=== PATIENT | male | born 1945 | race Caucasian/White ===

== ENCOUNTER 2023-10-10 13:20 | Observation (INO) ==
--- NOTE | 2023-10-10 14:47 | Emergency Department Note ---
History of Present Illness General Chief complaint: Rib Injury/Pain Stated complaint: BRUISED RIBS, FALL Time Seen by Provider: 10/10/23 14:00 History of Present Illness Maximum Pain Intensity: 6 78-year-old male who presents to the emergency department accompanied by for evaluation of left sided rib pain. Patient states last he fell against a chair while picking up and moving it when it blew off of his deck. He states he felt like he bruised his ribs and was taking it easy over the last week. He states that he returned to exercise yesterday and pain is now worse. It is worse with coughing, sneezing and twisting motion. He denies any fever/chills, nausea/vomiting, chest pain, shortness of breath, abdominal pain. He denies any other injury from his fall. Did not hit his head and there was no loss of consciousness. He is not on any blood thinners. He has been taking Tylenol for his pain. Patient states he does triathlon marathons and is very active usually. He notes history of high blood pressure, high cholesterol, kidney disease. Home Medications Medication Instructions Recorded Confirmed Type Beet Root 250 mg PO DAILY 10/10/23 10/10/23 History albuterol sulfate 90 mcg/actuation 2 puff inhalation Q6H PRN 10/10/23 10/10/23 History aerosol inhaler Shortness Of Breath Or Wheezing amlodipine 10 mg tablet 10 mg PO DAILY 10/10/23 10/10/23 History atorvastatin 10 mg tablet 10 mg PO DAILY 10/10/23 10/10/23 History biotin 5,000 mcg chewable tablet 5,000 mcg PO DAILY 10/10/23 10/10/23 History calcium carb-ergocalciferol (vit 1 tab PO DAILY 10/10/23 10/10/23 History D2) 600 mg calcium-200 unit tablet fosinopril 40 mg tablet 40 mg PO DAILY 10/10/23 10/10/23 History ujxnlqwl-elv-fhobvppaj-C-hyaluronic 1 tab PO DAILY 10/10/23 10/10/23 History 500 mg-300 mg-400 mg-10 mg tablet loratadine 10 mg tablet 10 mg PO DAILY 10/10/23 10/10/23 History multivitamin 1 tab PO DAILY 10/10/23 10/10/23 History omega 1-sxb-vwd-fish oil 1,000 mg 1 cap PO DAILY 10/10/23 10/10/23 History (120 mg-180 mg) capsule (Fish Oil) pantoprazole 40 mg tablet,delayed 40 mg PO DAILY PRN relux 10/10/23 10/10/23 History release spironolactone 25 mg tablet 25 mg PO DAILY 10/10/23 10/10/23 History zinc 50 mg tablet 50 mg PO DAILY 10/10/23 10/10/23 History Past Med/Surg History Medical History Pulmonary hypertension Asthma Hyponatremia Chronic diastolic CHF (congestive heart failure) HTN (hypertension) Surgical History Status post bilateral total hip replacement Social History Smoking Status: Former smoker Hx Alcohol Use: Yes Alcohol type: wine Hx Substance Use: No Preferred Language: Niuean Negotiator Required: No Beliefs That Will Affect Care: None and Shinto Shinto Beliefs: Caodaism; tomorrow Good Saturday, would not like meat. Current Living Situation: Spouse Feels Safe at Home: Yes Safety Concerns: Feels Safe At This Time Assistive Devices: Glasses Physical Exam Vital Signs Vital Signs - 24 hr 10/10/23 13:22 Temperature 36.6 C Temperature Source Temporal Artery Scan Pulse Rate 54 L Respiratory Rate 17 Respiratory Effort / Characteristics Non-Labored Spontaneous Respiratory Depth Normal Blood Pressure 167/81 H Blood Pressure Mean 109 Pulse Oximetry 97 Oxygen Delivery Method Room Air Sepsis Recent Fever Within 48 Hours No Sepsis New/Unexplained Change in Mental Status No Sepsis Action Taken by Nursing No Action Required Constitutional: alert and oriented x3. no acute distress. nontoxic HEENT: normocephalic, atraumatic. No facial trauma. No scalp tenderness or hematoma. Normal conjunctiva.PERRLA. EOM's grossly intact. Neck: neck is supple, nontender. Respiratory: lungs are clear to auscultation without wheezes, rhonchi, or rales bilaterally. equal chest rise. normal respiratory effort, no accessory muscle use. No reproducible tenderness with palpation over left ribs. No ecchymosis, erythema, abrasions. No flail chest Cardiovascular: normal heart sounds without murmur. regular rate and rhythm. GI: abdomen is soft, nontender. No palpable masses. No rebound tenderness or guarding. MSK: Moves all 4 extremities spontaneously Peripheral vascular: extremities warm and well perfused Neuro: without focal neuro deficits. Psych:appropriate mood and affect. Medical Decision Making Differential Diagnosis Rib contusion, fracture, pneumothorax, pleural effusion, pneumonia, PE, ACS as well as other pathologies Laboratory Data Attestation: I reviewed the patient's lab results. 10/10/23 15:10 10/10/23 15:10 Lab Results 10/10/23 Range/Units 15:10 WBC 9.11 (4.8-10.8) K/ul RBC 4.19 L (4.70-6.10) M/uL Hgb 13.7 L (14.0-18.0) g/dl Hct 38.0 L (42.0-52.0) % MCV 90.7 (80.0-100.0) fL MCH 32.7 (25.0-34.0) pg MCHC 36.1 H (32.0-36.0) g/dL RDW Std Deviation 41.3 (36.4-46.3) fL RDW Coeff of Lorrie 12.5 (11.5-14.5) % Plt Count 192 (130-400) K/uL MPV 9.4 (9.4-12.4) fL Immature Gran % (Auto) 0.2 % Neut % (Auto) 51.2 % Lymph % (Auto) 31.5 % [place] % (Auto) 13.7 % Eos % (Auto) 2.3 % Baso % (Auto) 1.1 % Neut # (Auto) 4.66 (1.40-6.50) K/uL Lymph # (Auto) 2.87 (1.20-3.40) K/uL [place] # (Auto) 1.25 H (0.11-0.59) K/uL Eos # (Auto) 0.21 (0.00-0.50) K/uL Baso # (Auto) 0.10 (0.00-0.20) K/uL Immature Gran # (Auto) 0.02 (0.01-0.20) K/uL PT 11.6 (9.0-12.0) Seconds INR 1.1 (0.9-1.1) APTT 29 (21-31) Seconds PTT Ratio 1.0 Sodium 126 L (136-145) mmol/L Potassium 4.1 (3.5-5.1) mmol/L Chloride 92 L (98-107) mmol/L Carbon Dioxide 26 (21-32) mmol/L Anion Gap 8 (3-11) BUN 33 H (6-23) mg/dl Creatinine 0.85 (0.6-1.4) mg/dl Est Cr Clr Drug Dosing 68.0 ml/min Est GFR ( Amer) 97.4 ml/min Est GFR (Non-Af Amer) 84.0 ml/min BUN/Creatinine Ratio 38.8 H (10-20) Glucose 82 (70-99(Fasting)) mg/dl Osmolality 275 L (280-300) mOsm/kg Calcium 9.5 (8.6-10.3) mg/dl Total Bilirubin 0.4 (0.2-1.0) mg/dl AST 51 H (13-39) U/L ALT 21 (7-52) U/L Alkaline Phosphatase 89 (34-104) U/L Troponin I High Sens 21.3 H (0-20) pg/ml Total Protein 7.0 (6.0-8.3) gm/dl Albumin 4.1 (3.4-5.0) gm/dl Globulin 2.9 (2.5-4.0) gm/dl Albumin/Globulin Ratio 1.4 (0.9-2) Imaging Data Radiologist's Impression: Chest CT 10/10/23 14:55 CT OF THE CHEST WITHOUT IV CONTRAST CLINICAL HISTORY: Left rib pain. Fall last week. COMPARISON STUDY: No previous studies for comparison. CT DOSE: 378.31 mGy.cm TECHNIQUE: Axial images of the chest were obtained without IV contrast. Images were reviewed in the axial, sagittal, and coronal planes. IV contrast was not administered for this examination. Automated exposure control was utilized for the study. A dose lowering technique was utilized adhering to the principles of ALARA. FINDINGS: The thoracic aorta is suboptimally assessed on this unenhanced exam but no mediastinal hematoma is noted. There is moderate cardiomegaly and coronary artery calcification. No pericardial effusion. No pneumothorax or pleural effusion is present. There is no pulmonary contusion. Groundglass and linear densities within the lungs represent atelectasis. There are acute nondisplaced fractures of the anterolateral left seventh and eighth ribs. No right-sided rib fractures are present. There are no thoracic spine fractures. IMPRESSION: Acute nondisplaced fractures of the anterolateral left seventh and eighth ribs. No pneumothorax. ACT 112: Negative or not required by law. Electronically signed by: Juan Malik M.D. 10/10/2023 3:47 PM MDM Narrative 78-year-old male who presents to the emergency department for evaluation of left-sided rib pain. Review of pertinent visits and past medical history performed. Vital signs in ED stable, afebrile. Patient was seen and evaluated as above. IV access was established and labs and imaging were obtained. CBC without leukocytosis or acute anemia. CMP demonstrates sodium of 126. No other electrolyte abnormalities. Renal function within normal limits. AST elevated at 51, ALT and alk phos within normal limits. High-sensitivity troponin x 1 elevated at 21. EKG per my interpretation demonstrates sinus bradycardia at a rate of 48 bpm with first-degree AV block. ME interval 226 MS. T wave inversions noted in inferior and anterior lateral leads. When compared to ECG 02/2023 there are more pronounced new T wave inversions in the inferior and lateral leads. 2-hour high-sensitivity troponin normal at 17. A chest CT was performed given mechanism of injury with mechanical fall last week. This demonstrates acute nondisplaced fractures of the left seventh and eighth ribs. No pneumothorax. On exam, patient is well-appearing in no acute distress. There is no significant reproducible tenderness along the left chest wall and ribs. No flail chest. He is breathing well on room air with normal saturations. Lungs are clear without adventitious sounds. Abdominal exam is benign. He declined need for pain or nausea medication while in the ED. On my reassessment, patient remained stable without new concerns. He is updated on all exam findings and test results. CT does demonstrate 2 left-sided rib fractures which is likely from his fall. Labs are significant for hyponatremia as well as elevated troponin x 1. Given these findings, I am recommending admission to the hospital for further evaluation and management. He was agreeable to plan. Case was discussed with hospitalist CLINICAL SUPPORT ASSOCIATE, Neva copeland, who graciously accepted patient to their service for continued management. He was admitted in stable condition. Impression & Plan Multiple rib fractures, Acute hyponatremia, Elevated troponin Discharge Plan Visit Data Chief Complaint: Rib Injury/Pain Stated Complaint: BRUISED RIBS, FALL ED Provider: Lilibeth Roberts ED Midlevel Provider: Sonam Gardner Discharge Problem: Multiple rib fractures, Acute hyponatremia, Elevated troponin Patient Disposition: Admitted As Inpatient Discharge Instructions Interventions: ED Discharge Assessment Last Done: 10/10/23 18:04
[2023-10-10 15:40] LABS: Basophils % (auto) 1.1 %; Eosinophils # (auto) 0.21 K/uL (0.00-0.50); Eosinophils % (auto) 2.3 %; Hemoglobin 13.7 g/dl (14.0-18.0); Immature Granulocytes # (auto) 0.02 K/uL (0.01-0.20); Immature Granulocytes % (auto) 0.2 %; Lymphocytes # (auto) 2.87 K/uL (1.20-3.40); Lymphocytes % (auto) 31.5 %; Mean Corpuscular Hemoglobin 32.7 pg (25.0-34.0); Mean Corpuscular Hgb Conc 36.1 g/dL (32.0-36.0); Mean Corpuscular Volume 90.7 fL (80.0-100.0); Mean Platelet Volume 9.4 fL (9.4-12.4); Monocytes # (auto) 1.25 K/uL (0.11-0.59); Monocytes % (auto) 13.7 %; Neutrophils # (auto) 4.66 K/uL (1.40-6.50); Neutrophils % (auto) 51.2 %; Platelet Count 192 K/uL (130-400); RDW Coefficient of Variation 12.5 % (11.5-14.5); RDW Standard Deviation 41.3 fL (36.4-46.3); Red Blood Count 4.19 M/uL (4.70-6.10); White Blood Count 9.11 K/ul (4.8-10.8)
--- NOTE | 2023-10-10 15:50 | CT Scan Report ---
CT OF THE CHEST WITHOUT IV CONTRAST CLINICAL HISTORY: Left rib pain. Fall last week. COMPARISON STUDY: No previous studies for comparison. CT DOSE: 378.31 mGy.cm TECHNIQUE: Axial images of the chest were obtained without IV contrast. Images were reviewed in the axial, sagittal, and coronal planes. IV contrast was not administered for this examination. Automat ed exposure control was utilized for the study. A dose lowering technique was utilized adhering to t he principles of ALARA. FINDINGS: The thoracic aorta is suboptimally assessed on this unenhanced exam but no mediastinal hem atoma is noted. There is moderate cardiomegaly and coronary artery calcification. No pericardial effu gloria. No pneumothorax or pleural effusion is present. There is no pulmonary contusion. Groundglass an d linear densities within the lungs represent atelectasis. There are acute nondisplaced fractures of the anterolateral left seventh and eighth ribs. No right-sided rib fractures are present. There are n o thoracic spine fractures. IMPRESSION: Acute nondisplaced fractures of the anterolateral left seventh and eighth ribs. No pneum othorax. ACT 112: Negative or not required by law. Electronically signed by: Juan Malik M.D. 10/10/2023 3:47 PM
[2023-10-10 15:57] LABS: Albumin Level 4.1 gm/dl (3.4-5.0); Bilirubin,Total 0.4 mg/dl (0.2-1.0); Calcium 9.5 mg/dl (8.6-10.3); Potassium 4.1 mmol/L (3.5-5.1)
[2023-10-10 16:00] LABS: INR 1.1 (0.9-1.1); Partial Thromboplastin Time 29 Seconds (21-31); Prothrombin Time 11.6 Seconds (9.0-12.0)
[2023-10-10 16:03] LABS: Albumin Globulin Ratio 1.4 (0.9-2); BUN Creatinine Ratio 38.8 (10-20); Est GFR (African American) 97.4 ml/min; Globulin 2.9 gm/dl (2.5-4.0)
[2023-10-10 16:06] LABS: Troponin I High Sensitivity 21.3 pg/ml (0-20)
--- NOTE | 2023-10-10 17:46 | History & Physical Report ---
Date of Service October 10, 2023 Assessment & Plan (1) Hyponatremia: Plan: Admit to [facility] with telemetry Patient presenting from home with reports of left-sided rib pain after a fall 1 week ago In the ED, labs incidentally showed Na+ 126. History of chronic hyponatremia typically managed with diuretics and fluid restriction. Na+ 134 on outpatient labs 07/2023 Worsening of hyponatremia likely secondary to indiscretions of fluid intake Lasix 20 mg IV x 1, 1.2 L fluid restriction Serial BMP Resume p.o. Lasix and spironolactone tomorrow If not improving, consider nephrology consult (2) Rib fractures: Plan: CT chest shows Acute nondisplaced fractures of the anterolateral left seventh and eighth ribs Pain currently controlled PRN Tylenol (3) Acute electrocardiogram changes: Plan: EKG shows more pronounced and new T wave changes in the inferior and lateral leads No reports of chest pain HS troponin 21.3 Continue to trend troponin, resting echo (4) Pulmonary hypertension: (5) Chronic diastolic CHF (congestive heart failure): Plan: Appears to be mildly volume overloaded given hyponatremia and lower extremity edema Diuretics as above (6) HTN (hypertension): Plan: Chronic, stable Continue amlodipine, fosinopril, diuretics (7) Asthma: Plan: Appears stable, no signs of acute exacerbation Does not use routine inhalers DVT PROPHYLAXIS SQ Lovenox Patient seen in collaboration with Dr. Nash. I spent a total of 75 minutes coordinating, documenting, and providing care for this patient excluding time spent in the performance of separately billed services. This included personally reviewing all current laboratories and imaging studies, medication reconciliation, outpatient chart review, and discussion with specialists. History of Present Illness Chief Complaint: Left rib pain Primary Care Provider: Ismael Villavicencio MD 78-year-old male with PMH chronic hyponatremia, HTN, chronic diastolic CHF, and other problems listed below who presents to the ED for evaluation of left-sided rib pain. History is obtained from the patient and review of outpatient PCP, nephrology, cardiology records. Patient reports he sustained a fall 1 week ago when he was moving a chair up onto his patio. Patient reports he slipped and fell onto his left side on the stairs. Reports that he was feeling improved however after exercising this morning, he noted the left-sided rib pain was worse with twisting. He then presented to the ED for further evaluation. Patient has history of chronic hyponatremia, typically managed with diuretics and fluid restriction. Nephrology is recommending a 32 ounce daily fluid restriction, patient does not seem to be monitoring fluid intake closely. He d enies chest pain and shortness of breath. No abdominal pain, nausea, vomiting, diarrhea. Denies any other recent illnesses, fevers, chills. No lightheadedness, dizziness, diaphoresis, syncopal events. Denies urinary symptoms. In the ED, CT chest shows Acute nondisplaced fractures of the anterolateral left seventh and eighth ribs. Labs show Na+ 126. Home Medications Medication Instructions Recorded Confirmed Type Beet Root 250 mg PO DAILY 10/10/23 10/10/23 History albuterol sulfate 90 mcg/actuation 2 puff inhalation Q6H PRN 10/10/23 10/10/23 History aerosol inhaler Shortness Of Breath Or Wheezing amlodipine 10 mg tablet 10 mg PO DAILY 10/10/23 10/10/23 History atorvastatin 10 mg tablet 10 mg PO DAILY 10/10/23 10/10/23 History biotin 5,000 mcg chewable tablet 5,000 mcg PO DAILY 10/10/23 10/10/23 History calcium carb-ergocalciferol (vit 1 tab PO DAILY 10/10/23 10/10/23 History D2) 600 mg calcium-200 unit tablet fosinopril 40 mg tablet 40 mg PO DAILY 10/10/23 10/10/23 History huhvekez-eut-eaejucypg-C-hyaluronic 1 tab PO DAILY 10/10/23 10/10/23 History 500 mg-300 mg-400 mg-10 mg tablet loratadine 10 mg tablet 10 mg PO DAILY 10/10/23 10/10/23 History multivitamin 1 tab PO DAILY 10/10/23 10/10/23 History omega 5-vkp-sju-fish oil 1,000 mg 1 cap PO DAILY 10/10/23 10/10/23 History (120 mg-180 mg) capsule (Fish Oil) pantoprazole 40 mg tablet,delayed 40 mg PO DAILY PRN relux 10/10/23 10/10/23 History release spironolactone 25 mg tablet 25 mg PO DAILY 10/10/23 10/10/23 History zinc 50 mg tablet 50 mg PO DAILY 10/10/23 10/10/23 History Past Med/Surg History Medical History Pulmonary hypertension Asthma Hyponatremia Chronic diastolic CHF (congestive heart failure) HTN (hypertension) Surgical History Status post bilateral total hip replacement Social History Smoking Status: Former smoker Feels Safe at Home: Yes Physical Exam Physical Exam: please refer to Dr. Nash's addendum for physical exam Results & Data Results & Data Vital Signs (Past 12 Hours) Vital Signs Temp Pulse Resp BP Pulse Ox O2 Del Method 10/10/23 17:21 50 L 10/10/23 17:20 47 L 23 152/79 H 10/10/23 13:22 36.6 C 54 L 17 167/81 H 97 Room Air Laboratory Results Short CBC 10/10/23 Range/Units 15:10 WBC 9.11 (4.8-10.8) K/ul Hgb 13.7 L (14.0-18.0) g/dl Hct 38.0 L (42.0-52.0) % Plt Count 192 (130-400) K/uL BMP 10/10/23 15:10 Sodium 126 L Potassium 4.1 Chloride 92 L Carbon Dioxide 26 BUN 33 H Creatinine 0.85 Glucose 82 Calcium 9.5 Liver Function 10/10/23 Range/Units 15:10 Total Bilirubin 0.4 (0.2-1.0) mg/dl AST 51 H (13-39) U/L ALT 21 (7-52) U/L Alkaline Phosphatase 89 (34-104) U/L Albumin 4.1 (3.4-5.0) gm/dl Diagnostic Findings Chest CT 10/10/23 14:55 CT OF THE CHEST WITHOUT IV CONTRAST CLINICAL HISTORY: Left rib pain. Fall last week. COMPARISON STUDY: No previous studies for comparison. CT DOSE: 378.31 mGy.cm TECHNIQUE: Axial images of the chest were obtained without IV contrast. Images were reviewed in the axial, sagittal, and coronal planes. IV contrast was not administered for this examination. Automated exposure control was utilized for the study. A dose lowering technique was utilized adhering to the principles of ALARA. FINDINGS: The thoracic aorta is suboptimally assessed on this unenhanced exam but no mediastinal hematoma is noted. There is moderate cardiomegaly and coronary artery calcification. No pericardial effusion. No pneumothorax or pleural effusion is present. There is no pulmonary contusion. Groundglass and linear densities within the lungs represent atelectasis. There are acute nondisplaced fractures of the anterolateral left seventh and eighth ribs. No right-sided rib fractures are present. There are no thoracic spine fractures. IMPRESSION: Acute nondisplaced fractures of the anterolateral left seventh and eighth ribs. No pneumothorax. ACT 112: Negative or not required by law. Electronically signed by: Juan Malik M.D. 10/10/2023 3:47 PM Code Status & VTE Plan VTE Prophylaxis Plan VTE Prophylaxis will be ordered: Yes Supervising Physician Co-Signing Physician Notes Patient is a 78 yr male with history of diastolic heart failure on chronic diuretics, chronic hyponatremia and other medical problems presents with history of left-sided rib pain after exercising this morning. Patient admits to have a fall 1 week ago which was mechanical denies any head trauma and loss of consciousness at the time. Patient was incidentally noted to have low sodium while in ED and so was plan for being admitted. Patient denies any significant pain currently. Also denies any shortness of breath, dizziness, nausea, vomiting, abdominal pain, diarrhea. Please review HPI for complete details of presentation. I personally reviewed blood work and imaging studies. Physical Exam: Vitals signs as noted above General Appearance:Moderately built and nourished, no apparent distress Head: normocephalic, Atraumatic Eyes: normal inspection, EOMI Neck: supple, Trachea midline Respiratory/Chest: Normal breath sounds, CTA, No accessory muscle use Cardiovascular: S1, S2, bradycardia, No murmur Abdomen/GI:Soft, Non tender, Bowel sounds present Extremities/Musculoskeletal:normal inspection, 2-3+ edema Neurologic/Psych:AAOX3, grossly no focal neurological deficits Skin: normal color, warm Acute on chronic hyponatremia Likely multifactorial secondary to increased fluid intake/volume overload and diuretics Will place him on fluid restriction. Will give a dose of IV Lasix. Monitor sodium levels closely. Check urine and serum osmolality, urine sodium Will consult nephrology if no improvement Abnormal EKG Mild troponin elevation Less likely ACS Will trend troponins and check resting echo Consider cardiology evaluation if needed Traumatic left rib fractures Pain control Incentive spirometry I personally interviewed and examined at bedside. Patient's care is coordinated with Neva Patel COMMERCIAL TECHNICIAN. I have reviewed the advanced practitioner's documentation, and I agree with plan of care. Please refer to the documentation above for details of patient's presentation and for discussion of other issues. I spent a total of35 minutes coordinating, documenting, and providing care for this patient excluding time spent in the performance of separately billed services.
[2023-10-10] MEDS ORDERED: ACETAMINOPHEN 325 MG TAB PO PRN (18:33)
[2023-10-10] MEDS: Patient's ALLERGY Info needs ENTERED STA (20:13)
[2023-10-10 23:17] LABS: Calcium 8.8 mg/dl (8.6-10.3); Potassium 4.1 mmol/L (3.5-5.1)
[2023-10-10 23:23] LABS: Creatinine Clr Calc Pharmacy 52.6 ml/min; Est GFR (African American) 75.5 ml/min; Est GFR (Non-African American) 65.1 ml/min
[2023-10-10 23:25] LABS: Troponin I High Sensitivity 15.4 pg/ml (0-20)
[2023-10-10] MEDS: ENOXAPARIN INJ 40 MG/0.4 ML SYR SQ SCH (23:30)
[2023-10-11] MEDS: FUROSEMIDE INJ 20 MG/2 ML VIAL IV ONE ×2 (01:15→06:30)
--- OUTSIDE RECORDS SUMMARY | 2023-10-11 01:31 | External Medical Summary | Summary of Care ---
Author Name Unknown Organization [facility] Address [address] [place] [address] Phone [phone] Care Team Providers Care Bottle Inspector Name Role Phone Ismael Villavicencio MD Primary Care Provider + Encounter Details Date Type Department Care Team (Late st Contact Info) Description 06/28/2023 Orders Only General Internal Medicine [facility] [place] [address] [facility] [place] [address] Ismael Villavicencio MD [address] [facility] [place] [id number] Allergies Active Allergy Reactions Criticality Noted Date Comments Baclofen Other (Please comment) 03/16/2021 Passed out Phenytoin Other (Please comment) 03/16/2021 Passed out Oxycodone Itching 03/16/2021 Percocet - itching documented as of this encounter (statuses as of 06/28/2023) Medications Medication Sig Dispensed Refills Start Date End Date Status Multivitamin Adults 50+ Oral Tablet Take by mouth. 0 Activ e Calcium Carbonate-Vitamin D 600-200 MG-UNIT Oral Tablet Take 1 Tablet by mouth in the morning. 0 Active Zinc 50 MG Oral Capsule Take 1 Capsule by mouth in the morning. 0 Active Vitamin C 1000 MG Oral Tablet Take 1 Tablet by mouth in the morning. 0 Active Fish Oil 1000 MG Oral Capsule Take 1 Capsule by mouth in the morning. 0 Active Biotin 5000 MCG Oral Capsule Take 1 Capsule by mouth in the morning. 0 Active Glucosamine Chondr 1500 Complx Oral Capsule Take 2 Capsules by mouth in the morning. 0 Active Ventolin HFA 108 (90 Base) MCG/ACT Inhalation Aerosol SolutionIndications: Mild intermittent asthma without complication Inhale 2 Puffs by mouth every 4 hours as needed for Cough, Shortness of Breath or Wheezing. 18 g 3 06/01/2021 Active NATURAL SUPPLEMENT Take by mouth daily . Beet Root 0 Active Pantoprazole Sodium 40 MG Oral Tablet Delayed Release (Protonix) Take 1 Tablet by mouth as needed. 0 Active Zoster Vac Recomb Adjuvanted 50 MCG/0.5ML Intramuscular Suspension Reconstituted (Shingrix)Indication s:Need for shingles vaccine Inject 0.5 mL into a large muscle now and repeat dose in 60 to 180 days 1 Each 1 10/16/2022 Active Additional Information Patient not taking.Reported on 06/07/2023 Furosemide 40 MG Oral Tablet (Lasix) TAKE 1 TABLET BY MOUTH EVERY DAY 90 Tablet 3 12/11/2022 Active Atorvastatin Calcium 10 MG Oral Tablet (Lipitor) TAKE 1 TABLET BY MOUTH EVERY DAY IN THE MORNING 90 Tablet 3 03/10/2023 Active Loratadine 10 MG Oral Tablet (Claritin)Indication s:Chronic rhinitis Take 1 Tablet by mouth in the morning. 90 Tablet 3 03/13/2023 Active amLODIPine Besylate 10 MG Oral Tablet (Norvasc)Indications :Hypertension goal BP (blood pressure) < 130/80 Take 0.5 Tablets by mouth every evening. 45 Tablet 3 06/04/2023 Active Fosinopril Sodium 40 MG Oral Tablet (Monopril)Indication s:Hypertension goal BP (blood pressure) < 130/80 TAKE 1 TABLET BY MOUTH EVERY DAY IN THE MORNING 90 Tablet 3 06/07/2023 Active Cephalexin 500 MG Oral Capsule (Keflex) Take 1 Capsule by mouth in the morning and 1 Capsule at noon and 1 Capsule before bedtime. 0 06/02/2023 Active Doxycycline Hyclate 100 MG Oral Tablet Take 1 Tablet by mouth in the morning and 1 Tablet before bedtime. 0 06/02/2023 Active Spironolactone 25 MG Oral Tablet (Aldactone)Indicatio ns:Hypertension goal BP (blood pressure) < 130/80 Take 1 Tablet by mouth in the morning. 90 Tablet 3 06/28/2023 Active Hospital, Clinic, or Other Facility Administered Medication Ordered Dose Route Frequency Start Date End Date Status Albuterol Sulfate (Proventil) (2.5 MG/3ML) 0.083% inhalation solution 2.5 mgIndications:SOB (shortness of breath),Mild persistent asthma without complication 2.5 mg NEBULIZER PRN 10/17/2022 10/17/2023 Active Albuterol Sulfate (Proventil) (5 MG/ML) 0.5% *conc* inhalation solution 2.5 mgIndications:SOB (shortness of breath),Mild persistent asthma without complication 2.5 mg NEBULIZER PRN 10/17/2022 10/17/2023 Active documented as of this encounter (statuses as of 06/28/2023) Active Problems Problem Noted Date Diagnosed Date 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 Mild aortic regurgitation 10/15/2021 Mild persistent asthma without complication 09/12 Pulmonary hypertension 06/01/2021 Chronic diastolic congestive heart failure 04/03 Mild mitral regurgitation 04/03/2021 Mixed hyperlipidemia 03/17/2021 Chronic edema 03/17/2021 Hypertension goal BP (blood pressure) < 130/80 0 03/16/2021 Chronic hyponatremia 03/16/2021 Osteoarthritis 03/16/2021 documented as of this encounter (statuses as of 06/28/2023) Resolved Problems Problem Noted Date Diagnosed Date Resolved Date Mild intermittent asthma with exacerbation 09/22/2021 09/22/2021 High pulmonary arterial pressure 04/03/2021 12/01/2021 Hyperlipidemia 03/16/2021 03/17/2021 documented as of this encounter (statuses as of 06/28/2023) Immunizations Name Administration Dates Next Due COVID-19 mRNA, LNP-s, No Pre serve, 2-Dose Series (Moderna) 03/10/2021,09/18/2020,08/21/2020 Covid-19, Mrna, Lnp-s, Pf, B ivalent, 50 Mcg, IM, 12 yrs and above (Moderna) 04/17/2022 Pneumococcal Conjugate Vacc, 13 Valent (Prevnar) 08/28/2018 Pneumococcal Conjugate Vacci ne, 20-valent ([id number]) 10/16/2022 Seasonal Influenza, Quadriva lent Hd (Fluzone Hd) 03/15/2023 Seasonal Influenza, Trivalen t, Adjuvanted, 65+ yrs 03/21/2021,06/19/2018 TDAP (age 10 and older)(Boostrix) 04/30/2023 documented as of this encounter Social History Tobacco Use Types Packs/Day Years Used Date Smoking Tobacco: Former Cigarettes 0.8 27 Q uit: 07/15/1993 Smokeless Tobacco: Never Alcohol Use Standard Drinks/Week Comments Yes 2 (1 standard drink = 0.6 oz pur e alcohol) socially AUDIT-C Answer Date Recorded Q1: How often do you have a drink containing alc ohol? 2-3 times a week 03/17/2021 Q2: How many drinks containi ng alcohol do you have on a typical day when you are drinking? 1 or 2 03/17/2021 Q3: How often do you have si x or more drinks on one occasion? Never 03/17/2021 PHQ-2 Answer Date Recorded PHQ Adult Total Score 0 04/30/2023 Sex and Gender Information Value Date Recorded Sex Assigned at Male 03/17/2021 9:24 AM EDT Gender Identity Male 03/17/2021 9:24 AM EDT Sexual Orientation Straight 03/17/2021 9: 24 AM EDT Job Start Date Occupation Industry Not on file Not on file Not on file documented as of this encounter Plan of Treatment Upcoming Encounters Date Type Department Care Team (Late st Contact Info) Description 08/19/2023 3:00 PM EST Office Visit Pulmonary Medicine, [facility] [address] [facility] [place] [address] Sumanth Ye DO [address] [place] [address] 11/07/2023 11:30 AM EDT Office Visit Nephrology, [facility] [address] [place] [address] Joana Gaspar PA-C [address] [place] [address] 11/07/2023 2:40 PM EDT Office Visit General Internal Medicine [facility] [place] [address] [place] [address] Ismael Villavicencio MD [address] [facility] [place] [address] 12/10/2023 10:15 AM EDT Office Visit Dermatology [facility] [address] [place] [address] Ismael Nolan MD [address] [place] [address] 12/30/2023 9:20 AM EDT Office Visit Neurology [facility] [address] [facility] [place] [address] Wes Uribe MD [address] [place] [address] 01/14/2024 2:30 PM EDT Cardiac Studies Cardiac Studies, [facility] [address] [place] [address] Scheduled Procedures Name Priority Associated Diagnoses Date/Ti me COLONOSCOPY FLEXIBLE PROXIMAL DIAGNOSTIC Recall History of colon polyps Health Maintenance Due Date Last Done Comments Zoster Vaccines (1 of 2) 1996 COVID-19 Vaccine (2022- season) 2023 04/17/2022, 03/10/2021, 09/18/2020, Additional history exists COLONOSCOPY-ANNUAL AGES 18-100 12/26/2023 12/25/2022, 12/25/2022, 09/04/2022, Additional history exists Depression Screening 04/30/2024 04/30/2023 GFR 06/07/2024 06/07/2023, 05/15, 04/16/2023, Additional history exists Albumin/Creatinine Ratio 04/23/2025 04/23/2022, 0908/2020 DTaP,Tdap,and Td Vaccines (3 - Td or Tdap) 04/30/2033 04/30/2023, 03/08/2018 Pneumococcal Vaccine: 65+ Years Completed 10/16/2022, 08/28/2018 Influenza Vaccine (FLU shot) Completed 07/2022, 03/21/2021, 06/19/2018 GARDASIL-HPV IMMUNIZATION SERIES Aged Out No longer eligible based on patient's age to complete this topic Hepatitis B Aged Out No longer eligi ble based on patient's age to complete this topic MENINGOCOCCAL (MENACTRA/MENVEO) Aged Out No longer eligible based on patient's age to complete this topic documented as of this encounter Medical Devices Not on filedocumented as of this encounter Procedures Procedure Name Priority Date/Time Associated Diagnosis Comments CHEMISTRY-OUTSIDE Routine 06/02/2023 documented in this encounter Results * (ABNORMAL) CHEMISTRY-OUTSIDE (06/02/2023) Not all results display below - see scan for full detail OUTSIDE LAB (SEE SCANNED REPORT) Comment:SCAN INCL: ED LABS: CBCD,BABESIA SM, CMP,LYME, ANAPL PHAGO CREATININE-OUTSID E LAB 1.00 0.6 - 1.4 MG/DL OUTSIDE LAB (SEE SCANNED REPORT) EGFR-OUTSIDE LAB 72.3 OUT SIDE LAB (SEE SCANNED REPORT) POTASSIUM-OUTSIDE LAB 4.7 3.5 - 5.1 MMOL/L OUTSIDE LAB (SEE SCANNED REPORT) GLUCOSE-OUTSIDE LAB 105(A) 70 - 99 MG/DL OUTSIDE LAB (SEE SCANNED REPORT) HOURS FASTING OUTSID E LAB (SEE SCANNED REPORT) TRIGLYCERIDES-OUT SIDE LAB OUTSIDE LAB (SEE SCANNED REPORT) CHOLESTEROL-OUTSI DE LAB OUTSIDE LAB (SEE SCANNED REPORT) HDL-OUTSIDE LAB OUTS MEGAN LAB (SEE SCANNED REPORT) CHOL/HDL RATIO-OUTSIDE LAB OUTSIDE LA B (SEE SCANNED REPORT) LDL (CALCULATED)-OUTS MEGAN LAB OUTSIDE LAB (SEE SCANNED REPORT) LDL (DIRECT MEASURE)-OUTSIDE LAB OUTSIDE LAB (SEE SCANNED REPORT) HEMOGLOBIN, K2S-[id number] LAB OUTSIDE LAB (SEE SCANNED REPORT) PHOSPHORUS-OUTSID E LAB OUTSIDE LAB (SEE SCANNED REPORT) PTH-OUTSIDE LAB OUTS MEGAN LAB (SEE SCANNED REPORT) MICROALBUMIN RATIO-OUTSIDE LAB OUTSIDE LA B (SEE SCANNED REPORT) PROTEIN, UA-OUTSIDE LAB OUTSIDE LAB (SEE SCANNED REPORT) HEMOGLOBIN-OUTSID E LAB 14.0 14.0 - 18.0 G/DL OUTSIDE LAB (SEE SCANNED REPORT) 06/02/2023 History Per Patient LABORATORY OUTSIDE LAB (SEE SCANNED REPORT) documented in this encounter Care Teams Bottle Inspector Relationship Specialty Start Date End Date Ismael Villavicencio MD [address] [facility], [place] [phone] PCP - General Internal Medicine 03/17/21 documented as of this encounter
--- OUTSIDE RECORDS SUMMARY | 2023-10-11 01:31 | External Medical Summary | Summary of Care ---
Author Name Unknown Organization [facility] Address [address] [place] [address] Phone [phone] Care Team Providers Care Local Company Hazmat Driver Name Role Phone Ismael Villavicencio MD Primary Care Provider + Encounter Details Date Type Department Care Team (Late st Contact Info) Description 06/02/2023 Result Scan Unspecified Department <No scans attached> Allergies Active Allergy Reactions Criticality Noted Date [...] the morning. 90 Tablet 3 03/13/2023 Active Hospital, Clinic, or Other Facility Administered [...] (Prevnar) 08/28/2018 Pneumococcal Conjugate Vacci ne, 20-valent ([id number]) 10/16/2022 Seasonal Influenza, Quadriva lent Hd (Fluzone [...] 3:00 PM EST Office Visit Pulmonary Medicine, [facility] [address] [place] [address] Sumanth Ye DO [address] [place] [address] 11/07/2023 11:30 AM EDT Office Visit Nephrology, [facility] [address] [facility] [place] [address] ZemaitisJoana PA-C [address] [facility] [place] [address] 11/07/2023 2:40 PM EDT Office Visit General Internal Medicine [facility] [address] [facility] [place] [address] Ismael Villavicencio MD 200 [place] [address] 12/10/2023 10:15 AM EDT Office Visit Dermatology [facility] [address] [facility] [place] [address] Ismael Nolan MD [address] [place] [address] 12/30/2023 9:20 AM EDT Office Visit Neurology [facility] [address] [facility] [place] [address] Wes Uribe MD [address], [place] [id number] 01/14/2024 2:30 PM EDT Cardiac Studies Cardiac Studies, [facility] [address] [facility] [place] [id number] Scheduled Procedures Name Priority Associated Diagnoses Date/Ti me COLONOSCOPY FLEXIBLE PROXIMAL DIAGNOSTIC Recall History of colon polyps Health Maintenance Due Date Last Done Comments Zoster Vaccines (1 of 2) 1996 COVID-19 Vaccine ( season) 2023 04/17/2022, 03/10/2021, 09/18/2020, Additional history [...] Procedure Name Priority Date/Time Associated Diagnosis Comments RADIOLOGY SCANNED RESULT 06/02/2023 documented in this encounter Results * RADIOLOGY SCANNED RESULT (06/02/2023) 06/02/2023 No Physician Data Unknown DIAGNOSTIC RAD IOLOGY SERVICES documented in this encounter Care Teams Local Company Hazmat Driver Relationship Specialty Start Date End Date Ismael Villavicencio MD [address] [facility] [place] [address] PCP - General Internal Medicine 03/17/21 documented as of this encounter
--- OUTSIDE RECORDS SUMMARY | 2023-10-11 01:31 | External Medical Summary | Summary of Care ---
Author Name Unknown Organization [facility] Address [address] [place] [address] Phone [phone] Care Team Providers Care Electromechanical Technologist Name Role Phone Ismael Villavicencio MD Primary Care Provider + Reason for Visit * Reason Comments Follow Up * Evaluate & Treat - Unlimited Visits (Within 30 days (routine)) - Authorized Specialty Diagnoses / Procedures Referred By Contac t Referred To Contact Pulmonary Diseases / Pulmonary Diagnoses Mild persistent asthma without complication Pulmonary hypertension (HCC) Ismael Villavicencio MD [address] [place] [address] Referral ID Status Reason Start Date Expiration Date Visits Requested Visits Authorized [id number] Authorized Specialty Services Required 3 [phone] Encounter Details Date Type Department Care Team (Late st Contact Info) Description 09/02/2023 12:00 PM EST Office Visit Pulmonary Medicine, [address] [address] Sumanth Ye DO [address] [place] [address] Intermittent asthma with reliever use up to twice per week without complication*; Tobacco abuse, in remission; Secondhand smoke exposure; Diastolic dysfunction; Suspected pulmonary hypertension Allergies Active Allergy Reactions Criticality Noted Date Comments Baclofen Other (Please comment) 03/16/2021 Passed out Phenytoin Other (Please comment) 03/16/2021 Passed out Oxycodone Itching 03/16/2021 Percocet - itching documented as of this encounter (statuses as of 09/02/2023) Medications Medication Sig Dispensed Refills Start Date [...] as of this encounter (statuses as of 09/02/2023) Active Problems Problem Noted Date Diagnosed Date 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 Mild aortic regurgitation 10/15/2021 Mild persistent asthma without complication 09/12 Pulmonary hypertension 06/01/2021 Chronic diastolic congestive heart failure 04/03 Mild mitral regurgitation 04/03/2021 Mixed hyperlipidemia 03/17/2021 Chronic edema 03/17/2021 Hypertension goal BP (blood pressure) < 130/80 0 03/16/2021 Chronic hyponatremia 03/16/2021 Osteoarthritis 03/16/2021 documented as of this encounter (statuses as of 09/02/2023) Resolved Problems Problem Noted Date Diagnosed Date Resolved Date Mild intermittent asthma with exacerbation 09/22/2021 09/22/2021 High pulmonary arterial pressure 04/03/2021 12/01/2021 Hyperlipidemia 03/16/2021 03/17/2021 documented as of this encounter (statuses as of 09/02/2023) Immunizations Name Administration Dates Next Due COVID-19 mRNA, LNP-s, No Pre serve, 2-Dose Series (Moderna) 03/10/2021,09/18/2020,08/21/2020 Covid-19, Mrna, Lnp-s, Pf, B ivalent, 50 Mcg, IM, 12 yrs and above (Moderna) 04/17/2022 Pneumococcal Conjugate Vacc, 13 Valent (Prevnar) 08/28/2018 Pneumococcal Conjugate Vacci ne, 20-valent ([id number]) 10/16/2022 Seasonal Influenza, Quadriva lent Hd (Fluzone Hd) 03/15/2023 Seasonal Influenza, Trivalen t, Adjuvanted, 65+ yrs 03/21/2021,06/19/2018 TDAP (age 10 and older)(Boostrix) 04/30/2023, documented as of this encounter Social History Tobacco Use Types Packs/Day Years Used Date Smoking Tobacco: Former Cigarettes 0.8 27 0 07/15/1966 - 07/15/1993 Smokeless Tobacco: Never Tobacco Cessation:Counseling Given: Not Answered Alcohol Use Standard Drinks/Week Comments Yes 2 [...] on file documented as of this encounter Last Filed Vital Signs Vital Sign Reading Time Taken Comments Blood Pressure 128/64 09/02/2023 11:58 AM EST Pulse 62 09/02/2023 11:58 AM EST Temperature 35.9 C (96.7 F) 09/02/2023 11:[address] Respiratory Rate 18 09/02/2023 11:58 AM EST Oxygen Saturation 96% 09/02/2023 11:59 AM EST ra, amb Inhaled Oxygen Concentration - - Weight 72.6 kg (160 lb) 09/02/2023 11:58 AM EST Height 165.1 cm (5' 5") 09/02/2023 11:58 AM EST Body Mass Index 26.63 09/02/2023 11:58 AM EST documented in this encounter Progress Notes * Ephraim SumanthDO - 09/02/2023 12:00 PM EST PULMONARY CLINIC FOLLOW UP NOTE REFERRING PROVIDER: Ismael Villavicencio MD [facility] REPAIR SERVICER: Nikunj Palacios MD -- last seen 12/01/2021 REASON FOR FOLLOW UP: Mild persistent asthma without complication [J45.30] Pulmonary hypertension (HCC) [I27.20] BACKGROUND: 78 year old with past medical history significant for prior tobacco smoking (smoked 3/4 pack cigarettes per day X 27 years. Quit 1993), pulmonary hypertension suspected per echocardiogram, diastolic dysfunction and valvular heart disease, hyperlipidemia. HPI / ROS: Feeling "Good. Just a regular check up" He notes no recent respiratory issues No shortness of breath at rest or conversational dyspnea No orthopnea Trivial dyspnea on exertion He remains "Very very active" He runs "Half marathons, triathlons" He has been practicing swimming "I'm up to 30 laps at one time. 35 laps is a mile" He notes he swims 3 times a week & also does cycling classes No cough or sputum No hemoptysis No wheeze or chest tightness No chest pain or palpitations No edema Spironolactone Furosemide No syncope or presyncopal symptoms no fevers, chills, sweats Appetite & weight "No" changes Supplemental oxygen: No PAP: No No environmental allergies Loratadine No GERD symptoms Pantoprazole Illegal drug/diet pill/stimulant use: No Skin rashes, painful/red/swollen joints No No dry eyes/dry mouth Inhaled medications: PRN Ventolin HFA. Using Not using" Past Medical History: Diagnosis Date Chronic edema 03/17/2021 Chronic hyponatremia 03/16/2021 Diastolic dysfunction 04/03/2021 Hypertension goal BP (blood pressure) < 130/80 03/16/2021 Lung nodule Mild aortic regurgitation 10/15/2021 Mild intermittent asthma with exacerbation 09/22/2021 Mild mitral regurgitation 04/03/2021 Mild persistent asthma without complication 09/22/2021 Mixed hyperlipidemia 03/17/2021 Osteoarthritis 03/16/2021 Review of patient's allergies indicates: Allergen Reactions Baclofen Other (Please comment) Passed out Dilantin [Phenytoin] Other (Please comment) Passed out Oxycodone Itching Percocet - itching Current Outpatient Medications Medication Sig Dispense Refill Multivitamin Adults 50+ Oral Tablet Take by mouth. Calcium Carbonate-Vitamin D 600-200 MG-UNIT Oral Tablet Take 1 Tablet by mouth in the morning. Zinc 50 MG Oral Capsule Take 1 Capsule by mouth in the morning. Vitamin C 1000 MG Oral Tablet Take 1 Tablet by mouth in the morning. Fish Oil 1000 MG Oral Capsule Take 1 Capsule by mouth in the morning. Biotin 5000 MCG Oral Capsule Take 1 Capsule by mouth in the morning. Glucosamine Chondr 1500 Complx Oral Capsule Take 2 Capsules by mouth in the morning. Ventolin HFA 108 (90 Base) MCG/ACT Inhalation Aerosol Solution Inhale 2 Puffs by mouth every 4 hours as needed for Cough, Shortness of Breath or Wheezing. 18 g 3 NATURAL SUPPLEMENT Take by mouth daily . Beet Root Pantoprazole Sodium 40 MG Oral Tablet Delayed Release (Protonix) Take 1 Tablet by mouth as needed. Zoster Vac Recomb Adjuvanted 50 MCG/0.5ML Intramuscular Suspension Reconstituted (Shingrix) Inject 0.5 mL into a large muscle now and repeat dose in 60 to 180 days (Patient not taking: Reported on 06/07/2023) 1 Each 1 Furosemide 40 MG Oral Tablet (Lasix) TAKE 1 TABLET BY MOUTH EVERY DAY 90 Tablet 3 Atorvastatin Calcium 10 MG Oral Tablet (Lipitor) TAKE 1 TABLET BY MOUTH EVERY DAY IN THE MORNING 90Tablet 3 Loratadine 10 MG Oral Tablet (Claritin) Take 1 Tablet by mouth in the morning. 90 Tablet 3 amLODIPine Besylate 10 MG Oral Tablet (Norvasc) Take 0.5 Tablets by mouth every evening. 45 Tablet 3 Fosinopril Sodium 40 MG Oral Tablet (Monopril) TAKE 1 TABLET BY MOUTH EVERY DAY IN THE MORNING 90 Tablet 3 Cephalexin 500 MG Oral Capsule (Keflex) Take 1 Capsule by mouth in the morning and 1 Capsule at noon and 1 Capsule before bedtime. Doxycycline Hyclate 100 MG Oral Tablet Take 1 Tablet by mouth in the morning and 1 Tablet before bedtime. Spironolactone 25 MG Oral Tablet (Aldactone) Take 1 Tablet by mouth in the morning. 90 Tablet 3 Current Facility-Administered Medications Medication Dose Route Frequency Provider Last Rate Last Admin Albuterol Sulfate (Proventil) (2.5 MG/3ML) 0.083% inhalation solution 2.5 mg 2.5 mg Nebulizer PRN ShannonEsteban PA-C 2.5 mg at 10/30/22 1100 Albuterol Sulfate (Proventil) (5 MG/ML) 0.5% *conc* inhalation solution 2.5 mg 2.5 mg Nebulizer Esteban Munroe PA-C SOCIAL HISTORY Pulmonary History: Prior smoker: 3/4 pack cigarettes per day X 27 years. 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 No birds Mold: No Humidifier: No PHYSICAL EXAM: BP 128/64 | Pulse 62 | Temp 35.9 C (96.7 F) (Tympanic) | Resp 18 | Ht 1.651 m (5' 5") | Wt 72.6kg (160 lb) | SpO2 96% Comment: karthik lakhani | BMI 26.63 kg/m | BSA 1.82 m General: Alert, no acute distress, appears comfortable & speaks in full sentences while on roomair. No cough during interview. Eyes: EOMI, Conjunctiva are pink and non-injected, sclera clear Ears: External ears normal in shape and color Nose: No mucosal erythema, no mucosal edema, no purulent discharge Oropharynx: No exudate, no erythema, lips, buccal mucosa, and tongue normal, MMM. Neck: No bruits. No stridor. Lymph: No palpable cervical or supraclavicular lymphadenopathy Heart: regular without extra sounds Lungs: Clear to auscultation with preserved air movement bilaterally Pulses: palpable in Bilateral lower extremmities Abdomen: Soft, non-tender and normal bowel sounds Extremities: No edema, no cyanosis Neurologic: Alert & oriented x 3 with fluent speech, no focal motor/sensory deficits Skin: No rashes or significant lesions on the exposed skin Labs: 07/24/2023: BMP: Normal bicarbonate and measured anion gap. Hyponatremia and hypochloremia. Estimated GFR 71. 06/07/2023: CBC with differential: Normal white blood cell count. Absolute eosinophil count 0.25K/uL. Normal hemoglobin. Normal platelet count. 04/16/2023: LFTs: Within normal limits 06/01/2021: RAST: Negative IgE: 3.4 Clinician interpretation of Pulmonary Function Tests: 10/30/2022: Baseline spirometry is normal. Following bronchodilator, there is no significant change. Limited lung volumes (SVC, IC, ERV) are unremarkable. The flow volume loop is normal. When compared to prior pulmonary function testing performed 11/14/2021 and 05/03/2021, there has been no significant change. Clinician interpretation of Chest X-ray: 08/28/2021: Part of x-ray rib series: Limited inspiratory result bibasilar atelectasis. Lung fieldswithout infiltrate or gross pleural disease. Cardiomediastinal silhouette with prominent clinton. Whencompared to prior chest x- ray 04/04/2021, there has been no significant change Clinician interpretation of Chest CT scan: None on file Echocardiogram: 11/08/2021: Exercise stress echocardiogram: Low heart rate response to stress reduces the sensitivity test. No arrhythmias. Above average exercise tolerance for age. 10/09/2021: LV EF 60-64%. Left atrium severely enlarged. Right atrium severely enlarged. Grade 1 diastolic dysfunction. Trace aortic regurgitation. RV cavity severely dilated. RV systolic function severely reduced. Mild mitral regurgitation. Mild tricuspid regurgitation. Normal IVC size and collapsibility with sniff. Estimated PA systolic pressure is 45 mm Hg. No pericardial effusion. PA acceleration time 0.12 seconds. Tricuspid regurgitant max velocity 250.5 centimeters/second. Assessment: Asthma. Symptoms mild intermittent, at worst Possible/questionable Pulmonary hypertension, as suspected per echocardiogram 10/09/2021. WHO functional class 1 (denies any significant cardiopulmonary limitations despite being extremely physicallyactive). Risk factors for the following WHO pulmonary hypertension groups: 1: Idiopathic. Denies symptoms of overt rheumatologic disease. Denies drug/toxin exposure. No knownliver disease. 2: Diastolic dysfunction, valvular heart disease 3: Parenchymal lung disease not yet entirely excluded. Sleep disordered breathing and/or periods ofhypoxemia not yet entirely excluded 4: Chronic thromboembolic disease not yet excluded 5: Stage 2 chronic kidney disease History of cigarette smokin/4 pack cigarettes per day X 27 years. Quit 1993 History of secondhand smoke exposure: and sons were smokers Denies occupational exposures Hyperlipidemia The patient reports feeling well. He denies any significant cardiorespiratory symptoms despite being very physically active. He notes he participates in half marathons and triathlons. He reports swimming nearly 1 mi at a time, 3 times per week and doing cycling classes multiple times per week as well. Recommendations and Plans: Pulmonary vasodilators: None needed/none indicated. The patient lacks any significant symptoms of pulmonary hypertension. Pulmonary function testing: None further needed for now Chest imaging: Based on clinical course, could consider a noncontrast/high-resolution chest CT for evaluation of lung parenchyma Based on clinical course, may eventually consider a nuclear medicine ventilation/perfusion scan order to assess for the possibility of chronic thromboembolism Due to his smoking history (quit > 15 years ago), he no longer qualifies for yearly low-dose chest CT for lung cancer surveillance as per traditional guidelines Bronchoscopy/tissue sampling: None needed/none recommended for now Cardiac testing: None ordered/none needed If/when further clarification of pulmonary pressures are required, would need to undergo right heart catheterization. However, he presently is doing quite well and no right heart catheterization is needed at this time. Inhaled medications: Continue without change as he reports very infrequent use PRN albuterol PRN Ventolin Supplemental oxygen/PAP: None prescribed. No hypoxemia noted Denies overt symptoms of sleep disordered breathing Pulmonary hygiene: Regular aerobic exercise is recommended. Pulmonary rehabilitation: None needed. He remains very physically active Labs: Based on clinical course and if symptoms of pulmonary hypertension develop, can consider the following: Rheumatologic screening labs HIV antigen/antibody testing High sensitivity troponin T ProBNP Specialty follow-up: No referrals placed today Nephrology for management of chronic kidney disease, as directed Cardiology for management heart failure with preserved ejection fraction, as directed Primary care provider/referring provider should consider/facilitate the following: If available, please forward any copies of outside chest CT imaging to my office for review. Keep respiratory vaccinations up-to-date Keep all age-appropriate cancer screening up-to-date The patient should avoid secondhand smoke exposure and use proper personal protective equipment anytime exposed to smoke, fumes, dust, chemicals, particulate matter, etc. No pulmonary contraindication to regular aerobic exercise, which is encouraged. All questions from the patient were answered. Follow Up: Return in about 1 year (around 09/02/2024). Sumanth Ye DO [facility] Pulmonary Medicine, [place] [address] This note was completed using voice recognition software. Please excuse any word substitutions/deletions or similar errors documented in this encounter Nursing Notes * Ly Archuleta LPN - 09/02/2023 11:53 AM EST Pt for f/u neuromuscular respiratory weakness, asthma, PHTN. MMRC Dyspnea Scale = 0 (I only get breathless with strenuous exercise) PULMONARY HYPERTENSION WHO CLASSIFICATION 1 (Patient with pulmonary hypertension but without resulting limitations of physical activity. Ordinary physical activity does not cause undue fatigue or dyspnea,chest pain, or heart syncope) Interm History/Respiratory Symptoms Cough: occasional, dry Hemoptysis: no Sinus Symptoms: no Hospitalizations: no ED Trips: no Triggers: none Nocturnal: no problems CPAP/BiPAP/O2: no Flu Vaccine: 2022 Pneumovax: no Prevnar: 2022 COVID 19: x 3 Asthma Control Test Question 08/05/2023 10:51 AM EST - Filed by Patient Please select the best response to the five questions below, by clicking the appropriate option button. In the past 4 weeks, how much of the time did your asthma keep you from getting as much done at work, school or at home? (5) None of the time During the past 4 weeks, how often have you had shortness of breath? (5) Not at all During the past 4 weeks, how often did your asthma symptoms (wheezing, coughing, shortness of breath, chest tightness or pain) wake you up at night or earlier than usual in the morning? (5) Not at all During the past 4 weeks, how often have you used your rescue inhaler or nebulizer medication (such as albuterol)? (5) Not at all How would you rate your asthma control during the past 4 weeks? (4) Well controlled Total ACT Adult Score (range: 5 - 25) 24 (Well Controlled) Total ACT Child Score (range: 0 - 27) Incomplete documented in this encounter Plan of Treatment Upcoming Encounters Date Type Department Care Team (Late st Contact Info) Description 11/07/2023 11:30 AM EDT Office Visit Nephrology, [facility] [address] [place] [address] Joana Gaspar PA-C [address] [place] [address] 11/07/2023 2:40 PM EDT Office Visit General Internal Medicine [facility] [place] [address] [place] [address] Ismael Villavicencio MD [address] [place] [address] 12/10/2023 10:15 AM EDT Office Visit Dermatology [facility] [place] [address] [place] [address] Ismael Nolan MD [address] [place] [address] [address] 12/20/2023 8:30 AM EDT Office Visit Hematology/Oncology [facility] [address] [facility] [place] [id number] Kendal Ramesh CRNP [address] [place] [address] 12/30/2023 9:20 AM EDT Office Visit Neurology [facility] [address] [facility] [place] [address] Wes Uribe MD [address] [place] [address] 01/14/2024 2:30 PM EDT Cardiac Studies Cardiac Studies, [facility] [address] [place] [address] Scheduled Procedures Name Priority Associated Diagnoses Date/Ti me COLONOSCOPY FLEXIBLE PROXIMAL DIAGNOSTIC Recall History of colon polyps Scheduled Referrals Name Type Priority Associated Diagnoses Orde r Schedule PULMONARY REFERRAL OP Referral Within 30 days (routine) Mild persistent asthma without complication Pulmonary hypertension (HCC) Ordered: 04/30/2023 Health Maintenance Due Date Last Done Comments Zoster Vaccines (1 of 2) 1996 COVID-19 Vaccine ( - 2022- season) 2023 04/17/2022, 03/10/2021, 09/18/2020, Additional history exists COLONOSCOPY-ANNUAL AGES 18-100 12/26/2023 12/25/2022, 12/25/2022, 09/04/2022, Additional history exists Depression Screening 04/30/2024 04/30/2023 GFR 07/24/2024 07/24/2023, 05/16, 06/02/2023, Additional history exists Albumin/Creatinine Ratio 04/23/2025 04/23/2022, 09/0 08/2020 DTaP,Tdap,and Td Vaccines (3 - Td or [...] Not on filedocumented as of this encounter Visit Diagnoses Diagnosis Intermittent asthma with reliever use up to twice per week without complication- Primary Tobacco abuse, in remission Personal history of tobacco use, presenting hazards to health Secondhand smoke exposure Other specified personal history presenting hazards to health Diastolic dysfunction Heart disease, unspecified Suspected pulmonary hypertension documented in this encounter Care Teams Electromechanical Technologist Relationship Specialty Start Date End Date Ismael Villavicencio MD [address] [place] [address] PCP - General Internal Medicine 03/17/21 documented as of this encounter
--- OUTSIDE RECORDS SUMMARY | 2023-10-11 01:31 | External Medical Summary ---
Author Name Unknown Address Unknown Organization K09:[facility] [place] [place] [address] Laboratory Report Ordering Provider Test Date Status MARY LEW 07/24/2023 14:48:37 Final Observation Date Value Abnormality Reference (Units ) Status BUN 07/24/2023 14:48:37 39 Above high normal 6-20 (mg/dL) Final Creatinine 07/24/2023 14:48:37 1.1 0.6-1.2 (mg/dL) Final Glomerular filtration rate/1.73 sq M.predicted [Volume Rate/Area] in Serum, Plasma or Blood by Creatinine-based formula (CKD-EPI) 07/24/2023 14:48:37 71 >=60 (mL/min) Final eGFR is calculated based on the CKD-EPI 2020 equation SODIUM 07/24/2023 14:48:37 134 Below low normal 135 -146 (mmol/L) Final Potassium 07/24/2023 14:48:37 4.6 3.5-5.1 (m mol/L) Final Cl 07/24/2023 14:48:37 96 Below low normal 98- 107 (mmol/L) Final CO2 07/24/2023 14:48:37 28 22-32 (mmo l/L) Final Anion gap 07/24/2023 14:48:37 10 7-15 (mmol /L) Final Glucose 07/24/2023 14:48:37 73 70-120 (mg /dL) Final Calcium 07/24/2023 14:48:37 9.9 8.4-10.2 ( mg/dL) Final Performing Location [facility] [place] [address]
--- OUTSIDE RECORDS SUMMARY | 2023-10-11 01:31 | External Medical Summary | Summary of Care ---
Author Name Unknown Organization [facility] Address [address] [place] [address] Phone [phone] Care Team Providers Care Kitman Name Role Phone Ismael Villavicencio MD Primary Care Provider + Reason for Referral * Evaluate & Treat - Unlimited Visits (Within 10 days (routine)) - Pending Review Specialty Diagnoses / Procedures Referred By Contjose t Referred To Contact Hematology/Oncology / Hematology Oncology Diagnoses Monocytoses Ismael Villavicencio MD [address] [place] [address] [place] [id number] Referral ID Status Reason Start Date Expiration Date Visits Requested Visits Authorized [id number] Pending Review Specialty Services Required 3 [phone] Question Answer Referral Priority Within 10 days (routine) Where should this appointment be scheduled? [facility] Reason for Referral Abnormal CBC Reason for Visit * Reason Onset Date Comments Test Results 06/10/2023 Encounter Details Date Type Department Care Team (Late st Contact Info) Description 06/10/2023 Telephone General Internal Medicine [facility] [address] [place] [address] Ismael Villavicencio MD [address] [place] [address] [place] [phone] Test Results Allergies Active Allergy Reactions Criticality Noted Date Comments Baclofen Other (Please comment) 03/16/2021 Passed out Phenytoin Other (Please comment) 03/16/2021 Passed out Oxycodone Itching 03/16/2021 Percocet - itching documented as of this encounter (statuses as of 06/11/2023) Medications Medication Sig Dispensed Refills Start Date [...] the morning. 90 Tablet 3 03/13/2023 Active Spironolactone 25 MG Oral Tablet (Aldactone)Indicatio ns:Hypertension goal BP (blood pressure) < 130/80 Take 1 Tablet by mouth in the morning. 0 05/28/2023 Active amLODIPine Besylate 10 MG Oral Tablet [...] 1 Tablet before bedtime. 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 Mild aortic regurgitation 10/15/2021 Mild persistent asthma without complication 09/12 Pulmonary hypertension 06/01/2021 Chronic diastolic congestive heart failure 04/03 Mild mitral regurgitation 04/03/2021 Mixed hyperlipidemia 03/17/2021 Chronic edema 03/17/2021 Hypertension goal BP (blood pressure) < 130/80 0 03/16/2021 Chronic hyponatremia 03/16/2021 Osteoarthritis 03/16/2021 documented as of this encounter (statuses as of 06/11/2023) Resolved Problems Problem Noted Date Diagnosed Date Resolved Date Mild intermittent asthma with exacerbation 09/22/2021 09/22/2021 High pulmonary arterial pressure 04/03/2021 12/01/2021 Hyperlipidemia 03/16/2021 03/17/2021 documented as of this encounter (statuses as of 06/11/2023) Immunizations Name Administration Dates Next Due COVID-19 mRNA, LNP-s, No Pre serve, 2-Dose Series (Moderna) 03/10/2021,09/18/2020,08/21/2020 Covid-19, Mrna, Lnp-s, Pf, B ivalent, 50 Mcg, IM, 12 yrs and above (Moderna) 04/17/2022 Pneumococcal Conjugate Vacc, 13 Valent (Prevnar) 08/28/2018 Pneumococcal Conjugate Vacci ne, 20-valent ([id number]) 10/16/2022 Seasonal Influenza, Quadriva lent Hd (Fluzone [...] on file documented as of this encounter Miscellaneous Notes * Telephone Encounter - Eliana Trujillo LPN - 06/10/2023 3:42 PM EST Patient called. Given message. Verbalized understanding. Willing to see hematology. * Telephone Encounter - Yecenia Robert CMA - 06/10/2023 2:57 PM EST Called, left message for patient to return call. * Telephone Encounter - Yecenia Robert CMA - 06/10/2023 2:55 PM EST ----- Message from Ismael Villavicencio MD sent at 06/10/2023 9:46 AM EST ----- Uric acid (gout marker) fine No anemia, but monocyte (type of wbc), still high, suggest heme evaul for this to see if further work up needed, if agreeable, let me know and I will place referral. documented in this encounter Plan of Treatment Upcoming Encounters Date Type Department Care Team (Late st Contact Info) Description 08/19/2023 3:00 PM EST Office Visit Pulmonary Medicine, [facility] [address] [facility] [place] [id number] Sumanth Ye, DO [address] [facility] [place] [address] 11/07/2023 11:30 AM EDT Office Visit Nephrology, [facility] [address] [place] [address] ZemaitisJonaa PA-C [address] [place] [address] 11/07/2023 2:40 PM EDT Office Visit General Internal Medicine [facility] [address] [place] [address] Ismael Villavicencio MD [address] [place] [address] 12/10/2023 10:15 AM EDT Office Visit Dermatology [facility] [address] [place] [address] Ismael Nolan MD 200 [place] [address] 12/30/2023 9:20 AM EDT Office Visit Neurology [facility] [address] [place] [address] Wes Uribe MD [address] [place] [address] 01/14/2024 2:30 PM EDT Cardiac Studies Cardiac Studies, [facility] [address] [place] [address] Scheduled Procedures Name Priority Associated Diagnoses Date/Ti me COLONOSCOPY FLEXIBLE PROXIMAL DIAGNOSTIC Recall History of colon polyps Scheduled Referrals Name Type Priority Associated Diagnoses Orde r Schedule HEMATOLOGY/ONCOLOGY REFERRAL OP Referral Within 10 days (routine) Monocytoses Ordered: 06/11/2023 Health Maintenance Due Date Last Done Comments Zoster Vaccines (1 of 2) 1996 COVID-19 Vaccine ( season) 2023 04/17/2022, 03/10/2021, 09/18/2020, Additional history exists COLONOSCOPY-ANNUAL AGES 18-100 12/26/2023 12/25/2022, 12/25/2022, 09/04/2022, Additional history exists Depression Screening 04/30/2024 04/30/2023 GFR 06/07/2024 06/07/2023, 09/2022, 03/22/2023, Additional history exists Albumin/Creatinine Ratio 04/23/2025 04/23/2022, 08/2020 DTaP,Tdap,and Td Vaccines (3 - Td [...] as of this encounter Visit Diagnoses Diagnosis Monocytoses- Primary Monocytosis (symptomatic) documented in this encounter Care Teams Kitman Relationship Specialty Start Date End Date Ismael Villavicencio MD [address] [place] [address] PCP - General Internal Medicine 03/17/21 documented as of this encounter
--- OUTSIDE RECORDS SUMMARY | 2023-10-11 01:31 | External Medical Summary | Summary of Care ---
Author Name Unknown Organization [facility] Address [address] [place] [address] Phone [phone] Care Team Providers Care Rn Registry Name Role Phone Ismael Villavicencio MD Primary Care Provider + Reason for Visit * Reason Onset Date Comments Test Results 07/01/2023 Encounter Details Date Type Department Care Team (Late st Contact Info) Description 07/01/2023 Telephone General Internal Medicine [facility] 200 [facility] [place] [id number] Ismael Villavicencio MD 200 [place] [address] Test Results Allergies Active Allergy Reactions Criticality Noted Date Comments Baclofen Other (Please comment) 03/16/2021 Passed out Phenytoin Other (Please comment) 03/16/2021 Passed out Oxycodone Itching 03/16/2021 Percocet - itching documented as of this encounter (statuses as of 07/23/2023) Medications Medication Sig Dispensed Refills Start Date [...] as of this encounter (statuses as of 07/23/2023) Active Problems Problem Noted Date Diagnosed Date 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 Mild aortic regurgitation 10/15/2021 Mild persistent asthma without complication 09/12 Pulmonary hypertension 06/01/2021 Chronic diastolic congestive heart failure 04/03 Mild mitral regurgitation 04/03/2021 Mixed hyperlipidemia 03/17/2021 Chronic edema 03/17/2021 Hypertension goal BP (blood pressure) < 130/80 0 03/16/2021 Chronic hyponatremia 03/16/2021 Osteoarthritis 03/16/2021 documented as of this encounter (statuses as of 07/23/2023) Resolved Problems Problem Noted Date Diagnosed Date Resolved Date Mild intermittent asthma with exacerbation 09/22/2021 09/22/2021 High pulmonary arterial pressure 04/03/2021 12/01/2021 Hyperlipidemia 03/16/2021 03/17/2021 documented as of this encounter (statuses as of 07/23/2023) Immunizations Name Administration Dates Next Due COVID-19 mRNA, LNP-s, No Pre serve, 2-Dose Series (Moderna) 03/10/2021,09/18/2020,08/21/2020 Covid-19, Mrna, Lnp-s, Pf, B ivalent, 50 Mcg, IM, 12 yrs and above (Moderna) 04/17/2022 Pneumococcal Conjugate Vacc, 13 Valent (Prevnar) 08/28/2018 Pneumococcal Conjugate Vacci ne, 20-valent ([id number]) 10/16/2022 Seasonal Influenza, Quadriva lent Hd (Fluzone [...] encounter Miscellaneous Notes * Telephone Encounter - Sole Velasquez LPN - 07/23/2023 3:43 PM EST Called pt, will have bw done as soon as he can. Did not know to have bw repeated from ER visit. * Telephone Encounter - Yecenia Robert CMA - 07/01/2023 12:46 PM EST Called, left message for patient to return call. * Telephone Encounter - Yecenia Robert CMA - 07/01/2023 12:45 PM EST ----- Message from Ismael Villavicencio MD sent at 07/01/2023 9:30 AM EST ----- Patient labs from ER just came in,had low sodium, would like to recheck 1 week documented in this encounter Plan of Treatment Upcoming Encounters Date Type Department Care Team (Late st Contact Info) Description 08/19/2023 3:00 PM EST Office Visit Pulmonary Medicine, [facility] [address] [facility] [place] [address] Sumanth Ye DO [address] [facility] [place] [address] 11/07/2023 11:30 AM EDT Office Visit Nephrology, [facility] 200 [facility] [place] [address] Joana Gaspar PA-C 200 [facility] [place] [address] 11/07/2023 2:40 PM EDT Office Visit General Internal Medicine [facility] 200 [facility] [place] [address] Ismael Villavicencio MD 200 [facility] [place] [address] 12/10/2023 10:15 AM EDT Office Visit Dermatology [facility] [place] 200 [facility] [place] [address] Ismael Nolan MD 200 [facility] [place] [address] 12/20/2023 8:30 AM EDT Office Visit Hematology/Oncology [facility] [place] [facility] [place] [address] Kendal Ramesh CRNP [address] [place] [address] [place] [address] 12/30/2023 9:20 AM EDT Office Visit Neurology [facility] [place] 200 [facility] [place] [address] Wes Uribe MD [address] [place] [address] 01/14/2024 2:30 PM EDT Cardiac Studies Cardiac Studies, [facility] [address] [place] [address] Scheduled Procedures Name Priority Associated Diagnoses Date/Ti [...] Not on filedocumented as of this encounter Care Teams Rn Registry Relationship Specialty Start Date End Date Ismael Villavicencio MD [address] [place] [address] PCP - General Internal Medicine 03/17/21 documented as of this encounter
--- OUTSIDE RECORDS SUMMARY | 2023-10-11 01:31 | External Medical Summary | Summary of Care ---
Author Name Unknown Organization [facility] Address [address] [place] [address] Phone [phone] Care Team Providers Care Water Safety Teacher Name Role Phone Ismael Villavicencio MD Primary Care Provider + Reason for Visit * Reason Comments Outpatient Testing Encounter Details Date Type Department Care Team (Late st Contact Info) Description 07/24/2023 3:00 PM EST Laboratory Laboratory [facility] [address] [place] [address] [facility] [address] [place] [address] Hyponatremia Allergies Active Allergy Reactions Criticality Noted Date Comments Baclofen Other (Please comment) 03/16/2021 Passed out Phenytoin Other (Please comment) 03/16/2021 Passed out Oxycodone Itching 03/16/2021 Percocet - itching documented as of this encounter (statuses as of 07/24/2023) Medications Medication Sig Dispensed Refills Start Date [...] as of this encounter (statuses as of 07/24/2023) Active Problems Problem Noted Date Diagnosed Date 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 Mild aortic regurgitation 10/15/2021 Mild persistent asthma without complication 09/12 Pulmonary hypertension 06/01/2021 Chronic diastolic congestive heart failure 04/03 Mild mitral regurgitation 04/03/2021 Mixed hyperlipidemia 03/17/2021 Chronic edema 03/17/2021 Hypertension goal BP (blood pressure) < 130/80 0 03/16/2021 Chronic hyponatremia 03/16/2021 Osteoarthritis 03/16/2021 documented as of this encounter (statuses as of 07/24/2023) Resolved Problems Problem Noted Date Diagnosed Date Resolved Date Mild intermittent asthma with exacerbation 09/22/2021 09/22/2021 High pulmonary arterial pressure 04/03/2021 12/01/2021 Hyperlipidemia 03/16/2021 03/17/2021 documented as of this encounter (statuses as of 07/24/2023) Immunizations Name Administration Dates Next Due COVID-19 mRNA, LNP-s, No Pre serve, 2-Dose Series (Moderna) 03/10/2021,09/18/2020,08/21/2020 Covid-19, Mrna, Lnp-s, Pf, B ivalent, 50 Mcg, IM, 12 yrs and above (Moderna) 04/17/2022 Pneumococcal Conjugate Vacc, 13 Valent (Prevnar) 08/28/2018 Pneumococcal Conjugate Vacci ne, 20-valent ([id number]) 10/16/2022 Seasonal Influenza, Quadriva lent Hd (Fluzone [...] 3:00 PM EST Office Visit Pulmonary Medicine, [facility] 132 [facility] [place] [address] Sumanth Ye DO [address] [place] [address] 11/07/2023 11:30 AM EDT Office Visit Nephrology, [facility] [address] [place] [address] Joana Gaspar PA-C [address] [place] [address] 11/07/2023 2:40 PM EDT Office Visit General Internal Medicine [facility] [address] [place] [address] Ismael Villavicencio MD [address] [place] [address] 12/10/2023 10:15 AM EDT Office Visit Dermatology [facility] [address] [place] [address] Ismael Nolan MD [address] [place] [address] 12/20/2023 8:30 AM EDT Office Visit Hematology/Oncology [facility] 200 [facility] [place] [address] Kendal Ramesh CRNP [address] [place] [address] 12/30/2023 9:20 AM EDT Office Visit Neurology [facility] [address] [place] [address] Wes Uribe MD [address] [place] [address] 01/14/2024 2:30 PM EDT Cardiac Studies Cardiac Studies, [facility] [address] [place] [address] Pending Results Name Type Priority Associated Diagnoses Date /Time BASIC METABOLIC PANEL Lab Routine Hyponatremia 07/24/2023 2:48 PM EST Scheduled Procedures Name Priority Associated Diagnoses Date/Ti [...] as of this encounter Visit Diagnoses Diagnosis Hyponatremia Hyposmolality and/or hyponatremia documented in this encounter Care Teams Water Safety Teacher Relationship Specialty Start Date End Date Ismael Villavicencio MD 200 [place] [address] PCP - General Internal Medicine 03/17/21 documented as of this encounter
--- OUTSIDE RECORDS SUMMARY | 2023-10-11 01:31 | External Medical Summary | Summary of Care ---
Author Name Unknown Organization [facility] Address [address] [place] [address] Phone [phone] Care Team Providers Care Food Broker Name Role Phone Ismael Hernandez MD Primary Care Provider + Encounter Details Date Type Department Care Team (Late st Contact Info) Description 06/28/2023 Orders Only General Internal Medicine [facility] [place] [address] [facility] [place] [address] Ismael Hernandez MD 200 [place] [address] Hyponatremia* Allergies Active Allergy Reactions Criticality Noted Date Comments Baclofen Other (Please comment) 03/16/2021 Passed out Phenytoin Other (Please comment) 03/16/2021 Passed out Oxycodone Itching 03/16/2021 Percocet - itching documented as of this encounter (statuses as of 07/01/2023) Medications Medication Sig Dispensed Refills Start Date [...] as of this encounter (statuses as of 07/01/2023) Active Problems Problem Noted Date Diagnosed Date 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 Mild aortic regurgitation 10/15/2021 Mild persistent asthma without complication 09/12 Pulmonary hypertension 06/01/2021 Chronic diastolic congestive heart failure 04/03 Mild mitral regurgitation 04/03/2021 Mixed hyperlipidemia 03/17/2021 Chronic edema 03/17/2021 Hypertension goal BP (blood pressure) < 130/80 0 03/16/2021 Chronic hyponatremia 03/16/2021 Osteoarthritis 03/16/2021 documented as of this encounter (statuses as of 07/01/2023) Resolved Problems Problem Noted Date Diagnosed Date Resolved Date Mild intermittent asthma with exacerbation 09/22/2021 09/22/2021 High pulmonary arterial pressure 04/03/2021 12/01/2021 Hyperlipidemia 03/16/2021 03/17/2021 documented as of this encounter (statuses as of 07/01/2023) Immunizations Name Administration Dates Next Due COVID-19 mRNA, LNP-s, No Pre serve, 2-Dose Series (Moderna) 03/10/2021,09/18/2020,08/21/2020 Covid-19, Mrna, Lnp-s, Pf, B ivalent, 50 Mcg, IM, 12 yrs and above (Moderna) 04/17/2022 Pneumococcal Conjugate Vacc, 13 Valent (Prevnar) 08/28/2018 Pneumococcal Conjugate Vacci ne, 20-valent ([id number]) 10/16/2022 Seasonal Influenza, Quadriva lent Hd (Fluzone [...] as of this encounter Miscellaneous Notes * Addendum Note - Ismael Hernandez MD - 07/01/2023 9:30 AM ESTAddended by: ISMAEL HERNANDEZ on: 07/01/2023 09:30 AM Modules accepted: Orders documented in this encounter Plan of Treatment Upcoming Encounters Date Type Department Care Team (Late st Contact Info) Description 08/19/2023 3:00 PM EST Office Visit Pulmonary Medicine, [facility] [address] [facility] [place] [address] Sumanth Ye DO [address] [facility] [place] [address] 11/07/2023 11:30 AM EDT Office Visit Nephrology, [facility] [address] [place] [address] Joana Gaspar PA-C [address] [place] [id number] 11/07/2023 2:40 PM EDT Office Visit General Internal Medicine [facility] [address] [place] [address] Ismael Hernandez MD [address] [place] [address] 12/10/2023 10:15 AM EDT Office Visit Dermatology [facility] [address] [place] [address] Ismael Nolan MD [address] [place] [address] 12/30/2023 9:20 AM EDT Office Visit Neurology [facility] [address] [place] [address] Wes Uribe MD [address] [place], [place] [id number] 01/14/2024 2:30 PM EDT Cardiac Studies Cardiac Studies, [facility] [address] [place] [address] Scheduled Orders Name Type Priority Associated Diagnoses Orde r Schedule BASIC METABOLIC PANEL Lab Routine Hyponatremia Expected: 07/01/2023 (Approximate), Expires: 06/30/2024 Scheduled Procedures Name Priority Associated Diagnoses Date/Ti [...] LAB OUTSIDE LAB (SEE SCANNED REPORT) HEMOGLOBIN, [id number] LAB OUTSIDE LAB (SEE SCANNED REPORT) PHOSPHORUS-OUTSID [...] (SEE SCANNED REPORT) documented in this encounter Visit Diagnoses Diagnosis Hyponatremia- Primary Hyposmolality and/or hyponatremia documented in this encounter Care Teams Food Broker Relationship Specialty Start Date End Date Ismael Hernandez MD 200 [place] [address] PCP - General Internal Medicine 03/17/21 documented as of this encounter
--- OUTSIDE RECORDS SUMMARY | 2023-10-11 01:31 | External Medical Summary | Summary of Care ---
Author Name Unknown Organization [facility] Address [address] [place] [address] Phone [phone] Care Team Providers Care Document Clerk Name Role Phone Ismael Villavicencio MD Primary Care Provider + Reason for Visit * Reason Comments Consultation Consultation - Monoc ytosis * Evaluate & Treat - Unlimited Visits (Within 10 days (routine)) - Pending Review Specialty Diagnoses / Procedures Referred By Contac t Referred To Contact Hematology/Oncology / Hematology Oncology Diagnoses Monocytoses Ismael Villavicencio MD [address] [place] [address] Referral ID Status Reason Start Date Expiration Date Visits Requested Visits Authorized [id number] Pending Review Specialty Services Required [phone] Encounter Details Date Type Department Care Team (Late st Contact Info) Description 06/20/2023 1:00 PM EST Office Visit Hematology/Oncology [facility] [place] [address] [place] [address] Kendal Ramesh CRNP [address] [place] [address] Monocytosis* Allergies Active Allergy Reactions Criticality Noted Date Comments Baclofen Other (Please comment) 03/16/2021 Passed out Phenytoin Other (Please comment) 03/16/2021 Passed out Oxycodone Itching 03/16/2021 Percocet - itching documented as of this encounter (statuses as of 06/27/2023) Medications Medication Sig Dispensed Refills Start Date [...] as of this encounter (statuses as of 06/27/2023) Active Problems Problem Noted Date Diagnosed Date 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 Mild aortic regurgitation 10/15/2021 Mild persistent asthma without complication 09/12 Pulmonary hypertension 06/01/2021 Chronic diastolic congestive heart failure 04/03 Mild mitral regurgitation 04/03/2021 Mixed hyperlipidemia 03/17/2021 Chronic edema 03/17/2021 Hypertension goal BP (blood pressure) < 130/80 0 03/16/2021 Chronic hyponatremia 03/16/2021 Osteoarthritis 03/16/2021 documented as of this encounter (statuses as of 06/27/2023) Resolved Problems Problem Noted Date Diagnosed Date Resolved Date Mild intermittent asthma with exacerbation 09/22/2021 09/22/2021 High pulmonary arterial pressure 04/03/2021 12/01/2021 Hyperlipidemia 03/16/2021 03/17/2021 documented as of this encounter (statuses as of 06/27/2023) Immunizations Name Administration Dates Next Due COVID-19 mRNA, LNP-s, No Pre serve, 2-Dose Series (Moderna) 03/10/2021,09/18/2020,08/21/2020 Covid-19, Mrna, Lnp-s, Pf, B ivalent, 50 Mcg, IM, 12 yrs and above (Moderna) 04/17/2022 Pneumococcal Conjugate Vacc, 13 Valent (Prevnar) 08/28/2018 Pneumococcal Conjugate Vacci ne, 20-valent ([id number]) 10/16/2022 Seasonal Influenza, Quadriva lent Hd (Fluzone Hd) 03/15/2023 Seasonal Influenza, Trivalen t, Adjuvanted, 65+ yrs 03/21/2021,06/19/2018 TDAP (age 10 and older)(Boostrix) 04/30/2023 documented as of this encounter Social History Tobacco Use Types Packs/Day Years Used Date Smoking Tobacco: Former Cigarettes 0.8 27 Q uit: 07/15/1993 Smokeless Tobacco: Never Tobacco Cessation:Counseling Given: [...] Sign Reading Time Taken Comments Blood Pressure 134/74 06/20/2023 1:02 PM EST Pulse 60 06/20/2023 1:02 PM EST Temperature 36.7 C (98.1 F) 06/20/2023 1:02 PM ES T Respiratory Rate 16 06/20/2023 1:02 PM EST Oxygen Saturation 94% 06/20/2023 1:02 PM EST Inhaled Oxygen Concentration - - Weight 73.4 kg (161 lb 12.8 oz) 06/20/2023 1:02 PM EST Height 165.1 cm (5' 5") 06/20/2023 1:02 PM EST Body Mass Index 26.92 06/20/2023 1:02 PM EST documented in this encounter Progress Notes * Gadiel Kendal Ricardo, CHIDI - 06/20/2023 1:01 PM EST Hematology/Oncology Outpatient Clinic note [facility] [place] [address] [place] [place] [address] Name: Tremaine Brady Date: 06/20/2023 REFERRED BY: Dr. Ismael Villavicencio CHIEF COMPLAINT: Tremaine Brady is a 78 year old male here today for new consultation for monocytosis. HISTORY OF PRESENT ILLNESS: PMH of HTN, OA, HLD, CHF, asthma. Component Latest Ref Rng 04/23/2022 10/08/2022 02/21/2023 04/16/2023 06/07/2023 WBC 4.00 - 10.80 K/uL 7.04 6.04 10.74 8.41 9.32 Neutrophils % 40.0 - 75.0 % 40.8 41.1 65.3 49.8 49.2 Lymphocytes % 18.0 - 42.0 % 33.8 33.3 21.2 30.8 32.5 Monocytes % 1.0 - 11.0 % 19.0 (H) 18.4 (H) 10.6 15.2 (H) 15.0 (H) Eosinophils % 0.0 - 6.0 % 5.5 5.8 2.3 2.9 2.7 Basophils % 0.0 - 2.0 % 0.9 1.2 0.6 1.1 0.6 Absolute Neutrophils 1.80 - 7.70 K/uL 2.87 2.49 7.01 4.19 4.58 Absolute Lymphocytes 1.00 - 4.80 K/ul 2.38 2.01 2.28 2.59 3.03 Absolute Monocytes 0.00 - 1.10 K/uL 1.34 (H) 1.11 (H) 1.14 (H) 1.28 (H) 1.40 (H) Absolute Eosinophils 0.00 - 0.70 K/uL 0.39 0.35 0.25 0.24 0.25 Absolute Basophils 0.00 - 0.20 K/uL 0.06 0.07 0.06 0.09 0.06 Patient feeling well today. No complaints or concerns verbalized. Denies any drenching night sweatsor unexplained weight loss. Denies abdominal pain, bloating or early satiety. Patient reports arthritis pains throughout his whole body. Takes tylenol as needed. Tries not to take anything. Patient is a nonsmoker. Denies alcohol intake. Mother passed from complications of rheumatoid arthritis. Paternal grandmother with history of breast cancer in her 90s. Patient's past medical history, social history, and family history were reviewed and updated. Past Medical History: Diagnosis Date Chronic edema 03/17/2021 Chronic hyponatremia 03/16/2021 Diastolic dysfunction 04/03/2021 Hypertension goal BP (blood pressure) < 130/80 03/16/2021 Lung nodule Mild aortic regurgitation 10/15/2021 Mild intermittent asthma with exacerbation 09/22/2021 Mild mitral regurgitation 04/03/2021 Mild persistent asthma without complication 09/22/2021 Mixed hyperlipidemia 03/17/2021 Osteoarthritis 03/16/2021 Past Surgical History: Procedure Laterality Date COLONOSCOPY, DIAGNOSTIC (RECTUM) 09/04/2022 poor-prep, normal scope / repeat colon w/ extended prep / COLONOSCOPY FLEXIBLE PROXIMAL DIAGNOSTIC performed by Treasure Cruz MD at [facility] COLONOSCOPY, DIAGNOSTIC (RECTUM) 12/25/2022 prep-fair, 1-4 mm in cecum, otherwise normal / biopsies benign adenomatous polyp / 1 year w/ 2 day prep / COLONOSCOPY FLEXIBLE PROXIMAL DIAGNOSTIC performed by Treasure Cruz MD at [facility] TOTAL HIP REPLACEMENT & PROSTHESIS Bilateral 2017 Family History Problem Relation Age of Onset Rheum arthritis Mother Coronary Artery disease Father Social History Socioeconomic History Marital status: Spouse name: Not on file Number of children: 3 Years of education: Not on file Highest education level: Not on file Occupational History Occupation: retired - [place] Tobacco Use Smoking status: Former Packs/day: 0.75 Years: 27.00 Additional pack years: 0.00 Total pack years: 20.25 Types: Cigarettes Quit date: 07/15/1993 Years since quittin.9 Smokeless tobacco: Never Vaping Use Vaping Use: Never used Substance and Sexual Activity Alcohol use: Yes Alcohol/week: 2.0 standard drinks of alcohol Types: 2 5 oz of wine per week Comment: socially Drug use: Never Sexual activity: Not on file Other Topics Concern Not on file Social History Narrative Not on file Social Determinants of Health Financial Resource Strain: Not on file Food Insecurity: Not on file Transportation Needs: Not on file Physical Activity: Not on file Stress: Not on file Social Connections: Not on file Intimate Partner Violence: Not on file Housing Stability: Not on file Review of patient's allergies indicates: Allergen Reactions [...] mouth in the morning. 90 Tablet 3 Spironolactone 25 MG Oral Tablet (Aldactone) Take 1 Tablet by mouth in the morning. amLODIPine Besylate 10 MG Oral Tablet (Norvasc) [...] the morning and 1 Tablet before bedtime. Current Facility-Administered Medications Medication Dose Route Frequency Provider Last Rate Last Admin Albuterol Sulfate (Proventil) (2.5 MG/3ML) 0.083% inhalation solution 2.5 mg 2.5 mg Nebulizer PRN ShannonEsteban PA-C 2.5 mg at 10/30/22 1100 Albuterol Sulfate (Proventil) (5 MG/ML) 0.5% *conc* inhalation solution 2.5 mg 2.5 mg Nebulizer Esteban Munroe PA-C REVIEW OF SYSTEMS: SEE HPI - otherwise negative OBJECTIVE: Filed Vitals: 06/20/23 1302 BP: 134/74 Pulse: 60 Resp: 16 Temp: 36.7 C (98.1 F) TempSrc: Tympanic SpO2: 94% Weight: 73.4 kg (161 lb 12.8 oz) Height: 1.651 m (5' 5") Wt Readings from Last 5 Encounters: 06/07/23 73.4 kg (161 lb 12.8 oz) 04/30/23 73.1 kg (161 lb 1.6 oz) 04/30/23 73 kg (161 lb) 03/12/23 73.1 kg (161 lb 3.2 oz) 12/25/22 73.5 kg (162 lb) PHYSICAL EXAM: Constitutional: no acute distress Neuro: alert, oriented to person, place, and time, gait normal HEENT: normal: normocephalic, atraumatic; neck with no masses or tenderness; no cervical/supraclavicular lymphadenopathy CV: normal rate and rhythm, no murmur Chest: normal respiratory effort, lungs clear to auscultation Abdomen: normal: soft, bowel sounds normal, no masses, tenderness or organomegaly Extremities: +trace BLE edema Skin: warm, dry, intact Musculoskeletal: arthritic changes to joints of bilateral hands LABS: Results for orders placed or performed in visit on 06/07/23 BASIC METABOLIC PANEL Result Value Ref Range BUN 30 (H) 6 - 20 mg/dL Creatinine 1.1 0.6 - 1.2 mg/dL Estimated Glomerular Filtration Rate 71 >=60 mL/min Sodium 132 (L) 135 - 146 mmol/L Potassium 4.8 3.5 - 5.1 mmol/L Chloride 93 (L) 98 - 107 mmol/L CO2 29 22 - 32 mmol/L Anion Gap 10 7 - 15 mmol/L Glucose 60 (L) 70 - 120 mg/dL Calcium 9.9 8.4 - 10.2 mg/dL URIC ACID Result Value Ref Range Uric Acid 4.7 3.4 - 7.0 mg/dL CBC Result Value Ref Range WBC 9.32 4.00 - 10.80 K/uL RBC 4.51 4.50 - 5.25 M/uL HGB 14.8 14.0 - 16.8 g/dL HCT 43.1 40.0 - 48.4 % MCV 95.6 82.0 - 99.5 fL MCH 32.8 27.0 - 34.0 pg MCHC 34.3 32.0 - 36.0 g/dL RDW 13.2 11.5 - 15.5 % PLT 206 140 - 400 K/uL MPV 9.5 6.6 - 11.1 fL DIFFERENTIAL, AUTOMATED Result Value Ref Range WBC 9.32 4.00 - 10.80 K/uL Neutrophils % 49.2 40.0 - 75.0 % Lymphocytes % 32.5 18.0 - 42.0 % Monocytes % 15.0 (H) 1.0 - 11.0 % Eosinophils % 2.7 0.0 - 6.0 % Basophils % 0.6 0.0 - 2.0 % Absolute Neutrophils 4.58 1.80 - 7.70 K/uL Absolute Lymphocytes 3.03 1.00 - 4.80 K/ul Absolute Monocytes 1.40 (H) 0.00 - 1.10 K/uL Absolute Eosinophils 0.25 0.00 - 0.70 K/uL Absolute Basophils 0.06 0.00 - 0.20 K/uL IMPRESSION: Monocytosis: 78 y/o male with PMH of HTN, OA, HLD, CHF, asthma. Chronic and mild monocytosis present for at least the last two years, AMC running between 1-1.5. No abnormalities in other cell lines including cytopenias No abnormal or immature cells noted on differential. Patient feeling well today. No complaints or concerns verbalized. Denies any drenching night sweatsor unexplained weight loss. Denies abdominal pain, bloating or early satiety. Patient is a nonsmoker. Denies alcohol intake. PLAN: Finding is nonspecific and likely reactive. Of no clinical concern at this time with lack of cytopenias or clinical symptoms of myeloproliferative disorder. Would recommend continued lab monitoring through routine PCP visits. Would be happy to see back in the future if indicated. RTC PRN CHIDI Donis documented in this encounter Nursing Notes * Joyce Austin, [facility] - 06/20/2023 1:03 PM EST Patient identifed by name and birthdate Do you have any concerns about pain management for today's visit? No Living Will or Advance Directive for Health Care as noted on the problem list. [facility] is a way you can talk to your provider on line through e-mail. Would you like to sign up? I can activate it for you? ALREADY ACTIVE Filed Vitals: 06/20/23 1302 BP: 134/74 Pulse: 60 Resp: 16 Temp: 36.7 C (98.1 F) TempSrc: Tympanic SpO2: 94% Weight: 73.4 kg (161 lb 12.8 oz) Height: 1.651 m (5' 5") Patient was instructed to not get up on the exam table/exam chair until directed and assisted by their provider; patient is to remain seated in the chair/ wheelchair/ exam table/ exam chair for fall prevention and safety reasons. Patient is aware to have assistance to step down off exam table/exam chair with personnel. Patient voiced full comprehension of instructions. documented in this encounter Plan of Treatment Upcoming Encounters Date Type Department Care Team (Late st Contact Info) Description 08/19/2023 3:00 PM EST Office Visit Pulmonary Medicine, [facility] [address] [facility] [place] [address] Sumanth Ye DO [address] [place] [address] 11/07/2023 11:30 AM EDT Office Visit Nephrology, [facility] [address] [facility] [place] [address] Joana Gaspar PA-C [address] [facility] [place] [address] 11/07/2023 2:40 PM EDT Office Visit General Internal Medicine [facility] [address] [facility] [place] [address] Ismael Villavicencio MD [address] [facility] [place] [address] 12/10/2023 10:15 AM EDT Office Visit Dermatology [facility] [place] [address] [facility] [place] [address] Ismael Nolan MD [address] [facility] [place] [address] 12/30/2023 9:20 AM EDT Office Visit Neurology [facility] [place] [address] [facility] [place] [address] Wes Uribe MD [address], [place] [id number] 01/14/2024 2:30 PM EDT Cardiac Studies Cardiac Studies, [facility] [address] [place] [address] Scheduled Procedures Name Priority Associated Diagnoses Date/Ti [...] Additional history exists Albumin/Creatinine Ratio 04/23/2025 04/23/2022, 0 08/2020 DTaP,Tdap,and Td Vaccines (3 - Td [...] as of this encounter Visit Diagnoses Diagnosis Monocytosis- Primary Monocytosis (symptomatic) documented in this encounter Care Teams Document Clerk Relationship Specialty Start Date End Date Ismael Villavicencio MD [address] [place] [address] PCP - General Internal Medicine 03/17/21 documented as of this encounter
--- OUTSIDE RECORDS SUMMARY | 2023-10-11 01:32 | External Medical Summary | Summary of Care ---
Author Name Unknown Organization [facility] Address [address] [place] [address] Phone [phone] Care Team Providers Care Lasting Machine Operator Hand Method Name Role Phone Ismael Villavicencio MD Primary Care Provider + Reason for Referral * Evaluate & Treat - Unlimited Visits (Within 30 days (routine)) - Authorized Specialty Diagnoses / Procedures Referred By Ruby phillips Referred To Contact Dermatology Diagnoses Skin mole Ismael Villavicencio MD [address] [place] [address] Referral ID Status Reason Start Date Expiration Date Visits Requested Visits Authorized [id number] Authorized Specialty Services Required 3 [phone] Question Answer Referral Priority Within 30 days (routine) Where should this appointment be scheduled? [facility] Are you referring the patient for Mohs Surgery and have a current positive skin cancer biopsy result? No What is the reason for the patient referral? Rash/Skin Check/Eval of Lesion or Mole Comments New mole 1 month Reason for Visit * Reason Comments Hospital Follow-Up ER follow up from [facility] d/c 06/02/23, evaluated for Right wrist pain and cellulitis. Patient states he is still having pain on the lateral side of his wrist. Encounter Details Date Type Department Care Team (Late st Contact Info) Description 06/07/2023 11:20 AM EST Office Visit General Internal Medicine [place] [address] [place] [address] Ismael Villavicencio MD [address] [place] [address] Cellulitis of right wrist*; Skin mole Allergies Active Allergy Reactions Criticality Noted Date Comments Baclofen Other (Please comment) 03/16/2021 Passed out Phenytoin Other (Please comment) 03/16/2021 Passed out Oxycodone Itching 03/16/2021 Percocet - itching documented as of this encounter (statuses as of 06/07/2023) Medications Medication Sig Dispensed Refills Start Date [...] as of this encounter (statuses as of 06/07/2023) Active Problems Problem Noted Date Diagnosed Date 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 Mild aortic regurgitation 10/15/2021 Mild persistent asthma without complication 09/12 Pulmonary hypertension 06/01/2021 Chronic diastolic congestive heart failure 04/03 Mild mitral regurgitation 04/03/2021 Mixed hyperlipidemia 03/17/2021 Chronic edema 03/17/2021 Hypertension goal BP (blood pressure) < 130/80 0 03/16/2021 Chronic hyponatremia 03/16/2021 Osteoarthritis 03/16/2021 documented as of this encounter (statuses as of 06/07/2023) Resolved Problems Problem Noted Date Diagnosed Date Resolved Date Mild intermittent asthma with exacerbation 09/22/2021 09/22/2021 High pulmonary arterial pressure 04/03/2021 12/01/2021 Hyperlipidemia 03/16/2021 03/17/2021 documented as of this encounter (statuses as of 06/07/2023) Immunizations Name Administration Dates Next Due COVID-19 mRNA, LNP-s, No Pre serve, 2-Dose Series (Moderna) 03/10/2021,09/18/2020,08/21/2020 Covid-19, Mrna, Lnp-s, Pf, B ivalent, 50 Mcg, IM, 12 yrs and above (Moderna) 04/17/2022 Pneumococcal Conjugate Vacc, 13 Valent (Prevnar) 08/28/2018 Pneumococcal Conjugate Vacci ne, 20-valent ([id number]) 10/16/2022 Seasonal Influenza, Quadriva lent Hd (Fluzone [...] Sign Reading Time Taken Comments Blood Pressure 110/58 06/07/2023 11:19 AM EST Pulse 68 06/07/2023 11:19 AM EST Temperature 36.1 C (96.9 F) 06/07/2023 1 1:19 AM EST Respiratory Rate - - Oxygen Saturation 99% 06/07/2023 11: 19 AM EST Inhaled Oxygen Concentration - - Weight 73.4 kg (161 lb 12.8 oz) 023 11:19 AM EST Height 165.1 cm (5' 5") 06/07/2023 11:1 9 AM EST Body Mass Index 26.92 06/07/2023 11:19 AM EST documented in this encounter Progress Notes * Ismael Villavicencio MD - 06/07/2023 11:42 AM EST Chief Complaint Patient presents with Hospital Follow-Up ER follow up from [facility] d/c 06/02/23, evaluated for Right wrist pain and cellulitis. Patient states he is still having pain on the lateral side of his wrist. SUBJECTIVE: Tremaine Brady is a 78 year old male with PMH as below who presents for follow up ER on 06/02/23,had acute right wrist pain and redness up arm. He was seen in er, x-rays negative dx with cellulitis, given doxy and cephalexin, sent home. Feels much better. No redness, warmth, and pain markedly improved, mild pain near lateral wrist but overall better, no redness and streak of red gone Patient Active Problem List Diagnosis Code Hypertension goal BP (blood pressure) < 130/80 I10 Chronic hyponatremia E87.1 Osteoarthritis M19.90 Mixed hyperlipidemia E78.2 Chronic edema R60.9 Chronic diastolic congestive heart failure (HCC) I50.32 Mild mitral regurgitation I34.0 Pulmonary hypertension (HCC) I27.20 Mild persistent asthma without complication J45.30 Mild aortic regurgitation I35.1 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, J99 Current Outpatient Medications Medication Sig Dispense Refill [...] 2 Capsules by mouth in the morning. NATURAL SUPPLEMENT Take by mouth daily . Beet Root Pantoprazole Sodium 40 MG Oral Tablet Delayed Release (Protonix) Take 1 Tablet by mouth as needed. Furosemide 40 MG Oral Tablet (Lasix) TAKE [...] the morning and 1 Tablet before bedtime. Ventolin HFA 108 (90 Base) MCG/ACT Inhalation Aerosol Solution Inhale 2 Puffs by mouth every 4 hours as needed for Cough, Shortness of Breath or Wheezing. 18 g 3 Zoster Vac Recomb Adjuvanted 50 MCG/0.5ML Intramuscular Suspension Reconstituted (Shingrix) Inject 0.5 mL into a large muscle now and repeat dose in 60 to 180 days (Patient not taking: Reported on 06/07/2023) 1 Each 1 Current Facility-Administered Medications Medication Dose Route Frequency Provider Last Rate Last Admin Albuterol Sulfate (Proventil) (2.5 MG/3ML) 0.083% inhalation solution 2.5 mg 2.5 mg Nebulizer PRN Esteban Shannon PA-C 2.5 mg at 10/30/22 1100 Albuterol Sulfate (Proventil) (5 MG/ML) 0.5% *conc* inhalation solution 2.5 mg 2.5 mg Nebulizer Esteban Munroe PA-C Review of patient's allergies indicates: Allergen Reactions Baclofen Other (Please comment) Passed out Dilantin [Phenytoin] Other (Please comment) Passed out Oxycodone Itching Percocet - itching Health Maintenance Due Topic Date Due Zoster Vaccines (1 of 2) Never done COVID-19 Vaccine ( season) 2023 ROS: CONSTITUTIONAL: No change in weight, No weakness, and No fevers, sweats, or chills EXTREMITIES: as per hpi SKIN/INTEGUMENTARY: No edema, No rash, and No itching ALL OTHER SYSTEMS NEGATIVE I reviewed social, PMH, PSH, and family history and updated where needed. Social History Socioeconomic History Marital status: Spouse name: Not on file Number of children: 3 Years of education: Not on file Highest education level: Not on file Occupational History Occupation: retired - [employer] Tobacco Use Smoking status: Former Packs/day: 0.75 [...] on file Housing Stability: Not on file Past Medical History: Diagnosis Date Chronic edema [...] performed by Treasure Cruz MD at [facility] COLONOSCOPY, DIAGNOSTIC (RECTUM) 12/25/2022 prep-fair, 1-4 mm in cecum, otherwise normal / biopsies benign adenomatous polyp / 1 year w/ 2 day prep / COLONOSCOPY FLEXIBLE PROXIMAL DIAGNOSTIC performed by Treasure Cruz MD at [facility] TOTAL HIP REPLACEMENT & PROSTHESIS Bilateral 2017 Family History Problem Relation Age of Onset Rheum arthritis Mother Coronary Artery disease Father OBJECTIVE: PHYSICAL EXAM: BP 110/58 | Pulse 68 | Temp 36.1 C (96.9 F) | Ht 1.651 m (5' 5") | Wt 73.4 kg (161 lb 12.8 oz) | SpO2 99% | BMI 26.92 kg/m | BSA 1.83 m General: alert, healthy, and no distress Extremities: no joint deformities, effusion, or inflammation full rom right wrist, no swelling or redness, no pain to palpation lateral wrist, no streaking on forearm or mass/warmth Neuro Exam: alert with fluent speech, gait normal Skin: fleshy raised non tender lesion left upper forearm I reviewed gfr, glucose ASSESSMENT: L03.113 Cellulitis of right wrist (primary encounter diagnosis) D22.9 Skin mole PLAN: Cellulitis of right wrist (Primary) - URIC ACID; Future; Expected date: 06/07/2023 Improving, finish abx Patient to call if increase in warmth, pain, size, swelling, fevers, chills Er records requested as interface down Skin mole - DERMATOLOGY REFERRAL OP Follow Up: Return if symptoms worsen or fail to improve and as scheduled, for Labs Today. | For: Labs Today Ismael Villavicencio MD documented in this encounter Nursing Notes * Yecenia Robert CMA - 06/07/2023 11:17 AM EST Chief Complaint Patient presents with Hospital Follow-Up ER follow up from [facility] d/c 06/02/23, evaluated for Right wrist pain and cellulitis. Patient states he is still having pain on the lateral side of his wrist. documented in this encounter Plan of Treatment Upcoming Encounters Date Type Department Care Team (Latest Contact Info) Description 06/07/2023 12:00 PM EST Laboratory Laboratory [facility] [place] [address] [facility] [place] [id number] [place] [facility] [address] [facility] [place] [facility] [place] [address] Abnormal CBC measurement; Hypertension goal BP (blood pressure) < 130/80; Cellulitis of right wrist 08/19/2023 3:00 PM EST Office Visit Pulmonary Medicine, [facility] [address] [place] [address] Sumanth Ye DO [address] [place] [address] 11/07/2023 11:30 AM EDT Office Visit Nephrology, [facility] [address] [facility] [place] [address] ZemaJoana cummings PA-C 200 [facility] [place] [address] 11/07/2023 2:40 PM EDT Office Visit General Internal Medicine [facility] [place] [address] [facility] [place] [address] Ismael Villavicencio MD [address] [facility] [place] [address] 12/30/2023 9:20 AM EDT Office Visit Neurology [facility] [place] [address] [facility] [place] [address] Wes Uribe MD [address] [place] [address] 01/14/2024 2:30 PM EDT Cardiac Studies [facility], [facility] [address] 07/21/2024 10:15 AM EST Office Visit Dermatology [facility] [address] [facility] [place] [address] Ismael Nolan MD [address] [facility] [place] [address] Pending Results Name Type Priority Associated Diagnoses Date /Time URIC ACID Lab Routine Cellulitis of right wrist 06/07/2023 11:44 AM EST Scheduled Orders Name Type Priority Associated Diagnoses Orde r Schedule URIC ACID Lab Routine Cellulitis of right wrist Expected: 06/07/2023 (Approximate), Expires: 06/06/2024 Scheduled Procedures Name Priority Associated Diagnoses Date/Ti me COLONOSCOPY FLEXIBLE PROXIMAL DIAGNOSTIC Recall History of colon polyps Scheduled Referrals Name Type Priority Associated Diagnoses Orde r Schedule DERMATOLOGY REFERRAL OP Referral Within 30 days (routine) Skin mole Ordered: 06/07/2023 Health Maintenance Due Date Last Done Comments Zoster Vaccines (1 of 2) 1996 COVID-19 Vaccine ( season) 2023 04/17/2022, 03/10/2021, 09/18/2020, Additional history exists COLONOSCOPY-ANNUAL AGES 18-100 12/26/2023 12/25/2022, 12/25/2022, 09/04/2022, Additional history exists GFR 04/16/2024 04/16/2023, 09/0 02/2023, 02/21/2023, Additional history exists Depression Screening 04/30/2024 04/30/2023 Albumin/Creatinine Ratio 04/23/2025 04/23/2022, 09/0 08/2020 DTaP,Tdap,and [...] as of this encounter Visit Diagnoses Diagnosis Cellulitis of right wrist- Primary Skin mole Benign neoplasm of skin, site unspecified Abnormal CBC measurement Other abnormal blood chemistry Hypertension goal BP (blood pressure) < 130/80 Unspecified essential hypertension Cellulitis of right wrist documented in this encounter Care Teams Lasting Machine Operator Hand Method Relationship Specialty Start Date End Date Ismael Villavicencio MD [address] [place] [address] PCP - General Internal Medicine 03/17/21 documented as of this encounter
--- OUTSIDE RECORDS SUMMARY | 2023-10-11 01:32 | External Medical Summary | Summary of Care ---
Author Name Unknown Organization [facility] Address [address] [place] [address] Phone [phone] Care Team Providers Care Sticker Machine Operator Name Role Phone Ismael Villavicencio MD Primary Care Provider + Reason for Visit * Reason Onset Date Comments Appointment 06/04/2023 Encounter Details Date Type Department Care Team (Late st Contact Info) Description 06/04/2023 Telephone General Internal Medicine [facility] [address] [facility] [place] [address] Ismael Villavicencio MD 200 [facility] [address] Appointment Allergies Active Allergy Reactions Criticality Noted Date Comments Baclofen Other (Please comment) 03/16/2021 Passed out Phenytoin Other (Please comment) 03/16/2021 Passed out Oxycodone Itching 03/16/2021 Percocet - itching documented as of this encounter (statuses as of 06/04/2023) Medications Medication Sig Dispensed Refills Start Date [...] HFA 108 (90 Base) MCG/ACT Inhalation Aerosol SolutionIndications:M ild intermittent asthma without complication Inhale 2 Puffs by mouth every 4 hours as needed for Cough, Shortness of Breath or Wheezing. 18 g 3 06/01/2021 Active NATURAL SUPPLEMENT Take by mouth daily . Beet Root 0 Active Fosinopril Sodium 40 MG Oral Tablet (Monopril)Indications :Hypertension goal BP (blood pressure) < 130/80 Take 1 Tablet (40 mg) by mouth in the morning. 90 Tablet 3 06/15/2022 Active Pantoprazole Sodium 40 MG Oral Tablet Delayed Release (Protonix) Take 1 Tablet by mouth as needed. 0 Active Zoster Vac Recomb Adjuvanted 50 MCG/0.5ML Intramuscular Suspension Reconstituted (Shingrix)Indications :Need for shingles vaccine Inject 0.5 mL into a large muscle now and repeat dose in 60 to 180 days 1 Each 1 10/16/2022 Active Furosemide 40 MG Oral Tablet (Lasix) TAKE 1 TABLET BY MOUTH EVERY DAY 90 Tablet 3 12/11/2022 Active Atorvastatin Calcium 10 MG Oral Tablet (Lipitor) TAKE 1 TABLET BY MOUTH EVERY DAY IN THE MORNING 90 Tablet 3 03/10/2023 Active Loratadine 10 MG Oral Tablet (Claritin)Indications :Chronic rhinitis Take 1 Tablet by mouth in the morning. 90 Tablet 3 03/13/2023 Active Spironolactone 25 MG Oral Tablet (Aldactone)Indication s:Hypertension goal BP (blood pressure) < 130/80 Take 1 Tablet by mouth in the morning. 0 05/28/2023 Active amLODIPine Besylate 10 MG Oral Tablet (Norvasc)Indications: Hypertension goal BP (blood pressure) < 130/80 Take 0.5 Tablets by mouth every evening. 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 Mild aortic regurgitation 10/15/2021 Mild persistent asthma without complication 09/12 Pulmonary hypertension 06/01/2021 Chronic diastolic congestive heart failure 04/03 Mild mitral regurgitation 04/03/2021 Mixed hyperlipidemia 03/17/2021 Chronic edema 03/17/2021 Hypertension goal BP (blood pressure) < 130/80 0 03/16/2021 Chronic hyponatremia 03/16/2021 Osteoarthritis 03/16/2021 documented as of this encounter (statuses as of 06/04/2023) Resolved Problems Problem Noted Date Diagnosed Date Resolved Date Mild intermittent asthma with exacerbation 09/22/2021 09/22/2021 High pulmonary arterial pressure 04/03/2021 12/01/2021 Hyperlipidemia 03/16/2021 03/17/2021 documented as of this encounter (statuses as of 06/04/2023) Immunizations Name Administration Dates Next Due COVID-19 mRNA, LNP-s, No Pre serve, 2-Dose Series (Moderna) 03/10/2021,09/18/2020,08/21/2020 Covid-19, Mrna, Lnp-s, Pf, B ivalent, 50 Mcg, IM, 12 yrs and above (Moderna) 04/17/2022 Pneumococcal Conjugate Vacc, 13 Valent (Prevnar) 08/28/2018 Pneumococcal Conjugate Vacci ne, 20-valent ([id number]) 10/16/2022 Seasonal Influenza, Quadriva lent Hd (Fluzone [...] encounter Miscellaneous Notes * Telephone Encounter - Yolanda Sheldon OSA - 06/04/2023 2:45 PM EST Pt scheduled 06/07/2023 @ 1120 * Telephone Encounter - Ismael Villavicencio MD - 06/04/2023 2:14 PM EST Schedule with me this Saturday, thanks, 40 min * Telephone Encounter - Taty Frank OSA - 06/04/2023 1:22 PM EST Patient only wants Dr Villavicencio for er follow up scheduled patient for 06/12/23 follow up patient would like a call back if needs to be seen sooner . documented in this encounter Plan of Treatment Upcoming Encounters Date Type Department Care Team (Late st Contact Info) Description 06/07/2023 11:20 AM EST Office Visit General Internal Medicine [place] [address] [place], [place] [address] Ismael Villavicencio MD [address] [facility] [place] [address] 08/19/2023 3:00 PM EST Office Visit Pulmonary Medicine, [facility] [address] Sumanth Ye DO [address], [place] [id number] 11/07/2023 11:30 AM EDT Office Visit Nephrology, [facility] [address] [facility] [place] [address] ZemaitisJoana PA-C [address] [facility] [place] [address] 11/07/2023 2:40 PM EDT Office Visit General Internal Medicine [facility] [address] [facility] [place] [address] Ismael Villavicencio MD 200 [facility] [address] 12/30/2023 9:20 AM EDT Office Visit Neurology [facility] [address] [facility] [place] [address] Wes Uribe MD [address], [place] [id number] 01/14/2024 2:30 PM EDT Cardiac Studies Cardiac Studies, [facility] 132 [facility] [place] [address] Scheduled Procedures Name Priority Associated Diagnoses Date/Ti me COLONOSCOPY FLEXIBLE PROXIMAL DIAGNOSTIC Recall History of colon polyps Health Maintenance Due Date Last Done Comments Zoster Vaccines (1 of 2) 1996 COVID-19 Vaccine (2022- season) 2023 04/17/2022, 03/10/2021, 09/18/2020, Additional history exists COLONOSCOPY-ANNUAL AGES 18-100 12/26/2023 12/25/2022, 12/25/2022, 09/04/2022, Additional history exists GFR 04/16/2024 04/16/2023, 02/2023, 02/21/2023, Additional history exists Depression Screening 04/30/2024 04/30/2023 Albumin/Creatinine Ratio 04/23/2025 04/23/2022, 08/2020 DTaP,Tdap,and Td [...] filedocumented as of this encounter Care Teams Sticker Machine Operator Relationship Specialty Start Date End Date Ismael Villavicencio MD [address] [place] [address] PCP - General Internal Medicine 03/17/21 documented as of this encounter
--- OUTSIDE RECORDS SUMMARY | 2023-10-11 01:32 | External Medical Summary | Summary of Care ---
Author Name Unknown Organization [facility] Address [address] [place] [address] Phone [phone] Care Team Providers Care Director Of Vital Statistics Name Role Phone Ismael Hernandez MD Primary Care Provider + Reason for Visit * Reason Comments eRx-Medication Refill Encounter Details Date Type Department Care Team (Late st Contact Info) Description 06/06/2023 Refill General Internal Medicine [facility] 200 [facility] [place] [id number] Ismael Hernandez MD 200 [place] [address] Hypertension goal BP (blood pressure) < 130/80 Allergies Active Allergy Reactions Criticality Noted Date [...] HFA 108 (90 Base) MCG/ACT Inhalation Aerosol SolutionIndications :Mild intermittent asthma without complication Inhale 2 Puffs [...] Recomb Adjuvanted 50 MCG/0.5ML Intramuscular Suspension Reconstituted (Shingrix)Indicatio ns:Need for shingles vaccine Inject 0.5 mL into [...] 03/10/2023 Active Loratadine 10 MG Oral Tablet (Claritin)Indicatio ns:Chronic rhinitis Take 1 Tablet by mouth in the morning. 90 Tablet 3 03/13/2023 Active Spironolactone 25 MG Oral Tablet (Aldactone)Indicati ons:Hypertension goal BP (blood pressure) < 130/80 Take 1 Tablet by mouth in the morning. 0 05/28/2023 Active amLODIPine Besylate 10 MG Oral Tablet (Norvasc)Indication s:Hypertension goal BP (blood pressure) < 130/80 Take 0.5 Tablets by mouth every evening. 45 Tablet 3 06/04/2023 Active Fosinopril Sodium 40 MG Oral Tablet (Monopril)Indicatio ns:Hypertension goal BP (blood pressure) < 130/80 TAKE 1 TABLET BY MOUTH EVERY DAY IN THE MORNING 90 Tablet 3 06/07/2023 Active Fosinopril Sodium 40 MG Oral Tablet (Monopril)Indicatio ns:Hypertension goal BP (blood pressure) < 130/80 Take 1 Tablet (40 mg) by mouth in the morning. 90 Tablet 3 06/15/2022 3 Discontinued Hospital, Clinic, or Other Facility Administered Medication [...] (Prevnar) 08/28/2018 Pneumococcal Conjugate Vacci ne, 20-valent ([id number]) 10/16/2022 Seasonal Influenza, Quadriva lent Hd (Fluzone [...] encounter Miscellaneous Notes * Telephone Encounter - Lo Nielsen RPh - 06/07/2023 8:30 AM ESTSigned Prescriptions: Disp Refills Fosinopril Sodium 40 MG Oral Tablet (Monop*90 Tab*3 Sig: TAKE 1 TABLET BY MOUTH EVERY DAY IN THE MORNINGAuthorizing Provider: ISMAEL HERNANDEZ User: LO NIELSEN documented in this encounter Plan of Treatment Upcoming Encounters Date Type Department Care Team (Late st Contact Info) Description 06/07/2023 11:20 AM EST Office Visit General Internal Medicine [place] [address] [place] [address] Ismael Hernandez MD [address] [place] [address] 08/19/2023 3:00 PM EST Office Visit Pulmonary Medicine, [facility] [address] Sumanth Ye DO [address] [place], [place] [phone] 11/07/2023 11:30 AM EDT Office Visit Nephrology, [facility] 200 [facility] [place] [address] Zemaitis, Joana Mendez PA-C [address] [facility] [place] [place] [address] 11/07/2023 2:40 PM EDT Office Visit General Internal Medicine [facility] [address] [facility] [place] [place] [address] Ismael Hernandez MD [address] [facility] [place] [address] 12/30/2023 9:20 AM EDT Office Visit Neurology [facility] [address] [facility] [place] [place] [address] Wes Uribe MD [address], [place] [id number] 01/14/2024 2:30 PM EDT Cardiac Studies Cardiac Studies, [facility] [address] Scheduled Procedures Name Priority Associated Diagnoses Date/Ti [...] as of this encounter Visit Diagnoses Diagnosis Hypertension goal BP (blood pressure) < 130/80 Unspecified essential hypertension documented in this encounter Care Teams Director Of Vital Statistics Relationship Specialty Start Date End Date Ismael Hernandez MD [address] [facility] [place] [address] PCP - General Internal Medicine 03/17/21 documented as of this encounter
--- OUTSIDE RECORDS SUMMARY | 2023-10-11 01:32 | External Medical Summary ---
Author Name Unknown Address Unknown Organization K09:[facility] [place] [address] Laboratory Report Ordering Provider Test Date Status MARY LEW 06/07/2023 11:44:08 Final Observation Date Value Abnormality Reference (Units ) Status SYNC LEUKOCYTES IN BLOOD BY AUTOMATED COUNT 06/07/2023 11:44:08 9.32 4.00-10.80 (K/uL) Final Segs 06/07/2023 11:44:08 49.2 40.0-75.0 (%) Final Lymphs % 06/07/2023 11:44:08 32.5 18.0-42.0 (%) Final Monos 06/07/2023 11:44:08 15.0 Above high normal 1.0-11.0 (%) Final Eosinophils 06/07/2023 11:44:08 2.7 0.0-6.0 (%) Final Basos 06/07/2023 11:44:08 0.6 0.0-2.0 (%) Final Absolute Segs 06/07/2023 11:44:08 4.58 1.80-7.70 (K/uL) Final Lymphs, absolute 06/07/2023 11:44:08 3.03 1.00-4.80 (K/ul) Final Monos, Abs 06/07/2023 11:44:08 1.40 Above high normal 0.00-1.10 (K/uL) Final Eos, Abs 06/07/2023 11:44:08 0.25 0.00-0.70 (K/uL) Final Basos, Abs 06/07/2023 11:44:08 0.06 0.00-0.20 (K/uL) Final Performing Location [facility] [place] [address]
--- OUTSIDE RECORDS SUMMARY | 2023-10-11 01:32 | External Medical Summary ---
Author Name Unknown Address Unknown Organization [id number]:[facility] [place] [address] Laboratory Report Ordering Provider Test Date Status MARY LEW 06/07/2023 11:44:08 Final Observation Date Value Abnormality Reference (Units ) Status WBC, Total 06/07/2023 11:44:08 9.32 4.00-10.8 0 (K/uL) Final RBC 06/07/2023 11:44:08 4.51 4.50-5.25 (M/uL) Final Hemoglobin 06/07/2023 11:44:08 14.8 14.0-16.8 (g/dL) Final HCT 06/07/2023 11:44:08 43.1 40.0-48.4 (%) Final MCV 06/07/2023 11:44:08 95.6 82.0-99.5 (fL) Final MCH 06/07/2023 11:44:08 32.8 27.0-34.0 (pg) Final MCHC 06/07/2023 11:44:08 34.3 32.0-36.0 (g/dL) Final RDW 06/07/2023 11:44:08 13.2 11.5-15.5 (%) Final Platelets 06/07/2023 11:44:08 206 140-400 (K /uL) Final MPV 06/07/2023 11:44:08 9.5 6.6-11.1 ( fL) Final Performing Location [facility] [place] [address]
--- OUTSIDE RECORDS SUMMARY | 2023-10-11 01:32 | External Medical Summary ---
Author Name Unknown Address Unknown Organization [id number]:[facility] [place] [address] [facility] [address] Laboratory Report Ordering Provider Test Date Status MARY LEW 06/07/2023 11:44:08 Final Observation Date Value Abnormality Reference (Units ) Status Uric Acid 06/07/2023 11:44:08 4.7 3.4-7.0 (m g/dL) Final Performing Location [facility] [place] [address] [facility] [address]
--- OUTSIDE RECORDS SUMMARY | 2023-10-11 01:32 | External Medical Summary | Summary of Care ---
Author Name Unknown Organization [facility] Address [address] [place] [address] Phone [phone] Care Team Providers Care Curb Worker Name Role Phone Ismael Villavicencio MD Primary Care Provider + Reason for Visit * Reason Comments Outpatient Testing Encounter Details Date Type Department Care Team (Late st Contact Info) Description 06/07/2023 12:00 PM EST Laboratory Laboratory [facility] [address] [place] [id number] [facility] [address] [facility] [place] [address] Abnormal CBC measurement; Hypertension goal BP (blood pressure) < 130/80; Cellulitis of right wrist Allergies Active Allergy Reactions Criticality Noted Date [...] (Prevnar) 08/28/2018 Pneumococcal Conjugate Vacci ne, 20-valent ([id number]) 10/16/2022 Seasonal Influenza, Quadriva lent Hd (Fluzone [...] 3:00 PM EST Office Visit Pulmonary Medicine, [facility] [address] [facility] [place] [address] Sumanth Ye DO [address] [place] [address] 11/07/2023 11:30 AM EDT Office Visit Nephrology, [facility] [address] [place] [address] Joana Gaspar PA-C [address] [place] [address] 11/07/2023 2:40 PM EDT Office Visit General Internal Medicine [facility] [address] [place] [address] Ismael Villavicencio MD [address] [place] [address] 12/30/2023 9:20 AM EDT Office Visit Neurology [facility] [address] [place] [address] Wes Uribe MD [address] [place] [address] 01/14/2024 2:30 PM EDT Cardiac Studies Cardiac Studies, [facility] [address] [facility] [place] [address] 07/21/2024 10:15 AM EST Office Visit Dermatology [facility] [address] [place] [address] Ismael Nolan MD [address] [place] [address] Pending Results Name Type Priority Associated Diagnoses Date /Time BASIC METABOLIC PANEL Lab Routine Hypertension goal BP (blood pressure) < 130/80 06/07/2023 11:44 AM EST URIC ACID Lab Routine Cellulitis of right wrist 06/07/2023 11:44 AM EST Scheduled Procedures Name Priority Associated Diagnoses [...] Procedure Name Priority Date/Time Associated Diagnosis Comments DIFFERENTIAL, AUTOMATED Routine 06/07/2023 11:44 AM EST Abnormal CBC measurement CBC Routine 06/07/2023 11:44 AM EST Abnormal CBC measurement CBC Routine 06/07/2023 11:44 AM EST Abnormal CBC measurement documented in this encounter Results * (ABNORMAL) DIFFERENTIAL, AUTOMATED (06/07/2023 11:44 AM EST) WBC 9.32 4.00 - 10.80 K/uL 06/07/2023 11:51 AM EST [facility] 56-02 Neutrophils % 49.2 40.0 - 75.0 % 06/07/2023 11:51 AM EST [facility] 56-02 Lymphocytes % 32.5 18.0 - 42.0 % 06/07/2023 11:51 AM EST [facility] 56-02 Monocytes % 15.0(H) 1.0 - 11.0 % 06/07/2023 11:51 AM EST [facility] 56-02 Eosinophils % 2.7 0.0 - 6.0 % 06/07/2023 11:51 AM EST [facility] 56-02 Basophils % 0.6 0.0 - 2.0 % 06/07/2023 11:51 AM EST [facility] 56-02 Absolute Neutrophils 4.58 1.80 - 7.70 K/uL 06/07/2023 11:51 AM EST [facility] 56-02 Absolute Lymphocytes 3.03 1.00 - 4.80 K/ul 06/07/2023 11:51 AM [facility] 56- Absolute Monocytes 1.40(H) 0.00 - 1.10 K/uL 06/07/2023 11:51 AM [facility] 56- Absolute Eosinophils 0.25 0.00 - 0.70 K/uL 06/07/2023 11:51 AM [facility] 56- Absolute Basophils 0.06 0.00 - 0.20 K/uL 06/07/2023 11:51 AM [facility] 56 Blood Venous blood specimen / Unknown Venipuncture / Unknown 06/07/2023 11:44 AM EST 06/07/2023 11:44 AM EST Ismael Villavicencio MD LAB BLOOD [facility] [address] [place] [address] * CBC (06/07/2023 11:44 AM EST) WBC 9.32 4.00 - 10.80 K/uL 06/07/2023 11:51 AM [facility] 56 RBC 4.51 4.50 - 5.25 M/uL 06/07/2023 11:51 AM [facility] 56 HGB 14.8 14.0 - 16.8 g/dL 06/07/2023 11:51 AM [facility] 56- HCT 43.1 40.0 - 48.4 % 06/07/2023 11:51 AM [facility] 56- MCV 95.6 82.0 - 99.5 fL 06/07/2023 11:51 AM [facility] 56- MCH 32.8 27.0 - 34.0 pg 06/07/2023 11:51 AM [facility] 56- MCHC 34.3 32.0 - 36.0 g/dL 06/07/2023 11:51 AM [facility] 56 RDW 13.2 11.5 - 15.5 % 06/07/2023 11:51 AM [facility] 56- PLT 206 140 - 400 K/uL 06/07/2023 11:51 AM EST [facility] 56 MPV 9.5 6.6 - 11.1 fL 06/07/2023 11:51 AM EST [facility] 56 Blood Venous blood specimen / Unknown Venipuncture / Unknown 06/07/2023 11:44 AM EST 06/07/2023 11:44 AM EST Ismael Villavicencio MD LAB BLOOD [facility] [address] [facility] [address] documented in this encounter Visit Diagnoses Diagnosis Abnormal CBC measurement Other abnormal blood chemistry Hypertension goal BP (blood pressure) < 130/80 Unspecified essential hypertension Cellulitis of right wrist documented in this encounter Care Teams Curb Worker Relationship Specialty Start Date End Date Ismael Villavicencio MD [address] [facility] [place] [address] PCP - General Internal Medicine 03/17/21 documented as of this encounter
--- OUTSIDE RECORDS SUMMARY | 2023-10-11 01:32 | External Medical Summary ---
Author Name Unknown Address Unknown Organization K09:[facility] [place] [address] Laboratory Report Ordering Provider Test Date Status JESUSITA LOVE 06/07/2023 11:44:08 Final Observation Date Value Abnormality Reference (Units ) Status BUN 06/07/2023 11:44:08 30 Above high normal 6-20 (mg/dL) Final Creatinine 06/07/2023 11:44:08 1.1 0.6-1.2 (mg/dL) Final Glomerular filtration rate/1.73 sq M.predicted [Volume Rate/Area] in Serum, Plasma or Blood by Creatinine-based formula (CKD-EPI) 06/07/2023 11:44:08 71 >=60 (mL/min) Final eGFR is calculated based on the CKD-EPI 2020 equation SODIUM 06/07/2023 11:44:08 132 Below low normal 135 -146 (mmol/L) Final Potassium 06/07/2023 11:44:08 4.8 3.5-5.1 (m mol/L) Final Cl 06/07/2023 11:44:08 93 Below low normal 98- 107 (mmol/L) Final CO2 06/07/2023 11:44:08 29 22-32 (mmo l/L) Final Anion gap 06/07/2023 11:44:08 10 7-15 (mmol /L) Final Glucose 06/07/2023 11:44:08 60 Below low normal 70- 120 (mg/dL) Final Calcium 06/07/2023 11:44:08 9.9 8.4-10.2 ( mg/dL) Final Performing Location [facility] [place] [address]
--- OUTSIDE RECORDS SUMMARY | 2023-10-11 01:32 | External Medical Summary | Summary of Care ---
Author Name Unknown Organization [facility] Address [address] [place] [address] Phone [phone] Care Team Providers Care Supervisor Tree Trimming Name Role Phone Ismael Hernandez MD Primary Care Provider + Reason for Visit * Reason Comments Mole Check Patient is here for what he feels is a mole that just showed up a few months ago on the posterior side of his left upper arm. The area is raised and white. He said it doesn't bother him just knows it's there. * Evaluate & Treat - Unlimited Visits (Within 30 days (routine)) - Authorized Specialty Diagnoses / Procedures Referred By Ruby phillips Referred To Contact Dermatology Diagnoses Skin mole Ismael Hernandez MD [facility] [place] [address] Referral ID Status Reason Start Date Expiration Date Visits Requested Visits Authorized [id number] Authorized Specialty Services Required 3 [phone] Encounter Details Date Type Department Care Team (Late st Contact Info) Description 06/10/2023 8:15 AM EST Office Visit Dermatology [place] [address] [place] [address] Ismael Nolan MD [address] [place] [address] Actinic keratosis*; Dermatofibroma Allergies Active Allergy Reactions Criticality Noted Date Comments Baclofen Other (Please comment) 03/16/2021 Passed out Phenytoin Other (Please comment) 03/16/2021 Passed out Oxycodone Itching 03/16/2021 Percocet - itching documented as of this encounter (statuses as of 06/10/2023) Medications Medication Sig Dispensed Refills Start Date [...] as of this encounter (statuses as of 06/10/2023) Active Problems Problem Noted Date Diagnosed Date 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 Mild aortic regurgitation 10/15/2021 Mild persistent asthma without complication 09/12 Pulmonary hypertension 06/01/2021 Chronic diastolic congestive heart failure 04/03 Mild mitral regurgitation 04/03/2021 Mixed hyperlipidemia 03/17/2021 Chronic edema 03/17/2021 Hypertension goal BP (blood pressure) < 130/80 0 03/16/2021 Chronic hyponatremia 03/16/2021 Osteoarthritis 03/16/2021 documented as of this encounter (statuses as of 06/10/2023) Resolved Problems Problem Noted Date Diagnosed Date Resolved Date Mild intermittent asthma with exacerbation 09/22/2021 09/22/2021 High pulmonary arterial pressure 04/03/2021 12/01/2021 Hyperlipidemia 03/16/2021 03/17/2021 documented as of this encounter (statuses as of 06/10/2023) Immunizations Name Administration Dates Next Due COVID-19 mRNA, LNP-s, No Pre serve, 2-Dose Series (Moderna) 03/10/2021,09/18/2020,08/21/2020 Covid-19, Mrna, Lnp-s, Pf, B ivalent, 50 Mcg, IM, 12 yrs and above (Moderna) 04/17/2022 Pneumococcal Conjugate Vacc, 13 Valent (Prevnar) 08/28/2018 Pneumococcal Conjugate Vacci ne, 20-valent ([id number]) 10/16/2022 Seasonal Influenza, Quadriva lent Hd (Fluzone [...] on file documented as of this encounter Progress Notes * Ismael Nolan MD - 06/10/2023 8:21 AM EST SUBJECTIVE: Chief Complaint: Chief Complaint Patient presents with Mole Check Patient is here for what he feels is a mole that just showed up a few months ago on the posterior side of his left upper arm. The area is raised and white. He said it doesn't bother him just knows it's there. HPI: Tremaine Brady is a 78 year old male seen for a mole that appeared a few months ago. Raised and white. Not bothersome. Had a benign keratosis removed on left popliteal area last month. REVIEW OF SYSTEMS: CONSTITUTIONAL: negative SKIN: No new or changing moles or rashes other than those noted in HPI HEME/LYMPH: No new or enlarging lumps or bumps OBJECTIVE: GEN: Healthy, alert, no distress, appears oriented, pleasant, and cooperative SKIN: Problem focused exam reveals: Vertex scalp - dry gritty erythematous papule Left upper arm - firm scar-like brown papule with dimple sign ASSESSMENT/PLAN: Actinic keratosis -The diagnosis and malignant potential of the lesion was explained. Treatment options were reviewedincluding cryotherapy, topical medications, and observation. All questions were addressed. Procedure - Cryotherapy (Premalignant Destruction) -The patient would like to proceed with cryosurgery;Cryosurgery explained to the patient, consent obtained, patient, site and procedure verified, and then cryotherapy was performed with Liquid Nitrogen via cryo spray unit to 1 lesions. Location noted in physical exam. Post op course explained. -Discussed that if any of these lesions fail to completely resolve after treatment patient should call me for re-evaluation Dermatofibroma Benign nature was discussed and no further intervention needed. Advised to call with any changes. Ismael Nolan MD Ref: ISMAEL HERNANDEZ[[id number]] [address] [facility] [place] [address] (office) [phone] (fax) PCP: ISMAEL HERNANDEZ [address] [place] [address] [phone] documented in this encounter Nursing Notes * Shobha Rangel LPN - 06/10/2023 8:11 AM EST Patient identified by name and date of . Do you have any concerns about pain management for today's visit? No Living Will or Advance Directive for Health Care as noted on problem list. [employer] is a way you can talk to your provider online through e-mail. Would you like to sign up? I can activate it for you? ALREADY ACTIVE Chief Complaint Patient presents with Mole Check Patient is here for what he feels is a mole that just showed up a few months ago on the posterior side of his left upper arm. The area is raised and white. He said it doesn't bother him just knows it's there. documented in this encounter Plan of Treatment Upcoming Encounters Date Type Department Care Team (Late st Contact Info) Description 08/19/2023 3:00 PM EST Office Visit Pulmonary Medicine, [facility] [address] [place] [address] Sumanth Ye DO [address] [facility] [place] [address] 11/07/2023 11:30 AM EDT Office Visit Nephrology, [place] [address] [place] [address] Joana Gaspar PA-C [address] [place] [address] 11/07/2023 2:40 PM EDT Office Visit General Internal Medicine [facility] 200 [facility] [place], [place] [address] Ismael Hernandez MD [address] [facility] [place] [address] 12/10/2023 10:15 AM EDT Office Visit Dermatology [facility] [address] [facility] [place], [place] [address] Ismael Nolan MD [address] [facility] [place] [address] 12/30/2023 9:20 AM EDT Office Visit Neurology [facility] 200 [facility] [place] [address] Wes Uribe MD [address] [place], [place] [id number] 01/14/2024 2:30 PM EDT Cardiac Studies Cardiac Studies, [facility] [address] [facility] [address] Scheduled Procedures Name Priority Associated Diagnoses Date/Ti [...] Additional history exists Albumin/Creatinine Ratio 04/23/2025 04/23/2022, 090 08/2020 DTaP,Tdap,and Td Vaccines (3 - Td [...] as of this encounter Visit Diagnoses Diagnosis Actinic keratosis- Primary Dermatofibroma Benign neoplasm of skin, site unspecified documented in this encounter Care Teams Supervisor Tree Trimming Relationship Specialty Start Date End Date Ismael Hernandez MD [address] [place] [address] PCP - General Internal Medicine 03/17/21 documented as of this encounter
--- OUTSIDE RECORDS SUMMARY | 2023-10-11 01:32 | External Medical Summary | Summary of Care ---
Author Name Unknown Organization [facility] Address [address] [place] [address] Phone [phone] Care Team Providers Care Hand Launderer Name Role Phone Ismael Villavicencio MD Primary Care Provider + Reason for Referral * Evaluate & Treat - Unlimited Visits (Within 30 days (routine)) - Authorized Specialty Diagnoses / Procedures Referred By Ruby phillips Referred To Contact Dermatology Diagnoses Skin mole Ismael Villavicencio MD [address] [place] [address] Referral ID Status Reason Start Date Expiration Date Visits Requested Visits Authorized [id number] Authorized Specialty Services Required 3 [phone] [...] Comments Hospital Follow-Up ER follow up from [facility] d/c 06/02/23, evaluated for Right wrist pain and cellulitis. Patient states he is still having pain on the lateral side of his wrist. Encounter Details Date Type Department Care Team (Late st Contact Info) Description 06/07/2023 11:20 AM EST Office Visit General Internal Medicine [place] [address] [place] [address] Ismael Villavicencio MD [address] [place] [address] [address] Cellulitis of right wrist*; Skin mole Allergies [...] (Prevnar) 08/28/2018 Pneumococcal Conjugate Vacci ne, 20-valent ([id number]) 10/16/2022 Seasonal Influenza, Quadriva lent Hd (Fluzone [...] with Hospital Follow-Up ER follow up from [facility] d/c 06/02/23, evaluated for Right wrist pain [...] on file Occupational History Occupation: retired - [employer] Tobacco Use Smoking status: Former Packs/day: 0.75 [...] performed by Treasure Cruz MD at [facility] COLONOSCOPY, DIAGNOSTIC (RECTUM) 12/25/2022 prep-fair, 1-4 mm in cecum, otherwise normal / biopsies benign adenomatous polyp / 1 year w/ 2 day prep / COLONOSCOPY FLEXIBLE PROXIMAL DIAGNOSTIC performed by Treasure Cruz MD at [facility] TOTAL HIP REPLACEMENT & PROSTHESIS Bilateral 2017 [...] with Hospital Follow-Up ER follow up from [facility] d/c 06/02/23, evaluated for Right wrist pain and cellulitis. Patient states he is still having pain on the lateral side of his wrist. documented in this encounter Plan of Treatment Upcoming Encounters Date Type Department Care Team (Late st Contact Info) Description 08/19/2023 3:00 PM EST Office Visit Pulmonary Medicine, [facility] 132 [facility] [place] [address] Sumanth Ye DO [address] [place] [address] 11/07/2023 11:30 AM EDT Office Visit Nephrology, [facility] [address] [facility] [place] [address] ZemaJoana cummings PA-C [address] [facility] [place] [address] 11/07/2023 2:40 PM EDT Office Visit General Internal Medicine [facility] [address] [facility] [place] [address] Ismael Villavicencio MD [address] [facility] [place] [address] 12/30/2023 9:20 AM EDT Office Visit Neurology [facility] [address] [facility] [place] [address] Wes Uribe MD [address] [place], [place] [id number] 01/14/2024 2:30 PM EDT Cardiac Studies Cardiac Studies, [facility] 132 [facility] [place] [address] 07/21/2024 10:15 AM EST Office Visit Dermatology [facility] [address] [facility] [place] [address] Ismael Nolan MD [address] [facility] [place] [address] Pending Results Name Type Priority Associated Diagnoses [...] 09/04/2022, Additional history exists GFR 04/16/2024 04/16/2023, 090 02/2023, 02/21/2023, Additional history exists Depression Screening 04/30/2024 04/30/2023 Albumin/Creatinine Ratio 04/23/2025 04/23/2022, 090 08/2020 DTaP,Tdap,and [...] mole Benign neoplasm of skin, site unspecified documented in this encounter Care Teams Hand Launderer Relationship Specialty Start Date End Date Ismael Villavicencio MD [address] [place] [address] PCP - General Internal Medicine 03/17/21 documented as of this encounter
--- OUTSIDE RECORDS SUMMARY | 2023-10-11 01:33 | External Medical Summary ---
Author Name Unknown Address Unknown Organization K01:[facility] [place] [address] [facility] [address] Laboratory Report Ordering Provider Test Date Status DO LOUANNSEBASGEORGETTE 04/16/2023 16:28:21 Final Observation Date Value Abnormality Reference (Units ) Status SYNC LEUKOCYTES IN BLOOD BY AUTOMATED COUNT 04/16/2023 16:28:21 8.41 4.00-10.80 (K/uL) Final Segs 04/16/2023 16:28:21 49.8 40.0-75.0 (%) Final Lymphs % 04/16/2023 16:28:21 30.8 18.0-42.0 (%) Final Monos 04/16/2023 16:28:21 15.2 Above high normal 1.0-11.0 (%) Final Eosinophils 04/16/2023 16:28:21 2.9 0.0-6.0 (%) Final Basos 04/16/2023 16:28:21 1.1 0.0-2.0 (%) Final Immature Granulocyte, Percent 04/16/2023 16:28:21 0.2 0.0-2.0 (%) Final Absolute Segs 04/16/2023 16:28:21 4.19 1.80-7.70 (K/uL) Final Lymphs, absolute 04/16/2023 16:28:21 2.59 1.00-4.80 (K/ul) Final Monos, Abs 04/16/2023 16:28:21 1.28 Above high normal 0.00-1.10 (K/uL) Final Eos, Abs 04/16/2023 16:28:21 0.24 0.00-0.70 (K/uL) Final Basos, Abs 04/16/2023 16:28:21 0.09 0.00-0.20 (K/uL) Final Immature Granulocytes, Number 04/16/2023 16:28:21 0.02 0.00-0.20 (K/uL) Final Performing Location [facility] [place] - [facility] [place] [address]
--- OUTSIDE RECORDS SUMMARY | 2023-10-11 01:33 | External Medical Summary ---
Author Name Unknown Address Unknown Organization K01:[facility] [place] [facility] [address] [facility] [address] [facility] [address] Laboratory Report Ordering Provider Test Date Status DO LOUANNSEBASGEORGETTE 04/16/2023 16:28:21 Final Observation Date Value Abnormality Reference (Units ) Status WBC, Total 04/16/2023 16:28:21 8.41 4.00-10.80 (K/uL) Final RBC 04/16/2023 16:28:21 4.27 4.50-5.25 (M/uL) Final Hemoglobin 04/16/2023 16:28:21 13.9 Below low normal 14.0-16.8 (g/dL) Final HCT 04/16/2023 16:28:21 41.7 40.0-48.4 (%) Final MCV 04/16/2023 16:28:21 97.7 82.0-99.5 (fL) Final MCH 04/16/2023 16:28:21 32.6 27.0-34.0 (pg) Final MCHC 04/16/2023 16:28:21 33.3 32.0-36.0 (g/dL) Final RDW 04/16/2023 16:28:21 13.4 11.5-15.5 (%) Final Platelets 04/16/2023 16:28:21 194 140-400 (K/uL) Final MPV 04/16/2023 16:28:21 10.5 6.6-11.1 (fL) Final Nucleated erythrocytes/100 leukocytes [Ratio] in Blood by Automated count 04/16/2023 16:28:21 0 <=0 (/100 WBCs) Final Performing Location [facility] [place] [address] [facility] [address]
--- OUTSIDE RECORDS SUMMARY | 2023-10-11 01:33 | External Medical Summary | Summary of Care ---
Author Name Unknown Organization [facility] Address [address] [place] [address] Phone [phone] Care Team Providers Care Crown And Bridge Technician Name Role Phone Ismael Villavicencio MD Primary Care Provider + Reason for Referral * Evaluate & Treat - Unlimited Visits (Within 30 days (routine)) - Authorized Specialty Diagnoses / Procedures Referred By Ruby phillips Referred To Contact Physical Therapy / Physical Medicine And Rehab Diagnoses Chronic bilateral low back pain with left-sided sciatica Ismael Villavicencio MD [address] [place] [address] Referral ID Status Reason Start Date Expiration Date Visits Requested Visits Authorized [id number] Authorized Specialty Services Required [phone] Question Answer Referral Priority Within 30 days (routine) Where should this appointment be scheduled? [facility] * Evaluate & Treat - Unlimited Visits (Within 30 days (routine)) - Authorized Specialty Diagnoses / Procedures Referred By Ruby t Referred To Contact Dermatology Diagnoses Skin lesion Ismael Villavicencio MD [address] [place] [address] Referral ID Status Reason Start Date Expiration Date Visits Requested Visits Authorized [id number] Authorized Specialty Services Required [phone] Question Answer Referral Priority Within 30 days (routine) Where should this appointment be scheduled? [facility] Are you referring the patient for Mohs Surgery and have a current positive skin cancer biopsy result? No What is the reason for the patient referral? Rash/Skin Check/Eval of Lesion or Mole Comments Skin lesion behind knee * Evaluate & Treat - Unlimited Visits (Within 30 days (routine)) - Authorized Specialty Diagnoses / Procedures Referred By Ruby phillips Referred To Contact Pulmonary Diseases / Pulmonary Diagnoses Mild persistent asthma without complication Pulmonary hypertension (HCC) Ismael Villavicencio MD [address] [facility] [place] [address] Referral ID Status Reason Start Date Expiration Date Visits Requested Visits Authorized [id number] Authorized Specialty Services Required [phone] Question Answer Referral Priority Within 30 days (routine) Where should this appointment be scheduled? [facility] Primary Reason for Referral? Other Reason for Visit * Reason Onset Date Comments Follow Up The pt stated he is here for a 6 month follow up appointment Immunizations 04/30/2023 Encounter Details Date Type Department Care Team Description 04/30/2023 Office Visit General Internal Medicine [facility] [address] [place] [address] Ismael Villavicencio MD [address] [facility] [place] [address] Hypertension goal BP (blood pressure) < 130/80*; Mild persistent asthma without complication; Chronic bilateral low back pain with left-sided sciatica; Mixed hyperlipidemia; Pulmonary hypertension (HCC); Tremor of left hand; Skin lesion; Need for bxtjnakpjx-irxorql-lgi tussis (Tdap) vaccine; Decreased hemoglobin Allergies Active Allergy Reactions Severity Noted Date Comments Baclofen Other (Please comment) 03/16/2021 Passed out Phenytoin Other (Please comment) 03/16/2021 Passed out Oxycodone Itching 03/16/2021 Percocet - itching documented as of this encounter (statuses as of 04/30/2023) Medications Medication Sig Dispensed Refills Start Date [...] by mouth in the morning. 0 Active amLODIPine Besylate 10 MG Oral Tablet (Norvasc) Take 0.5 Tablets by mouth every evening. 0 03/22/2021 Active Ventolin HFA 108 (90 Base) MCG/ACT [...] EVERY DAY 90 Tablet 3 12/11/2022 Active Spironolactone 25 MG Oral Tablet (Aldactone) Take 0.5 Tablets by mouth in the morning. 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/01 Mild aortic regurgitation 10/15/2021 Mild persistent asthma without complicat ion 09/22/2021 Pulmonary hypertension 06/01/2021 Chronic diastolic congestive heart failu re 04/03/2021 Mild mitral regurgitation 04/03/2021 Mixed hyperlipidemia 03/17/2021 Chronic edema 03/17/2021 Hypertension goal BP (blood pressure) < 130/80 03/16/2021 Chronic hyponatremia 03/16/2021 Osteoarthritis 03/16/2021 documented as of this encounter (statuses as of 04/30/2023) Resolved Problems Problem Noted Date Resolved Date Mild intermittent asthma with exacerbation 09/2209/22/2021 High pulmonary arterial pressure 04/03/2021 12/01/2021 Hyperlipidemia 03/16/2021 03/17/2021 documented as of this encounter (statuses as of 04/30/2023) Immunizations Name Administration Dates Next Due COVID-19 mRNA, LNP-s, No Pre serve, 2-Dose Series (Moderna) 03/10/2021,09/18/2020,08/21/2020 Covid-19, Mrna, Lnp-s, Pf, B ivalent, 50 Mcg, IM, 12 yrs and above (Moderna) 04/17/2022 Pneumococcal Conjugate Vacc, 13 Valent (Prevnar) 08/28/2018 Pneumococcal Conjugate Vacci ne, 20-valent ([id number]) 10/16/2022 Seasonal Influenza, Trivalen t, Adjuvanted, 65+ yrs 03/21/2021,06/19/2018 TDAP (age 10 and older)(Boostrix) 04/30/2023 documented as of this encounter Social History Tobacco Use Types Packs/Day Years Used Date Smoking Tobacco: Former Cigarettes 0.8 27 Q uit: 07/15/1993 Smokeless Tobacco: Never Alcohol Use Standard Drinks/Week Comments Yes 2 (1 standard drink = 0.6 oz pur e alcohol) socially Alcohol Habits Answer Date Recorded How often do you have a drink containing alcohol ? 2-3 times a week 03/17/2021 How many drinks containing a lcohol do you have on a typical day when you are drinking? 1 or 2 03/17/2021 How often do you have six or more drinks on one occasion? Never 03/17/2021 Sex Assigned at Date Recorded Male 03/17/2021 9:24 AM E DT Job Start Date Occupation Industry Not on file Not on file Not on file documented as of this encounter Last Filed Vital Signs Vital Sign Reading Time Taken Comments Blood Pressure 118/72 04/30/2023 2:21 PM EDT Pulse 54 04/30/2023 2:21 PM EDT Temperature 36.2 C (97.2 F) 04/30/2023 2:21 PM ED T Respiratory Rate - - Oxygen Saturation 97% 04/30/2023 2:21 PM EDT Inhaled Oxygen Concentration - - Weight 73.1 kg (161 lb 1.6 oz) 04/30/2023 2:21 P M EDT Height - - Body Mass Index 26.81 12/25/2022 12:59 PM EDT documented in this encounter Patient Instructions * Patient Instructions* Christina Degroot LPN - 04/30/2023 2:26 PM EDT ~~PATIENT INSTRUCTIONS FOR TDAP VACCINE~~ Possible side effects of TDAP vaccine, (tetanus shot), are usually mild and can include: 1. Soreness or redness at injection site 2. Low grade fever 3. Body aches You may use a fever / pain reducing medication as needed for these symptoms. LET YOUR DOCTOR KNOW IMMEDIATELY IF YOU HAVE DIFFICULTY BREATHING OR SWALLOWING, EXPERIENCE ITCHINGOF FEET OR HANDS, HAVE SWELLING OF EYES, FACE OR INSIDE OF NOSE. ~~PATIENT INSTRUCTIONS FOR TDAP VACCINE~~ Possible side effects of TDAP vaccine, (tetanus shot), are usually mild and can include: 1. Soreness or redness at injection site 2. Low grade fever 3. Body aches You may use a fever / pain reducing medication as needed for these symptoms. LET YOUR DOCTOR KNOW IMMEDIATELY IF YOU HAVE DIFFICULTY BREATHING OR SWALLOWING, EXPERIENCE ITCHINGOF FEET OR HANDS, HAVE SWELLING OF EYES, FACE OR INSIDE OF NOSE. documented in this encounter Progress Notes * Ismael Villavicencio MD - 04/30/2023 2:43 PM EDT Chief Complaint Patient presents with Follow Up The pt stated he is here for a 6 month follow up appointment Immunizations SUBJECTIVE: Tremaine Brady is a 78 year old male with PMH as below who presents for follow up htn, hyponatremia, oa. No cp, sob, andres. Mood is good. Still doing triathlons. Mood is food. Sees cardiology and also nephrology. He notes breathing has been better since stopping labetalol. He would like to see dermfor skin lesion behind left knee for a couple months, unsure if changes, no pain. Also has tremor in hand, left side 4-6 months worse when holds book or phone, no trauma and not at rest. No tremor today, comes and goes. C/o left lower back pain at times, comes/goes, radiates down left leg. Not severe, no falls. No swelling or trauma Patient Active Problem List Diagnosis Code Hypertension goal BP (blood pressure) < 130/80 I10 Chronic hyponatremia E87.1 Osteoarthritis M19.90 Mixed hyperlipidemia E78.2 Chronic edema R60.9 Chronic diastolic congestive heart failure (HCC) I50.32 Mild mitral regurgitation I34.0 Pulmonary hypertension (HCC) I27.20 Mild persistent asthma without complication J45.30 Mild aortic regurgitation I35.1 Neuromuscular respiratory weakness ([facility]) G70.9, J99 Current Outpatient Medications Medication Sig [...] 2 Capsules by mouth in the morning. amLODIPine Besylate 10 MG Oral Tablet (Norvasc) Take 0.5 Tablets by mouth every evening. Ventolin HFA 108 (90 Base) MCG/ACT Inhalation Aerosol Solution Inhale 2 Puffs by mouth every 4 hours as needed for Cough, Shortness of Breath or Wheezing. 18 g 3 NATURAL SUPPLEMENT Take by mouth daily . Beet Root Fosinopril Sodium 40 MG Oral Tablet (Monopril) Take 1 Tablet (40 mg) by mouth in the morning. 90 Tablet 3 Pantoprazole Sodium 40 MG Oral Tablet Delayed Release (Protonix) Take 1 Tablet by mouth as needed. Zoster Vac Recomb Adjuvanted 50 MCG/0.5ML Intramuscular Suspension Reconstituted (Shingrix) Inject 0.5 mL into a large muscle now and repeat dose in 60 to 180 days 1 Each 1 Furosemide 40 MG Oral Tablet (Lasix) TAKE 1 TABLET BY MOUTH EVERY DAY 90 Tablet 3 Spironolactone 25 MG Oral Tablet (Aldactone) Take 0.5 Tablets by mouth in the morning. 45 Tablet 3 Atorvastatin Calcium 10 MG Oral [...] inhalation solution 2.5 mg 2.5 mg Nebulizer PRRoss Shannon PA-C Review of patient's allergies indicates: Allergen Reactions Baclofen Other (Please comment) Passed out Dilantin [Phenytoin] Other (Please comment) Passed out Oxycodone Itching Percocet - itching Health Maintenance Due Topic Date Due Depression Screening Never done DTaP,Tdap,and Td Vaccines (1 - Tdap) Never done Zoster Vaccines (1 of 2) Never done Influenza Vaccine (FLU shot) (1) 03/15/2023 COVID-19 Vaccine (2022- season) 2023 ROS: CONSTITUTIONAL: No change in weight, No weakness, and No fevers, sweats, or chills EYE: No recent significant change in vision and No eye pain, redness, discharge EARS: No ear pain, No drainage, No tinnitus or vertigo, and No recent change in hearing PULMONARY: No cough, sputum, or hemoptysis, No wheezing, No rales, No shortness of breath, and No recent change in breathing CARDIOVASCULAR: No chest pain, No shortness of breath, No dyspnea on exertion, No orthopnea, No paroxysmal nocturnal dyspnea, No edema, No palpitations, and No syncope GASTROINTESTINAL: No abdominal pain, No change in bowel habits, No significant heartburn, No significant change in appetite, No nausea, vomiting, diarrhea, or constipation, No hematemesis, No blood in stools or black tarry stools, No abdominal bloating or early satiety, and No dysphagia ALL OTHER SYSTEMS NEGATIVE I reviewed social, PMH, PSH, and family history and updated where needed. Social History Socioeconomic History Marital status: Spouse name: Not on file Number of children: 3 Years of education: Not on file Highest education level: Not on file Occupational History Occupation: [employer] Tobacco Use Smoking status: Former Packs/day: 0.75 Years: 27.00 Pack years: 20.25 Types: Cigarettes Quit date: 07/15/1993 Years since quittin.8 Smokeless tobacco: Never Vaping Use Vaping Use: Never used Substance and Sexual Activity Alcohol use: Yes Alcohol/week: 2.0 standard drinks Types: 2 5 oz of wine per [...] performed by Treasure Cruz MD at [facility] COLONOSCOPY, DIAGNOSTIC (RECTUM) 12/25/2022 prep-fair, 1-4 mm in cecum, otherwise normal / biopsies benign adenomatous polyp / 1 year w/ 2 day prep / COLONOSCOPY FLEXIBLE PROXIMAL DIAGNOSTIC performed by Treasure Cruz MD at [facility] TOTAL HIP REPLACEMENT & PROSTHESIS Bilateral 2017 Family History Problem Relation Age of Onset Rheum arthritis Mother Coronary Artery disease Father OBJECTIVE: PHYSICAL EXAM: BP 118/72 | Pulse 54 | Temp 36.2 C (97.2 F) | Wt 73.1 kg (161 lb 1.6 oz) | SpO2 97% | BMI 26.81kg/m | BSA 1.83 m General: alert, healthy, and no distress Head: Normocephalic, No masses, lesions, or abnormalities Eye Exam: conjunctiva are pink and non-injected, sclera clear Ears: External ears normal, Canals clear, TM's Normal Heart: regular rate & rhythm, no murmur, no gallops, PMI non-displaced, S-1 normal, and S-2 normal Lungs: normal respiratory rate and rhythm, lungs clear to auscultation Back: back symmetric, no curvature, no costovertebral angle tenderness, Extremities: no clubbing, no cyanosis Neuro Exam: alert with fluent speech, gait normal Psych: normal affect, no flight of ideas or tangential thought, good eye contact, no pressured speech Skin; raised round lesion back of left knee 03/12/23 cardiology: Continue current cardiovascular medications including labetalol, furosemide, amlodipine, atorvastatin, and ROGER-inhibitor. Follow-up with Nephrology regarding management of hyponatremia. Update resting echocardiogram in 1 year. I reviewed last cbc, diff, lipid, gfr, sodium, lipid ASSESSMENT: I10 Hypertension goal BP (blood pressure) < 130/80 (primary encounter diagnosis) J45.30 Mild persistent asthma without complication M54.42,G89.29 Chronic bilateral low back pain with left-sided sciatica E78.2 Mixed hyperlipidemia I27.20 Pulmonary hypertension (HCC) R25.1 Tremor of left hand L98.9 Skin lesion Z23 Need for whunyxudrc-ddooujy-qshaqejtj (Tdap) vaccine R71.0 Decreased hemoglobin PLAN: Hypertension goal BP (blood pressure) < 130/80 (Primary) Cont aldacone, lasix, fosinopril, amlodipine Mild persistent asthma without complication - PULMONARY REFERRAL OP Due for f/u with pulm, but seems controlled Cont albuterol Chronic bilateral low back pain with left-sided sciatica Trial pt, will let me know if persistent Cautioned with running as seems to make worse Mixed hyperlipidemia Cont lipitor Pulmonary hypertension (HCC) - PULMONARY REFERRAL OP Tremor of left hand Will message neurology Skin lesion - DERMATOLOGY REFERRAL OP Need for pbrkujlusy-sxexkye-lxqjcypaw (Tdap) vaccine Vaccine today per smart set Decreased hemoglobin Recheck 1 month, if lower or monocyte going up, t/c heme evaul Follow Up: Return in about 6 months (around 10/30/2023), or if symptoms worsen or fail to improve. Had flu and scheduled for booster Ismael Villavicencio MD * Christina Degroot LPN - 04/30/2023 2:42 PM EDT Immunization Administration Documentation Time Out Procedure Performed: Yes Patient Identified (Ask Name/Date of ): Yes Does the patient have a fever greater than 101 degrees today? No Patient allergic to latex? No VFC Stock: No Immunization(s) verified: Yes, Immunization Name: Tdap (Boostrix), VIS Sheet(s) given: Yes Verified Side and Site: Yes Verified Shot(s) with Parent(s)/Patient: Yes * Marcos Dhillon LPN - 04/30/2023 2:25 PM EDT Immunization Administration Documentation Time Out Procedure Performed: Yes Patient Identified (Ask Name/Date of ): Yes Does the patient have a fever greater than 101 degrees today? No Patient allergic to latex? No VFC Stock: No Immunization(s) verified: Yes, Immunization Name: Tdap (Boostrix), VIS Sheet(s) given: Yes Verified Side and Site: Yes Verified Shot(s) with Parent(s)/Patient: Yes Tdap covered under Medicare Part D, prescription order pended for physician to sign. Marcos Dhillon LPN documented in this encounter Nursing Notes * Marcos Dhillon LPN - 04/30/2023 2:20 PM EDT Chief Complaint Patient presents with Follow Up The pt stated he is here for a 6 month follow up appointment documented in this encounter Plan of Treatment Upcoming Encounters Date Type Specialty Care Team Description 08/19/2023 Office Visit Pulmonary Sumanth Ye, DO [address] [place] [address] 11/07/2023 Office Visit Nephrology Joana Gaspar PA-C [address] [place] [address] 11/07/2023 Office Visit Internal Medicine Ismael Villavicencio MD [address] [place] [address] 12/12/2023 Office Visit Dermatology Neva Rasmussen PA-C [address] [place] [address] D[place] Palumbo [id number] 01/14/2024 Cardiac Studies Cardiac Studies Scheduled Procedures Name Priority Associated Diagnoses Date/Ti ok COLONOSCOPY FLEXIBLE PROXIMAL DIAGNOSTIC Recall History of colon polyps Scheduled Referrals Name Type Priority Associated Diagnoses Orde r Schedule PULMONARY REFERRAL OP Referral Within 30 days (routine) Mild persistent asthma without complication Pulmonary hypertension (HCC) Ordered: 04/30/2023 DERMATOLOGY REFERRAL OP Referral Within 30 days (routine) Skin lesion Ordered: 04/30/2023 PHYSICAL THERAPY REFERRAL OP Referral Within 30 days (routine) Chronic bilateral low back pain with left-sided sciatica Ordered: 04/30/2023 Health Maintenance Due Date Last Done Comments Depression Screening 1957 04/30/2023 Zoster Vaccines (1 of 2) 1996 COVID-19 Vaccine ( season) 2023 04/17/2022, 03/10/2021, 09/18/2020, Additional history exists Influenza Vaccine (FLU shot) (#1) 2023 03/21/2021, 06/19/2018 COLONOSCOPY-ANNUAL AGES 18-100 12/26/2023 12/25/2022, 12/25/2022, 09/04/2022, Additional history exists GFR 04/16/2024 04/16/2023, 090 02/2023, 02/21/2023, Additional history exists Albumin/Creatinine Ratio 04/23/2025 04/23/2022, 08/2020 DTaP,Tdap,and Td Vaccines (2 - Td or Tdap) 04/30/2033 04/30/2023 Pneumococcal Vaccine: 65+ Years Completed 10/16/2022, 08/28/2018 GARDASIL-HPV IMMUNIZATION SERIES Aged Out No longer [...] Diagnosis Hypertension goal BP (blood pressure) < 130/80- Primary Unspecified essential hypertension Mild persistent asthma without complication Unspecified asthma Chronic bilateral low back pain with left-sided sciatica Mixed hyperlipidemia Pulmonary hypertension (HCC) Other chronic pulmonary heart diseases Tremor of left hand Skin lesion Unspecified disorder of skin and subcutaneous tissue Need for ikmjtpsosv-hzjemwe-bigusfbfs (Tdap) vaccine Need for prophylactic vaccination with combined nxocemzxms-vxjcpnd-erzatxksb (DTP) vaccine Decreased hemoglobin Anemia, unspecified documented in this encounter Care Teams Crown And Bridge Technician Relationship Specialty Start Date End Date Ismael Villavicencio MD [address] [place] [address] PCP - General Internal Medicine 03/17/21 documented as of this encounter"
--- OUTSIDE RECORDS SUMMARY | 2023-10-11 01:33 | External Medical Summary | Summary of Care ---
Author Name Unknown Organization [facility] Address [address] [place] [address] Phone [phone] Care Team Providers Care Roll Picker Name Role Phone Ismael Villavicencio MD Primary Care Provider + Reason for Visit * Reason Comments NEW PATIENT Referred for skin le gloria behind left knee x 1 yr, no bleeding. Denies hx of skin cancer. Reports hx of sk's * Evaluate & Treat - Unlimited Visits (Within 30 days (routine)) - Authorized Specialty Diagnoses / Procedures Referred By Ruby phillips Referred To Contact Dermatology Diagnoses Skin lesion Ismael Villavicencio MD [address] [place] [address] Referral ID Status Reason Start Date Expiration Date Visits Requested Visits Authorized [id number] Authorized Specialty Services Required 3 [phone] Encounter Details Date Type Department Care Team (Late st Contact Info) Description 05/13/2023 1:30 PM EDT Office Visit Dermatology [facility] [address] [place] [address] Swetha Gold PA-C [address] [place] [address] Neoplasm of uncertain behavior of skin* Allergies Active Allergy Reactions Criticality Noted Date Comments Baclofen Other (Please comment) 03/16/2021 Passed out Phenytoin Other (Please comment) 03/16/2021 Passed out Oxycodone Itching 03/16/2021 Percocet - itching documented as of this encounter (statuses as of 05/13/2023) Medications Medication Sig Dispensed Refills Start Date [...] as of this encounter (statuses as of 05/13/2023) Active Problems Problem Noted Date Diagnosed Date 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 Mild aortic regurgitation 10/15/2021 Mild persistent asthma without complication 09/12 Pulmonary hypertension 06/01/2021 Chronic diastolic congestive heart failure 04/03 Mild mitral regurgitation 04/03/2021 Mixed hyperlipidemia 03/17/2021 Chronic edema 03/17/2021 Hypertension goal BP (blood pressure) < 130/80 0 03/16/2021 Chronic hyponatremia 03/16/2021 Osteoarthritis 03/16/2021 documented as of this encounter (statuses as of 05/13/2023) Resolved Problems Problem Noted Date Diagnosed Date Resolved Date Mild intermittent asthma with exacerbation 09/22/2021 09/22/2021 High pulmonary arterial pressure 04/03/2021 12/01/2021 Hyperlipidemia 03/16/2021 03/17/2021 documented as of this encounter (statuses as of 05/13/2023) Immunizations Name Administration Dates Next Due COVID-19 mRNA, LNP-s, No Pre serve, 2-Dose Series (Moderna) 03/10/2021,09/18/2020,08/21/2020 Covid-19, Mrna, Lnp-s, Pf, B ivalent, 50 Mcg, IM, 12 yrs and above (Moderna) 04/17/2022 Pneumococcal Conjugate Vacc, 13 Valent (Prevnar) 08/28/2018 Pneumococcal Conjugate Vacci ne, 20-valent ([id number]) 10/16/2022 Seasonal Influenza, Quadriva lent Hd (Fluzone [...] as of this encounter Progress Notes * Nikolai Adrian MD - 05/13/2023 2:12 PM EDT I have reviewed the charting notes and orders and associated images and agree with the assessment and plan of Swetha Feng PA-C . Nikolai Adrian MD., Dermatology [facility] [address] [place] [id number] * Swetha Gold PA-C - 05/13/2023 1:32 PM EDT Nursing Notes: Cassandra Cheatham LPN 05/13/23 1323 Signed Patient identified by name and date. Chief Complaint Patient presents with NEW PATIENT Referred for skin lesion behind left knee x 1 yr, no bleeding. Denies hx of skin cancer. Reports hxof sk's SUBJECTIVE: HPI: Tremaine Brady is a 78 year old male seen at the request of PCP for evaluation and treatmentof lesion. Lesion located behind L knee x 1 year No bleeding or pain. States some of it "disintegrated" over the last few weeks. No hx of skin cancer REVIEW OF SYSTEMS: See HPI- all other findings negative Constitutional: (-) fever, chills, sweats, weight loss Cardiovascular: (-) lower extremity edema Skin: (-) no rash or new or changing moles or skin lesions Past Medical History: Diagnosis Date Chronic edema 03/17/2021 Chronic hyponatremia 03/16/2021 Diastolic dysfunction 04/03/2021 Hypertension goal BP (blood pressure) < 130/80 03/16/2021 Lung nodule Mild aortic regurgitation 10/15/2021 Mild intermittent asthma with exacerbation 09/22/2021 Mild mitral regurgitation 04/03/2021 Mild persistent asthma without complication 09/22/2021 Mixed hyperlipidemia 03/17/2021 Osteoarthritis 03/16/2021 Patient Active Problem List Diagnosis Code Hypertension goal BP (blood pressure) < 130/80 I10 Chronic hyponatremia E87.1 Osteoarthritis M19.90 Mixed hyperlipidemia E78.2 Chronic edema R60.9 Chronic diastolic congestive heart failure (HCC) I50.32 Mild mitral regurgitation I34.0 Pulmonary hypertension ([facility]) I27.20 Mild persistent asthma without complication J45.30 Mild aortic regurgitation I35.1 Neuromuscular respiratory weakness ([facility]) G70.9, J99 SOCIAL HISTORY: Social History Tobacco Use Smoking status: Former Packs/day: 0.75 Years: 27.00 Additional pack years: 0.00 Total pack years: 20.25 Types: Cigarettes Quit date: 07/15/1993 Years since quittin.8 Smokeless tobacco: Never Substance Use Topics Alcohol use: Yes Alcohol/week: 2.0 standard drinks of alcohol Types: 2 5 oz of wine per week Comment: socially Vaping/E-Cigarette Use Vaping/E-Cigarette Use Never User Vaping/E-Cigarette Substances Vaping/E-Cigarette Devices MEDICATIONS: Current Outpatient Medications Medication Sig Dispense Refill [...] mg 2.5 mg Nebulizer Esteban Munroe PA-C ALLERGIES: Baclofen, Dilantin [phenytoin], and Oxycodone OBJECTIVE: GEN: Healthy, alert, no distress, appears oriented, pleasant, and cooperative. PSYCH: Appropriate mood and affect, alert SKIN: Detailed exam of LLE was completed and are within normal limits with the following exceptions: 1. [place] and brown keratotic plaque L popliteal ASSESSMENT/PLAN: 1. L popliteal, r/o seborrheic keratosis vs nonmelanoma skin cancer vs verruca Tangential biopsy of the lesion noted above to establish and confirm diagnosis. The procedure, risks, benefits, alternatives and expected outcomes were discussed with the patient and verbal consent was obtained. Patient identified, procedure verified, site identified and verified. Confirmed immediately prior to procedure. Area prepped with alcohol and anesthetized with Ropivacaine 2mg/mL (0.2%). Biopsy of lesion performed. 20% AlCl and bandaging applied. Specimen sent to pathology. Patient instructed in routine post-op care. Patient with today. Follow-up: PRN pending path Photos taken, patient consented to photos. Applicable photos (if any) and chart reviewed by Dr. Nikolai Adrian The patient was encouraged to contact me with any further questions or concerns. Swetha Gold PA-C 05/13/2023 1:33 PM documented in this encounter Nursing Notes * Cassandra Cheatham LPN - 05/13/2023 1:23 PM EDT Patient identified by name and date. Chief Complaint Patient presents with NEW PATIENT Referred for skin lesion behind left knee x 1 yr, no bleeding. Denies hx of skin cancer. Reports hxof sk's documented in this encounter Plan of Treatment Upcoming Encounters Date Type Department Care Team (Late st Contact Info) Description 08/19/2023 3:00 PM EST Office Visit [facility], [facility] [address] [facility] [address] Sumanth Ye DO [address] [place] [address] 11/07/2023 11:30 AM EDT Office Visit [facility]phrology, [facility] [address] Joana Gaspar PA-C [address] [facility] [address] 11/07/2023 2:40 PM EDT Office Visit General Internal Medicine [facility] [address] [facility] [address] Ismael Villavicencio MD [address] [facility] [place] [address] 01/14/2024 2:30 PM EDT Cardiac Studies Cardiac Studies, [facility] [address] [facility] [address] Pending Results Name Type Priority Associated Diagnoses Date /Time SURGICAL PATHOLOGY Pathology Routine Neoplasm of uncertain behavior of skin 05/13/2023 1:47 PM EDT Scheduled Procedures Name Priority Associated Diagnoses Date/Ti [...] as of this encounter Visit Diagnoses Diagnosis Neoplasm of uncertain behavior of skin- Primary documented in this encounter Care Teams Roll Picker Relationship Specialty Start Date End Date Ismael Villavicencio MD [address] [place] [address] PCP - General Internal Medicine 03/17/21 documented as of this encounter
--- OUTSIDE RECORDS SUMMARY | 2023-10-11 01:33 | External Medical Summary | Summary of Care ---
Author Name Unknown Organization [facility] Address [address] [place] [address] Phone [phone] Care Team Providers Care Watershed Engineer Name Role Phone Ismael Villavicencio MD Primary Care Provider + Reason for Visit * Reason Comments Outpatient Testing Encounter Details Date Type Department Care Team Description 04/16/2023 Laboratory Laboratory, [facility] [place] [address] [facility] [address] [place] [address] Hypertension goal BP (blood pressure) < 130/80; High blood monocyte count; Encounter for long-term (current) use of medications Allergies Active Allergy Reactions Severity Noted Date Comments Baclofen Other (Please comment) 03/16/2021 Passed out Phenytoin Other (Please comment) 03/16/2021 Passed out Oxycodone Itching 03/16/2021 Percocet - itching documented as of this encounter (statuses as of 04/16/2023) Medications Medication Sig Dispensed Refills Start Date [...] as of this encounter (statuses as of 04/16/2023) Active Problems Problem Noted Date 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/01 Mild aortic regurgitation 10/15/2021 Mild persistent asthma without complicat ion 09/22/2021 Pulmonary hypertension 06/01/2021 Chronic diastolic congestive heart failu re 04/03/2021 Mild mitral regurgitation 04/03/2021 Mixed hyperlipidemia 03/17/2021 Chronic edema 03/17/2021 Hypertension goal BP (blood pressure) < 130/80 03/16/2021 Chronic hyponatremia 03/16/2021 Osteoarthritis 03/16/2021 documented as of this encounter (statuses as of 04/16/2023) Resolved Problems Problem Noted Date Resolved Date Mild intermittent asthma with exacerbation 09/2209/22/2021 High pulmonary arterial pressure 04/03/2021 12/01/2021 Hyperlipidemia 03/16/2021 03/17/2021 documented as of this encounter (statuses as of 04/16/2023) Immunizations Name Administration Dates Next Due COVID-19 mRNA, LNP-s, No Pre serve, 2-Dose Series (Moderna) 03/10/2021,09/18/2020,08/21/2020 Covid-19, Mrna, Lnp-s, Pf, B ivalent, 50 Mcg, IM, 12 yrs and above (Moderna) 04/17/2022 Pneumococcal Conjugate Vacc, 13 Valent (Prevnar) 08/28/2018 Pneumococcal Conjugate Vacci ne, 20-valent ([id number]) 10/16/2022 Seasonal Influenza, Trivalen t, Adjuvanted, 65+ yrs 03/21/2021,06/19/2018 documented as of this encounter Social History [...] Encounters Date Type Specialty Care Team Description 04/30/2023 Office Visit Nephrology Beatriz Barnes MD [address] [facility] [place] [address] 04/30/2023 Office Visit Internal Medicine Ismeal Villavicencio MD [address] [facility] [place] [address] 01/14/2024 Cardiac Studies Cardiac Studies Pending Results Name Type Priority Associated Diagnoses Date /Time COMPREHENSIVE METABOLIC PANEL Lab Routine Hypertension goal BP (blood pressure) < 130/80 04/16/2023 4:28 PM EDT LIPID PANEL WITH DIRECT LDL IF TG IS HIGH Lab Routine Hypertension goal BP (blood pressure) < 130/80 04/16/2023 4:28 PM EDT CBC WITH WBC DIFFERENTIAL Lab Routine High blood monocyte count 04/16/2023 4:28 PM EDT VITAMIN B12 Lab Routine Encounter for long-term (current) use of medications 04/16/2023 4:28 PM EDT MAGNESIUM Lab Routine Encounter for long-term (current) use of medications 04/16/2023 4:28 PM EDT CBC Lab Routine High blood monocyte count 04/16/2023 4:28 PM EDT DIFFERENTIAL, AUTOMATED Lab Routine High blood monocyte count 04/16/2023 4:28 PM EDT Scheduled Procedures Name Priority Associated Diagnoses Date/Ti me COLONOSCOPY FLEXIBLE PROXIMAL DIAGNOSTIC Recall History of colon polyps Health Maintenance Due Date Last Done Comments Depression Screening 1958 DTaP,Tdap,and Td Vaccines (1 - Tdap) 1965 Zoster Vaccines (1 of 2) 1996 COVID-19 Vaccine (5 - season) 2023 04/17/2022, 03/10/2021, 09/18/2020, Additional history exists Influenza Vaccine (FLU shot) (#1) 2023 03/21/2021, 06/19/2018 GFR 03/22/2024 03/22/2023, 02/12, 01/25/2023, Additional history exists Albumin/Creatinine Ratio 04/23/2025 04/23/2022, 08/2020 Pneumococcal Vaccine: 65+ Years Completed 10/16/2022, 08/28/2018 [...] (blood pressure) < 130/80 Unspecified essential hypertension High blood monocyte count Encounter for long-term (current) use of medications Encounter for long-term (current) use of other medications documented in this encounter Care Teams Watershed Engineer Relationship Specialty Start Date End Date Ismael Villavicencio MD [address] [place] [address] [place] [address] PCP - General Internal Medicine 03/17/21 documented as of this encounter
--- OUTSIDE RECORDS SUMMARY | 2023-10-11 01:33 | External Medical Summary | Summary of Care ---
Author Name Unknown Organization [facility] Address [address] [place] [address] Phone [phone] Care Team Providers Care Crude Tester Name Role Phone Ismael Villavicencio MD Primary Care Provider + Encounter Details Date Type Department Care Team (Late st Contact Info) Description 06/03/2023 Orders Only Outcomes Research Department [address] [place] [address] Meme Gandara CHRA [employer] [facility] Other*[id number] Allergies Active Allergy Reactions Criticality Noted Date Comments Baclofen Other (Please comment) 03/16/2021 Passed out Phenytoin Other (Please comment) 03/16/2021 Passed out Oxycodone Itching 03/16/2021 Percocet - itching documented as of this encounter (statuses as of 06/03/2023) Medications Medication Sig Dispensed Refills Start Date [...] mouth in the morning. 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 Mild aortic regurgitation 10/15/2021 Mild persistent asthma without complication 09/12 Pulmonary hypertension 06/01/2021 Chronic diastolic congestive heart failure 04/03 Mild mitral regurgitation 04/03/2021 Mixed hyperlipidemia 03/17/2021 Chronic edema 03/17/2021 Hypertension goal BP (blood pressure) < 130/80 0 03/16/2021 Chronic hyponatremia 03/16/2021 Osteoarthritis 03/16/2021 documented as of this encounter (statuses as of 06/03/2023) Resolved Problems Problem Noted Date Diagnosed Date Resolved Date Mild intermittent asthma with exacerbation 09/22/2021 09/22/2021 High pulmonary arterial pressure 04/03/2021 12/01/2021 Hyperlipidemia 03/16/2021 03/17/2021 documented as of this encounter (statuses as of 06/03/2023) Immunizations Name Administration Dates Next Due COVID-19 mRNA, LNP-s, No Pre serve, 2-Dose Series (Moderna) 03/10/2021,09/18/2020,08/21/2020 Covid-19, Mrna, Lnp-s, Pf, B ivalent, 50 Mcg, IM, 12 yrs and above (Moderna) 04/17/2022 Pneumococcal Conjugate Vacc, 13 Valent (Prevnar) 08/28/2018 Pneumococcal Conjugate Vacci ne, 20-valent ([id number]) 10/16/2022 Seasonal Influenza, Quadriva lent Hd (Fluzone [...] 3:00 PM EST Office Visit Pulmonary Medicine, [facility] [address] [facility] [place] [address] Sumanth Ye DO [address] [place] [address] 11/07/2023 11:30 AM EDT Office Visit Nephrology, [facility] [address] [place] [address] Joana Gaspar PA-C 200 [place] [address] 11/07/2023 2:40 PM EDT Office Visit General Internal Medicine [facility] [address] [facility] [address] Ismael Villavicencio MD [address] [facility] [place] [address] 12/30/2023 9:20 AM EDT Office Visit Neurology [facility] [address] [place] [address] Wes Uribe MD [address] [place] [address] 01/14/2024 2:30 PM EDT Cardiac Studies Cardiac Studies, [facility] [address] [facility] [place] [address] Scheduled Orders Name Type Priority Associated Diagnoses Orde r Schedule MYCODE SUBSEQUENT ADULT Lab Routine [facility] Other*[id number] Every 6 Months for 2 Occurrences starting 06/03/2023 until 06/22/2024 Scheduled Procedures Name Priority Associated Diagnoses Date/Ti [...] as of this encounter Visit Diagnoses Diagnosis [facility] Other*[id number] documented in this encounter Care Teams Crude Tester Relationship Specialty Start Date End Date Ismael Villavicencio MD [address] [place] [address] PCP - General Internal Medicine 03/17/21 documented as of this encounter
--- OUTSIDE RECORDS SUMMARY | 2023-10-11 01:33 | External Medical Summary | Summary of Care ---
Author Name Unknown Organization [facility] Address [address] [place] [address] Phone [phone] Care Team Providers Care Machine Packer Name Role Phone Ismael Villavicencio MD Primary Care Provider + Reason for Referral * Evaluate & Treat - Unlimited Visits (Within 10 days (routine)) - Pending Review Specialty Diagnoses / Procedures Referred By Contjose t Referred To Contact Neurology Diagnoses Tremor Ismael Villavicencio MD [facility] [place] [address] [address] Referral ID Status Reason Start Date Expiration Date Visits Requested Visits Authorized [id number] Pending Review Specialty Services Required 3 [phone] Question Answer Referral Priority Within 10 days (routine) Where should this appointment be scheduled? [facility] This patient already has care established with Neurology. Do not place this order. Please use Ask A Doc to expedite care. Acknowledge [facility] NEUROLOGY REFERRAL QUESTIONS Memory/Cognition Comments Tremor, different from what he saw neurology for prior Reason for Visit * Reason Onset Date Comments Advice 05/23/2023 Encounter Details Date Type Department Care Team (Late st Contact Info) Description 05/23/2023 Telephone General Internal Medicine [facility] [address] [place] [address] [address] Ismael Villavicencio MD [address] [place] [address] [address] Advice Allergies Active Allergy Reactions Criticality Noted Date Comments Baclofen Other (Please comment) 03/16/2021 Passed out Phenytoin Other (Please comment) 03/16/2021 Passed out Oxycodone Itching 03/16/2021 Percocet - itching documented as of this encounter (statuses as of 05/31/2023) Medications Medication Sig Dispensed Refills Start Date [...] as of this encounter (statuses as of 05/31/2023) Active Problems Problem Noted Date Diagnosed Date 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 Mild aortic regurgitation 10/15/2021 Mild persistent asthma without complication 09/12 Pulmonary hypertension 06/01/2021 Chronic diastolic congestive heart failure 04/03 Mild mitral regurgitation 04/03/2021 Mixed hyperlipidemia 03/17/2021 Chronic edema 03/17/2021 Hypertension goal BP (blood pressure) < 130/80 0 03/16/2021 Chronic hyponatremia 03/16/2021 Osteoarthritis 03/16/2021 documented as of this encounter (statuses as of 05/31/2023) Resolved Problems Problem Noted Date Diagnosed Date Resolved Date Mild intermittent asthma with exacerbation 09/22/2021 09/22/2021 High pulmonary arterial pressure 04/03/2021 12/01/2021 Hyperlipidemia 03/16/2021 03/17/2021 documented as of this encounter (statuses as of 05/31/2023) Immunizations Name Administration Dates Next Due COVID-19 mRNA, LNP-s, No Pre serve, 2-Dose Series (Moderna) 03/10/2021,09/18/2020,08/21/2020 Covid-19, Mrna, Lnp-s, Pf, B ivalent, 50 Mcg, IM, 12 yrs and above (Moderna) 04/17/2022 Pneumococcal Conjugate Vacc, 13 Valent (Prevnar) 08/28/2018 Pneumococcal Conjugate Vacci ne, 20-valent ([id number]) 10/16/2022 Seasonal Influenza, Quadriva lent Hd (Fluzone [...] encounter Miscellaneous Notes * Telephone Encounter - Kristen Sheldon OSA - 05/31/2023 10:29 AM EST Pt is scheduled for 12/29 * Telephone Encounter - Yolanda Sheldon OSA - 05/30/2023 11:22 AM EST Pt needs to schedule with Neurology. Tremor [R25.1] LMOM 05/30/2023 RMK * Telephone Encounter - Eliana Trujillo LPN - 05/29/2023 4:17 PM EST Patient is calling. Given message. Verbalized understanding. He is willing to see neurology. Pleaseplace the order. * Telephone Encounter - Taya Rodriguez LPN - 05/29/2023 3:37 PM EST Left message for patient to call back regarding message below. * Telephone Encounter - Ismael Villavicencio MD - 05/23/2023 3:30 PM EST Please call. I did hear back from neurology about tremor. They did recommend a med (Primidone 50 mgnightly) but given ongoing for him, I would like him to see neurology if he is willing, let me know documented in this encounter Plan of Treatment Upcoming Encounters Date Type Department Care Team (Late st Contact Info) Description 08/19/2023 3:00 PM EST Office Visit Pulmonary Medicine, [facility] 132 [facility] [place] [address] Sumanth Ye, DO [address] [place] [address] 11/07/2023 11:30 AM EDT Office Visit Nephrology, [facility] [address] [place] [address] Joana Gaspar PA-C [address] [place] [address] 11/07/2023 2:40 PM EDT Office Visit General Internal Medicine [facility] 200 [place] [address] Ismael Villavicencio MD [address] [place] [address] 12/30/2023 9:20 AM EDT Office Visit Neurology [facility] 200 [place] [address] Wes Uribe MD [address] [place] [address] 01/14/2024 2:30 PM EDT Cardiac Studies Cardiac Studies, [facility] [address] [place] [address] Scheduled Procedures Name Priority Associated Diagnoses Date/Ti me COLONOSCOPY FLEXIBLE PROXIMAL DIAGNOSTIC Recall History of colon polyps Scheduled Referrals Name Type Priority Associated Diagnoses Orde r Schedule NEUROLOGY REFERRAL OP Referral Within 10 days (routine) Tremor Ordered: 05/29/2023 Health Maintenance Due Date Last Done Comments [...] as of this encounter Visit Diagnoses Diagnosis Tremor- Primary Abnormal involuntary movements documented in this encounter Care Teams Machine Packer Relationship Specialty Start Date End Date Ismeal Villavicencio MD [address] [facility] [place] [address] PCP - General Internal Medicine 03/17/21 documented as of this encounter
--- OUTSIDE RECORDS SUMMARY | 2023-10-11 01:33 | External Medical Summary ---
Author Name Unknown Address Unknown Organization K01:[facility] - [address] [facility] [address] Laboratory Report Ordering Provider Test Date Status MARY LEW 04/16/2023 16:28:21 Final Observation Date Value Abnormality Reference (Units ) Status Triglyceride 04/16/2023 16:28:21 61 <=174 ( mg/dL) Final Triglyceride Reference Range s (mg/dL):
<150 Acceptable
150-174 Borderline high
175-499 High
>=500 Very high Cholesterol 04/16/2023 16:28:21 165 <200 (mg /dL) Final Total Cholesterol Reference Ranges (mg/dL):
<200 Desirable
200-239 Borderline high
>=240 High HDL 04/16/2023 16:28:21 75 >39 (mg/dL ) Final HDL Cholesterol Reference Ra nges (mg/dL):
>=60 High (Desirable)
<50 Low (Undesirable) For Females
<40 Low (Undesirable) For Males NON-HDL CHOLESTEROL 04/16/2023 16:28:21 90 <=159 (mg/dL) Final Non-HDL Cholesterol Referenc e Range (mg/dL):
<100 Target level for high risk ASCVD patient
<130 Optimal for general population
130-159 Near optimal for general population
160-189 Borderline High
190-219 High
>=220 Very High LDL, (calculated) 04/16/2023 16:28:21 78 <= 129 (mg/dL) Final LDL Cholesterol Reference Ra nges (mg/dL):
<70 Target level for high risk ASCVD patient
<100 Optimal for general population
100-129 Near optimal for general population
130-159 Borderline high
160-189 High
>=190 Very high Performing Location [facility] - [address] [facility] [address]
--- OUTSIDE RECORDS SUMMARY | 2023-10-11 01:33 | External Medical Summary | Summary of Care ---
Author Name Unknown Organization [facility] Address [address] [place] [address] Phone [phone] Care Team Providers Care House Repairer Name Role Phone Ismael Villavicencio MD Primary Care Provider + Reason for Referral * Evaluate & Treat - Unlimited Visits (Within 30 days (routine)) - Authorized Specialty Diagnoses / Procedures Referred By Ruby phillips Referred To Contact Physical Therapy / Physical Medicine And Rehab Diagnoses Chronic bilateral low back pain with left-sided sciatica Ismael Villavicencio MD [address] [place] [address] Referral ID Status Reason Start Date Expiration Date Visits Requested Visits Authorized [id number] Authorized Specialty Services Required 3 [phone] Question Answer Referral Priority Within 30 days (routine) Where should this appointment be scheduled? [facility] * Evaluate & Treat - Unlimited Visits (Within 30 days (routine)) - Authorized Specialty Diagnoses / Procedures Referred By Ruby t Referred To Contact Dermatology Diagnoses Skin lesion Ismael Villavicencio MD [address] [place] [address] Referral ID Status Reason Start Date Expiration Date Visits Requested Visits Authorized [id number] Authorized Specialty Services Required 3 [phone] [...] Pulmonary hypertension (HCC) Ismael Villavicencio MD [address] [place] [address] Referral ID Status Reason Start Date Expiration Date Visits Requested Visits Authorized [id number] Authorized Specialty Services Required 3 [phone] [...] Description 04/30/2023 Office Visit General Internal Medicine [facility] [address] [place] [address] Ismael Villavicencio MD [address] 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, 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 Current Outpatient Medications [...] inhalation solution 2.5 mg 2.5 mg Nebulizer PRNEsteban Shannon PA-C Review of patient's allergies indicates: Allergen Reactions Baclofen Other (Please comment) Passed out Dilantin [Phenytoin] Other (Please comment) Passed out Oxycodone Itching Percocet - itching Health Maintenance Due Topic Date Due Depression Screening Never done DTaP,Tdap,and Td Vaccines (1 - Tdap) Never done Zoster Vaccines (1 of 2) Never done Influenza Vaccine (FLU shot) (1) 03/15/2023 COVID-19 Vaccine (5 - 2022- season) 2023 ROS: CONSTITUTIONAL: No change in [...] on file Occupational History Occupation: retired - [employer] Tobacco Use Smoking status: Former Packs/day: [...] performed by Treasure Cruz MD at [facility] COLONOSCOPY, DIAGNOSTIC (RECTUM) 12/25/2022 prep-fair, 1-4 mm in cecum, otherwise normal / biopsies benign adenomatous polyp / 1 year w/ 2 day prep / COLONOSCOPY FLEXIBLE PROXIMAL DIAGNOSTIC performed by Treasure Cruz MD at [facility] TOTAL HIP REPLACEMENT & PROSTHESIS Bilateral 2017 [...] hand L98.9 Skin lesion Z23 Need for emojsrweox-mnxavee-sqvdoxxhl (Tdap) vaccine R71.0 Decreased hemoglobin PLAN: Hypertension [...] lesion - DERMATOLOGY REFERRAL OP Need for nnfotjpsal-vhittdv-lukkhrrfk (Tdap) vaccine Vaccine today per smart set [...] Team Description 08/19/2023 Office Visit Pulmonary Sumanth Ye DO [address] [place] [address] 11/07/2023 Office Visit Nephrology Joana Gaspar PA-C [address] [place] [address] 11/07/2023 Office Visit Internal Medicine Ismael Villavicencio MD [address] [place] [address] 12/12/2023 Office Visit Dermatology Neva Rasmussen PA-C [address] [place] [address] [place] [address] 01/14/2024 Cardiac Studies Cardiac Studies Scheduled Procedures [...] Screening 04/30/2024 04/30/2023 Albumin/Creatinine Ratio 04/23/2025 04/23/2022, 0908/2020 DTaP,Tdap,and Td Vaccines (2 - Td or [...] of skin and subcutaneous tissue Need for qiahexvhxx-hraleyy-qicsikfnr (Tdap) vaccine Need for prophylactic vaccination with combined igluosmbgh-wwexppc-xtytloxpy (DTP) vaccine Decreased hemoglobin Anemia, unspecified documented in this encounter Care Teams House Repairer Relationship Specialty Start Date End Date Ismael Villavicencio MD [address] [place] [address] PCP - General Internal Medicine 03/17/21 documented as of this encounter"
--- OUTSIDE RECORDS SUMMARY | 2023-10-11 01:33 | External Medical Summary | Summary of Care ---
Author Name Unknown Organization [facility] Address [address] [place] [address] Phone [phone] Care Team Providers Care Last Ironer Name Role Phone Ismael Villavicencio MD Primary [...] Skin lesion Ismael Villavicencio MD [address] [place] [address] Referral ID Status Reason Start Date Expiration Date Visits Requested Visits Authorized [id number] Authorized Specialty Services Required [phone] Encounter Details Date Type Department Care Team (Late st Contact Info) Description 05/13/2023 1:30 PM EDT Office Visit Dermatology [facility] [address] [place] [address] Swetha Gold PA-C [address] [place] [address] Neoplasm of uncertain behavior of skin* Allergies [...] (Prevnar) 08/28/2018 Pneumococcal Conjugate Vacci ne, 20-valent ([id number]) 10/16/2022 Seasonal Influenza, Quadriva lent Hd (Fluzone [...] as of this encounter Progress Notes * Swetha Gold PA-C - 05/13/2023 1:32 [...] edema R60.9 Chronic diastolic congestive heart failure ([facility]) I50.32 Mild mitral regurgitation I34.0 Pulmonary hypertension ([facility]) I27.20 Mild persistent asthma without complication J45.30 Mild aortic regurgitation I35.1 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 Jenison and brown keratotic plaque L popliteal ASSESSMENT/PLAN: [...] 3:00 PM EST Office Visit Pulmonary Medicine, [facility] [address] [facility] [place] [address] Sumanth Ye DO [address] [facility] [address] 11/07/2023 11:30 AM EDT Office Visit Nephrology, [facility] [address] [facility] [place] [address] Joana Gaspar PA-C [address] [facility] [place] [place] [address] 11/07/2023 2:40 PM EDT Office Visit General Internal Medicine [facility] [address] [facility] [place] [address] Ismael Villavicencio MD [address] [facility] [place] [address] 01/14/2024 2:30 PM EDT Cardiac Studies Cardiac Studies, [facility] [address] [facility] [place] [address] Pending Results Name Type Priority Associated Diagnoses [...] 04/23/2025 04/23/2022, 09/0 08/2020 DTaP,Tdap,and Td Vaccines (2 - Td [...] Primary documented in this encounter Care Teams Last Ironer Relationship Specialty Start Date End Date Ismael Villavicencio MD [address] [place] [address] PCP - General Internal Medicine 03/17/21 documented as of this encounter
--- OUTSIDE RECORDS SUMMARY | 2023-10-11 01:33 | External Medical Summary ---
Author Name Unknown Address Unknown Organization K01:[facility] - [address] [facility] [place] [address] Laboratory Report Ordering Provider Test Date Status MARY LEW 04/16/2023 16:28:21 Final Observation Date Value Abnormality Reference (Units ) Status BUN 04/16/2023 16:28:21 39 Above high normal 6-20 (mg/dL) Final Creatinine 04/16/2023 16:28:21 1.2 0.6-1.2 (mg/dL) Final Glomerular filtration rate/1.73 sq M.predicted [Volume Rate/Area] in Serum, Plasma or Blood by Creatinine-based formula (CKD-EPI) 04/16/2023 16:28:21 63 >=60 (mL/min) Final eGFR is calculated based on the CKD-EPI 2020 equation SODIUM 04/16/2023 16:28:21 133 Below low normal 135 -146 (mmol/L) Final Potassium 04/16/2023 16:28:21 4.4 3.5-5.1 (m mol/L) Final Cl 04/16/2023 16:28:21 95 Below low normal 98- 107 (mmol/L) Final CO2 04/16/2023 16:28:21 27 22-32 (mmo l/L) Final Anion gap 04/16/2023 16:28:21 11 7-15 (mmol /L) Final Glucose 04/16/2023 16:28:21 67 Below low normal 70- 120 (mg/dL) Final Albumin 04/16/2023 16:28:21 4.2 3.8-5.0 (g /dL) Final AST (Aspartate aminotransferase) 04/16/2023 16:28:21 47 10-50 (U/L) Fin al Alk Phos 04/16/2023 16:28:21 89 35-130 (U/ L) Final Bilirubin, Total 04/16/2023 16:28:21 0.4 <=1 .2 (mg/dL) Final Calcium 04/16/2023 16:28:21 9.6 8.4-10.2 ( mg/dL) Final Protein 04/16/2023 16:28:21 7.1 6.0-8.3 (g /dL) Final ALT (Alanine aminotransferase) 04/16/2023 16:28:21 23 10-50 (U/L) Didier skinner Performing Location [facility] - [address] [facility] [address]
--- OUTSIDE RECORDS SUMMARY | 2023-10-11 01:33 | External Medical Summary | Summary of Care ---
Author Name Unknown Organization [facility] Address [address] [place] [address] Phone [phone] Care Team Providers Care Radiologic Technologist Name Role Phone Ismael Villavicencio MD Primary Care Provider + Reason for Referral * Evaluate & Treat - Unlimited Visits (Within 10 days (routine)) - Pending Review Specialty Diagnoses / Procedures Referred By Contjose t Referred To Contact Neurology Diagnoses Tremor Ismael Villavicencio MD [facility] [place] [address] Referral ID Status Reason Start Date Expiration Date Visits Requested Visits Authorized [id number] Pending Review Specialty Services Required [phone] Question Answer Referral Priority Within 10 days (routine) Where should this appointment be scheduled? [facility] This patient already has care established with Neurology. Do not place this order. Please use Ask A Doc to expedite care. Acknowledge [facility] NEUROLOGY REFERRAL QUESTIONS Memory/Cognition Comments Tremor, different from what he saw neurology for prior Reason for Visit * Reason Onset Date Comments Advice 05/23/2023 Encounter Details Date Type Department Care Team (Late st Contact Info) Description 05/23/2023 Telephone General Internal Medicine [facility] [address] [place] [address] Ismael Villavicencio MD [address] [place] [address] [address] Advice Allergies Active Allergy Reactions Criticality Noted Date Comments Baclofen Other (Please comment) 03/16/2021 Passed out Phenytoin Other (Please comment) 03/16/2021 Passed out Oxycodone Itching 03/16/2021 Percocet - itching documented as of this encounter (statuses as of 05/30/2023) Medications Medication Sig Dispensed Refills Start Date [...] as of this encounter (statuses as of 05/30/2023) Active Problems Problem Noted Date Diagnosed Date 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 Mild aortic regurgitation 10/15/2021 Mild persistent asthma without complication 09/12 Pulmonary hypertension 06/01/2021 Chronic diastolic congestive heart failure 04/03 Mild mitral regurgitation 04/03/2021 Mixed hyperlipidemia 03/17/2021 Chronic edema 03/17/2021 Hypertension goal BP (blood pressure) < 130/80 0 03/16/2021 Chronic hyponatremia 03/16/2021 Osteoarthritis 03/16/2021 documented as of this encounter (statuses as of 05/30/2023) Resolved Problems Problem Noted Date Diagnosed Date Resolved Date Mild intermittent asthma with exacerbation 09/22/2021 09/22/2021 High pulmonary arterial pressure 04/03/2021 12/01/2021 Hyperlipidemia 03/16/2021 03/17/2021 documented as of this encounter (statuses as of 05/30/2023) Immunizations Name Administration Dates Next Due COVID-19 mRNA, LNP-s, No Pre serve, 2-Dose Series (Moderna) 03/10/2021,09/18/2020,08/21/2020 Covid-19, Mrna, Lnp-s, Pf, B ivalent, 50 Mcg, IM, 12 yrs and above (Moderna) 04/17/2022 Pneumococcal Conjugate Vacc, 13 Valent (Prevnar) 08/28/2018 Pneumococcal Conjugate Vacci ne, 20-valent ([id number]) 10/16/2022 Seasonal Influenza, Quadriva lent Hd (Fluzone [...] 3:00 PM EST Office Visit Pulmonary Medicine, [facility] [address] [facility] [address] Sumanth Ye, DO [address] [place] [address] 11/07/2023 11:30 AM EDT Office Visit Nephrology, [facility] [address] [facility] [place] [address] Joana Gaspar PA-C [address] [facility] [place] [address] 11/07/2023 2:40 PM EDT Office Visit General Internal Medicine [facility] [address] [facility] [place] [address] Ismael Villavicencio MD [address] [facility] [place] [address] 01/14/2024 2:30 PM EDT Cardiac Studies Cardiac Studies, [facility] [address] [place] [address] Scheduled Procedures Name Priority Associated Diagnoses Date/Ti [...] movements documented in this encounter Care Teams Radiologic Technologist Relationship Specialty Start Date End Date Ismael Villavicencio MD [address] [place] [address] PCP - General Internal Medicine 03/17/21 documented as of this encounter
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
--- OUTSIDE RECORDS SUMMARY | 2023-10-11 01:33 | External Medical Summary ---
Author Name Unknown Address Unknown Organization [id number]:[facility] [place] [address] [place] [address] Laboratory Report Ordering Provider Test Date Status MARY LEW 04/16/2023 16:28:21 Final Observation Date Value Abnormality Reference (Units ) Status Vitamin B12 04/16/2023 16:28:21 [id number] (pg/mL) Final Performing Location [facility] [place] [address] [place] [address]
[2023-10-11 07:23] LABS: Hematocrit (blood only) 43.1 % (42.0-52.0); Hemoglobin 14.9 g/dl (14.0-18.0); Mean Corpuscular Hemoglobin 32.2 pg (25.0-34.0); Mean Corpuscular Hgb Conc 34.6 g/dL (32.0-36.0); Mean Corpuscular Volume 93.1 fL (80.0-100.0); Mean Platelet Volume 9.6 fL (9.4-12.4); Platelet Count 205 K/uL (130-400); RDW Coefficient of Variation 12.7 % (11.5-14.5); RDW Standard Deviation 43.5 fL (36.4-46.3); Red Blood Count 4.63 M/uL (4.70-6.10); White Blood Count 6.48 K/ul (4.8-10.8)
[2023-10-11 07:48] LABS: BUN Creatinine Ratio 30.8 (10-20); Calcium 9.5 mg/dl (8.6-10.3); Est GFR (African American) 93.9 ml/min; Potassium 4.5 mmol/L (3.5-5.1)
[2023-10-11] MEDS: SPIRONOLACTONE 25 MG TAB PO SCH (11:36)
[2023-10-11] MEDS: LORATADINE 10 MG TAB PO SCH (11:37)
[2023-10-11] MEDS: lisinopril 20 MG TAB PO SCH (11:37)
[2023-10-11] MEDS ORDERED: Nursing to Pharmacy Communication SCH (11:45)
[2023-10-11] MEDS: amLODIPine BESYLATE 5 MG TAB PO SCH ×2 (11:47→20:50)
[2023-10-11] MEDS: ATORVASTATIN 10 MG TAB PO SCH ×2 (11:48→20:50)
--- NOTE | 2023-10-11 16:05 | Electrocardiogram Report ---
Test Reason : Blood Pressure : / mmHG Vent. Rate : 048 BPM Atrial Rate : 048 BPM P-R Int : 226 ms QRS Dur : 096 ms QT Int : 434 ms P-R-T Axes : 079 039 -13 degrees QTc Int : 387 ms Sinus bradycardia with 1st degree A-V block Incomplete right bundle branch block Septal infarct , age undetermined T wave abnormality, consider inferior ischemia T wave abnormality, consider anterolateral ischemia Abnormal ECG No previous ECGs available Confirmed by Tobias Fay ([id number]) on 10/11/2023 4:05:09 PM Referred By: Confirmed By:Tobias Fay
--- NOTE | 2023-10-11 16:43 | Hospitalist Progress Note ---
Date of Service October 11, 2023 Assessment & Plan (1) Hyponatremia: Plan: Patient presenting from home with reports of left-sided rib pain after a fall 1 week ago In the ED, labs incidentally showed Na+ 126. History of chronic hyponatremia typically managed with diuretics and fluid restriction. Na+ 134 on outpatient labs 07/2023 Worsening of hyponatremia likely secondary to indiscretions of fluid intake Lasix 20 mg IV x 1, 1.2 L fluid restriction Serial BMP Resume p.o. Lasix and spironolactone tomorrow If not improving, consider nephrology consult Clinically much better will continue with restrict fluid to 1500 mill a day Sodium level is 129 today Strongly advised to restrict fluid intake to 1.5 L a day Monitor PRP (2) Rib fractures: Plan: CT chest shows Acute nondisplaced fractures of the anterolateral left seventh and eighth ribs Pain currently controlled PRN Tylenol Denies any chest pain except with deep breathing and or coughing (3) Acute electrocardiogram changes: Plan: EKG shows more pronounced and new T wave changes in the inferior and lateral leads No reports of chest pain HS troponin 21.3 Echo of the heart showed-LV normal in size with moderate concentric LVH, LV wall motion is normal with EF of 60 to 65%, grade 1 diastolic dysfunction, left atrium is mildly dilated, right atrium is mildly dilated aortic valve sclerosis without stenosis, trace mitral and tricuspid regurgitation,, no pulmonary hypertension Serial troponins are unremarkable (4) Pulmonary hypertension: (5) Chronic diastolic CHF (congestive heart failure): Plan: Appears to be mildly volume overloaded given hyponatremia and lower extremity edema Diuretics as above No signs and or symptoms of fluid overload (6) HTN (hypertension): Plan: Chronic, stable Continue amlodipine, fosinopril, diuretics (7) Asthma: Plan: Appears stable, no signs of acute exacerbation Does not use routine inhalers DVT PROPHYLAXIS SQ Lovenox Admission and Anticipated Discharge Date Admission Date: October 10, 2023 Subjective 10/11/2023 The patient was seen and examined in medical telemetry unit in presence of the He has not had any urine output since this morning His fluid intake has been restricted Denies any abdominal pain and/or distention Chest pain is controlled Review of Systems Review of Systems: All systems reviewed and are unremarkable except as noted below Physical Exam Physical Exam: Sitting on a chair without any acute distress Constitutional: well developed, well nourished and + ill appearing Eyes: PERRL, conjunctivae normal, anicteric sclerae ENMT: external ear and nose normal, oropharynx normal Neck: trachea midline, no thyromegaly Respiratory: no respiratory distress Auscultation: lungs clear to auscultation bilaterally Cardiovascular: Rate/Rhythm: regular rate, regular rhythm and + bradycardic Heart Sounds: normal S1 and normal S2; no murmur Extremities: no edema Gastrointestinal (Abdomen): Inspection/Auscultation: normal bowel sounds; abdomen not distended Percussion/Palpation: abdomen soft; abdomen nontender Musculoskeletal: No acute arthritis involving any joint Neurologic: normal touch/pain/proprioception and moves all extremities; no focal motor deficits Psychiatric: A+Ox3, euthymic affect Lymphatic: no cervical or axillary lymphadenopathy Results & Data Results & Data Vital Signs (Past 12 Hours) Vital Signs Temp Pulse Pulse Resp BP Pulse Ox O2 Del Method 10/11/23 15:42 36.4 C L 56 L 18 156/87 H 94 Room Air 10/11/23 15:00 58 L 10/11/23 11:24 36.3 C L 48 L 18 150/85 H 99 Room Air 10/11/23 08:05 43 L 10/11/23 07:50 36.4 C L 50 L 16 105/61 97 Room Air Laboratory Results Short CBC 10/11/23 Range/Units 06:34 WBC 6.48 (4.8-10.8) K/ul Hgb 14.9 (14.0-18.0) g/dl Hct 43.1 (42.0-52.0) % Plt Count 205 (130-400) K/uL [facility] 10/10/23 10/11/23 22:31 06:34 Sodium 127 L 129 L Potassium 4.1 4.5 Chloride 95 L 96 L Carbon Dioxide 27 29 BUN 36 H 28 H Creatinine 1.09 0.91 Glucose 95 90 Calcium 8.8 9.5 Current Inpatient Medications Medications Administered Acetaminophen (Acetaminophen 325 Mg Tab) 650 mg PO Q4H PRN PRN Reason: pain/fever Stop: 11/09/23 18:32 Amlodipine Besylate (Amlodipine Besylate 5 Mg Tab) 10 mg PO HS JENNIFER Stop: 11/10/23 20:59 Atorvastatin Calcium (Atorvastatin 10 Mg Tab) 10 mg PO HS JENNIFER Stop: 11/10/23 20:59 Enoxaparin Sodium (Enoxaparin Inj 40 Mg/0.4 Ml Syr) 40 mg SQ Q24H JENNIFER Stop: 11/09/23 20:59 Last Admin: 10/10/23 23:30 Dose: Not Given Lisinopril (Lisinopril 20 Mg Tab) 40 mg PO DAILY JENNIFER Stop: 11/10/23 08:59 Last Admin: 10/11/23 11:37 Dose: 40 mg Loratadine (Loratadine 10 Mg Tab) 10 mg PO DAILY JENNIFER Stop: 11/10/23 08:59 Last Admin: 10/11/23 11:37 Dose: 10 mg Spironolactone (Spironolactone 25 Mg Tab) 25 mg PO DAILY JENNIFER Stop: 11/10/23 08:59 Last Admin: 10/11/23 11:36 Dose: 25 mg
[2023-10-12 06:06] LABS: BUN Creatinine Ratio 30.8 (10-20); Calcium 8.9 mg/dl (8.6-10.3); Creatinine Clr Calc Pharmacy 73.5 ml/min; Est GFR (African American) 100.9 ml/min; Est GFR (Non-African American) 87.1 ml/min; Potassium 4.5 mmol/L (3.5-5.1)
--- NOTE | 2023-10-12 10:34 | Hospitalist Progress Note ---
Date of Service October 12, 2023 Assessment & Plan (1) Hyponatremia: Plan: Patient presenting from home with reports of left-sided rib pain after a fall 1 week ago In the ED, labs incidentally showed Na+ 126. History of chronic hyponatremia typically managed with diuretics and fluid restriction. Na+ 134 on outpatient labs 07/2023 Worsening of hyponatremia likely secondary to indiscretions of fluid intake Lasix 20 mg IV x 1, 1.2 L fluid restriction Serial BMP Resume p.o. Lasix and spironolactone tomorrow If not improving, consider nephrology consult Clinically much better will continue with restrict fluid to 1500 mill a day Sodium level is 129 today Strongly advised to restrict fluid intake to 1.5 L a day Sodium level has been 130 today and is in the trend to be normalized Strongly advised to continue with the fluid restriction up to 1.5 L a day He will be discharged home this afternoon (2) Rib fractures: Plan: CT chest shows Acute nondisplaced fractures of the anterolateral left seventh and eighth ribs Pain currently controlled PRN Tylenol Denies any chest pain except with deep breathing and or coughing Denies any pain with normal activities-does not require any narcotic pain medications (3) Acute electrocardiogram changes: Plan: EKG shows more pronounced and new T wave changes in the inferior and lateral leads No reports of chest pain HS troponin 21.3 Echo of the heart showed-LV normal in size with moderate concentric LVH, LV wall motion is normal with EF of 60 to 65%, grade 1 diastolic dysfunction, left atrium is mildly dilated, right atrium is mildly dilated aortic valve sclerosis without stenosis, trace mitral and tricuspid regurgitation,, no pulmonary hypertension Serial troponins are unremarkable (4) Pulmonary hypertension: (5) Chronic diastolic CHF (congestive heart failure): Plan: Appears to be mildly volume overloaded given hyponatremia and lower extremity edema Diuretics as above No signs and or symptoms of fluid overload (6) HTN (hypertension): Plan: Chronic, stable Continue amlodipine, fosinopril, diuretics (7) Asthma: Plan: Appears stable, no signs of acute exacerbation Does not use routine inhalers DVT PROPHYLAXIS SQ Lovenox Admission and Anticipated Discharge Date Admission Date: October 10, 2023 Subjective 10/11/2023 The patient was seen and examined in medical telemetry unit in presence of the He has not had any urine output since this morning His fluid intake has been restricted Denies any abdominal pain and/or distention Chest pain is controlled 10/12/2023 The patient was seen and examined in medical telemetry unit He has been feeling much better and denies any chest pain with normal breathing or ambulation He has been passing urine normally Sodium level has been at 130 Review of Systems Review of Systems: All systems reviewed and are unremarkable except as noted below Physical Exam Physical Exam: Sitting on a chair without any acute distress Constitutional: well developed, well nourished and + ill appearing Eyes: PERRL, conjunctivae normal, anicteric sclerae ENMT: external ear and nose normal, oropharynx normal Neck: trachea midline, no thyromegaly Respiratory: no respiratory distress Auscultation: lungs clear to auscultation bilaterally Cardiovascular: Rate/Rhythm: regular rate, regular rhythm and + bradycardic Heart Sounds: normal S1 and normal S2; no murmur Extremities: no edema Gastrointestinal (Abdomen): Inspection/Auscultation: normal bowel sounds; abdomen not distended Percussion/Palpation: abdomen soft; abdomen nontender Neurologic: normal touch/pain/proprioception and moves all extremities; no focal motor deficits Psychiatric: A+Ox3, euthymic affect Lymphatic: no cervical or axillary lymphadenopathy Results & Data Results & Data Vital Signs (Past 12 Hours) Vital Signs Temp Pulse Pulse Resp BP Pulse Ox O2 Del Method 10/12/23 07:40 45 L 10/12/23 02:58 36.3 C L 52 L 16 120/61 92 Room Air 10/12/23 00:00 43 L 10/11/23 23:00 36.5 C 48 L 16 142/68 H 98 Room Air Laboratory Results [facility] 10/12/23 05:25 Sodium 130 L Potassium 4.5 Chloride 98 Carbon Dioxide 27 BUN 24 H Creatinine 0.78 Glucose 86 Calcium 8.9 Medications Administered Current Inpatient Medications Acetaminophen (Acetaminophen 325 Mg Tab) 650 mg PO Q4H PRN PRN Reason: pain/fever Stop: 11/09/23 18:32 Amlodipine Besylate (Amlodipine Besylate 5 Mg Tab) 10 mg PO HS JENNIFER Stop: 11/10/23 20:59 Last Admin: 10/11/23 20:50 Dose: 10 mg Atorvastatin Calcium (Atorvastatin 10 Mg Tab) 10 mg PO HS JENNIFER Stop: 11/10/23 20:59 Last Admin: 10/11/23 20:50 Dose: 10 mg Enoxaparin Sodium (Enoxaparin Inj 40 Mg/0.4 Ml Syr) 40 mg SQ Q24H JENNIFER Stop: 11/09/23 20:59 Last Admin: 10/11/23 20:51 Dose: 40 mg Lisinopril (Lisinopril 20 Mg Tab) 40 mg PO DAILY JENNIFER Stop: 11/10/23 08:59 Last Admin: 10/12/23 08:57 Dose: 40 mg Loratadine (Loratadine 10 Mg Tab) 10 mg PO DAILY JENNIFER Stop: 11/10/23 08:59 Last Admin: 10/12/23 08:57 Dose: 10 mg Spironolactone (Spironolactone 25 Mg Tab) 25 mg PO DAILY JENNIFER Stop: 11/10/23 08:59 Last Admin: 10/12/23 08:57 Dose: 25 mg
--- NOTE | 2023-10-12 15:51 | Discharge Summary ---
Date of Service October 12, 2023 Admission HPI Per Admitting Provider 78-year-old male with PMH chronic hyponatremia, HTN, chronic diastolic CHF, and other problems listed below who presents to the ED for evaluation of left-sided rib pain. History is obtained from the patient and review of outpatient PCP, nephrology, cardiology records. Patient reports he sustained a fall 1 week ago when he was moving a chair up onto his patio. Patient reports he slipped and fell onto his left side on the stairs. Reports that he was feeling improved however after exercising this morning, he noted the left-sided rib pain was worse with twisting. He then presented to the ED for further evaluation. Patient has history of chronic hyponatremia, typically managed with diuretics and fluid restriction. Nephrology is recommending a 32 ounce daily fluid restriction, patient does not seem to be monitoring fluid intake closely. He denies chest pain and shortness of breath. No abdominal pain, nausea, vomiting, diarrhea. Denies any other recent illnesses, fevers, chills. No lightheadedness, dizziness, diaphoresis, syncopal events. Denies urinary symptoms. In the ED, CT chest shows Acute nondisplaced fractures of the anterolateral left seventh and eighth ribs. Labs show Na+ 126. Admission Exam Per Admitting Provider Vitals signs as noted above General Appearance:Moderately built and nourished, no apparent distress Head: normocephalic, Atraumatic Eyes: normal inspection, EOMI Neck: supple, Trachea midline Respiratory/Chest: Normal breath sounds, CTA, No accessory muscle use Cardiovascular: S1, S2, bradycardia, No murmur Abdomen/GI:Soft, Non tender, Bowel sounds present Extremities/Musculoskeletal:normal inspection, 2-3+ edema Neurologic/Psych:AAOX3, grossly no focal neurological deficits Skin: normal color, warm Principal Diagnosis Acute on chronic hyponatremia, status post fall with the left-sided rib fracture, chronic diastolic CHF Discharge Exam Sitting on a chair without any acute distress Constitutional well developed, well nourished and + ill appearing Eyes PERRL, conjunctivae normal, anicteric sclerae ENMT external ear and nose normal, oropharynx normal Neck trachea midline, no thyromegaly Respiratory no respiratory distress Auscultation: lungs clear to auscultation bilaterally Cardiovascular Rate/Rhythm: regular rate, regular rhythm and + bradycardic Heart Sounds: normal S1 and normal S2; no murmur Extremities: no edema Gastrointestinal (Abdomen) Inspection/Auscultation: normal bowel sounds; abdomen not distended Percussion/Palpation: abdomen soft; abdomen nontender Neurologic normal touch/pain/proprioception and moves all extremities; no focal motor deficits Psychiatric A+Ox3, euthymic affect Lymphatic no cervical or axillary lymphadenopathy Discharge Data Allergies Allergy/AdvReac Type Severity Reaction Status Date / Time acetaminophen [From Percocet] AdvReac Rash Verified 10/10/23 20:54 oxycodone [From Percocet] AdvReac Rash Verified 10/10/23 20:54 Consultations 10/10/23 16:37 ED Decision to Admit Stat Ordered Studies 10/10/23 14:55 CT chest diagnostic wo con Stat Hospital Course (1) Hyponatremia: Patient presenting from home with reports of left-sided rib pain after a fall 1 week ago In the ED, labs incidentally showed Na+ 126. History of chronic hyponatremia typically managed with diuretics and fluid restriction. Na+ 134 on outpatient labs 07/2023 Worsening of hyponatremia likely secondary to indiscretions of fluid intake Lasix 20 mg IV x 1, 1.2 L fluid restriction Serial BMP Resume p.o. Lasix and spironolactone tomorrow If not improving, consider nephrology consult Clinically much better will continue with restrict fluid to 1500 mill a day Sodium level is 129 today Strongly advised to restrict fluid intake to 1.5 L a day Sodium level has been 130 today and is in the trend to be normalized Strongly advised to continue with the fluid restriction up to 1.5 L a day He will be discharged home this afternoon (2) Rib fractures: CT chest shows Acute nondisplaced fractures of the anterolateral left seventh and eighth ribs Pain currently controlled PRN Tylenol Denies any chest pain except with deep breathing and or coughing Denies any pain with normal activities-does not require any narcotic pain medications (3) Acute electrocardiogram changes: EKG shows more pronounced and new T wave changes in the inferior and lateral leads No reports of chest pain HS troponin 21.3 Echo of the heart showed-LV normal in size with moderate concentric LVH, LV wall motion is normal with EF of 60 to 65%, grade 1 diastolic dysfunction, left atrium is mildly dilated, right atrium is mildly dilated aortic valve sclerosis without stenosis, trace mitral and tricuspid regurgitation,, no pulmonary hypertension Serial troponins are unremarkable (4) Pulmonary hypertension: (5) Chronic diastolic CHF (congestive heart failure): Appears to be mildly volume overloaded given hyponatremia and lower extremity edema Diuretics as above No signs and or symptoms of fluid overload (6) HTN (hypertension): Chronic, stable Continue amlodipine, fosinopril, diuretics (7) Asthma: Appears stable, no signs of acute exacerbation Does not use routine inhalers DVT PROPHYLAXIS SQ Lovenox Total Time Total Time Spent Total Time Spent (In Minutes): 35 minutes Discharge Plan Discharge Items Patient Disposition: Home - Self-Care Reason For Visit: RIB FRACTURES, HYPONATREMIA Discharge Diagnosis: Acute on chronic hyponatremia, status post fall with the left-sided rib fracture, chronic diastolic CHF Condition on Discharge: Good Activity: Resume your previous activity Non-emergency contact: Primary Care Provider Call non-emergency contact if: you have any medication questions and your symptoms worsen Follow-up/Referrals: Ismael Villavicencio MD [Primary Care Provider] - (Your doctor's office will give you a call on Saturday with an appointment within 7 days) Diet: Heart Healthy Fluids: 1500ml (6 cups) Addtl Attending Provider Instructions: Please take precautions to avoid falls Take your medications as advised-no change with your current medication Restriction of fluid to 1.5 L a day Please keep appointment with your healthcare provider Pending Studies at Discharge: No Stand-Alone Forms: My [employer], Smoking Cessation Medications and DC Order Prescriptions: Continued multivitamin Tablet 1 tab PO DAILY atorvastatin 10 mg tablet 10 mg PO DAILY spironolactone 25 mg tablet 25 mg PO DAILY amlodipine 10 mg tablet 10 mg PO DAILY pantoprazole 40 mg Tablet,Delayed Release (Dr/Ec) 40 mg PO DAILY PRN (Reason: relux) fosinopril 40 mg tablet 40 mg PO DAILY zinc 50 mg Tablet 50 mg PO DAILY calcium carbonate-vitamin D2 600 mg calcium- 200 unit Tablet 1 tab PO DAILY albuterol sulfate 90 mcg/actuation Hfa Aerosol Inhaler 2 puff INHALATION Q6H PRN (Reason: Shortness Of Breath Or Wheezing) loratadine 10 mg tablet 10 mg PO DAILY omega 5-gjg-xts-fish oil [Fish Oil] 1,000 mg (120 mg-180 mg) Capsule 1 cap PO DAILY wcokwnma-sie-mdomwi-vit C-hyal [phone] mg Tablet 1 tab PO DAILY biotin 5,000 mcg Tablet,Chewable 5,000 mcg PO DAILY Beet Root 250 mg PO DAILY Discharge Orders: Discharge Order (Routine); Ordered 10/12/23 Ordered By: iMch Gasca Admission Data Admit Date/Time: 10/10/23 16:47 Attending Provider: Mich Gasca Admit Provider: Dallas Nash Primary Care Provider: Ismael Villavicencio Other Providers: Dallas Nash Other Interventions: Discharge Summary Assessment (RN) Last Done: 10/12/23 11:08
== END 2023-10-12 11:43 | disposition home or self-care (01) ==
LOC: ED 13:20 → 2N 13:20 → SUATTDRO 16:47 → 2N 18:04

== ENCOUNTER 2023-10-30 14:17 | Inpatient (IN) ==
--- NOTE | 2023-10-30 14:35 | Emergency Department Note ---
Impression & Plan CHRISTIE (acute kidney injury), Near syncope, Hyponatremia ED Provider Note NAME: IVANIA VANN AGE: 78 SEX: M : 1945 ARRIVES VIA: Ambulance INFORMANT: Patient, ED PROVIDER(S): Lalito Grey MD CHIEF COMPLAINT: Near syncope, lightheadedness MEDICAL DECISION MAKING: Patient presented due to concern for presyncopal symptoms. IV was established and blood work was obtained. Patient does feel better after IV fluids. EKG with no significant changes currently in sinus. Patient's blood work shows a normal white count hemoglobin 12.6. The patient's platelet count is unremarkable. Kidney function has doubled from comparison in September from 0.78-1.47. TSH elevated free T4 normal. Because of the patient's elevated creatinine compared to prior did speak the on-call hospital service Lisa Dickerson PA-C. After further discussion they would like to admit the patient. Patient was admitted by Dr. Carreno. Discussion w/ other healthcare providers: Today ARMANDO Dickerson and Dr. Carreno inpatient medicine service Prior /Outside records reviewed: I reviewed a discharge summary from Dr. Gasca from September 15, 2023. Patient known history of chronic hyponatremia hypertension chronic diastolic CHF who presented for repeat at that time. Patient was noted to have hyponatremia with a sodium of 126 at that time typically managed with diuretics and fluid restriction. Patient was also noted to have rib fractures. Differential diagnosis: Benign positional vertigo, dehydration, hypovolemia, anemia, infection, hypoglycemia, electrolyte abnormalities, arrhythmia, tox among others were considered. Diagnostics, as interpreted by me: ECG: Sinus bradycardia, rate of 56, normal intervals, normal axis, T wave inversion noted inferiorly anteriorly and laterally. T wave inversion inferiorly anteriorly and laterally appears to be old for comparison October 10, 2023 Cardiac monitoring: An order was placed for continuous cardiac monitoring. The monitor shows a rate of 55 with sinus rhythm. Patient was placed on pulse oximetry Medical decision rules: None Imaging studies: None HPI: Patient presents due to concern for presyncopal symptoms. 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 Patient states that he had been working there since 10 AM this morning. Patient denies any chest pains or shortness of breath. The patient's was present seem to be kind of out of it and when she was there he had asked for his at the time and she called the ambulance. No reported seizure-like activity tongue biting or incontinence. Patient did receive IV fluids in route via EMS and does feel improved. Patient did eat breakfast and lunch. Patient did not have a fall or head strike and denies any head or neck pain. 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 He does have a history of low sodium and is on a fluid restriction and states that he abides by this. Patient denies any recent medication changes or missed doses. PAST MEDICAL HISTORY: See Below PAST SURGICAL HISTORY: See Below SOCIAL HISTORY: See Below HOME MEDICATIONS: See Below ALLERGIES: See Below VITALS: See Below PHYSICAL EXAMINATION: GENERAL: NAD, non-toxic. Wearing glasses. EYE EXAM: Normal conjunctiva. PERRL, no anisocoria and EOM's grossly intact w/o pain. OROPHARYNX: Moist mucus membranes, grossly normal dentition. NECK: Trachea midline, no stridor. LUNGS: Clear to auscultation. Normal chest wall mechanics. HEART: NSR, no MRG. ABDOMEN: Abdomen soft, non-tender, no masses, no rebound or guarding. BACK: No CVA TTP. SKIN: No rashes and no bruising. UPPER EXTREMITIES: Upper extremities are grossly normal. LOWER EXTREMITIES: Grossly normal, trace pretibial edema without any calf pain or erythema. NEURO EXAM: A&O x3, cranial nerves II-XII grossly intact, normal speech, moves all 4 extremities. 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 Beliefs That Will Affect Care: None and Episcopal Episcopal Beliefs: zoroastrian Current Living Situation: Spouse Feels Safe at Home: Yes Safety Concerns: Feels Safe At This Time Assistive Devices: Glasses Allergies Allergies Allergy/AdvReac Type Severity Reaction Status Date / Time acetaminophen [From Percocet] AdvReac Rash Verified 10/30/23 17:26 oxycodone [From Percocet] AdvReac Rash Verified 10/30/23 17:26 phenytoin [From Dilantin] AdvReac syncope Verified 10/30/23 17:26 Home Meds Home Medications Medication Instructions Recorded Confirmed Beet Root 250 mg PO DAILY 10/10/23 10/30/23 albuterol sulfate 90 mcg/actuation 2 puff inhalation Q6H PRN 10/10/23 10/30/23 aerosol inhaler Shortness Of Breath Or Wheezing amlodipine 10 mg tablet 5 mg PO PM 10/10/23 10/30/23 atorvastatin 10 mg tablet 10 mg PO PM 10/10/23 10/30/23 biotin 5,000 mcg chewable tablet 5,000 mcg PO DAILY 10/10/23 10/30/23 calcium carb-ergocalciferol (vit 1 tab PO DAILY 10/10/23 10/30/23 D2) 600 mg calcium-200 unit tablet fosinopril 40 mg tablet 40 mg PO DAILY 10/10/23 10/30/23 axfizjof-rez-kpkquqcnr-C-hyaluronic 1 tab PO DAILY 10/10/23 10/30/23 500 mg-300 mg-400 mg-10 mg tablet loratadine 10 mg tablet 10 mg PO DAILY 10/10/23 10/30/23 multivitamin 1 tab PO DAILY 10/10/23 10/30/23 omega 4-qwt-eto-fish oil 1,000 mg 1 cap PO DAILY 10/10/23 10/30/23 (120 mg-180 mg) capsule (Fish Oil) pantoprazole 40 mg tablet,delayed 40 mg PO DAILY PRN relux 10/10/23 10/30/23 release spironolactone 25 mg tablet 25 mg PO DAILY 10/10/23 10/30/23 zinc 50 mg tablet 50 mg PO DAILY 10/10/23 10/30/23 furosemide 40 mg tablet 40 mg PO DAILY 10/30/23 10/30/23 Results & Data (ED) Vital Signs Vital Signs - 24 hr 10/30/23 14:27 10/30/23 14:27 10/30/23 14:36 Temperature 36.5 C Temperature Source Oral Pulse Rate 56 L 52 L Pulse Rate [Apical] 56 L Pulse Rate from SpO2 Sensor Respiratory Rate 20 20 Respiratory Effort / Characteristics Non-Labored Spontaneous Non-Labored Spontaneous Respiratory Depth Normal Normal Respiratory Pattern Regular Regular Blood Pressure 133/63 Blood Pressure [Right Arm] 133/63 Blood Pressure Mean 86 Blood Pressure Mean [Right Arm] 86 Pulse Oximetry 95 95 Oxygen Delivery Method Room Air Room Air Sepsis Recent Fever Within 48 Hours No Sepsis New/Unexplained Change in Mental Status No Sepsis Action Taken by Nursing No Action Required 10/30/23 15:00 10/30/23 16:00 10/30/23 16:21 Temperature Temperature Source Pulse Rate 56 L 54 L Pulse Rate [Apical] Pulse Rate from SpO2 Sensor 60 53 L Respiratory Rate 22 22 Respiratory Effort / Characteristics Respiratory Depth Respiratory Pattern Blood Pressure 114/61 129/102 H Blood Pressure [Right Arm] Blood Pressure Mean 78 111 Blood Pressure Mean [Right Arm] Pulse Oximetry 95 96 Oxygen Delivery Method Room Air Room Air Room Air Sepsis Recent Fever Within 48 Hours Sepsis New/Unexplained Change in Mental Status Sepsis Action Taken by Nursing 10/30/23 17:00 Temperature Temperature Source Pulse Rate 53 L Pulse Rate [Apical] Pulse Rate from SpO2 Sensor 55 L Respiratory Rate 22 Respiratory Effort / Characteristics Respiratory Depth Respiratory Pattern Blood Pressure 149/82 H Blood Pressure [Right Arm] Blood Pressure Mean 104 Blood Pressure Mean [Right Arm] Pulse Oximetry 95 Oxygen Delivery Method Room Air Sepsis Recent Fever Within 48 Hours Sepsis New/Unexplained Change in Mental Status Sepsis Action Taken by [facility] Medications Current Medication List: was personally reviewed by me Laboratory Data Attestation: I reviewed the patient's lab results. 10/30/23 14:26 10/30/23 14:26 Lab Results 10/30/23 Range/Units 14:26 WBC 8.55 (4.8-10.8) K/ul RBC 3.96 L (4.70-6.10) M/uL Hgb 12.6 L (14.0-18.0) g/dl Hct 36.7 L (42.0-52.0) % MCV 92.7 (80.0-100.0) fL MCH 31.8 (25.0-34.0) pg MCHC 34.3 (32.0-36.0) g/dL RDW Std Deviation 43.7 (36.4-46.3) fL RDW Coeff of Lorrie 12.9 (11.5-14.5) % Plt Count 186 (130-400) K/uL MPV 10.0 (9.4-12.4) fL Immature Gran % (Auto) 0.5 % Neut % (Auto) 55.6 % Lymph % (Auto) 28.5 % Todd % (Auto) 11.3 % Eos % (Auto) 3.0 % Baso % (Auto) 1.1 % Neut # (Auto) 4.75 (1.40-6.50) K/uL Lymph # (Auto) 2.44 (1.20-3.40) K/uL Todd # (Auto) 0.97 H (0.11-0.59) K/uL Eos # (Auto) 0.26 (0.00-0.50) K/uL Baso # (Auto) 0.09 (0.00-0.20) K/uL Immature Gran # (Auto) 0.04 (0.01-0.20) K/uL Sodium 131 L (136-145) mmol/L Potassium 4.4 (3.5-5.1) mmol/L Chloride 99 (98-107) mmol/L Carbon Dioxide 26 (21-32) mmol/L Anion Gap 6 (3-11) BUN 46 H (6-23) mg/dl Creatinine 1.47 H (0.6-1.4) mg/dl Est Cr Clr Drug Dosing 38.0 ml/min Est GFR ( Amer) 52.6 ml/min Est GFR (Non-Af Amer) 45.4 ml/min BUN/Creatinine Ratio 31.3 H (10-20) Glucose 143 H (70-99(Fasting)) mg/dl Calcium 9.1 (8.6-10.3) mg/dl Magnesium 1.9 (1.7-2.4) mg/dl Total Bilirubin 0.4 (0.2-1.0) mg/dl AST 33 (13-39) U/L ALT 16 (7-52) U/L Alkaline Phosphatase 74 (34-104) U/L Troponin I High Sens 9.0 (0-20) pg/ml Total Protein 6.6 (6.0-8.3) gm/dl Albumin 3.9 (3.4-5.0) gm/dl Globulin 2.7 (2.5-4.0) gm/dl Albumin/Globulin Ratio 1.4 (0.9-2) TSH 7.816 H (0.300-4.500) uIu/ml Free T4 0.96 (0.61-1.60) ng/dl Administered Medications Amlodipine Besylate (Amlodipine Besylate 5 Mg Tab) 5 mg PO PM JENNIFER Stop: 11/29/23 20:59 Last Admin: 10/30/23 21:50 Dose: 5 mg Documented By: MIGUEL Atorvastatin Calcium (Atorvastatin 10 Mg Tab) 10 mg PO PM JENNIFER Stop: 11/29/23 20:59 Last Admin: 10/30/23 21:50 Dose: 10 mg Documented By: MIGUEL Heparin Sodium (Porcine) (Heparin Sod 5,000 Unit/0.5 Ml Vial) 5,000 units SQ Q12 JENNIFER Stop: 11/29/23 20:59 Last Admin: 10/30/23 21:51 Dose: 5,000 units Documented By: MIGUEL Discharge Plan Visit Data Chief Complaint: Syncope (Near Syncope) Stated Complaint: SYNCOPE/NEAR SYNCOPE, HYPOTENSION ED Provider: Lalito Grey Discharge Problem: CHRISTIE (acute kidney injury), Near syncope, Hyponatremia Patient Disposition: Admitted As Inpatient Discharge Instructions Interventions: ED Discharge Assessment Last Done: 10/30/23 19:58
[2023-10-30 15:33] LABS: Basophils # (auto) 0.09 K/uL (0.00-0.20); Basophils % (auto) 1.1 %; Eosinophils # (auto) 0.26 K/uL (0.00-0.50); Hematocrit (blood only) 36.7 % (42.0-52.0); Hemoglobin 12.6 g/dl (14.0-18.0); Immature Granulocytes # (auto) 0.04 K/uL (0.01-0.20); Immature Granulocytes % (auto) 0.5 %; Lymphocytes # (auto) 2.44 K/uL (1.20-3.40); Lymphocytes % (auto) 28.5 %; Mean Corpuscular Hemoglobin 31.8 pg (25.0-34.0); Mean Corpuscular Hgb Conc 34.3 g/dL (32.0-36.0); Mean Corpuscular Volume 92.7 fL (80.0-100.0); Monocytes # (auto) 0.97 K/uL (0.11-0.59); Monocytes % (auto) 11.3 %; Neutrophils # (auto) 4.75 K/uL (1.40-6.50); Neutrophils % (auto) 55.6 %; Platelet Count 186 K/uL (130-400); RDW Coefficient of Variation 12.9 % (11.5-14.5); RDW Standard Deviation 43.7 fL (36.4-46.3); Red Blood Count 3.96 M/uL (4.70-6.10); White Blood Count 8.55 K/ul (4.8-10.8)
[2023-10-30 15:51] LABS: Albumin Globulin Ratio 1.4 (0.9-2); Albumin Level 3.9 gm/dl (3.4-5.0); BUN Creatinine Ratio 31.3 (10-20); Bilirubin,Total 0.4 mg/dl (0.2-1.0); Calcium 9.1 mg/dl (8.6-10.3); Est GFR (African American) 52.6 ml/min; Est GFR (Non-African American) 45.4 ml/min; Globulin 2.7 gm/dl (2.5-4.0); Magnesium 1.9 mg/dl (1.7-2.4); Potassium 4.4 mmol/L (3.5-5.1); Total Protein 6.6 gm/dl (6.0-8.3)
[2023-10-30 16:06] LABS: Thyroid Stimulating Hormone 7.816 uIu/ml (0.300-4.500)
[2023-10-30 16:39] LABS: T4 Free Thyroxine 0.96 ng/dl (0.61-1.60)
--- NOTE | 2023-10-30 16:53 | History & Physical Report ---
Date of Service October 30, 2023 Assessment & Plan (1) Pre-syncope: (2) CHRISTIE (acute kidney injury): (3) Anemia: (4) Chronic hyponatremia: (5) Elevated TSH: (6) Abnormal EKG: (7) HTN (hypertension): (8) Chronic diastolic CHF (congestive heart failure): (9) HLD (hyperlipidemia): (10) Asthma: Plan: Patient is 78 year old male chronic sinus bradycardia, chronic hyponatremia, asthma, HLD, diastolic dysfunction presented to ER for presyncope symptoms today after walking Presyncope: In ER vitals stable. H/H: 12./36, Na: 131, BUN: 46, Cr: 1.47 (baseline ~1.0), glucose: 143 without other significant electrolyte abnormality, TSH: 7.8 Monitor on telemetry History echo 10/11/23: EF: 65 to 65%, grade 1 diastolic dysfunction, no suggestion of pulmonary hypertension on echo Obtain CT head Orthostatics Carotid doppler Was reportedly given NSS pre-hospital Will allow FR to 2L from previous 1.5L until further recommendations by nephrology Hold home lasix, spironolactone for now CBC, BMP in am CHRISTIE BUN: 46, Cr: 1.47 (baseline ~1.0). Cr: 1.0 on 10/25/23 Hold home Lasix, spironolactone, fosinopril Was given IVF pre-hospital Will allow increased FR of 2L from prior 1500ml FR avoid nephrotoxic agents when possible BMP Nephrology consult Sinus bradycardia Patient with history chronic sinus bradycardia. Previously followed with cardiology and thought secondary to conditioning. 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 Has been 130 recently On chronic 1500ml FR Follows with nephrology Hold Lasix, spironolactone for now Consult nephrology for further recommendations Elevated TSH TSH: 7.8. Free T4: 0.96 Likely hypothyroidism Will start levothyroxine 25mcg daily Will need further outpatient follow up labs Anemia: H/H: 12.36. Baseline Hgb: 14 No reported melena, hematochezia History monocytosis. Seen by hematology in past Anemia labs in am HTN Continue amlodipine Hold fosinopril HLD: Continue atorvastatin Asthma No signs exacerbation Continue albuterol as needed DVT Prophylaxis Heparin SQ Full Code as per discussion with pt Follows with Dr Villavicencio for routine care Pt was seen and care coordinated with Dr Carreno. See addendum I spent a total of 77 minutes reviewing notes, outpatient records, labs, medication, coordinating, documenting and providing care for this patient excluding time spent in the performance of separately billed services. History of Present Illness Chief Complaint: presyncope Primary Care Provider: Ismael Villavicencio MD Patient is 78 year old male chronic sinus bradycardia, chronic hyponatremia, asthma, HLD, diastolic dysfunction presented to ER for presyncope symptoms. History obtained from patient, patient's and inpatient and outpatient chart review. Recent hospital admission at [facility] 10/10/2023-10/12/2023 for acute on chronic hyponatremia, left-sided rib fracture after fall. Patient states states standing and walking for 3 hours and was at [employer] when started to feel dizzy. states patient seemed "spaced out" and was slumped over. She does not think he had complete LOC. Denies CP, SOB. Denies positional dizziness recently. Patient active at baseline. Has been following 1500ml fluid restriction and taking diuretics as directed by nephrology. Denies other recent pre-syncopal or syncope episodes. Denies fever/chills, diaphoresis, N/V/D/C, WHYTE, vision changes, neck pain, CP, SOB, orthopnea, palpitations, cough, rhinorrhea, abdominal pain, paresthesias, weakness, extremity weakness, extremity edema, rashes, urinary symptoms. History echo 10/11/23: EF: 65 to 65%, grade 1 diastolic dysfunction, no suggestion of pulmonary hypertension on echo Allergies Allergy/AdvReac Type Severity Reaction Status Date / Time acetaminophen [From Percocet] AdvReac Rash Verified 10/30/23 17:26 oxycodone [From Percocet] AdvReac Rash Verified 10/30/23 17:26 phenytoin [From Dilantin] AdvReac syncope Verified 10/30/23 17:26 Home Medications Medication Instructions Recorded Confirmed Type Beet Root 250 mg PO DAILY 10/10/23 10/30/23 History albuterol sulfate 90 mcg/actuation 2 puff inhalation Q6H PRN 10/10/23 10/30/23 History aerosol inhaler Shortness Of Breath Or Wheezing amlodipine 10 mg tablet 5 mg PO PM 10/10/23 10/30/23 History atorvastatin 10 mg tablet 10 mg PO PM 10/10/23 10/30/23 History biotin 5,000 mcg chewable tablet 5,000 mcg PO DAILY 10/10/23 10/30/23 History calcium carb-ergocalciferol (vit 1 tab PO DAILY 10/10/23 10/30/23 History D2) 600 mg calcium-200 unit tablet fosinopril 40 mg tablet 40 mg PO DAILY 10/10/23 10/30/23 History ghjfmaao-wgt-lybthkpud-C-hyaluronic 1 tab PO DAILY 10/10/23 10/30/23 History 500 mg-300 mg-400 mg-10 mg tablet loratadine 10 mg tablet 10 mg PO DAILY 10/10/23 10/30/23 History multivitamin 1 tab PO DAILY 10/10/23 10/30/23 History omega 4-srd-txf-fish oil 1,000 mg 1 cap PO DAILY 10/10/23 10/30/23 History (120 mg-180 mg) capsule (Fish Oil) pantoprazole 40 mg tablet,delayed 40 mg PO DAILY PRN relux 10/10/23 10/30/23 History release spironolactone 25 mg tablet 25 mg PO DAILY 10/10/23 10/30/23 History zinc 50 mg tablet 50 mg PO DAILY 10/10/23 10/30/23 History furosemide 40 mg tablet 40 mg PO DAILY 10/30/23 10/30/23 History Past Med/Surg History Medical History (Updated 10/30/23 @ 18:44 by Yasmine Dickerson PA-C) HLD (hyperlipidemia) Chronic hyponatremia Pulmonary hypertension Asthma Hyponatremia Chronic diastolic CHF (congestive heart failure) HTN (hypertension) Surgical History Status post bilateral total hip replacement Family History (Updated 10/30/23 @ 18:39 by Yasmine Dickerson PA-C) Father Coronary heart disease Social History Smoking Status: Former smoker Hx Alcohol Use: Yes Alcohol type: wine Hx Substance Use: No Preferred Language: Japanese Communication Ability: Effective 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 Current Living Situation: Spouse Feels Safe at Home: Yes Assistive Devices: Cane, Glasses and Walker Review of Systems Review of Systems: All systems reviewed & are unremarkable except as noted in HPI & below Physical Exam Physical Exam: PE per Dr Carreno Results & Data Results & Data Vital Signs (Past 12 Hours) Vital Signs Temp Pulse Pulse Resp BP BP Pulse Ox 10/30/23 16:21 10/30/23 14:36 52 L 10/30/23 14:27 56 L 20 133/63 95 10/30/23 14:27 36.5 C 56 L 20 133/63 95 O2 Del Method 10/30/23 16:21 Room Air 10/30/23 14:36 10/30/23 14:27 Room Air 10/30/23 14:27 Room Air Laboratory Results Short CBC 10/30/23 Range/Units 14:26 WBC 8.55 (4.8-10.8) K/ul Hgb 12.6 L (14.0-18.0) g/dl Hct 36.7 L (42.0-52.0) % Plt Count 186 (130-400) K/uL BMP 10/30/23 14:26 Sodium 131 L Potassium 4.4 Chloride 99 Carbon Dioxide 26 BUN 46 H Creatinine 1.47 H Glucose 143 H Calcium 9.1 Liver Function 10/30/23 Range/Units 14:26 Total Bilirubin 0.4 (0.2-1.0) mg/dl AST 33 (13-39) U/L ALT 16 (7-52) U/L Alkaline Phosphatase 74 (34-104) U/L Albumin 3.9 (3.4-5.0) gm/dl Supervising Physician Co-Signing Physician Notes I have seen and discussed the case with the collaborating advanced practitioner. I agree with the above H&P. I have reviewed and confirmed the patients medical history, the findings on physical examination, and the patients diagnosis and treatment plan with Jayla ROBERTS and agree with the information documented. In short, Mr. Brady is a 78 year-old gentleman with history of right ventricular enlargement, biatrial enlargement, and evidence of pulmonary hypertension, chronic monocytosis, HTN, sinusbradycardia, who is admitted for CHRISTIE. Patient recently admitted for hyponatremia and rib fratcures. Patient placed on FR 1.5 L. Patient reports prodromal symptoms, decreased concentration and "woozy" feeling-- reports patient being pale and slumping down to ground, however,patient did not pass out, but he was not oriented. Denies cardiac symptoms. Denies any neurologic concerns. GENERAL APPEARANCE: AxOx4, generally well-appearing M no acute distress. HEENT: NC, AT. MMM. EOMI, clear conjunctiva, oropharynx clear. NECK: Supple without lymphadenopathy. No stiffness or restricted ROM. HEART: Normal rate and regular rhythm, normal S1/S1, no m/r/g LUNGS: CTAB, moving air well. No crackles or wheezes are heard. ABDOMEN: Soft, nontender, nondistended with good bowel sounds heard. BACK: No CVAT, no obvious deformity. EXTREMITIES: Without cyanosis, clubbing or edema. NEUROLOGICAL: Grossly nonfocal. Alert and oriented, moving all 4 extremities. CN not formally tested but appear grossly intact. Skin: Warm and dry without any rash. #Presyncope Monitor on tele Carotid dopplers Recent increase FR to 1.5, avid exercise, elevated BUN, ?dehydration -Nephrology to comment on CHRISTIE and FR -liberalize FR to 2.0 in interim, hold diuretics temporarily Orthostatics Consider Cardiology in am, however, chronotropic response intact, less likely bradycardia contributing 2/2 chronicity #CHRISTIE #chronic hyponatremia Baseline Cr. <1.0 1.47, iso fluid restriction avid exercise, diuretics -Nephrology for recommendations on regimen #Abnormal resting ECG #PHTN #Sinus bradycardia -Followed Cardiology as OP, Dr. Duenas Follow pulm for work up of PHTN -Prior Exercise testing without ischemia No longer on BB -Monitor on Tele #HTN Continue amlodipine Hold spironolactone, lasix, fosinopril 2/2 CHRISTIE #Dyslipidemia Continue low-dose atorvastatin #Hypothyroidism No OP TSH TSH 7.3, reports remote history of "low thyroid function" but never started on meds Endorses fatigue Agrees for low dose Levothyroxine at this time and follow up as OP for repeat TFTs #Anemia #Chronic Monocytosis Baseline hgb ~14 Follows heme/onc, monocytosis thought to be benign Denies bleeding or other acute concerns Anemia labs in am Rest of plan as above I spent a total of 35 minutes coordinating, documenting, and providing care for this patient excluding time spent in the performance of separately billed services. All of the aforementioned completed outside of collaborating with the assigned advanced practitioner for a full treatment plan. I have reviewed the advanced practitioner's documentation, and I agree with, and take responsibility for the plan of care
--- NOTE | 2023-10-30 19:17 | CT Scan Report ---
CT OF THE HEAD WITHOUT CONTRAST CLINICAL HISTORY: pre-syncope COMPARISON STUDY: No previous studies for comparison. CT DOSE: 625.8 mGy.cm TECHNIQUE: Helical axial images of the head were obtained without IV contrast. Automated exposure con trol was utilized for the study. A dose lowering technique was utilized adhering to the principles o f ALARA. FINDINGS: No acute intracranial hemorrhage, midline shift or mass effect is present. Ventricular syst em is unremarkable. Basal cisterns are patent. There are no extra-axial collections. Scattered white matter hypodense foci suggest small vessel disease. A small focus of encephalomalacia within the righ t occipital lobe favors an old infarct. There are no findings to suggest acute dural sinus thrombosis or acute territorial infarct. There are no significant calvarial abnormalities. IMPRESSION: 1. No acute intracranial findings. 2. 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 ACT 112: Negative or not required by law. Electronically signed by: Juan Malik M.D. 10/30/2023 7:15 PM
--- NOTE | 2023-10-30 19:39 | Electrocardiogram Report ---
Test Reason : Blood Pressure : / mmHG Vent. Rate : 056 BPM Atrial Rate : 056 BPM P-R Int : 194 ms QRS Dur : 096 ms QT Int : 434 ms P-R-T Axes : 066 021 -04 degrees QTc Int : 418 ms Sinus bradycardia Incomplete right bundle branch block T wave abnormality, consider anterolateral ischemia Abnormal ECG When compared with ECG of 10-OCT-2023 15:25, MT interval has decreased Confirmed by Perez Phillips ([id number]) on 10/30/2023 7:39:40 PM Referred By: Confirmed By:Rony Phillips
[2023-10-30] MEDS ORDERED: POLYETHYLENE (MIRALAX) 17 GM PACK PO PRN (19:57)
[2023-10-30] MEDS ORDERED: ALBUTEROL HFA 8 GM INHALER INH PRN (19:57)
[2023-10-30] MEDS ORDERED: ONDANSETRON INJ 2 MG/ML 2 ML VIAL IV PRN (19:57)
[2023-10-30] MEDS: ATORVASTATIN 10 MG TAB PO SCH (21:50)
[2023-10-30] MEDS: amLODIPine BESYLATE 5 MG TAB PO SCH (21:50)
[2023-10-30] MEDS: HEPARIN SOD 5,000 UNIT/0.5 ML VIAL SQ SCH (21:51)
--- NOTE | 2023-10-30 21:51 | Ultrasound Report ---
Exam(s): US CAROTID EXAM: US Duplex Bilateral Extracranial Arteries CLINICAL HISTORY: Reason for exam: pre-syncope. TECHNIQUE: Real-time duplex ultrasound scan of the extracranial arteries integrating B-mode two-dimensional vascular structure, Doppler spectral analysis and color flow Doppler imaging. COMPARISON: No relevant prior studies available. FINDINGS: Right common carotid artery: Unremarkable. No occlusion or significant stenosis on color flow and spectral Doppler imaging. Right internal carotid artery: Severe calcified plaque of the proximal right internal carotid artery with markedly decreased velocity concerning for a critical greater than 90% stenosis/occlusion. Severe calcified plaque of the right carotid bulb without focal elevated velocity. Right external carotid artery: Unremarkable. No occlusion or significant stenosis on color flow and spectral Doppler imaging. Right vertebral artery: Unremarkable. Antegrade flow. Right ICA/CCA ratio: Unremarkable. Within normal limits. Left common carotid artery: Unremarkable. No occlusion or significant stenosis on color flow and spectral Doppler imaging. Left internal carotid artery: Moderate calcified plaque in the left carotid bulb without focal elevated velocity. Severe calcified plaque within the proximal left internal carotid artery without focal elevated velocity. Peak systolic velocity is 111 cm/s. No occlusion or significant stenosis on color flow and spectral Doppler imaging. Left external carotid artery: Unremarkable. No occlusion or significant stenosis on color flow and spectral Doppler imaging. Left vertebral artery: Unremarkable. Antegrade flow. Left ICA/CCA ratio: Unremarkable. Within normal limits. Lymph nodes: Unremarkable. No lymphadenopathy. CAROTID STENOSIS REFERENCE USING SRU CRITERIA: Mild - <50% stenosis. ICA PSV is less than 125 cm/second and plaque or intimal thickening is visible. Moderate - 50-69% stenosis. ICA PSV is 125 to 230 cm/second and plaque is visible. Severe - 70-94% stenosis. ICA PSV is more than 230 cm/second and visible plaque with lumen narrowing is seen. Near occlusion - 95-99% stenosis. ICA PSV is variable and significant plaque with luminal narrowing is seen. Occluded - 100% stenosis. No flow identified. IMPRESSION: 1. Severe calcified plaque of the proximal right internal carotid artery with markedly decreased velocity concerning for a critical greater than 90% stenosis/occlusion. 2. Moderate severe calcified plaque in the left carotid bulb and proximal internal carotid artery without elevated velocity. Electronically signed by: Luc Roberts M.D. 10/30/23 21:50 PM
[2023-10-31] MEDS: LEVOTHYROXINE SODIUM 25 MCG TABLET PO SCH (06:09)
--- OUTSIDE RECORDS SUMMARY | 2023-10-31 06:46 | External Medical Summary | Summary of Care ---
Author Name Unknown Organization [facility] Address [address] [place] [address] Phone [phone] Care Team Providers Care Senior Business Development Manager Name Role Phone Ismael Villavicencio MD Primary Care Provider + Reason for Referral * Evaluate & Treat - Unlimited Visits (Within 10 days (routine)) - Authorized Specialty Diagnoses / Procedures Referred By Contact Referred To Contact Cardiovascular Medicine / Cardiology Diagnoses Abnormal EKG Ismael Villavicencio MD [address] [place] [address] Referral ID Status Reason Start Date Expiration Date Visits Requested Visits Authorized [id number] Authorized Specialty Services Required 10/25/2023 999 999 Question Answer Referral Priority Within 10 days (routine) Where should this appointment be scheduled? [facility] To which of the following clinics are you referring your patient? General Cardiology Clinic Comments Trop elevated, EKG changes at [facility] Reason for Visit * Reason Onset Date Comments Hospital Follow-Up Hospital Follow-Up 10/25/2023 Encounter Details Date Type Department Care Team (Late st Contact Info) Description 10/25/2023 12:00 PM EDT Office Visit General Internal Medicine [place] [address] [place] [address] [address] Ismael Villavicencio MD [address] [place] [address] Hospital discharge follow-up*; Closed fracture of multiple ribs of left side, initial encounter; Chronic hyponatremia; Abnormal EKG; Neuromuscular respiratory weakness (HCC); Pulmonary hypertension (HCC) Allergies Active Allergy Reactions Criticality Noted Date Comments Acetaminophen Rash 10/10/2023 Baclofen Other (Please comment) 03/16/2021 Passed out Phenytoin Other (Please comment) 03/16/2021 Passed out Oxycodone Itching 03/16/2021 Percocet - itching documented as of this encounter (statuses as of 10/25/2023) Medications Medication Sig Dispensed Refills Start Date [...] Tablet by mouth as needed. 0 Active Furosemide 40 MG Oral Tablet (Lasix) [...] THE MORNING 90 Tablet 3 06/07/2023 Active Spironolactone 25 MG Oral Tablet (Aldactone)Indicati ons:Hypertension goal BP (blood pressure) < 130/80 Take 1 Tablet by mouth in the morning. 90 Tablet 3 06/28/2023 Active Zoster Vac Recomb Adjuvanted 50 MCG/0.5ML Intramuscular Suspension Reconstituted (Shingrix)Indicatio ns:Need for shingles vaccine Inject 0.5 mL into a large muscle now and repeat dose in 60 to 180 days 1 Each 1 10/16/2022 4 Discontinue d(Patient preference/ discontinua tion) Cephalexin 500 MG Oral Capsule (Keflex) Take 1 Capsule by mouth in the morning and 1 Capsule at noon and 1 Capsule before bedtime. 0 06/02/2023 4 Discontinue d(Patient preference/ discontinua tion) Doxycycline Hyclate 100 MG Oral Tablet Take 1 Tablet by mouth in the morning and 1 Tablet before bedtime. 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 Mild aortic regurgitation 10/15/2021 Mild persistent asthma without complication 09/12 Pulmonary hypertension 06/01/2021 Chronic diastolic congestive heart failure 04/03 Mild mitral regurgitation 04/03/2021 Mixed hyperlipidemia 03/17/2021 Chronic edema 03/17/2021 Hypertension goal BP (blood pressure) < 130/80 0 03/16/2021 Chronic hyponatremia 03/16/2021 Osteoarthritis 03/16/2021 documented as of this encounter (statuses as of 10/25/2023) Resolved Problems Problem Noted Date Diagnosed Date Resolved Date Mild intermittent asthma with exacerbation 09/22/2021 09/22/2021 High pulmonary arterial pressure 04/03/2021 12/01/2021 Hyperlipidemia 03/16/2021 03/17/2021 documented as of this encounter (statuses as of 10/25/2023) Immunizations Name Administration Dates Next Due COVID-19 mRNA, LNP-s, No Pre serve, 2-Dose Series (Moderna) 03/10/2021,09/18/2020,08/21/2020 Covid-19, Mrna, Lnp-s, Pf, B ivalent, 50 Mcg, IM, 12 yrs and above (Moderna) 04/17/2022 Pneumococcal Conjugate Vacc, 13 Valent (Prevnar) 08/28/2018 Pneumococcal Conjugate Vacci ne, 20-valent ([id number]) 10/16/2022 Seasonal Influenza, Quadriva lent Hd (Fluzone Hd) 03/15/2023 Seasonal Influenza, Trivalen t, Adjuvanted, 65+ yrs 03/21/2021,06/19/2018 TDAP (age 10 and older)(Boostrix) 04/30/2023, documented as of this encounter Social History Tobacco Use Types Packs/Day Years Used Date Smoking Tobacco: Former Cigarettes 0.8 27 0 07/15/1966 - 07/15/1993 Smokeless Tobacco: Never Alcohol Use Standard [...] Sign Reading Time Taken Comments Blood Pressure 116/76 10/25/2023 11:56 AM EDT Pulse 56 10/25/2023 11:56 AM EDT Temperature 36.3 C (97.3 F) 10/25/2023 1 1:56 AM EDT Respiratory Rate 16 10/25/2023 11:5 6 AM EDT Oxygen Saturation 96% 10/25/2023 11: 56 AM EDT Inhaled Oxygen Concentration - - Weight 73.4 kg (161 lb 12.8 oz) 024 11:56 AM EDT Height 165.1 cm (5' 5") 10/25/2023 11:5 6 AM EDT Body Mass Index 26.92 10/25/2023 11:56 AM EDT documented in this encounter Progress Notes * Ismael Villavicencio MD - 10/25/2023 12:20 PM EDT Chief Complaint Patient presents with Hospital Follow-Up Hospital Follow-Up SUBJECTIVE: Tremaine Brady is a 78 year old male with PMH as below who presents for hospital follow up. He was admitted to [facility] 10/10/23-10/12/23 for chest pain and hyponatremia. Chest pain started week prior after slipped putting a swing on porch. He notes was taking a easy, but exercised day of admission andhad a lot more pain. Was also drinking more fluids. He had a CT which showed rib fractures. He was admitted, put on fluid restriction and sodium improved. Has felt fine since discharge, is now compliant with fluid restriction and watching as well. Chest pain better. No sob, andres. Has f/u nephrology Patient Active Problem List Diagnosis Code Hypertension goal BP (blood pressure) < 130/80 I10 Chronic hyponatremia E87.1 Osteoarthritis M19.90 Mixed hyperlipidemia E78.2 Chronic edema R60.9 Chronic diastolic congestive heart failure (HCC) I50.32 Mild mitral regurgitation I34.0 Pulmonary hypertension (HCC) I27.20 Mild persistent asthma without complication J45.30 Mild aortic regurgitation I35.1 Neuromuscular respiratory weakness ([facility]) G70.9, J99 Current Outpatient [...] DAY IN THE MORNING 90 Tablet 3 Spironolactone 25 MG Oral Tablet (Aldactone) Take 1 Tablet by mouth in the morning. 90 Tablet 3 No current facility-administered medications for this visit. Review of patient's allergies indicates: Allergen Reactions Acetaminophen Rash Baclofen Other (Please comment) Passed out Dilantin [Phenytoin] Other (Please comment) Passed out Oxycodone Itching Percocet - itching Health Maintenance Due Topic Date Due Zoster Vaccines (1 of 2) Never done COVID-19 Vaccine ( season) 2023 ROS: CONSTITUTIONAL: No change in weight, No weakness, and No fevers, sweats, or chills PULMONARY: No cough, sputum, or hemoptysis, No wheezing, No rales, No shortness of breath, and No recent change in breathing GASTROINTESTINAL: No abdominal pain, No change in [...] on file Occupational History Occupation: retired - [place] Tobacco Use Smoking status: Former Current packs/day: 0.00 Average packs/day: 0.8 packs/day for 27.0 years (20.3 ttl pk-yrs) Types: Cigarettes Start date: 07/15/1966 Quit date: 07/15/1993 Years since quittin.2 Smokeless tobacco: Never Vaping Use Vaping Use: Never used Substance and Sexual Activity Alcohol use: Yes Alcohol/week: 2.0 standard drinks of alcohol Types: 2 5 oz of wine per week Comment: socially Drug use: Never Sexual activity: Not on file Other Topics Concern Not on file Social History Narrative 1 cat in his home. No mold. Social Determinants of Health Financial Resource Strain: Not on file Food Insecurity: Not on file Transportation Needs: Not on file Physical Activity: Not on file Stress: Not on file Social Connections: Not on file Intimate Partner Violence: Not on file Housing Stability: Not on file Past Medical History: Diagnosis Date Asthma Chronic hyponatremia 03/16/2021 Diastolic dysfunction 04/03/2021 Hypertension goal BP (blood pressure) < 130/80 03/16/2021 Mild aortic regurgitation 10/15/2021 Mild intermittent asthma with exacerbation 09/22/2021 Mild mitral regurgitation 04/03/2021 Mixed hyperlipidemia 03/17/2021 Osteoarthritis 03/16/2021 Pulmonary arterial hypertension (HCC) Past Surgical History: Procedure Laterality Date COLONOSCOPY, DIAGNOSTIC (RECTUM) 09/04/2022 poor-prep, normal scope / repeat colon w/ extended prep / COLONOSCOPY FLEXIBLE PROXIMAL DIAGNOSTIC performed by Treasure Cruz MD at [facility] COLONOSCOPY, DIAGNOSTIC (RECTUM) 12/25/2022 prep-fair, 1-4 mm in cecum, otherwise normal / biopsies benign adenomatous polyp / 1 year w/ 2 day prep / COLONOSCOPY FLEXIBLE PROXIMAL DIAGNOSTIC performed by Treasure Cruz MD at [facility] TOTAL HIP REPLACEMENT & PROSTHESIS Bilateral 2017 Family History Problem Relation Age of Onset Rheum arthritis Mother Coronary Artery disease Father OBJECTIVE: PHYSICAL EXAM: BP 116/76 | Pulse 56 | Temp 36.3 C (97.3 F) (Tympanic) | Resp 16 | Ht 1.651 m (5' 5") | Wt 73.4kg (161 lb 12.8 oz) | SpO2 96% | BMI 26.92 kg/m | BSA 1.83 m General: alert, healthy, and no distress Head: Normocephalic, No masses, lesions, or abnormalities Eye Exam: conjunctiva are pink and non-injected, sclera clear Heart: regular rate & rhythm, no murmur, no gallops, PMI non-displaced, S-1 normal, and S-2 normal Lungs: normal respiratory rate and rhythm, lungs clear to auscultation Psych: normal affect, no flight of ideas or tangential thought, good eye contact, no pressured speech D/C Summary: 78-year-old male with PMH chronic hyponatremia, HTN, chronic diastolic CHF, and other problems listed below who presents to the ED for evaluation of left-sided rib pain. History is obtained from the patient and review of outpatient PCP, nephrology, cardiology records. Patient reports he sustained afall 1 week ago when he was moving a chair up onto his patio. Patient reports he slipped and fell onto his left side on the stairs. Reports that he was feeling improved however after exercising this morning, he noted the left-sided rib pain was worse with twisting. He then presented to the ED for further evaluation. Patient has history of chronic hyponatremia, typically managed with diuretics andfluid restriction. Nephrology is recommending a 32 ounce daily fluid restriction, patient does not seem to be monitoring fluid intake closely. He denies chest pain and shortness of breath. No abdominal pain, nausea, vomiting, diarrhea. Denies any other recent illnesses, fevers, chills. No lightheadedness, dizziness, diaphoresis, syncopal events. Denies urinary symptoms. In the ED, CT chest shows Acute nondisplaced fractures of the anterolateral left seventh and eighth ribs. Labs show Na+ 126. (1) Hyponatremia: Patient presenting from home with reports of left-sided rib pain after a fall 1 week ago In the ED, labs incidentally showed Na+ 126. History of chronic hyponatremia typically managed withdiuretics and fluid restriction. Na+ 134 on outpatient labs 07/2023 Worsening of hyponatremia likely secondary to indiscretions of fluid intake Lasix 20 mg IV x 1, 1.2 L fluid restriction Serial BMP Resume p.o. Lasix and spironolactone tomorrow If not improving, consider nephrology consult Clinically much better will continue with restrict fluid to 1500 mill a day Sodium level is 129 today Strongly advised to restrict fluid intake to 1.5 L a day Sodium level has been 130 today and is in the trend to be normalized Strongly advised to continue with the fluid restriction up to 1.5 L a day He will be discharged home this afternoon (2) Rib fractures: CT chest shows Acute nondisplaced fractures of the anterolateral left seventh and eighth ribs Pain currently controlled PRN Tylenol Denies any chest pain except with deep breathing and or coughing Denies any pain with normal activities-does not require any narcotic pain medications (3) Acute electrocardiogram changes: EKG shows more pronounced and new T wave changes in the inferior and lateral leads No reports of chest pain HS troponin 21.3 Echo of the heart showed-LV normal in size with moderate concentric LVH, LV wall motion is normal with EF of 60 to 65%, grade 1 diastolic dysfunction, left atrium is mildly dilated, right atrium is mildly dilated aortic valve sclerosis without stenosis, trace mitral and tricuspid regurgitation,, nopulmonary hypertension Serial troponins are unremarkable (4) Pulmonary hypertension: (5) Chronic diastolic CHF (congestive heart failure): Appears to be mildly volume overloaded given hyponatremia and lower extremity edema Diuretics as above No signs and or symptoms of fluid overload (6) HTN (hypertension): Chronic, stable Continue amlodipine, fosinopril, diuretics (7) Asthma: Appears stable, no signs of acute exacerbation Does not use routine inhalers CT: Acute nondisplaced fractures of the anterolateral left seventh and eighth ribs. No pneumothorax. ASSESSMENT: Z09 Hospital discharge follow-up (primary encounter diagnosis) S22.42XA Closed fracture of multiple ribs of left side, initial encounter E87.1 Chronic hyponatremia R94.31 Abnormal EKG G70.9,J99 Neuromuscular respiratory weakness (HCC) I27.20 Pulmonary hypertension (HCC) PLAN: Hospital discharge follow-up (Primary) - DISCH MED RECON CUR MED LIS As below Closed fracture of multiple ribs of left side, initial encounter Healing Cont rest Chronic hyponatremia - BASIC METABOLIC PANEL; Future; Expected date: 10/25/2023 - HEPATIC FUNCTION PANEL; Future; Expected date: 11/24/2023 Recheck Likely fluid overload Cont restriction Cont lasix Has f/u nephrology in 2 weeks Abnormal EKG - CARDIOLOGY REFERRAL OP Per [facility] Neuromuscular respiratory weakness (HCC) Seems controlled Pulmonary hypertension (HCC) Seems resolved on echo Follow Follow Up: Return if symptoms worsen or fail to improve and as scheduled., for Labs Today. | For: Labs Today documented in this encounter Nursing Notes * Leandra Bazzi LPN - 10/25/2023 11:56 AM EDT Patient presents today for a hospital follow up. documented in this encounter Plan of Treatment Upcoming Encounters Date Type Department Care Team (Late st Contact Info) Description 11/07/2023 11:30 AM EDT Office Visit Nephrology, [facility] [address] [facility] [place] [address] Joana Gaspar PA-C [address] [facility] [place] [address] 11/07/2023 2:40 PM EDT Office Visit General Internal Medicine [facility] [address] [facility] [place] [address] Ismael Villavicencio MD [address] [facility] [place] [address] 12/10/2023 10:15 AM EDT Office Visit Dermatology [facility] [address] [facility] [place] [address] Ismael Nolan MD [address] [facility] [place] [address] 12/19/2023 10:30 AM EDT Office Visit Cardiology, [facility] [address] [place] [address] aGdiel Vasquez DO [address] [place] [address] 12/20/2023 8:30 AM EDT Office Visit Hematology/Oncology [facility] [address] [place] [phone] Kendal Ramesh CRNP [address] [place] [address] [place] [address] 12/30/2023 9:20 AM EDT Office Visit Neurology [facility] [address] [place] [address] Wes Uribe MD [address] [facility] [address] 01/14/2024 2:30 PM EDT Cardiac Studies Cardiac Studies, [facility] [address] [facility] [place] [address] Pending Results Name Type Priority Associated Diagnoses Date /Time BASIC METABOLIC PANEL Lab Routine Chronic hyponatremia 10/25/2023 12:24 PM EDT Scheduled Orders Name Type Priority Associated Diagnoses Orde r Schedule BASIC METABOLIC PANEL Lab Routine Chronic hyponatremia Expected: 10/25/2023 (Approximate), Expires: 10/24/2024 HEPATIC FUNCTION PANEL Lab Routine Chronic hyponatremia Expected: 11/24/2023 (Approximate), Expires: 10/24/2024 Scheduled Procedures Name Priority Associated Diagnoses Date/Ti me COLONOSCOPY FLEXIBLE PROXIMAL DIAGNOSTIC Recall History of colon polyps Scheduled Referrals Name Type Priority Associated Diagnoses Orde r Schedule CARDIOLOGY REFERRAL OP Referral Within 10 days (routine) Abnormal EKG Ordered: 10/25/2023 Health Maintenance Due Date Last Done Comments [...] as of this encounter Visit Diagnoses Diagnosis Hospital discharge follow-up- Primary Other follow-up examination Closed fracture of multiple ribs of left side, initial encounter Chronic hyponatremia Hyposmolality and/or hyponatremia Abnormal EKG Nonspecific abnormal electrocardiogram (ECG) (EKG) Neuromuscular respiratory weakness (HCC) Other diseases of respiratory system, not elsewhere classified Pulmonary hypertension (HCC) Other chronic pulmonary heart diseases documented in this encounter Care Teams Senior Business Development Manager Relationship Specialty Start Date End Date Ismael Villavicencio MD [address] [place] [address] PCP - General Internal Medicine 03/17/21 documented as of this encounter
--- OUTSIDE RECORDS SUMMARY | 2023-10-31 06:46 | External Medical Summary | Summary of Care ---
Author Name Unknown Organization [facility] Address [address] [place] [address] Phone [phone] Care Team Providers Care Weight Recorder Name Role Phone Ismael Villavicencio MD Primary Care Provider + Reason for Visit * Reason Comments Outpatient Testing Encounter Details Date Type Department Care Team (Late st Contact Info) Description 10/25/2023 12:40 PM EDT Laboratory Laboratory [facility] [address] [place] [phone] [facility] [address] [place] [address] Chronic hyponatremia Allergies Active Allergy Reactions Criticality Noted Date [...] :Hypertension goal BP (blood pressure) < 130/80 TAKE 1 TABLET BY MOUTH EVERY DAY IN THE MORNING 90 Tablet 3 06/07/2023 Active Spironolactone 25 MG Oral Tablet (Aldactone)Indication s:Hypertension goal BP (blood pressure) < 130/80 Take 1 Tablet by mouth in the morning. 90 Tablet 3 06/28/2023 Active documented as of this encounter (statuses [...] (Prevnar) 08/28/2018 Pneumococcal Conjugate Vacci ne, 20-valent ([id number]) 10/16/2022 Seasonal Influenza, Quadriva lent Hd (Fluzone [...] Office Visit Nephrology, [facility] [address] [facility] [place], [place] [address] Joana Gaspar PA-C [address] [facility] [place], [place] [address] 11/07/2023 2:40 PM EDT Office Visit General Internal Medicine [facility] [address] [facility] [place], [place] [address] Ismael Villavicencio MD [address] [facility] [place], [place] [address] 12/10/2023 10:15 AM EDT Office Visit Dermatology [facility] [address] [place], [place] [address] Ismael Nolan MD [address] [facility] [place], [place] [address] 12/19/2023 10:30 AM EDT Office Visit Cardiology, [facility] [address] [place] [address] Gadiel Vasquez DO [address] [place] [address] 12/20/2023 8:30 AM EDT Office Visit Hematology/Oncology [facility] [address] [facility] [place], [place] [address] Kendal Ramesh CRNP [address] [place] [address] 12/30/2023 9:20 AM EDT Office Visit Neurology [facility] [address] [facility] [place], [place] [address] Wes Uribe MD [address] [place] [address] 01/14/2024 2:30 PM EDT Cardiac Studies Cardiac Studies, [facility] [address] [facility] [place] [address] Pending Results Name Type Priority Associated Diagnoses Date /Time BASIC METABOLIC PANEL Lab Routine Chronic hyponatremia 10/25/2023 12:24 PM EDT Scheduled Procedures Name Priority Associated Diagnoses Date/Ti me COLONOSCOPY FLEXIBLE PROXIMAL DIAGNOSTIC Recall History of colon polyps Health Maintenance Due Date Last Done Comments Zoster Vaccines (1 of 2) 1996 COVID-19 Vaccine ( season) 2023 04/17/2022, 03/10/2021, 09/18/2020, Additional history exists COLONOSCOPY-ANNUAL AGES 18-100 12/26/2023 12/25/2022, 12/25/2022, 09/04/2022, Additional history exists Depression Screening 04/30/2024 04/30/2023 GFR 07/24/2024 07/24/2023, 11/2 10/2022, 06/02/2023, Additional history exists Albumin/Creatinine Ratio 04/23/2025 [...] of this encounter Visit Diagnoses Diagnosis Chronic hyponatremia Hyposmolality and/or hyponatremia documented in this encounter Care Teams Weight Recorder Relationship Specialty Start Date End Date Ismael Villavicencio MD [address] [place], [place] [address] PCP - General Internal Medicine 03/17/21 documented as of this encounter
--- OUTSIDE RECORDS SUMMARY | 2023-10-31 06:46 | External Medical Summary ---
Author Name Unknown Address Unknown Organization K09:[facility] [place] [place] [address] Laboratory Report Ordering Provider Test Date Status MARY LEW 10/25/2023 12:24:26 Final Observation Date Value Abnormality Reference (Units ) Status BUN 10/25/2023 12:24:26 35 Above high normal 6-20 (mg/dL) Final Creatinine 10/25/2023 12:24:26 1.0 0.6-1.2 (mg/dL) Final Glomerular filtration rate/1.73 sq M.predicted [Volume Rate/Area] in Serum, Plasma or Blood by Creatinine-based formula (CKD-EPI) 10/25/2023 12:24:26 79 >=60 (mL/min) Final eGFR is calculated based on the CKD-EPI 2020 equation Sodium 10/25/2023 12:24:26 134 Below low normal 135 -146 (mmol/L) Final Potassium 10/25/2023 12:24:26 4.8 3.5-5.1 (m mol/L) Final Cl 10/25/2023 12:24:26 96 Below low normal 98- 107 (mmol/L) Final CO2 10/25/2023 12:24:26 28 22-32 (mmo l/L) Final Anion gap 10/25/2023 12:24:26 10 7-15 (mmol /L) Final Glucose 10/25/2023 12:24:26 75 70-120 (mg /dL) Final Calcium 10/25/2023 12:24:26 9.6 8.4-10.2 ( mg/dL) Final Performing Location [facility] [place] [address]
[2023-10-31 07:48] LABS: Ferritin 136.5 ng/ml (8-388)
[2023-10-31 07:58] LABS: Estimated Average Glucose 123 mg/dl; Hemoglobin A1C 5.9 % (4.5-5.6)
[2023-10-31 08:09] LABS: Folate (Folic Acid),Ser orPlas > 22.30 ng/ml (>5.38)
[2023-10-31 08:10] LABS: Vitamin B12 608 pg/ml (180-914)
[2023-10-31] MEDS: LORATADINE 10 MG TAB PO SCH (08:29)
[2023-10-31] MEDS: MULTIVITAMIN TAB PO SCH (08:54)
--- NOTE | 2023-10-31 09:14 | Electrocardiogram Report ---
Test Reason : Blood Pressure : / mmHG Vent. Rate : 050 BPM Atrial Rate : 050 BPM P-R Int : 214 ms QRS Dur : 102 ms QT Int : 452 ms P-R-T Axes : 043 036 -21 degrees QTc Int : 412 ms Sinus bradycardia with 1st degree A-V block T wave abnormality, consider anterior ischemia Abnormal ECG When compared with ECG of 30-OCT-2023 14:23, Non-specific change in ST segment in Anterior leads Nonspecific T wave abnormality has replaced inverted T waves in Lateral leads Confirmed by Perez Phillips ([id number]) on 10/31/2023 9:14:02 AM Referred By: REFERRED SELF Confirmed By:Rony Phillips
[2023-10-31 10:33] LABS: Hematocrit (blood only) 38.7 % (42.0-52.0); Hemoglobin 13.1 g/dl (14.0-18.0); Mean Corpuscular Hgb Conc 33.9 g/dL (32.0-36.0); Mean Corpuscular Volume 94.4 fL (80.0-100.0); Mean Platelet Volume 9.7 fL (9.4-12.4); Platelet Count 172 K/uL (130-400); RDW Coefficient of Variation 12.9 % (11.5-14.5); RDW Standard Deviation 44.6 fL (36.4-46.3); White Blood Count 6.85 K/ul (4.8-10.8)
[2023-10-31 10:52] LABS: BUN Creatinine Ratio 32.9 (10-20); Calcium 9.3 mg/dl (8.6-10.3); Creatinine Clr Calc Pharmacy 68.1 ml/min; Est GFR (African American) 98.9 ml/min; Est GFR (Non-African American) 85.3 ml/min; Magnesium 1.9 mg/dl (1.7-2.4); Potassium 3.9 mmol/L (3.5-5.1)
--- NOTE | 2023-10-31 11:43 | Communication Note ---
Date of Service: October 31, 2023 Please order cta of neck prior to seeing patient. We can see him tomorrow thank you
[2023-10-31] MEDS: ACETAMINOPHEN 325 MG TAB PO PRN (11:53)
[2023-10-31] MEDS: SODIUM CHLORIDE 0.9% 1,000 ML IV SCH (13:28)
[2023-10-31] MEDS: OPTIRAY 320 125ml IV ONE (14:14)
--- NOTE | 2023-10-31 16:05 | Hospitalist Progress Note ---
Date of Service October 31, 2023 Assessment & Plan (1) Pre-syncope: (2) CHRISTIE (acute kidney injury): (3) Anemia: (4) Chronic hyponatremia: (5) Elevated TSH: (6) Abnormal EKG: (7) HTN (hypertension): (8) Chronic diastolic CHF (congestive heart failure): (9) HLD (hyperlipidemia): (10) Asthma: Plan Patient is 78 year old male chronic sinus bradycardia, chronic hyponatremia, asthma, HLD, diastolic dysfunction presented to ER for presyncope Carotid ultrasound 1. Severe calcified plaque of the proximal right internal carotid artery with markedly decreased velocity concerning for a critical greater than 90% stenosis/occlusion. 2. Moderate severe calcified plaque in the left carotid bulb and proximal internal carotid artery without elevated velocity. Presyncope Rt ICA stenosis - Workup shows 90% stenosis/occlusion of right ICA. Labs reviewed- CHRISTIE is resolved, TSH only mildly elevated with normal fT4. Chronic asymptomatic bradycardia - Echo 10/11/23: EF: 65 to 65%, grade 1 diastolic dysfunction, no suggestion of pulmonary hypertension - Consulted vascular- ordered CTA neck per recommendation. They will see patient tomorrow. WIll keep npo overnight just in case CHRISTIE- resolved after holding diuretics. Spoke with nephro and consult cancelled. Getting gentle ivf for the CTA study. Recheck in am Sinus bradycardia- not on AVNB. History chronic sinus bradycardia. Previously followed with cardiology and thought secondary to conditioning. Monitor on tele. Consider cardio eval if needed. Asymptomatic though. Chronic hyponatremia- sodium improved to 135 today. Elevated TSH- TSH: 7.8. Free T4: 0.96. No need for supplementation currently. Recommend follow up with PCP in 6-8 weeks with repeat TSH prior to considering treatment. HTN- BP stable on amlod. ACEI on hold. DVT Prophylaxis- Heparin SQ Dispo- Pending CTA neck and vascular evaluation Updated at bedside Time spent- 50 mins Admission and Anticipated Discharge Date Admission Date: October 30, 2023 Subjective Patient was seen and examined at bedside in presence of . Discussed about the carotid ultrasound findings and labs. He did not have any more dizziness after admission. No fever, chills, chest pain or shortness of no nausea or vomiting. Review of Systems Review of Systems: All systems reviewed & are unremarkable except as noted in Subjective Physical Exam Physical Exam: General: Lying comfortably in bed, not in distress, on room air HEENT: EOMI, ANTWAN, MMM Chest: Clear breath sounds bilaterally, no wheezes or crackles CVS: Bradycardic Abdomen: Soft, non tender, not distended, normal bowel sounds Neuro: Awake, alert, oriented, conversing well, non focal Extremities: No edema Results & Data Results & Data Vital Signs (Past 12 Hours) Vital Signs Temp Pulse Pulse Pulse Resp BP BP 10/31/23 15:51 36.5 C 42 L 18 114/64 10/31/23 15:00 46 L 10/31/23 11:33 36.3 C L 52 L 22 135/66 10/31/23 08:00 10/31/23 07:15 36.3 C L 52 L 22 169/69 H 10/31/23 07:00 49 L Pulse Ox O2 Del Method 10/31/23 15:51 97 Room Air 10/31/23 15:00 10/31/23 11:33 94 Room Air 10/31/23 08:00 Room Air 10/31/23 07:15 95 Room Air 10/31/23 07:00
--- NOTE | 2023-10-31 16:15 | CT Scan Report ---
CT ANGIOGRAPHY OF THE NECK WITH CONTRAST CLINICAL HISTORY: Carotid artery stenosis. COMPARISON STUDY: Carotid ultrasound October 30, 2023. Technique: CT angiography of the carotid and vertebral arteries was obtained using [employer] and 3D rec onstruction on an independent workstation. NASCET criteria was utilized. Automated exposure control was utilized for the study. A dose lowering technique was utilized adhering to the principles of ALA RA. CT DOSE: 362.34 mGy.cm Findings: Visualized portions of the lung apices are unremarkable. There is no cervical lymphadenopat hy. No cervical spine fractures are identified. There is extensive plaque within the bilateral common carotid and cervical internal carotid arteries. The cervical right internal carotid artery is occlud ed. Occlusion occlusion begins at the vessel origin. Severe stenosis at the origin of the right exter nal carotid artery is present. There is extensive plaque within the proximal left internal carotid ar rodney without significant stenosis. The right vertebral artery is dominant. The left vertebral artery is diminutive on a congenital basis. No significant stenosis within the bilateral vertebral arteries are identified. IMPRESSION: 1. Occlusion of the right internal carotid artery, likely chronic. 2. Extensive plaque within the proximal left internal carotid artery without significant stenosis. 3. Severe stenosis at the origin of the right external carotid artery. ACT 112: Negative or not required by law. Electronically signed by: Juan Malik M.D. 10/31/2023 4:13 PM
[2023-11-01 06:32] LABS: Hematocrit (blood only) 36.6 % (42.0-52.0); Hemoglobin 12.7 g/dl (14.0-18.0); Mean Corpuscular Hgb Conc 34.7 g/dL (32.0-36.0); Mean Corpuscular Volume 92.2 fL (80.0-100.0); Mean Platelet Volume 9.9 fL (9.4-12.4); Platelet Count 164 K/uL (130-400); RDW Coefficient of Variation 12.9 % (11.5-14.5); RDW Standard Deviation 43.6 fL (36.4-46.3); Red Blood Count 3.97 M/uL (4.70-6.10); White Blood Count 6.11 K/ul (4.8-10.8)
[2023-11-01 06:52] LABS: BUN Creatinine Ratio 29.1 (10-20); Calcium 8.9 mg/dl (8.6-10.3); Creatinine Clr Calc Pharmacy 64.9 ml/min; Est GFR (African American) 96.9 ml/min; Est GFR (Non-African American) 83.6 ml/min; Potassium 4.4 mmol/L (3.5-5.1)
--- NOTE | 2023-11-01 10:04 | Consultation ---
Date of Consultation November 01, 2023 Assessment & Plan (1) Carotid occlusion, right: Pt with R ICA occlusion. This is chronic and not contributory to pt's presenting sx. He does not require surgical intervention for this, but will need annual carotid US for surveillance of L ICA. Office will call pt to sched meñoe. Also recommend 81mg ASA if no contraindications. Clopidogrel not necessary at this time. This was discussed at length with the pt and his , they express understanding and agreement. History of Present Illness Reason for Consultation: carotid stenosis Attending Physician: Nick Cuellar MD History of Present Illness 78 yo m with hx of HTN, anemia, hyperlipidemia, asthma, CHF, chronic hyponatremia, admitted with possible dehydration after a near syncopal event while at work 2 days ago. 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 Pt denies amaurosis, unilateral weakness numbness or tingling, difficulty speaking or swallowing, facial droop, seizure activity. Denies recent illness, WHYTE, fever, chest pain, palpitations, abd pain, N/V, rest pain claudication, other complaints. Pt is very active, planning to do a half marathon walk/run, and the swimming portion of a [employer] relay in the near future. Carotid US performed this admission demonstrates over 90% stenosis R ICA, but with decreased velocities. CTA performed yesterday demonstrates R ICA occlusion, less than 50% stenosis L ICA. Allergies Allergy/AdvReac Type Severity Reaction Status Date / Time acetaminophen [From Percocet] AdvReac Rash Verified 10/30/23 17:26 oxycodone [From Percocet] AdvReac Rash Verified 10/30/23 17:26 phenytoin [From Dilantin] AdvReac syncope Verified 10/30/23 17:26 Home Medications Medication Instructions Recorded Confirmed Type Beet Root 250 mg PO DAILY 10/10/23 10/30/23 History albuterol sulfate 90 mcg/actuation 2 puff inhalation Q6H PRN 10/10/23 10/30/23 History aerosol inhaler Shortness Of Breath Or Wheezing amlodipine 10 mg tablet 5 mg PO PM 10/10/23 10/30/23 History atorvastatin 10 mg tablet 10 mg PO PM 10/10/23 10/30/23 History biotin 5,000 mcg chewable tablet 5,000 mcg PO DAILY 10/10/23 10/30/23 History calcium carb-ergocalciferol (vit 1 tab PO DAILY 10/10/23 10/30/23 History D2) 600 mg calcium-200 unit tablet fosinopril 40 mg tablet 40 mg PO DAILY 10/10/23 10/30/23 History wrbpslpl-lfc-wypltbolt-C-hyaluronic 1 tab PO DAILY 10/10/23 10/30/23 History 500 mg-300 mg-400 mg-10 mg tablet loratadine 10 mg tablet 10 mg PO DAILY 10/10/23 10/30/23 History multivitamin 1 tab PO DAILY 10/10/23 10/30/23 History omega 6-exj-mso-fish oil 1,000 mg 1 cap PO DAILY 10/10/23 10/30/23 History (120 mg-180 mg) capsule (Fish Oil) pantoprazole 40 mg tablet,delayed 40 mg PO DAILY PRN relux 10/10/23 10/30/23 History release spironolactone 25 mg tablet 25 mg PO DAILY 10/10/23 10/30/23 History zinc 50 mg tablet 50 mg PO DAILY 10/10/23 10/30/23 History furosemide 40 mg tablet 40 mg PO DAILY 10/30/23 10/30/23 History Patient History Medical History HLD (hyperlipidemia) Chronic hyponatremia Pulmonary hypertension Asthma Hyponatremia Chronic diastolic CHF (congestive heart failure) HTN (hypertension) Surgical History Status post bilateral total hip replacement Family History Father Coronary heart disease Social History Smoking Status: Former smoker Hx Alcohol Use: Yes Alcohol type: wine Hx Substance Use: No Preferred Language: British Communication Ability: Effective English Language Learner Teacher Required: No Beliefs That Will Affect Care: None and Orthodoxy Orthodoxy Beliefs: episcopal Current Living Situation: Spouse Feels Safe at Home: Yes Safety Concerns: Feels Safe At This Time Assistive Devices: None Review of Systems Review of Systems: All systems reviewed & are unremarkable except as noted in HPI & below Physical Exam Constitutional: WD/WN, vitals as above cooperative and comfortable; not in distress ENMT: Ears: no hearing impairment Neck: trachea midline Respiratory: normal respiratory effort, lungs clear to auscultation Auscultation: + diminished lung sounds Cardiovascular: Rate/Rhythm: regular rate and regular rhythm Vessels: femoral pulses present, posterior tibial pulses present, dorsalis pedis pulses present and radial pulses present; + abnormal peripheral pulses Extremities: normal capillary refill; no edema Gastrointestinal (Abdomen): Inspection/Auscultation: abdomen normal to inspection and normal bowel sounds Percussion/Palpation: abdomen soft; abdomen nontender Musculoskeletal: no cyanosis or clubbing, extremities motor strength 5/5 Skin: no rashes, warm and dry Neurologic: moves all extremities and awake; no focal motor deficits and not confused Psychiatric: A+Ox3, euthymic affect Results & Data Vital Signs (Past 12 Hours) Vital Signs Temp Pulse Pulse Resp BP Pulse Ox O2 Del Method 11/01/23 07:58 36.5 C 61 16 143/77 H 97 Room Air 11/01/23 07:23 52 L 11/01/23 04:25 36.6 C 48 L 18 142/74 H 98 Room Air 11/01/23 00:01 36.5 C 59 L 18 118/72 94 Room Air 10/31/23 21:59 54 L
--- NOTE | 2023-11-01 11:57 | Cardiology Consultation ---
Date of Consultation November 01, 2023 Assessment & Plan (1) Near syncope: (2) Chronic hyponatremia: (3) HLD (hyperlipidemia): (4) Abnormal EKG: Plan 78-year-old male with medical issues as noted, longstanding hypertension, hyponatremia, hyperlipidemia on therapy. Recent hospitalization after mechanical fall with rib fractures and pain, increased hyponatremia Fluid restrictions increased. Patient presents now following a near syncopal event historically suggesting vagal/hypotension Carotid duplex demonstrated occlusion of the right internal carotid No arrhythmias on telemetry other than baseline sinus bradycardia Recommendations: Given carotid disease would increase atorvastatin to 20 mg/day, to continue aspirin per day Zio patch event monitor to exclude occult bradycardia arrhythmias post discharge Suspect will need mild liberalization and fluids. Nephrology outpatient follow-up regarding meds and Patient to see cardiology after Zio patch complete History of Present Illness Reason for Consultation: Near syncope Requesting Physician: Dr. Cuellar Attending Physician: Nick Cuellar MD History of Present Illness Patient is a 78-year-old male with issues include longstanding hypertension, chronic hyponatremia, chronic sinus bradycardia with recent hospitalization following mechanical fall with rib fractures increased hyponatremia following a mechanical fall Patient treated for hyponatremia as well as pain. Fluid restriction emphasized and volume reduced Patient rehospitalized after near syncopal event witnessed by his . Patient working at a [employer] and became suddenly lethargic and slumped backwards. Blood pressure immediately after low. No noted heart rate abnormalities Telemetry since admission has demonstrated persistent bradycardia without pauses arrhythmias Chronic occlusion of carotid identified Currently asymptomatic ambulatory in room with heart rate at baseline approximately 50 Patient vigorously active at home exercises with exercise bicycle class 2 days/week no exertional symptoms No fevers chills unexplained infections EKG is unchanged with sinus bradycardia and T wave inversion anteriorly Troponin negative Allergies Allergy/AdvReac Type Severity Reaction Status Date / Time acetaminophen [From Percocet] AdvReac Rash Verified 10/30/23 17:26 oxycodone [From Percocet] AdvReac Rash Verified 10/30/23 17:26 phenytoin [From Dilantin] AdvReac syncope Verified 10/30/23 17:26 Home Medications Medication Instructions Recorded Confirmed Type Beet Root 250 mg PO DAILY 10/10/23 10/30/23 History albuterol sulfate 90 mcg/actuation 2 puff inhalation Q6H PRN 10/10/23 10/30/23 History aerosol inhaler Shortness Of Breath Or Wheezing amlodipine 10 mg tablet 5 mg PO PM 10/10/23 10/30/23 History atorvastatin 10 mg tablet 10 mg PO PM 10/10/23 10/30/23 History biotin 5,000 mcg chewable tablet 5,000 mcg PO DAILY 10/10/23 10/30/23 History calcium carb-ergocalciferol (vit 1 tab PO DAILY 10/10/23 10/30/23 History D2) 600 mg calcium-200 unit tablet fosinopril 40 mg tablet 40 mg PO DAILY 10/10/23 10/30/23 History aqwxetfi-bzp-txqmlfjuv-C-hyaluronic 1 tab PO DAILY 10/10/23 10/30/23 History 500 mg-300 mg-400 mg-10 mg tablet loratadine 10 mg tablet 10 mg PO DAILY 10/10/23 10/30/23 History multivitamin 1 tab PO DAILY 10/10/23 10/30/23 History omega 1-rxc-ipf-fish oil 1,000 mg 1 cap PO DAILY 10/10/23 10/30/23 History (120 mg-180 mg) capsule (Fish Oil) pantoprazole 40 mg tablet,delayed 40 mg PO DAILY PRN relux 10/10/23 10/30/23 History release spironolactone 25 mg tablet 25 mg PO DAILY 10/10/23 10/30/23 History zinc 50 mg tablet 50 mg PO DAILY 10/10/23 10/30/23 History furosemide 40 mg tablet 40 mg PO DAILY 10/30/23 10/30/23 History Patient History Medical History HLD (hyperlipidemia) Chronic hyponatremia Pulmonary hypertension Asthma Hyponatremia Chronic diastolic CHF (congestive heart failure) HTN (hypertension) Surgical History Status post bilateral total hip replacement Family History Father Coronary heart disease Social History Smoking Status: Former smoker Hx Alcohol Use: Yes Alcohol type: wine Hx Substance Use: No Preferred Language: Thai Communication Ability: Effective Manager Coding Required: No Beliefs That Will Affect Care: None and Denominational Denominational Beliefs: tenriism Current Living Situation: Spouse Feels Safe at Home: Yes Safety Concerns: Feels Safe At This Time Assistive Devices: None Review of Systems Review of Systems: All systems reviewed & are unremarkable except as noted in HPI & below Physical Exam Constitutional: well developed and well nourished; no acute distress Eyes: PERRL, conjunctivae normal, anicteric sclerae ENMT: external ear and nose normal, oropharynx normal Neck: trachea midline, no thyromegaly Respiratory: normal respiratory effort, lungs clear to auscultation Cardiovascular: Rate/Rhythm: regular rate, regular rhythm and + bradycardic Heart Sounds: no murmur Vessels: no JVD Extremities: no edema Gastrointestinal (Abdomen): normal bowel sounds, soft, nontender, no hepatosplenomegaly Musculoskeletal: no cyanosis or clubbing, extremities motor strength 5/5 Results & Data Vital Signs (Past 12 Hours) Vital Signs Temp Pulse Pulse Resp BP Pulse Ox O2 Del Method 11/01/23 07:58 36.5 C 61 16 143/77 H 97 Room Air 11/01/23 07:23 52 L 11/01/23 04:25 36.6 C 48 L 18 142/74 H 98 Room Air 11/01/23 00:01 36.5 C 59 L 18 118/72 94 Room Air
--- NOTE | 2023-11-01 13:04 | Discharge Summary ---
Date of Service November 01, 2023 Admission HPI Per Admitting Provider Patient is 78 year old male chronic sinus bradycardia, chronic hyponatremia, asthma, HLD, diastolic dysfunction presented to ER for presyncope symptoms. History obtained from patient, patient's and inpatient and outpatient chart review. Recent hospital admission at [facility] 10/10/2023-10/12/2023 for acute on chronic hyponatremia, left-sided rib fracture after fall. Patient states states standing and walking for 3 hours and was at [employer] when started to feel dizzy. states patient seemed "spaced out" and was slumped over. She does not think he had complete LOC. Denies CP, SOB. Denies positional dizziness recently. Patient active at baseline. Has been following 1500ml fluid restriction and taking diuretics as directed by nephrology. Denies other recent pre-syncopal or syncope episodes. Denies fever/chills, diaphoresis, N/V/D/C, WHYTE, vision changes, neck pain, CP, SOB, orthopnea, palpitations, cough, rhinorrhea, abdominal pain, paresthesias, weakness, extremity weakness, extremity edema, rashes, urinary symptoms. History echo 10/11/23: EF: 65 to 65%, grade 1 diastolic dysfunction, no suggestion of pulmonary hypertension on echo Admission Exam Per Admitting Provider GENERAL APPEARANCE: AxOx4, generally well-appearing M no acute distress. HEENT: NC, AT. MMM. EOMI, clear conjunctiva, oropharynx clear. NECK: Supple without lymphadenopathy. No stiffness or restricted ROM. HEART: Normal rate and regular rhythm, normal S1/S1, no m/r/g LUNGS: CTAB, moving air well. No crackles or wheezes are heard. ABDOMEN: Soft, nontender, nondistended with good bowel sounds heard. BACK: No CVAT, no obvious deformity. EXTREMITIES: Without cyanosis, clubbing or edema. NEUROLOGICAL: Grossly nonfocal. Alert and oriented, moving all 4 extremities. CN not formally tested but appear grossly intact. Skin: Warm and dry without any rash. Principal Diagnosis CHRISTIE, Presyncope Discharge Exam General: Lying comfortably in chair, not in distress, on room air HEENT: EOMI, ANTWAN, MMM Chest: Clear breath sounds bilaterally, no wheezes or crackles CVS: Regular, normal heart sounds Abdomen: Soft, non tender, not distended, normal bowel sounds Neuro: Awake, alert, oriented, conversing well, non focal Extremities: No edema Discharge Data Allergies Allergy/AdvReac Type Severity Reaction Status Date / Time acetaminophen [From Percocet] AdvReac Rash Verified 10/30/23 17:26 oxycodone [From Percocet] AdvReac Rash Verified 10/30/23 17:26 phenytoin [From Dilantin] AdvReac syncope Verified 10/30/23 17:26 Consultations 10/30/23 17:03 ED Decision to Admit Stat 10/31/23 11:33 Consult Vascular Surgery Routine 11/01/23 07:28 Consult Cardiology Routine Ordered Studies 10/30/23 18:40 CT head/brain wo con Stat 10/30/23 19:57 Carotid duplex [US carotid doppler BI] Stat 10/31/23 13:12 CTA neck with con [CT angio neck with con] Routine Laboratory Results WBC 6.11 K/ul (4.8-10.8) 11/01/23 05:51 RBC 3.97 M/uL (4.70-6.10) L 11/01/23 05:51 Hgb 12.7 g/dl (14.0-18.0) L 11/01/23 05:51 Hct 36.6 % (42.0-52.0) L 11/01/23 05:51 MCV 92.2 fL (80.0-100.0) 11/01/23 05:51 MCH 32.0 pg (25.0-34.0) 11/01/23 05:51 MCHC 34.7 g/dL (32.0-36.0) 11/01/23 05:51 RDW Std Deviation 43.6 fL (36.4-46.3) 11/01/23 05:51 RDW Coeff of Lorrie 12.9 % (11.5-14.5) 11/01/23 05:51 Plt Count 164 K/uL (130-400) 11/01/23 05:51 MPV 9.9 fL (9.4-12.4) 11/01/23 05:51 Immature Gran % (Auto) 0.5 % 10/30/23 14:26 Neut % (Auto) 55.6 % 10/30/23 14:26 Lymph % (Auto) 28.5 % 10/30/23 14:26 [place] % (Auto) 11.3 % 10/30/23 14:26 Eos % (Auto) 3.0 % 10/30/23 14:26 Baso % (Auto) 1.1 % 10/30/23 14: Neut # (Auto) 4.75 K/uL (1.40-6.50) 10/30/23 14: Lymph # (Auto) 2.44 K/uL (1.20-3.40) 10/30/23 14: [place] # (Auto) 0.97 K/uL (0.11-0.59) H 10/30/23 14: Eos # (Auto) 0.26 K/uL (0.00-0.50) 10/30/23 14: Baso # (Auto) 0.09 K/uL (0.00-0.20) 10/30/23 14: Immature Gran # (Auto) 0.04 K/uL (0.01-0.20) 10/30/23 14:26 Sodium 136 mmol/L (136-145) 11/01/23 05:51 Potassium 4.4 mmol/L (3.5-5.1) 11/01/23 05:51 Chloride 105 mmol/L (98-107) 11/01/23 05:51 Carbon Dioxide 27 mmol/L (21-32) 11/01/23 05:51 Anion Gap 4 (3-11) 11/01/23 05:51 BUN 25 mg/dl (6-23) H 11/01/23 05:51 Creatinine 0.86 mg/dl (0.6-1.4) 11/01/23 05:51 Est Cr Clr Drug Dosing 64.9 ml/min 11/01/23 05:51 Est GFR ( Amer) 96.9 ml/min 11/01/23 05:51 Est GFR (Non-Af Amer) 83.6 ml/min 11/01/23 05:51 BUN/Creatinine Ratio 29.1 (10-20) H 11/01/23 05:51 Glucose 95 mg/dl (70-99(Fasting)) 11/01/23 05:51 Estimat Average Glucose 123 mg/dl 10/31/23 06:18 Hemoglobin A1c 5.9 % (4.5-5.6) H 10/31/23 06:18 Calcium 8.9 mg/dl (8.6-10.3) 11/01/23 05:51 Magnesium 1.9 mg/dl (1.7-2.4) 10/31/23 10:17 Iron 90 mcg/dl (35-175) 10/31/23 06:18 Transferrin 219 mg/dl (200-360) 10/31/23 06:18 Ferritin 136.5 ng/ml (8-388) 10/31/23 06:18 Total Bilirubin 0.4 mg/dl (0.2-1.0) 10/30/23 14:26 AST 33 U/L (13-39) 10/30/23 14:26 ALT 16 U/L (7-52) 10/30/23 14:26 Alkaline Phosphatase 74 U/L (34-104) 10/30/23 14:26 Troponin I High Sens 9.0 pg/ml (0-20) 10/30/23 14:26 Total Protein 6.6 gm/dl (6.0-8.3) 10/30/23 14:26 Albumin 3.9 gm/dl (3.4-5.0) 10/30/23 14:26 Globulin 2.7 gm/dl (2.5-4.0) 10/30/23 14:26 Albumin/Globulin Ratio 1.4 (0.9-2) 10/30/23 14:26 Vitamin B12 608 pg/ml (180-914) 10/31/23 06:18 Folate > 22.30 ng/ml (>5.38) 10/31/23 06:18 TSH 7.816 uIu/ml (0.300-4.500) H 10/30/23 14:26 Free T4 0.96 ng/dl (0.61-1.60) 10/30/23 14:[address] 10/30/23 18:40 CT OF THE HEAD WITHOUT CONTRAST CLINICAL HISTORY: pre-syncope COMPARISON STUDY: No previous studies for comparison. CT DOSE: 625.8 mGy.cm TECHNIQUE: Helical axial images of the head were obtained without IV contrast. Automated exposure control was utilized for the study. A dose lowering technique was utilized adhering to the principles of ALARA. FINDINGS: No acute intracranial hemorrhage, midline shift or mass effect is present. Ventricular system is unremarkable. Basal cisterns are patent. There are no extra-axial collections. Scattered white matter hypodense foci suggest small vessel disease. A small focus of encephalomalacia within the right occipital lobe favors an old infarct. There are no findings to suggest acute dural sinus thrombosis or acute territorial infarct. There are no significant calvarial abnormalities. IMPRESSION: 1. No acute intracranial findings. 2. 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 ACT 112: Negative or not required by law. Electronically signed by: Juan Malik M.D. 10/30/2023 7:15 PM Carotid Doppler Study 10/30/23 19:57 Exam(s): US CAROTID EXAM: US Duplex Bilateral Extracranial Arteries CLINICAL HISTORY: Reason for exam: pre-syncope. TECHNIQUE: Real-time duplex ultrasound scan of the extracranial arteries integrating B-mode two-dimensional vascular structure, Doppler spectral analysis and color flow Doppler imaging. COMPARISON: No relevant prior studies available. FINDINGS: Right common carotid artery: Unremarkable. No occlusion or significant stenosis on color flow and spectral Doppler imaging. Right internal carotid artery: Severe calcified plaque of the proximal right internal carotid artery with markedly decreased velocity concerning for a critical greater than 90% stenosis/occlusion. Severe calcified plaque of the right carotid bulb without focal elevated velocity. Right external carotid artery: Unremarkable. No occlusion or significant stenosis on color flow and spectral Doppler imaging. Right vertebral artery: Unremarkable. Antegrade flow. Right ICA/CCA ratio: Unremarkable. Within normal limits. Left common carotid artery: Unremarkable. No occlusion or significant stenosis on color flow and spectral Doppler imaging. Left internal carotid artery: Moderate calcified plaque in the left carotid bulb without focal elevated velocity. Severe calcified plaque within the proximal left internal carotid artery without focal elevated velocity. Peak systolic velocity is 111 cm/s. No occlusion or significant stenosis on color flow and spectral Doppler imaging. Left external carotid artery: Unremarkable. No occlusion or significant stenosis on color flow and spectral Doppler imaging. Left vertebral artery: Unremarkable. Antegrade flow. Left ICA/CCA ratio: Unremarkable. Within normal limits. Lymph nodes: Unremarkable. No lymphadenopathy. CAROTID STENOSIS REFERENCE USING SRU CRITERIA: Mild - <50% stenosis. ICA PSV is less than 125 cm/second and plaque or intimal thickening is visible. Moderate - 50-69% stenosis. ICA PSV is 125 to 230 cm/second and plaque is visible. Severe - 70-94% stenosis. ICA PSV is more than 230 cm/second and visible plaque with lumen narrowing is seen. Near occlusion - 95-99% stenosis. ICA PSV is variable and significant plaque with luminal narrowing is seen. Occluded - 100% stenosis. No flow identified. IMPRESSION: 1. Severe calcified plaque of the proximal right internal carotid artery with markedly decreased velocity concerning for a critical greater than 90% stenosis/occlusion. 2. Moderate severe calcified plaque in the left carotid bulb and proximal internal carotid artery without elevated velocity. Electronically signed by: Luc Roberts M.D. 10/30/23 21:50 PM Neck CTA 10/31/23 13:12 CT ANGIOGRAPHY OF THE NECK WITH CONTRAST CLINICAL HISTORY: Carotid artery stenosis. COMPARISON STUDY: Carotid ultrasound October 30, 2023. Technique: CT angiography of the carotid and vertebral arteries was obtained using [employer] and 3D reconstruction on an independent workstation. NASCET criteria was utilized. Automated exposure control was utilized for the study. A dose lowering technique was utilized adhering to the principles of ALARA. CT DOSE: 362.34 mGy.cm Findings: Visualized portions of the lung apices are unremarkable. There is no cervical lymphadenopathy. No cervical spine fractures are identified. There is extensive plaque within the bilateral common carotid and cervical internal carotid arteries. The cervical right internal carotid artery is occluded. Occlusion occlusion begins at the vessel origin. Severe stenosis at the origin of the right external carotid artery is present. There is extensive plaque within the proximal left internal carotid artery without significant stenosis. The right vertebral artery is dominant. The left vertebral artery is diminutive on a congenital basis. No significant stenosis within the bilateral vertebral arteries are identified. IMPRESSION: 1. Occlusion of the right internal carotid artery, likely chronic. 2. Extensive plaque within the proximal left internal carotid artery without significant stenosis. 3. Severe stenosis at the origin of the right external carotid artery. ACT 112: Negative or not required by law. Electronically signed by: Juan Malik M.D. 10/31/2023 4:13 PM Hospital Course (1) Pre-syncope: (2) CHRISTIE (acute kidney injury): (3) Anemia: (4) Chronic hyponatremia: (5) Elevated TSH: (6) Abnormal EKG: (7) HTN (hypertension): (8) Chronic diastolic CHF (congestive heart failure): (9) HLD (hyperlipidemia): (10) Asthma: Plan Patient is 78 year old male chronic sinus bradycardia, chronic hyponatremia, asthma, HLD, diastolic dysfunction presented to ER for presyncope. Had CHRISTIE on admission which resolved rapidly. Work up unremarkable except for chronic right ICA occlusion and <50% lt ICA stenosis. Seen by vascular surgery- non contributory to patient's symptoms and recommended OP follow up for annual carotid US for L ICA surveillance. Noted sinus bradycardia for which he was seen by cardio and they recommeded zio patch and OP follow up. Recent echo 3 weeks ago was reviewed. Labs remained stable. Minimally elevated TSH noted for which he will follow up with his PCP with repeat TFT in the next few months and off of supplements. He has been asymtomatic inhouse and ambulating without issues. Did recommend increasing fluid liberalization as he might have hypotension/vagal issues per cardiology prompting this event. Patient denies any CHF symptoms in the past and he is on lasix and aldactone which he states is for leg swelling- I believe aldactone can be safely discontinued and lasix adjusted, however will defer it to his PCP. Cardio also recommended follow up with nephro. Started on baby aspirin and increased lipitor to 20 mg daily per cardio recommendations. All recommendations were discussed with patient and at bedside. Presyncope- resolved. Work up largely unremarkable. Seen by cardio and vascular. - Workup shows 90% stenosis/occlusion of right ICA. Labs reviewed- CHRISTIE is resolved, TSH only mildly elevated with normal fT4. Chronic asymptomatic bradycardia - Echo 10/11/23: EF: 65 to 65%, grade 1 diastolic dysfunction, no suggestion of pulmonary hypertension - Consulted vascular- ordered CTA neck per recommendation. They will see patient tomorrow. WIll keep npo overnight just in case Rt ICA stenosis- chronic and non contributory to his symptoms. No intervention needed per vascular. Started on aspirin per vascular. OP follow up annual US surveillance for L ICA stenosis with vascular. Right neck CTA 1. Occlusion of the right internal carotid artery, likely chronic. 2. Extensive plaque within the proximal left internal carotid artery without significant stenosis. 3. Severe stenosis at the origin of the right external carotid artery. CHRISTIE- resolved. OP follow up. Fluid liberalization. Sinus bradycardia- asymptomatic. not on AVNB. Seen by cardio- OP follow up with zio patch. Hyponatremia- resolved, Sodium at 136 Elevated TSH- TSH: 7.8. Free T4: 0.96. No need for supplementation currently. R ecommend follow up with PCP in 6-8 weeks with repeat TSH prior to considering treatment. Recommend holding any OTC supplements including biotin few days prior to repeat TFT. HTN- Resume home meds. Total Time Total Time Spent Total Time Spent (In Minutes): 35 Discharge Plan Discharge Items Patient Disposition: Home - Self-Care Reason For Visit: CHRISTIE Discharge Diagnosis: CHRISTIE, presyncope Activity: Resume your previous activity Non-emergency contact: Primary Care Provider, [employer] Ex[employer]ator and Children'S Nursery Assistant Call non-emergency contact if: you have any medication questions and your symptoms worsen Follow-up/Referrals: Ismael Villavicencio MD [Primary Care Provider] - (Date & Time 11/07/2023 2:40 PM Provider Ismael Villavicencio MD Department General Internal Medicine [facility] ) Diet: Heart Healthy Fluids: 2000ml (8 cups) Addtl Attending Provider Instructions: Start baby aspirin 1 tab daily Increase your atorvastatin to 20 mg daily Follow up with cardiology with the zio patch Follow up with vascular surgery for the carotid occlusion Follow up with family doctor for medications adjustment and repeat blood work (BMP) Pending Studies at Discharge: No Stand-Alone Forms: My [employer], Smoking Cessation Medications and DC Order Prescriptions: New aspirin [Adult Low Dose Aspirin] 81 mg tablet,delayed release (DR/EC) 81 mg PO DAILY Qty: 30 0RF Continued multivitamin Tablet 1 tab PO DAILY spironolactone 25 mg tablet 25 mg PO DAILY amlodipine 10 mg tablet 5 mg PO PM pantoprazole 40 mg Tablet,Delayed Release (Dr/Ec) 40 mg PO DAILY PRN (Reason: relux) fosinopril 40 mg tablet 40 mg PO DAILY zinc 50 mg Tablet 50 mg PO DAILY calcium carbonate-vitamin D2 600 mg calcium- 200 unit Tablet 1 tab PO DAILY albuterol sulfate 90 mcg/actuation Hfa Aerosol Inhaler 2 puff INHALATION Q6H PRN (Reason: Shortness Of Breath Or Wheezing) loratadine 10 mg tablet 10 mg PO DAILY omega [id number] oil [Fish Oil] 1,000 mg (120 mg-180 mg) Capsule 1 cap PO DAILY [id number] C-hyal [id number] mg Tablet 1 tab PO DAILY biotin 5,000 mcg Tablet,Chewable 5,000 mcg PO DAILY Beet Root 250 mg PO DAILY furosemide 40 mg tablet 40 mg PO DAILY Changed atorvastatin 10 mg tablet 20 mg PO PM Qty: 30 0RF Discharge Orders: Discharge Order (Routine); Ordered 11/01/23 Ordered By: Nick Pineda/Other Patient Handouts: Aspirin Oral Tablet Admission Data Admit Date/Time: 10/30/23 17:01 Attending Provider: Nick Cuellar Admit Provider: Milka Carreno Primary Care Provider: Ismael Villavicencio Other Providers: Milka Carreno; Kenney Velez; Neftaly Joseph Other Interventions: Discharge Summary Assessment (RN) Last Done: 11/01/23 12:44
== END 2023-11-01 13:38 | disposition home or self-care (01) | DRG 683 ==
LOC: ED 14:17 → EDINP 17:01 → SUATTDRO 17:01 → EDINP 19:58 → 2N 21:10
DX: Z79.899 Other long term (current) drug therapy; I65.21 Occlusion and stenosis of right carotid artery; R55 Syncope and collapse; N17.9 Acute kidney failure, unspecified; Z87.891 Personal history of nicotine dependence; E87.1 Hypo-osmolality and hyponatremia; Z88.8 Allergy status to other drugs, medicaments and biological substances; I50.32 Chronic diastolic (congestive) heart failure

== ENCOUNTER 2024-03-26 18:35 | Inpatient (IN) ==
--- NOTE | 2024-03-26 19:09 | Emergency Department Note ---
Impression & Plan COVID-19, Acute hyponatremia, Acute sore throat ED Provider Note Provider: Humza Romero MD DATE OF SERVICE: 03/26/2024 CHIEF COMPLAINT: Sore throat, COVID, weak HISTORY OF PRESENT ILLNESS: Patient is a 79-year-old gentleman past medical history of CHF, hypertension, pulmonary hypertension, hyponatremia presenting here today reporting he has been ill for 2 to 3 days at this point. Tested for COVID and received Paxlovid from his doctor started on Saturday. Please of significantly sore and raw throat. Reports significant chest congestion ongoing cough. No true fevers reported but generalized weakness. No significant body aches. No severe vomiting but decreased intake. worried that he is possibly getting somewhat dehydrated. Has used limited Tylenol at home with minimal proven symptoms. No syncope or trauma reported. No rashes reported. PAST MEDICAL HISTORY: As noted above MEDICATIONS: Reviewed home medications SOCIAL HISTORY: , former smoker PHYSICAL EXAM: GENERAL: alert and oriented in no acute distress on stretcher frequently coughing Head: normocephalic and atraumatic EYES: No injection, discharge or icterus. EOMI. NECK: Trachea midline. Good range of motion ENT: Mucous membranes pink and moist. Pharynx without exudate mild erythema. No uvular deviation. No trismus. LUNGS: Airway patent. No retractions. Breath sounds a few scattered rhonchi HEART: Regular rate and rhythm. No chest wall tenderness ABDOMEN: Soft and non-tender, without guarding or rebound. SKIN: Acyanotic, warm, dry, without rashes EXTREMITIES: Without swelling, tenderness or deformity NEUROLOGICAL: No focal deficits. No aphasia. No facial droop or slurred speech. Ambulatory. EK bpm normal sinus rhythm with an incomplete right bundle branch block. No PVC or PAC. Some nonspecific T wave changes noted. QTc 426. CONTINUOUS CARDIAC MONITORING: was ordered and showed a heart rate of 60s to 80s bpm in normal sinus rhythm 1 view chest x-ray per my interpretation without evidence of consolidative pneumonia or significant pulmonary edema or effusion. No free air. No pneumothorax. Patient's laboratory studies and imaging reviewed. Differential includes Viral syndrome, strep pharyngitis, tonsillitis, mononucleosis, retropharyngeal abscess, peritonsillar abscess, otitis media, sinusitis, bronchitis, pneumonia, COVID-19, electrolyte abnormality, dehydration, cardiac disease, meningitis, as well as other pathologies. IMPRESSION/MEDICAL DECISION MAKING: Patient not significantly tachycardic, hypotensive, febrile, or hypoxic here. Very slight white blood cell count 10.8. Positive COVID-negative flu RSV. Does have worsened hyponatremia of 126. Renal function appears stable. Normal troponin. No anemia. Patient did have some improvement after nebulizer here and Tessalon Perle with regards to cough. Did give a small dose of dexamethasone more to help with his sore throat which was somewhat effective. Discussed with him and at bedside given his decreased appetite likely related to COVID and weakness given that he is having this new worsened hyponatremia would recommend we observe him. Shared decision making and he is agreeable with this. Will give some gentle IV fluid hydration with LR infusion but avoid large boluses for over rapid correction. Discussed with the hospitalist team for further care here. DIAGNOSIS: COVID-19, decreased appetite, hyponatremia, sore throat DISPOSITION: Hospitalist will evaluate Patient was agreeable with this plan. Past Med/Surg History Problem List (Updated 03/26/24 @ 23:58 by Humza Romero M.D.) Acute sore throat (Acute) Acute hyponatremia (Acute) COVID-19 (Acute) Carotid occlusion, right Hyponatremia (Acute) Near syncope (Acute) CHRISTIE (acute kidney injury) (Acute) HLD (hyperlipidemia) Abnormal EKG Elevated TSH Chronic hyponatremia Anemia CHRISTIE (acute kidney injury) Pre-syncope Elevated troponin (Acute) Acute hyponatremia (Acute) Multiple rib fractures (Acute) Pulmonary hypertension Asthma Acute electrocardiogram changes Hyponatremia Rib fractures Chronic diastolic CHF (congestive heart failure) HTN (hypertension) Medical History HLD (hyperlipidemia) Chronic hyponatremia Pulmonary hypertension Asthma Hyponatremia Chronic diastolic CHF (congestive heart failure) HTN (hypertension) Surgical History Status post bilateral total hip replacement Family History Father Coronary heart disease Social History Smoking Status: Former smoker Hx Alcohol Use: Yes Alcohol type: wine Hx Substance Use: No Preferred Language: Guamanian Communication Ability: Effective Card Decorator Required: No Beliefs That Will Affect Care: Advent Advent Beliefs: taoist Current Living Situation: Spouse Feels Safe at Home: Yes Assistive Devices: None Allergies Allergies Allergy/AdvReac Type Severity Reaction Status Date / Time acetaminophen [From Percocet] AdvReac Rash Verified 10/30/23 17:26 oxycodone [From Percocet] AdvReac Rash Verified 10/30/23 17:26 phenytoin [From Dilantin] AdvReac syncope Verified 10/30/23 17:26 Home Meds Home Medications Medication Instructions Recorded Confirmed albuterol sulfate 90 mcg/actuation 2 puff inhalation Q4 PRN Sob,cough 10/10/23 03/26/24 aerosol inhaler or wheeze calcium carb-ergocalciferol (vit 1 tab PO QAM 10/10/23 03/26/24 D2) 600 mg calcium-200 unit tablet fosinopril 40 mg tablet 40 mg PO DAILY 10/10/23 03/26/24 loratadine 10 mg tablet 10 mg PO QAM 10/10/23 03/26/24 omega 3-ruc-ldj-fish oil 1,000 mg 1 cap PO QAM 10/10/23 03/26/24 (120 mg-180 mg) capsule (Fish Oil) pantoprazole 40 mg tablet,delayed 40 mg PO DAILY PRN Indigestion 10/10/23 03/26/24 release spironolactone 25 mg tablet 25 mg PO QAM 10/10/23 03/26/24 furosemide 40 mg tablet 40 mg PO DAILY 10/30/23 03/26/24 amlodipine 10 mg tablet 10 mg PO QPM 03/26/24 03/26/24 ascorbic acid (vitamin C) 1,000 mg 1 g PO QAM 03/26/24 03/26/24 tablet (Vitamin C) atorvastatin 20 mg tablet 20 mg PO QAM 03/26/24 03/26/24 huyhwtcnyen-iugfrtiwf-zma C-Mn 500 1 cap PO QAM 03/26/24 03/26/24 mg-400 mg capsule gptowrviysax-cpcttuyi-ezliuz 1 tab PO DAILY 03/26/24 03/26/24 tablet (Multivitamin 50 Plus tablet) Previous Rx's Medication Instructions Recorded aspirin 81 mg tablet,delayed 81 mg PO DAILY #30 tabs 11/01/23 release (Adult Low Dose Aspirin) Results & Data (ED) Vital Signs Vital Signs - 24 hr 03/26/24 18:43 03/26/24 19:13 03/26/24 19:14 Temperature 37.2 C Temperature Source Temporal Artery Scan Pulse Rate 74 Pulse Rate [Apical] 69 Respiratory Rate 20 22 Respiratory Effort / Characteristics Non-Labored Spontaneous Respiratory Depth Normal Blood Pressure 126/66 Blood Pressure [Right Arm] 168/86 H Blood Pressure Mean 86 Blood Pressure Mean [Right Arm] 113 Pulse Oximetry 92 92 92 Oxygen Delivery Method Room Air Room Air Room Air Sepsis Recent Fever Within 48 Hours Yes Sepsis New/Unexplained Change in Mental Status No Sepsis Action Taken by Nursing No Action Required 03/26/24 19:21 03/26/24 21:00 03/26/24 23:00 Temperature Temperature Source Pulse Rate 72 Pulse Rate [Apical] 78 78 Respiratory Rate 20 21 Respiratory Effort / Characteristics Respiratory Depth Blood Pressure Blood Pressure [Right Arm] 146/72 H 150/72 H Blood Pressure Mean Blood Pressure Mean [Right Arm] 96 98 Pulse Oximetry 92 92 Oxygen Delivery Method Room Air Room Air Sepsis Recent Fever Within 48 Hours Sepsis New/Unexplained Change in Mental Status Sepsis Action Taken by Nursing Laboratory Data 03/26/24 19:21 03/26/24 19:21 Lab Results 03/26/24 03/26/24 Range/Units 19:21 19:22 WBC 10.84 H (4.8-10.8) K/ul RBC 4.62 L (4.70-6.10) M/uL Hgb 14.6 (14.0-18.0) g/dl Hct 41.1 L (42.0-52.0) % MCV 89.0 (80.0-100.0) fL MCH 31.6 (25.0-34.0) pg MCHC 35.5 (32.0-36.0) g/dL RDW Std Deviation 41.7 (36.4-46.3) fL RDW Coeff of Lorrie 12.7 (11.5-14.5) % Plt Count 182 (130-400) K/uL MPV 9.8 (9.4-12.4) fL Immature Gran % (Auto) 0.4 % Neut % (Auto) 61.3 % Lymph % (Auto) 18.6 % Gregory % (Auto) 19.3 % Eos % (Auto) 0.0 % Baso % (Auto) 0.4 % Neut # (Auto) 6.65 H (1.40-6.50) K/uL Lymph # (Auto) 2.02 (1.20-3.40) K/uL Gregory # (Auto) 2.09 H (0.11-0.59) K/uL Eos # (Auto) 0.00 (0.00-0.50) K/uL Baso # (Auto) 0.04 (0.00-0.20) K/uL Immature Gran # (Auto) 0.04 (0.01-0.20) K/uL PT 11.9 (9.0-12.0) Seconds INR 1.1 (0.9-1.1) Sodium 126 L (136-145) mmol/L Potassium 4.2 (3.5-5.1) mmol/L Chloride 93 L (98-107) mmol/L Carbon Dioxide 23 (21-32) mmol/L Anion Gap 10 (3-11) BUN 24 H (6-23) mg/dl Creatinine 0.99 (0.6-1.4) mg/dl Est Cr Clr Drug Dosing 52.7 ml/min Est GFR ( Amer) 84.2 ml/min Est GFR (Non-Af Amer) 72.6 ml/min BUN/Creatinine Ratio 24.2 H (10-20) Glucose 117 H (70-99(Fasting)) mg/dl Osmolality 271 L (280-300) mOsm/kg Calcium 9.3 (8.6-10.3) mg/dl Magnesium 2.0 (1.7-2.4) mg/dl Total Bilirubin 0.8 (0.2-1.0) mg/dl AST 43 H (13-39) U/L ALT 18 (7-52) U/L Alkaline Phosphatase 62 (34-104) U/L Troponin I High Sens 13.7 (0-20) pg/ml Total Protein 7.9 (6.0-8.3) gm/dl Albumin 4.5 (3.4-5.0) gm/dl Globulin 3.4 (2.5-4.0) gm/dl Albumin/Globulin Ratio 1.3 (0.9-2) TSH 8.556 H (0.300-4.500) uIu/ml Free T4 1.04 (0.61-1.60) ng/dl SARS-CoV-2 (PCR) POSITIVE A (Negative) Influenza Type A (PCR) Negative (Neg) Influenza Type B (PCR) Negative (Neg) RSV (RT-PCR) Negative (Neg) Administered Medications Lactated Ringer's (Lr) 1,000 mls @ 125 mls/hr IV .Q8H JENNIFER Stop: 04/25/24 20:44 Last Admin: 03/26/24 21:14 Dose: 125 mls/hr Documented By: LUIS Discontinued Medications Albuterol (Albut/Ipratrop 3mg/0.5mg Neb 3 Ml Vial) 3 ml NEB NOW STA; Protocol Stop: 03/26/24 19:07 Last Admin: 03/26/24 19:33 Dose: 3 ml Documented By: LUIS Benzonatate (Benzonatate 100 Mg Capsule) 100 mg PO NOW ONE Stop: 03/26/24 19:07 Last Admin: 03/26/24 19:33 Dose: 100 mg Documented By: LUIS Dexamethasone Sodium Phosphate (DexamethasonePf 10 Mg/Ml Vial) 6 mg IV NOW ONE Stop: 03/26/24 19:07 Last Admin: 03/26/24 19:32 Dose: 6 mg Documented By: LUIS Guaifenesin/Codeine Phosphate (Guaifenesin/Codeine 100mg/10mg 5ml Udc) 5 ml PO NOW STA Stop: 03/26/24 22:41 Last Admin: 03/26/24 22:52 Dose: 5 ml Documented By: LUIS Ketorolac Tromethamine (Ketorolac Tromethamine 15 Mg/Ml Vial) 10 mg IV NOW ONE Stop: 03/26/24 19:07 Last Admin: 03/26/24 19:33 Dose: 10 mg Documented By: LUIS Discharge Plan Visit Data Chief Complaint: Flu Like Symptoms Stated Complaint: COVID, SORE THROAT, CONGESTION/POST NASAL DRIP ED Provider: Humza Romero Discharge Problem: COVID-19, Acute hyponatremia, Acute sore throat Patient Disposition: Admitted As Inpatient Discharge Instructions Interventions: ED Discharge Assessment Last Done: 03/26/24 23:26 Forms Stand Alone Forms: [facility] [employer] Prescriptions Prescriptions: No Action atorvastatin 20 mg tablet 20 mg PO QAM amlodipine 10 mg tablet 10 mg PO QPM ascorbic acid (vitamin C) [Vitamin C] 1,000 mg Tablet 1 g PO QAM Multivitamin 50 Plus Tablet 1 tab PO DAILY naxqnyxhpjv-zjlqospbf-ycs C-Mn [Glucosamine 1500 Complex] 500-400 mg Capsule 1 cap PO QAM spironolactone 25 mg tablet 25 mg PO QAM pantoprazole 40 mg Tablet,Delayed Release (Dr/Ec) 40 mg PO DAILY PRN (Reason: Indigestion) fosinopril 40 mg tablet 40 mg PO DAILY calcium carbonate-vitamin D2 600 mg calcium- 200 unit Tablet 1 tab PO QAM albuterol sulfate 90 mcg/actuation Hfa Aerosol Inhaler 2 puff INHALATION Q4 PRN (Reason: Sob,cough or wheeze) loratadine 10 mg tablet 10 mg PO QAM omega 1-bzy-sql-fish oil [Fish Oil] 1,000 mg (120 mg-180 mg) Capsule 1 cap PO QAM furosemide 40 mg tablet 40 mg PO DAILY aspirin [Adult Low Dose Aspirin] 81 mg tablet,delayed release (DR/EC) 81 mg PO DAILY Qty: 30 0RF Referrals Referrals: Ismael Villavicencio MD [Primary Care Provider] -
[2024-03-26] MEDS: dexAMETHasone**PF** 10 MG/ML VIAL IV ONE (19:32)
[2024-03-26] MEDS: BENZONATATE 100 MG CAPSULE PO ONE (19:33)
[2024-03-26] MEDS: ALBUT/IPRATROP 3MG/0.5MG NEB 3 ML VIAL NEB STA (19:33)
[2024-03-26] MEDS: KETOROLAC TROMETHAMINE 15 MG/ML VIAL IV ONE (19:33)
[2024-03-26 19:56] LABS: Basophils # (auto) 0.04 K/uL (0.00-0.20); Basophils % (auto) 0.4 %; Hematocrit (blood only) 41.1 % (42.0-52.0); Hemoglobin 14.6 g/dl (14.0-18.0); Immature Granulocytes # (auto) 0.04 K/uL (0.01-0.20); Immature Granulocytes % (auto) 0.4 %; Lymphocytes # (auto) 2.02 K/uL (1.20-3.40); Lymphocytes % (auto) 18.6 %; Mean Corpuscular Hemoglobin 31.6 pg (25.0-34.0); Mean Corpuscular Hgb Conc 35.5 g/dL (32.0-36.0); Mean Platelet Volume 9.8 fL (9.4-12.4); Monocytes # (auto) 2.09 K/uL (0.11-0.59); Monocytes % (auto) 19.3 %; Neutrophils # (auto) 6.65 K/uL (1.40-6.50); Neutrophils % (auto) 61.3 %; Platelet Count 182 K/uL (130-400); RDW Coefficient of Variation 12.7 % (11.5-14.5); RDW Standard Deviation 41.7 fL (36.4-46.3); Red Blood Count 4.62 M/uL (4.70-6.10); White Blood Count 10.84 K/ul (4.8-10.8)
[2024-03-26 20:11] LABS: Albumin Globulin Ratio 1.3 (0.9-2); Albumin Level 4.5 gm/dl (3.4-5.0); BUN Creatinine Ratio 24.2 (10-20); Bilirubin,Total 0.8 mg/dl (0.2-1.0); Calcium 9.3 mg/dl (8.6-10.3); Creatinine Clr Calc Pharmacy 52.7 ml/min; Est GFR (African American) 84.2 ml/min; Est GFR (Non-African American) 72.6 ml/min; Globulin 3.4 gm/dl (2.5-4.0); Potassium 4.2 mmol/L (3.5-5.1); Total Protein 7.9 gm/dl (6.0-8.3)
[2024-03-26 20:17] LABS: Troponin I High Sensitivity 13.7 pg/ml (0-20)
[2024-03-26 20:23] LABS: INR 1.1 (0.9-1.1); Prothrombin Time 11.9 Seconds (9.0-12.0)
[2024-03-26 20:27] LABS: Thyroid Stimulating Hormone 8.556 uIu/ml (0.300-4.500)
[2024-03-26 20:53] LABS: Influenza A virus by PCR Negative (Neg); Influenza B virus by PCR Negative (Neg); RSV by PCR Negative (Neg); SARS CoV2 RNA(COVID-19) Ceph POSITIVE (Negative)
[2024-03-26 21:03] LABS: T4 Free Thyroxine 1.04 ng/dl (0.61-1.60)
[2024-03-26] MEDS: LACTATED RINGER'S 1,000 ML IV SCH (21:14)
[2024-03-26] MEDS: guaiFENesin/CODEINE 100MG/10MG 5ML UDC PO STA (22:52)
--- NOTE | 2024-03-26 22:52 | History & Physical Report ---
Date of Service March 26, 2024 Assessment & Plan (1) Hyponatremia: Plan: 79-year-old male with past medical history significant for chronic hyponatremia, hyperlipidemia, history of neuromuscular respiratory weakness, mild persistent asthma, chronic diastolic CHF, pulm hypertension, hypertension, mild mitral and aortic regurgitation, right carotid artery occlusion, left carotid artery stenosis, osteoarthritis, chronic edema, history of CVA, former smoker comes because of COVID and hyponatremia. Patient having fevers, coughing a lot and severe sore throat for last 2- 3 days. Was positive for COVID and prescribed Paxlovid and started it on Saturday. Appetite has been down. Was concerned about dehydration. Denies any headache. No chest pain. States he feels short of breath. Having a lot of cough and ask for cough medication. Has some runny nose. No nausea. Currently no abdominal pain. Constipated. Resting comfortably and hemodynamically stable. Hyponatremia Sodium 126 History of chronic hyponatremia and follows with nephrology and on 2 L fluid restrictions Poor intake from COVID Will place on gentle fluids normal send 50 mL. Holding diuretics Follow urine osmolality, serum osmolality and urine sodium levels BMP every 6 hours Nephrology consult in a.m. for further recommendations COVID Precautions Can consider short course of remdesivir Chronic diastolic CHF Holding diuretics Getting gentle fluids Monitor for volume overload Hypertension On amlodipine and fosinopril Holding diuretics Will monitor Hyperlipidemia On statin History of asthma Continue home inhalers History of CVA On aspirin and statin Right ICA occlusion and left ICA stenosis On aspirin and statin Follows with vascular surgery DVT prophylaxis Lovenox Disposition Med/telemetry Full code. History of Present Illness Chief Complaint: COVID and hyponatremia Primary Care Provider: Ismael Villavicencio MD 79-year-old male with past medical history significant for chronic hyponatremia, hyperlipidemia, history of neuromuscular respiratory weakness, mild persistent asthma, chronic diastolic CHF, pulm hypertension, hypertension, mild mitral and aortic regurgitation, right carotid artery occlusion, left carotid artery stenosis, osteoarthritis, chronic edema, history of CVA, former smoker comes because of COVID and hyponatremia. Patient having fevers, coughing a lot and severe sore throat for last 2- 3 days. Was positive for COVID and prescribed Paxlovid and started it on Saturday. Appetite has been down. Was concerned about dehydration. Denies any headache. No chest pain. States he feels short of breath. Having a lot of cough and ask for cough medication. Has some runny nose. No nausea. Currently no abdominal pain. Constipated. Resting comfortably and hemodynamically stable. Past medical history. As mentioned above. Past surgical history. Colonoscopy. Bilateral total hip replacement. Social history. . Quit smoking 1993. Smoked 0.8 packs a day for 27 years. Alcohol 2 standard drinks of alcohol per week. No drug use. Family history. Father had coronary disease. Mother had rheumatoid arthritis. Allergies Allergy/AdvReac Type Severity Reaction Status Date / Time acetaminophen [From Percocet] AdvReac Rash Verified 10/30/23 17:26 oxycodone [From Percocet] AdvReac Rash Verified 10/30/23 17:26 phenytoin [From Dilantin] AdvReac syncope Verified 10/30/23 17:26 Home Medications Medication Instructions Recorded Confirmed Type albuterol sulfate 90 mcg/actuation 2 puff inhalation Q4 PRN Sob,cough 10/10/23 03/26/24 History aerosol inhaler or wheeze calcium carb-ergocalciferol (vit 1 tab PO QAM 10/10/23 03/26/24 History D2) 600 mg calcium-200 unit tablet fosinopril 40 mg tablet 40 mg PO DAILY 10/10/23 03/26/24 History loratadine 10 mg tablet 10 mg PO QAM 10/10/23 03/26/24 History omega 3-dgn-dnq-fish oil 1,000 mg 1 cap PO QAM 10/10/23 03/26/24 History (120 mg-180 mg) capsule (Fish Oil) pantoprazole 40 mg tablet,delayed 40 mg PO DAILY PRN Indigestion 10/10/23 03/26/24 History release spironolactone 25 mg tablet 25 mg PO QAM 10/10/23 03/26/24 History furosemide 40 mg tablet 40 mg PO DAILY 10/30/23 03/26/24 History aspirin 81 mg tablet,delayed 81 mg PO DAILY #30 tabs 11/01/23 03/26/24 Rx release (Adult Low Dose Aspirin) amlodipine 10 mg tablet 10 mg PO QPM 03/26/24 03/26/24 History ascorbic acid (vitamin C) 1,000 mg 1 g PO QAM 03/26/24 03/26/24 History tablet (Vitamin C) atorvastatin 20 mg tablet 20 mg PO QAM 03/26/24 03/26/24 History ynwwfundajs-dahvwqdly-xry C-Mn 500 1 cap PO QAM 03/26/24 03/26/24 History mg-400 mg capsule utboclfuqgzm-ziftybia-urigbu 1 tab PO DAILY 03/26/24 03/26/24 History tablet (Multivitamin 50 Plus tablet) Past Med/Surg History Problem List (Updated 03/27/24 @ 00:10 by Gregoria Juan) Acute sore throat (Acute) Acute hyponatremia (Acute) COVID-19 (Acute) Carotid occlusion, right Hyponatremia (Acute) Near syncope (Acute) CHRISTIE (acute kidney injury) (Acute) HLD (hyperlipidemia) Abnormal EKG Elevated TSH Chronic hyponatremia Anemia CHRISTIE (acute kidney injury) Pre-syncope Elevated troponin (Acute) Acute hyponatremia (Acute) Multiple rib fractures (Acute) Pulmonary hypertension Asthma Acute electrocardiogram changes Hyponatremia Rib fractures Chronic diastolic CHF (congestive heart failure) HTN (hypertension) Medical History HLD (hyperlipidemia) Chronic hyponatremia Pulmonary hypertension Asthma Hyponatremia Chronic diastolic CHF (congestive heart failure) HTN (hypertension) Surgical History Status post bilateral total hip replacement Family History Father Coronary heart disease Social History Smoking Status: Former smoker Hx Alcohol Use: No Hx Substance Use: No Preferred Language: Faroese Communication Ability: Effective Edging Supervisor Required: No Beliefs That Will Affect Care: None Current Living Situation: Spouse Feels Safe at Home: Yes Safety Concerns: Feels Safe At This Time Assistive Devices: Glasses Review of Systems Review of Systems: All systems reviewed & are unremarkable except as noted in HPI & below Physical Exam Physical Exam: General- Not in distress. Head- atraumatic Eyes- PERRL ENT- oropharynx clear. erythema seen on lips Neck- supple, no JVD. Lungs- clear to auscultation no wheezing or crackles. Heart- regular rate and rhythm; no murmur, no gallop. Abdomen- normal bowel sounds, soft, nontender, no distension. Extremities-trace pretibial edema, no erythema seen. Neuro- alert, oriented PERRL, no facial palsy; no dysarthria; moves extremities. Results & Data Results & Data Vital Signs (Past 12 Hours) Vital Signs Temp Pulse Pulse Resp BP BP Pulse Ox 03/26/24 21:00 78 20 146/72 H 92 03/26/24 19:21 72 03/26/24 19:14 92 03/26/24 19:13 69 22 168/86 H 92 03/26/24 18:43 37.2 C 74 20 126/66 92 O2 Del Method 03/26/24 21:00 Room Air 03/26/24 19:21 03/26/24 19:14 Room Air 03/26/24 19:13 Room Air 03/26/24 18:43 Room Air Diagnostic Findings Laboratory Results WBC 10.84 K/ul (4.8-10.8) H 03/26/24 19:21 RBC 4.62 M/uL (4.70-6.10) L 03/26/24 19:21 Hgb 14.6 g/dl (14.0-18.0) 03/26/24 19:21 Hct 41.1 % (42.0-52.0) L 03/26/24 19:21 MCV 89.0 fL (80.0-100.0) 03/26/24 19:21 MCH 31.6 pg (25.0-34.0) 03/26/24 19:21 MCHC 35.5 g/dL (32.0-36.0) 03/26/24 19:21 RDW Std Deviation 41.7 fL (36.4-46.3) 03/26/24 19:21 RDW Coeff of Lorrie 12.7 % (11.5-14.5) 03/26/24 19:21 Plt Count 182 K/uL (130-400) 03/26/24 19:21 MPV 9.8 fL (9.4-12.4) 03/26/24 19:21 Immature Gran % (Auto) 0.4 % 03/26/24 19:21 Neut % (Auto) 61.3 % 03/26/24 19:21 Lymph % (Auto) 18.6 % 03/26/24 19:21 Sequoyah % (Auto) 19.3 % 03/26/24 19:21 Eos % (Auto) 0.0 % 03/26/24 19:21 Baso % (Auto) 0.4 % 03/26/24 19:21 Neut # (Auto) 6.65 K/uL (1.40-6.50) H 03/26/24 19:21 Lymph # (Auto) 2.02 K/uL (1.20-3.40) 03/26/24 19:21 Sequoyah # (Auto) 2.09 K/uL (0.11-0.59) H 03/26/24 19:21 Eos # (Auto) 0.00 K/uL (0.00-0.50) 03/26/24 19:21 Baso # (Auto) 0.04 K/uL (0.00-0.20) 03/26/24 19:21 Immature Gran # (Auto) 0.04 K/uL (0.01-0.20) 03/26/24 19:21 PT 11.9 Seconds (9.0-12.0) 03/26/24 19:21 INR 1.1 (0.9-1.1) 03/26/24 19:21 Sodium 126 mmol/L (136-145) L 03/26/24 19:21 Potassium 4.2 mmol/L (3.5-5.1) 03/26/24 19:21 Chloride 93 mmol/L (98-107) L 03/26/24 19:21 Carbon Dioxide 23 mmol/L (21-32) 03/26/24 19:21 Anion Gap 10 (3-11) 03/26/24 19:21 BUN 24 mg/dl (6-23) H 03/26/24 19:21 Creatinine 0.99 mg/dl (0.6-1.4) 03/26/24 19:21 Est Cr Clr Drug Dosing 52.7 ml/min 03/26/24 19:21 Est GFR ( Amer) 84.2 ml/min 03/26/24 19:21 Est GFR (Non-Af Amer) 72.6 ml/min 03/26/24 19:21 BUN/Creatinine Ratio 24.2 (10-20) H 03/26/24 19:21 Glucose 117 mg/dl (70-99(Fasting)) H 03/26/24 19:21 Osmolality 271 mOsm/kg (280-300) L 03/26/24 19:21 Calcium 9.3 mg/dl (8.6-10.3) 03/26/24 19:21 Magnesium 2.0 mg/dl (1.7-2.4) 03/26/24 19:21 Total Bilirubin 0.8 mg/dl (0.2-1.0) 03/26/24 19:21 AST 43 U/L (13-39) H 03/26/24 19:21 ALT 18 U/L (7-52) 03/26/24 19:21 Alkaline Phosphatase 62 U/L (34-104) 03/26/24 19:21 Troponin I High Sens 13.7 pg/ml (0-20) 03/26/24 19:21 Total Protein 7.9 gm/dl (6.0-8.3) 03/26/24 19:21 Albumin 4.5 gm/dl (3.4-5.0) 03/26/24 19:21 Globulin 3.4 gm/dl (2.5-4.0) 03/26/24 19:21 Albumin/Globulin Ratio 1.3 (0.9-2) 03/26/24 19:21 TSH 8.556 uIu/ml (0.300-4.500) H 03/26/24 19:21 Free T4 1.04 ng/dl (0.61-1.60) 03/26/24 19:21 SARS-CoV-2 (PCR) POSITIVE (Negative) A 03/26/24 19:22 Influenza Type A (PCR) Negative (Neg) 03/26/24 19:22 Influenza Type B (PCR) Negative (Neg) 03/26/24 19:22 RSV (RT-PCR) Negative (Neg) 03/26/24 19:22 ECG Additional Comments: ECG. Normal sinus rhythm rate of 78. Incomplete right bundle branch block. Code Status & VTE Plan VTE Prophylaxis Plan VTE Prophylaxis will be ordered: Yes
[2024-03-27] MEDS ORDERED: ALBUTEROL HFA 8 GM INHALER INH PRN (00:11)
[2024-03-27] MEDS ORDERED: NITROGLYCERIN SL 0.4 MG/TAB TAB SL PRN (00:11)
[2024-03-27] MEDS: SODIUM CHLORIDE 0.9% 1,000 ML IV SCH (00:59)
[2024-03-27] MEDS: BENZONATATE 100 MG CAPSULE PO ONE (02:15)
[2024-03-27] MEDS: ALBUT/IPRATROP 3MG/0.5MG NEB 3 ML VIAL NEB PRN (02:43)
--- OUTSIDE RECORDS SUMMARY | 2024-03-27 03:30 | External Medical Summary | Summary of Care ---
Author Name Unknown Organization [facility] Address [address] [place] [address] Phone [phone] Care Team Providers Care Boom Tender Name Role Phone Ismael Villavicencio MD Primary Care Provider + Reason for Visit * Reason Comments Physical-Exam Encounter Details Date Type Department Care Team (Late st Contact Info) Description 03/02/2024 3:40 PM EDT Office Visit General Internal Medicine [facility] [address] [place] [address] Donta Gonzalez, [address] [address] Immunity status testing*; Hypertension goal BP (blood pressure) < 130/80; Mixed hyperlipidemia; Mild persistent asthma without complication; Chronic diastolic congestive heart failure (HCC); Chronic rhinitis; Gastroesophageal reflux disease without esophagitis Allergies Active Allergy Reactions Criticality Noted Date Comments Baclofen Other (Please comment) 03/16/2021 Passed out Phenytoin Other (Please comment) 03/16/2021 Passed out Oxycodone Itching 03/16/2021 Percocet - itching documented as of this encounter (statuses as of 03/02/2024) Medications Medication Sig Dispensed Refills Start Date End Date Status Multivitamin Adults 50+ Oral Tablet Take by mouth. Activ e Calcium Carbonate-Vitamin D 600-200 MG-UNIT Oral Tablet Take 1 Tablet by mouth in the morning. Active Zinc 50 MG Oral Capsule Take 1 Capsule by mouth in the morning. Active Vitamin C 1000 MG Oral Tablet Take 1 Tablet by mouth in the morning. Active Fish Oil 1000 MG Oral Capsule Take 1 Capsule by mouth in the morning. Active Glucosamine Chondr 1500 Complx Oral Capsule Take 1 Capsule by mouth in the morning. Active Ventolin HFA 108 (90 Base) MCG/ACT Inhalation Aerosol SolutionIndications: Mild intermittent asthma without complication Inhale 2 Puffs by mouth every 4 hours as needed for Cough, Shortness of Breath or Wheezing. 18 g 3 06/01/2021 Active NATURAL SUPPLEMENT Take by mouth daily . Beet Root Active Spironolactone 25 MG Oral Tablet (Aldactone)Indicatio ns:Hypertension goal BP (blood pressure) < 130/80 Take 1 Tablet by mouth in the morning. 90 Tablet 3 06/28/2023 Active Atorvastatin Calcium 20 MG Oral Tablet (Lipitor)Indications :Right carotid artery occlusion Take 1 Tablet by mouth in the morning. 30 Tablet 5 11/07/2023 Active Aspirin 81 MG Oral Tablet ChewableIndications: Right carotid artery occlusion,Left carotid artery stenosis,Old cerebrovascular accident (CVA) without late effect Take 1 Tablet by mouth in the morning. with food.. 100 Tablet 5 11/07/2023 Active Furosemide 40 MG Oral Tablet (Lasix) TAKE 1 TABLET BY MOUTH EVERY DAY 90 Tablet 3 12/03/2023 Active amLODIPine Besylate 10 MG Oral Tablet (Norvasc)Indications :Hypertension goal BP (blood pressure) < 130/80 Take 1 Tablet by mouth every evening. 90 Tablet 3 03/02/2024 Active Fosinopril Sodium 40 MG Oral Tablet (Monopril)Indication s:Hypertension goal BP (blood pressure) < 130/80 Take 1 Tablet by mouth in the morning. 90 Tablet 3 03/02/2024 Active Loratadine 10 MG Oral Tablet (Claritin)Indication s:Chronic rhinitis Take 1 Tablet by mouth in the morning. 90 Tablet 3 03/02/2024 Active Pantoprazole Sodium 40 MG Oral Tablet Delayed Release (Protonix)Indication s:Gastroesophageal reflux disease without esophagitis Take 1 Tablet by mouth as needed (indigestion). 90 Tablet 1 03/02/2024 Active Pantoprazole Sodium 40 MG Oral Tablet Delayed Release (Protonix) Take 1 Tablet by mouth as needed. 4 Discontinue d(Refill) Loratadine 10 MG Oral Tablet (Claritin)Indication s:Chronic rhinitis Take 1 Tablet by mouth in the morning. 90 Tablet 3 03/13/2023 4 Discontinue d(Refill) amLODIPine Besylate 10 MG Oral Tablet (Norvasc)Indications :Hypertension goal BP (blood pressure) < 130/80 Take 0.5 Tablets by mouth every evening. 45 Tablet 3 06/04/2023 4 Discontinue d(Refill) Fosinopril Sodium 40 MG Oral Tablet (Monopril)Indication s:Hypertension goal BP (blood pressure) < 130/80 TAKE 1 TABLET BY MOUTH EVERY DAY IN THE MORNING 90 Tablet 3 06/07/2023 4 Discontinue d(Refill) documented as of this encounter (statuses as of 03/02/2024) Active Problems Problem Noted Date Diagnosed Date Former smoker 11/20/2023 Right carotid artery occlusion 11/07/2023 Old cerebrovascular accident (CVA) without late effect 11/07/2023 Left carotid artery stenosis 11/07/2023 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 Mild aortic regurgitation 10/15/2021 Mild persistent asthma without complication 09/12 Pulmonary hypertension 06/01/2021 Chronic diastolic congestive heart failure 04/03 Mild mitral regurgitation 04/03/2021 Mixed hyperlipidemia 03/17/2021 Chronic edema 03/17/2021 Hypertension goal BP (blood pressure) < 130/80 0 03/16/2021 Chronic hyponatremia 03/16/2021 Osteoarthritis 03/16/2021 documented as of this encounter (statuses as of 03/02/2024) Resolved Problems Problem Noted Date Diagnosed Date Resolved Date Mild intermittent asthma with exacerbation 09/22/2021 09/22/2021 High pulmonary arterial pressure 04/03/2021 12/01/2021 Hyperlipidemia 03/16/2021 03/17/2021 documented as of this encounter (statuses as of 03/02/2024) Immunizations Name Administration Dates Next Due COVID-19 mRNA, LNP-s, No Pre serve, 2-Dose Series (Moderna) 03/10/2021,09/18/2020,08/21/2020 COVID-19, MRNA-LNP, 23-24, P F, 50 MCG/0.5 mL, 12 YRS AND ABOVE, IM (MODERNA-Spikevax) 05/09/2023 Covid-19, Mrna, Lnp-s, Pf, B ivalent, 50 Mcg, IM, 12 yrs and above (Moderna) 04/17/2022 Pneumococcal Conjugate Vacc, 13 Valent (Prevnar) 08/28/2018 Pneumococcal Conjugate Vacci ne, 20-valent ([id number]) 10/16/2022 Seasonal Influenza, Quadriva lent Hd (Fluzone [...] Recorded PHQ Adult Total Score 0 04/30/2023 Utilities Answer Date Recorded Do you have trouble paying y our heating, water, or electric bill? (Adult - for ages 18 years and over) Not on file 12/31/2023 Is your family able to pay t he heat, water, or electric bill? (Household - for ages 0-17 years) Not on file 12/31/2023 Does your family have access to good internet? (Household - for ages 0-17 years) Not on file 12/31/2023 Social Connections Answer Date Recorded How often do you feel lonely or isolated from those around you? (Adult - for ages 18 years and over) Not on file 12/31/2023 Sex and Gender Information Value Date Recorded Sex Assigned at Male 03/17/2021 9:24 AM EDT Gender Identity Male 03/17/2021 9:24 AM EDT Sexual Orientation Straight 03/17/2021 9: 24 AM EDT Job Start Date Occupation Industry Not on file Not on file Not on file documented as of this encounter Last Filed Vital Signs Vital Sign Reading Time Taken Comments Blood Pressure 114/60 03/02/2024 3:49 PM EDT Pulse 56 03/02/2024 3:49 PM EDT Temperature 36.2 C (97.2 F) 03/02/2024 3:49 PM ED T Respiratory Rate - - Oxygen Saturation 96% 03/02/2024 3:49 PM EDT Inhaled Oxygen Concentration - - Weight 75 kg (165 lb 6.4 oz) 03/02/2024 3:49 PM EDT Height - - Body Mass Index 27.52 11/07/2023 2:39 PM EDT documented in this encounter Progress Notes * Donta Gonzalez, DO - 03/02/2024 3:53 PM EDT Mason Brady is a 78 year old male. Chief Complaint Patient presents with Physical-Exam HPI: Patient presents to office for exam to see if he would be able to potentially compete in half mile swim that would coming up in March. Still not sure if he will sign up. Does swim at the [facility]. Was supposed to do a mile swim in December as part of a team marathon but held off due to recent health concerns Patient was hospitalized at [facility] in October due to syncopal episode. Was found to have carotid blockage on the right. He did have follow-up with Vascular Surgery in November. Consultation note reviewed. They are continuing yearly screening. Continuing medical management. No indication for surgery Did see Cardiology in December. Consultation note reviewed. Echo found to be stable. No bradycardia on Zio patch. Was continued on his current hypertensive regimen. No acute changes noted. Denies any further dizziness/lightheadedness. No obvious syncopal symptoms. No shortness of breath, palpitations or chest pain. Still remains very active with high activity tolerance for his age. Does state he will be volunteering for [facility] in the near future. Does require evidence of immunity for his application. This was reviewed. He did have a Tdap in 2012. He is up-to-date on COVID-19 vaccinations. 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 Ventolin HFA 108 (90 Base) MCG/ACT Inhalation Aerosol Solution Inhale 2 Puffs by mouth every 4 hours as needed for Cough, Shortness of Breath or Wheezing. 18 g 3 NATURAL SUPPLEMENT Take by mouth daily . Beet Root Pantoprazole Sodium 40 MG Oral Tablet Delayed Release (Protonix) Take 1 Tablet by mouth as needed. Loratadine 10 MG Oral Tablet (Claritin) Take 1 Tablet by mouth in the morning. 90 Tablet 3 amLODIPine Besylate 10 MG Oral Tablet (Norvasc) Take 0.5 Tablets by mouth every evening. (Patient taking differently: Take 1 Tablet by mouth every evening.) 45 Tablet 3 Fosinopril Sodium 40 MG Oral Tablet (Monopril) TAKE 1 TABLET BY MOUTH EVERY DAY IN THE MORNING 90 Tablet 3 Spironolactone 25 MG Oral Tablet (Aldactone) Take 1 Tablet by mouth in the morning. 90 Tablet 3 Atorvastatin Calcium 20 MG Oral Tablet (Lipitor) Take 1 Tablet by mouth in the morning. 30 Tablet 5 Aspirin 81 MG Oral Tablet Chewable Take 1 Tablet by mouth in the morning. with food.. 100 Tablet 5 Furosemide 40 MG Oral Tablet (Lasix) TAKE 1 TABLET BY MOUTH EVERY DAY 90 Tablet 3 No current facility-administered medications for this visit. Past Medical History: Diagnosis Date Asthma Chronic hyponatremia 03/16/2021 Diastolic dysfunction 04/03/2021 Hypertension goal BP (blood pressure) < 130/80 03/16/2021 Mild aortic regurgitation 10/15/2021 Mild intermittent asthma with exacerbation 09/22/2021 Mild mitral regurgitation 04/03/2021 Mixed hyperlipidemia 03/17/2021 Old cerebrovascular accident (CVA) without late effect 11/07/2023 Osteoarthritis 03/16/2021 Pulmonary arterial hypertension (HCC) Past Surgical History: Procedure Laterality Date COLONOSCOPY, DIAGNOSTIC (RECTUM) 09/04/2022 poor-prep, normal scope / repeat colon w/ extended prep / COLONOSCOPY FLEXIBLE PROXIMAL DIAGNOSTIC performed by Treasure Cruz MD at END[facility]COPY [facility] COLONOSCOPY, DIAGNOSTIC (RECTUM) 12/25/2022 prep-fair, 1-4 mm in cecum, otherwise normal / biopsies benign adenomatous polyp / 1 year w/ 2 day prep / COLONOSCOPY FLEXIBLE PROXIMAL DIAGNOSTIC performed by Treasure Cruz MD at ENDOSCOPY [facility] TOTAL HIP REPLACEMENT & PROSTHESIS Bilateral 2018 Review of patient's allergies indicates: Allergen Reactions Baclofen Other (Please comment) Passed out Dilantin [Phenytoin] Other (Please comment) Passed out Oxycodone Itching Percocet - itching Family History Problem Relation Name Age of Onset Rheum arthritis Mother Coronary Artery disease Father Family Status Relation Status Mo Fa Sis Alive Bro Alive Dom Alive Son Alive Sis Alive Son Alive Social History Socioeconomic History Marital status: Spouse name: Not on file Number of children: 3 Years of education: Not on file Highest education level: Not on file Occupational History Occupation: retired - [employer] Tobacco Use Smoking status: Former Current packs/day: 0.00 Average packs/day: 0.8 packs/day for 27.0 years (20.3 ttl pk-yrs) Types: Cigarettes Start date: 07/15/1966 Quit date: 07/15/1993 Years since quittin.6 Smokeless tobacco: Never Vaping Use Vaping status: Never Used Substance and Sexual Activity Alcohol use: Yes [...] on file Transportation Needs: Not on file Social Connections: Unknown (12/31/2023) Social Connections How often do you feel lonely or isolated from those around you? (Adult - for ages 18 years and over): Not on file Housing Stability: Not on file Review of Systems Constitutional: Negative for chills, fatigue and fever. HENT: Negative for congestion, sore throat and trouble swallowing. Eyes: Negative for photophobia and pain. Respiratory: Negative for cough, shortness of breath and wheezing. Cardiovascular: Negative for chest pain and palpitations. Gastrointestinal: Negative for abdominal distention, abdominal pain, nausea and vomiting. Genitourinary: Negative for dysuria and frequency. Musculoskeletal: Negative for back pain and neck stiffness. Skin: Negative for pallor. Neurological: Negative for dizziness, light-headedness and headaches. Psychiatric/Behavioral: Negative for sleep disturbance. The patient is not nervous/anxious. Objective BP 114/60 | Pulse 56 | Temp 36.2 C (97.2 F) | Wt 75 kg (165 lb 6.4 oz) | SpO2 96% | BMI 27.52 kg/m | BSA 1.85 m Physical Exam Constitutional: General: He is not in acute distress. Appearance: He is not ill-appearing. HENT: Head: Normocephalic and atraumatic. Right Ear: Tympanic membrane, ear canal and external ear normal. Left Ear: Tympanic membrane, ear canal and external ear normal. Nose: Nose normal. No congestion or rhinorrhea. Mouth/Throat: Mouth: Mucous membranes are moist. Pharynx: Oropharynx is clear. Eyes: General: No scleral icterus. Extraocular Movements: Extraocular movements intact. Conjunctiva/sclera: Conjunctivae normal. Pupils: Pupils are equal, round, and reactive to light. Neck: Vascular: No carotid bruit. Cardiovascular: Rate and Rhythm: Normal rate and regular rhythm. Pulses: Normal pulses. Heart sounds: Normal heart sounds. No murmur heard. No friction rub. No gallop. Pulmonary: Effort: Pulmonary effort is normal. Breath sounds: Normal breath sounds. No wheezing, rhonchi or rales. Abdominal: General: Bowel sounds are normal. There is no distension. Palpations: Abdomen is soft. There is no mass. Tenderness: There is no abdominal tenderness. Musculoskeletal: General: No swelling or tenderness. Normal range of motion. Cervical back: Normal range of motion and neck supple. Right lower leg: No edema. Left lower leg: No edema. Skin: General: Skin is warm and dry. Coloration: Skin is not jaundiced. Findings: No rash. Neurological: General: No focal deficit present. Mental Status: He is oriented to person, place, and time. Cranial Nerves: No cranial nerve deficit. Sensory: No sensory deficit. Motor: No weakness. Psychiatric: Mood and Affect: Mood normal. Behavior: Behavior normal. ASSESSMENT/PLAN: Immunity status testing (Primary) - QUANTIFERON TB GOLD PLUS; Future; Expected date: 03/02/2024 - RUBELLA IGG ANTIBODY; Future; Expected date: 03/02/2024 - RUBEOLA (MEASLES) IGG ANTIBODY; Future; Expected date: 03/02/2024 - MUMPS IGG ANTIBODY; Future; Expected date: 03/02/2024 - VARICELLA-ZOSTER VIRUS ANTIBODY, IGG; Future; Expected date: 03/02/2024 Hypertension goal BP (blood pressure) < 130/80 - amLODIPine Besylate 10 MG Oral Tablet (Norvasc); Take 1 Tablet by mouth every evening. - Fosinopril Sodium 40 MG Oral Tablet (Monopril); Take 1 Tablet by mouth in the morning. Mixed hyperlipidemia Mild persistent asthma without complication Chronic diastolic congestive heart failure (HCC) Chronic rhinitis - Loratadine 10 MG Oral Tablet (Claritin); Take 1 Tablet by mouth in the morning. Gastroesophageal reflux disease without esophagitis - Pantoprazole Sodium 40 MG Oral Tablet Delayed Release (Protonix); Take 1 Tablet by mouth as needed (indigestion). Plan: Patient presents to office for routine follow-up. Wanted to have checked to see if it would be okay for him to do a 1/2 mile swim in the future Patient was hospitalized in October. His vascular and cardiac status appear stable. Recent consultation notes reviewed. If was calm water do believe he would be able to do the 1/2 mile swim. In regardsto a full mile swim next December, if he remained stable overall I think it would be okay Reviewed patient's vaccination records. He had a Tdap in 2022. Up-to-date on COVID-19 vaccinations.If to be volunteering in a healthcare setting, would recommend continuing yearly COVID-19 shots. QuantiFERON ordered for TB screen. Immunity labs for varicella, MMR ordered Continue current medications. Blood pressure appears well managed on amlodipine 10 mg daily, fosinopril 20 mg daily, spironolactone 25mg daily Did explained to patient that would not recommend decreasing any of his medication at this time. Hemay be able to streamline some of his vitamin supplements Follow Up: Return if symptoms worsen or fail to improve, for Follow up next routine with PCP as scheduled. | For: Follow up next routine with PCP as scheduled Donta Gonzalez DO documented in this encounter Nursing Notes * Columba Yepez CMA - 03/02/2024 3:46 PM EDT Tremaine Brady presents for annual physical exam. Medications & HM reviewed. He would like todiscuss being cleared for open water swimming as discussed in MyG encounters. documented in this encounter Plan of Treatment Upcoming Encounters Date Type Department Care Team (Late st Contact Info) Description 05/12/2024 1:30 PM EDT Office Visit Nephrology, [facility] [address] [place] [address] Joana Gaspar PA-C [address] [facility] [place] [address] 06/09/2024 9:20 AM EST Office Visit General Internal Medicine [facility] [address] [place] [address] Ismael Villavicencio MD [address] [place] [address] 08/03/2024 9:30 AM EST Office Visit Cardiology, [facility] [address] [facility] [place] [address] Gadiel Vasquez DO [address] [place] [address] 11/05/2024 1:00 PM EDT Office Visit General Internal Medicine [facility] [address] [place] [address] Ismael Villavicencio MD [address] [place] [address] 12/31/2024 11:15 AM EDT Office Visit Dermatology [facility] [place] [address] [facility] [place] [address] Ismael Nolan MD [address] [place] [address] 01/04/2025 10:40 AM EDT Telemedicine Neurology [address] [place] [address] Wes Uribe MD [address] [place] [address] Pending Results Name Type Priority Associated Diagnoses Date /Time QUANTIFERON TB GOLD PLUS Lab Routine Immunity status testing 03/02/2024 4:37 PM EDT RUBELLA IGG ANTIBODY Lab Routine Immunity status testing 03/02/2024 4:37 PM EDT RUBEOLA (MEASLES) IGG ANTIBODY Lab Routine Immunity status testing 03/02/2024 4:37 PM EDT MUMPS IGG ANTIBODY Lab Routine Immunity status testing 03/02/2024 4:37 PM EDT VARICELLA-ZOSTER VIRUS ANTIBODY, IGG Lab Routine Immunity status testing 03/02/2024 4:37 PM EDT Scheduled Orders Name Type Priority Associated Diagnoses Orde r Schedule QUANTIFERON TB GOLD PLUS Lab Routine Immunity status testing Expected: 03/02/2024, Expires: 03/02/2025 RUBELLA IGG ANTIBODY Lab Routine Immunity status testing Expected: 03/02/2024 (Approximate), Expires: 03/02/2025 RUBEOLA (MEASLES) IGG ANTIBODY Lab Routine Immunity status testing Expected: 03/02/2024 (Approximate), Expires: 03/02/2025 MUMPS IGG ANTIBODY Lab Routine Immunity status testing Expected: 03/02/2024 (Approximate), Expires: 03/02/2025 VARICELLA-ZOSTER VIRUS ANTIBODY, IGG Lab Routine Immunity status testing Expected: 03/02/2024 (Approximate), Expires: 03/02/2025 Scheduled Procedures Name Priority Associated Diagnoses Date/Ti me COLONOSCOPY FLEXIBLE PROXIMAL DIAGNOSTIC Recall History of colon polyps Health Maintenance Due Date Last Done Comments Zoster Vaccines (1 of 2) 1996 Adult Wellness Visit 2012 COVID-19 Vaccine ( season) 2023 05/09/2023, 04/17/2022, 03/10/2021, Additional history exists Colonoscopy 12/26/2023 12/25/2022, 12/13, 09/04/2022, Additional history exists Influenza Vaccine (FLU shot) (#1) 2024 03/15/2023, 03/21/2021, 06/19/2018 Depression Screening 04/30/2024 04/30/2023 GFR 12/09/2024 12/10/2023, 10/14, 10/25/2023, Additional history exists Albumin/Creatinine Ratio 04/23/2025 04/23/2022, 08/2020 DTaP,Tdap,and Td Vaccines (3 - Td or Tdap) 04/30/2033 04/30/2023, 03/08/2018 Pneumococcal Vaccine: 65+ Years Completed 10/16/2022, 08/28/2018 RETIRED - COLONOSCOPY-ANNUAL AGES 18-100 Discontinued 12/25/2022, 12/25/2022, 09/04/2022, Additional history exists HPV (Gardasil) Vaccine Aged Out No lo nger eligible based on patient's age to complete this topic Hepatitis B Vaccine Aged Out No longe r eligible based on patient's age to complete this topic MENINGOCOCCAL (MENACTRA/MENVEO) Aged Out No longer eligible based on patient's age to complete this topic documented as of this encounter Medical Devices Not on filedocumented as of this encounter Visit Diagnoses Diagnosis Immunity status testing- Primary Antibody response examination Hypertension goal BP (blood pressure) < 130/80 Unspecified essential hypertension Mixed hyperlipidemia Mild persistent asthma without complication Unspecified asthma Chronic diastolic congestive heart failure (HCC) Chronic diastolic heart failure Chronic rhinitis Gastroesophageal reflux disease without esophagitis Esophageal reflux documented in this encounter Care Teams Boom Tender Relationship Specialty Start Date End Date Ismael Villavicencio MD [address] [facility] [place] [address] PCP - General Internal Medicine 03/17/21 documented as of this encounter"
--- OUTSIDE RECORDS SUMMARY | 2024-03-27 03:30 | External Medical Summary | Summary of Care ---
Author Name Unknown Organization [facility] Address [address] [place] [address] Phone [phone] Care Team Providers Care Databases Computer Consultant Name Role Phone Ismael Villavicencio MD Primary Care Provider + Reason for Visit * Reason Comments Outpatient Testing Encounter Details Date Type Department Care Team (Late st Contact Info) Description 03/02/2024 4:30 PM EDT Laboratory Laboratory [facility] [address] [place] [address] [facility] [address] [place] [address] Immunity status testing Allergies Active Allergy Reactions Criticality Noted Date [...] HFA 108 (90 Base) MCG/ACT Inhalation Aerosol SolutionIndications:Mi ld intermittent asthma without complication Inhale 2 Puffs by mouth every 4 hours as needed for Cough, Shortness of Breath or Wheezing. 18 g 3 06/01/2021 Active NATURAL SUPPLEMENT Take by mouth daily . Beet Root Active Spironolactone 25 MG Oral Tablet (Aldactone)Indications :Hypertension goal BP (blood pressure) < 130/80 Take 1 Tablet by mouth in the morning. 90 Tablet 3 06/28/2023 Active Atorvastatin Calcium 20 MG Oral Tablet (Lipitor)Indications:R ight carotid artery occlusion Take 1 Tablet by mouth in the morning. 30 Tablet 5 11/07/2023 Active Aspirin 81 MG Oral Tablet ChewableIndications:Ri ght carotid artery occlusion,Left carotid artery stenosis,Old cerebrovascular accident (CVA) without late effect Take 1 Tablet by mouth in the morning. with food.. 100 Tablet 5 11/07/2023 Active Furosemide 40 MG Oral Tablet (Lasix) TAKE 1 TABLET BY MOUTH EVERY DAY 90 Tablet 3 12/03/2023 Active amLODIPine Besylate 10 MG Oral Tablet (Norvasc)Indications:H ypertension goal BP (blood pressure) < 130/80 Take 1 Tablet by mouth every evening. 90 Tablet 3 03/02/2024 Active Fosinopril Sodium 40 MG Oral Tablet (Monopril)Indications: Hypertension goal BP (blood pressure) < 130/80 Take 1 Tablet by mouth in the morning. 90 Tablet 3 03/02/2024 Active Loratadine 10 MG Oral Tablet (Claritin)Indications: Chronic rhinitis Take 1 Tablet by mouth in the morning. 90 Tablet 3 03/02/2024 Active Pantoprazole Sodium 40 MG Oral Tablet Delayed Release (Protonix)Indications: Gastroesophageal reflux disease without esophagitis Take 1 Tablet by mouth as needed (indigestion). 90 Tablet 1 03/02/2024 Active documented as of this encounter (statuses [...] (Prevnar) 08/28/2018 Pneumococcal Conjugate Vacci ne, 20-valent ([id number]) 10/16/2022 Seasonal Influenza, Quadriva lent Hd (Fluzone [...] 05/12/2024 1:30 PM EDT Office Visit Nephrology, [facility] [address] [place] [address] Joana Gaspar PA-C [address] [place] [address] 06/09/2024 9:20 AM EST Office Visit General Internal Medicine [facility] [place] [address] [place] [address] Ismael Villavicencio MD [address] [facility] [place] [address] 08/03/2024 9:30 AM EST Office Visit Cardiology, [facility] [address] [place] [address] Gadiel Vasquez DO [address] [place] [address] 11/05/2024 1:00 PM EDT Office Visit General Internal Medicine [facility] [address] [place] [address] Ismael Villavicencio MD 200 [facility] [place] [address] 12/31/2024 11:15 AM EDT Office Visit Dermatology [facility] [place] [address] [place] [address] Ismael Nolan MD 200 [facility] [place] [address] 01/04/2025 10:40 AM EDT Telemedicine Neurology [facility] [place] [address] [place] [address] Wes Uribe MD [address] [place] [address] Pending Results Name Type Priority [...] status testing 03/02/2024 4:37 PM EDT Scheduled Procedures Name Priority Associated [...] this encounter Visit Diagnoses Diagnosis Immunity status testing Antibody response examination documented in this encounter Care Teams Databases Computer Consultant Relationship Specialty Start Date End Date Ismael Villavicencio MD [address] [place] [address] PCP - General Internal Medicine 03/17/21 documented as of this encounter
--- OUTSIDE RECORDS SUMMARY | 2024-03-27 03:30 | External Medical Summary | Summary of Care ---
Author Name Unknown Organization [facility] Address [address] [place] [address] Phone [phone] Care Team Providers Care Tray Line Worker Name Role Phone Ismael Villavicencio MD Primary Care Provider + Reason for Visit * Reason Onset Date Comments New Med Request 03/24/2024 Paxlovid Encounter Details Date Type Department Care Team (Late st Contact Info) Description 03/24/2024 Telephone General Internal Medicine [facility] [address] [place] [address] Ismael Villavicencio MD [address] [place] [facility] [place] [address] New Med Request (Paxlovid ) Allergies Active Allergy Reactions Criticality Noted Date Comments Baclofen Other (Please comment) 03/16/2021 Passed out Phenytoin Other (Please comment) 03/16/2021 Passed out Oxycodone Itching 03/16/2021 Percocet - itching documented as of this encounter (statuses as of 03/24/2024) Medications Medication Sig Dispensed Refills Start Date [...] Root Active Spironolactone 25 MG Oral Tablet (Aldactone)Indication s:Hypertension goal BP (blood pressure) < 130/80 Take 1 Tablet by mouth in the morning. 90 Tablet 3 06/28/2023 Active Atorvastatin Calcium 20 MG Oral Tablet (Lipitor)Indications: Right carotid artery occlusion Take 1 Tablet by mouth in the morning. 30 Tablet 5 11/07/2023 Active Aspirin 81 MG Oral Tablet ChewableIndications:R ight carotid artery occlusion,Left carotid artery stenosis,Old cerebrovascular [...] 03/02/2024 Active Loratadine 10 MG Oral Tablet (Claritin)Indications :Chronic rhinitis Take 1 Tablet by mouth in the morning. 90 Tablet 3 03/02/2024 Active Pantoprazole Sodium 40 MG Oral Tablet Delayed Release (Protonix)Indications :Gastroesophageal reflux disease without esophagitis Take 1 Tablet by mouth as needed (indigestion). 90 Tablet 1 03/02/2024 Active Nirmatrelvir&Ritonavi r 300/100 20 x 150 MG & 10 x 100MG Oral Tablet Therapy Pack (Paxlovid (300/100))Indications :COVID-19 Take 2 pink tablets of Nirmatrelvir and 1 white tablet of Ritonavir two times a day by mouth. 30 Tablet 03/24/2024 Active documented as of this encounter (statuses as of 03/24/2024) Active Problems Problem Noted Date Diagnosed Date [...] as of this encounter (statuses as of 03/24/2024) Resolved Problems Problem Noted Date Diagnosed Date Resolved Date Mild intermittent asthma with exacerbation 09/22/2021 09/22/2021 High pulmonary arterial pressure 04/03/2021 12/01/2021 Hyperlipidemia 03/16/2021 03/17/2021 documented as of this encounter (statuses as of 03/24/2024) Immunizations Name Administration Dates Next Due COVID-19 mRNA, LNP-s, No Pre serve, 2-Dose Series (Moderna) 03/10/2021,09/18/2020,08/21/2020 COVID-19, MRNA-LNP, 23-24, P F, 50 MCG/0.5 mL, 12 YRS AND ABOVE, IM (MODERNA-Spikevax) 05/09/2023 Covid-19, Mrna, Lnp-s, Pf, B ivalent, 50 Mcg, IM, 12 yrs and above (Moderna) 04/17/2022 Pneumococcal Conjugate Vacc, 13 Valent (Prevnar) 08/28/2018 Pneumococcal Conjugate Vacci ne, 20-valent ([id number]) 10/16/2022 Seasonal Influenza, Quadriva lent Hd (Fluzone Hd) 03/15/2023 Seasonal Influenza, Trivalen t, Adjuvanted, 65+ YRS, PF, (Fluad) 03/21/2021,06/19/2018 TDAP (age 10 and older)(Boostrix) 04/30/2023, [...] encounter Miscellaneous Notes * Telephone Encounter - Jazmyn Mathews LPN - 03/24/2024 12:50 PM EDT Called patient, verbalized understanding * Telephone Encounter - Ismael Villavicencio MD - 03/24/2024 12:44 PM EDT Med sent, watch for loose stools, poor taste or rebound symptoms once stopping Paxlovid. Cut amlodipine to 5 mg for 8 days when on med and hold atorvastatin for 8 days. Feel better! * Telephone Encounter - Josephine Mead OSA - 03/24/2024 11:31 AM EDT Pt requesting Paxlovid for positive Covid results. Please see call details. documented in this encounter Plan of Treatment Upcoming Encounters Date Type Department Care Team (Late st Contact Info) Description 05/12/2024 1:30 PM EDT Office Visit Nephrology, [facility] [address] [place] [address] [address] Joana Gaspar PA-C [address] [place] [address] 06/09/2024 9:20 AM EST Office Visit General Internal Medicine [facility] [address] [place] [address] Ismael Villavicencio MD [address] [place] [address] 08/03/2024 9:30 AM EST Office Visit Cardiology, [facility] 132 [facility] [place] [address] Gadiel Vasquez DO 132 [facility] [place] [address] 11/05/2024 1:00 PM EDT Office Visit General Internal Medicine [facility] [place] [address] [place] [address] Ismael Villavicencio MD [address] [place] [address] 12/31/2024 11:15 AM EDT Office Visit Dermatology [facility] [place] [address] [place] [address] Ismael Nolan MD [address] [place] [address] 01/04/2025 10:40 AM EDT Telemedicine Neurology [address] [place] [address] Wes Uribe MD [address] [place] [facility] [place] [place] [address] Scheduled Procedures Name Priority Associated Diagnoses Date/Ti me COLONOSCOPY FLEXIBLE PROXIMAL DIAGNOSTIC Recall History of colon polyps Health Maintenance Due Date Last Done Comments Zoster Vaccines (1 of 2) 1996 Adult Wellness Visit 2012 Colonoscopy 12/26/2023 12/25/2022, 12/13, 09/04/2022, Additional history exists COVID-19 Vaccine ( season) 2024 05/09/2023, 04/17/2022, 03/10/2021, Additional history exists Influenza Vaccine (FLU shot) (#1) 2024 03/15/2023, 03/21/2021, 06/19/2018 Depression Screening 04/30/2024 04/30/2023 GFR 12/09/2024 12/10/2023, 10/14, 10/25/2023, Additional history exists Albumin/Creatinine Ratio 04/23/2025 04/23/2022, 09/0 08/2020 DTap/Tdap Vaccines (3 - Td or Tdap) 04/30/2033 [...] as of this encounter Visit Diagnoses Diagnosis COVID-19- Primary documented in this encounter Care Teams Tray Line Worker Relationship Specialty Start Date End Date Ismael Villavicencio MD [address] [place] [address] PCP - General Internal Medicine 03/17/21 documented as of this encounter
--- OUTSIDE RECORDS SUMMARY | 2024-03-27 03:30 | External Medical Summary | Summary of Care ---
Author Name Unknown Organization [facility] Address [address] [place] [address] Phone [phone] Care Team Providers Care Door Attendant Name Role Phone Ismael Hernandez MD Primary Care Provider + Reason for Visit * Reason Onset Date Comments Medication Refill 03/24/2024 Encounter Details Date Type Department Care Team (Late st Contact Info) Description 03/24/2024 Refill General Internal Medicine [facility] [address] [place] [address] Donta Gonzalez, DO [address] [place] [address] Gastroesophageal reflux disease without esophagitis Allergies Active [...] of Breath or Wheezing. 18 g 3 1 Active NATURAL SUPPLEMENT Take by mouth daily . Beet Root Active Spironolactone 25 MG Oral Tablet (Aldactone)Indicatio ns:Hypertension goal BP (blood pressure) < 130/80 Take 1 Tablet by mouth in the morning. 90 Tablet 3 3 Active Atorvastatin Calcium 20 MG Oral Tablet (Lipitor)Indications :Right carotid artery occlusion Take 1 Tablet by mouth in the morning. 30 Tablet 5 4 Active Aspirin 81 MG Oral Tablet ChewableIndications: Right carotid artery occlusion,Left carotid artery stenosis,Old cerebrovascular accident (CVA) without late effect Take 1 Tablet by mouth in the morning. with food.. 100 Tablet 5 4 Active Furosemide 40 MG Oral Tablet (Lasix) TAKE 1 TABLET BY MOUTH EVERY DAY 90 Tablet 3 4 Active amLODIPine Besylate 10 MG Oral Tablet (Norvasc)Indications :Hypertension goal BP (blood pressure) < 130/80 Take 1 Tablet by mouth every evening. 90 Tablet 3 4 Active Fosinopril Sodium 40 MG Oral Tablet (Monopril)Indication s:Hypertension goal BP (blood pressure) < 130/80 Take 1 Tablet by mouth in the morning. 90 Tablet 3 4 Active Loratadine 10 MG Oral Tablet (Claritin)Indication s:Chronic rhinitis Take 1 Tablet by mouth in the morning. 90 Tablet 3 4 Active Nirmatrelvir&Ritonav ir 300/100 20 x 150 MG & 10 x 100MG Oral Tablet Therapy Pack (Paxlovid (300/100))Indication s:COVID-19 Take 2 pink tablets of Nirmatrelvir and 1 white tablet of Ritonavir two times a day by mouth. 30 Tablet 4 Active Pantoprazole Sodium 40 MG Oral Tablet Delayed Release (Protonix)Indication s:Gastroesophageal reflux disease without esophagitis Take 1 Tablet by mouth as needed (indigestion). 90 Tablet 1 4 Active Pantoprazole Sodium 40 MG Oral Tablet Delayed Release (Protonix)Indication s:Gastroesophageal reflux disease without esophagitis Take 1 Tablet by mouth as needed (indigestion). 90 Tablet 1 4 03/24/20 24 Discontinu ed(Refill) documented as of this encounter (statuses as [...] (Prevnar) 08/28/2018 Pneumococcal Conjugate Vacci ne, 20-valent ([id number]) 10/16/2022 Seasonal Influenza, Quadriva lent Hd (Fluzone [...] encounter Miscellaneous Notes * Telephone Encounter - Jitendra Hall [facility] - 03/24/2024 6:44 PM EDTSigned Prescriptions: Disp Refills Pantoprazole Sodium 40 MG Oral Tablet Jessica*90 Tab*1 Sig: Take 1 Tablet by mouth as needed (indigestion).Authorizing Provider: ISMAEL HERNANDEZ User: JITENDRA HALL documented in this encounter Plan of Treatment Upcoming Encounters Date Type Department Care Team (Late st Contact Info) Description 05/12/2024 1:30 PM EDT Office Visit Nephrology, [facility] [address] [place], [place] [address] Joana Gaspar PA-C [address] [place], [place] [address] 06/09/2024 9:20 AM EST Office Visit General Internal Medicine [facility] [address] [place], [place] [address] Ismael Hernandez MD [address] [place], [place] [address] 08/03/2024 9:30 AM EST Office Visit Cardiology, [facility] [address] [facility] [place] [address] Gadile Vasquez DO 132 [place] [address] 11/05/2024 1:00 PM EDT Office Visit General Internal Medicine [facility] [address] [place] [address] Ismael Hernandez MD [address] [place] [address] 12/31/2024 11:15 AM EDT Office Visit Dermatology [facility] [address] [place] [address] Ismael Nolan MD [address] [place], [place] [address] 01/04/2025 10:40 AM EDT Telemedicine Neurology [address] [place] [address] Wes Uribe MD [address] [facility] [place] [address] Scheduled Procedures Name Priority Associated Diagnoses [...] history exists Albumin/Creatinine Ratio 04/23/2025 04/23/2022, 0908/2020 DTap/Tdap Vaccines (3 - Td or Tdap) [...] as of this encounter Visit Diagnoses Diagnosis Gastroesophageal reflux disease without esophagitis Esophageal reflux documented in this encounter Care Teams Door Attendant Relationship Specialty Start Date End Date Ismael Hernandez MD [address] [place] [address] PCP - General Internal Medicine 03/17/21 documented as of this encounter
--- OUTSIDE RECORDS SUMMARY | 2024-03-27 03:30 | External Medical Summary ---
Author Name Unknown Address Unknown Organization K01:[facility] [place] [address] [place] [address] Laboratory Report Ordering Provider Test Date Status TONY BERG 03/02/2024 16:37:29 Final Observation Date Value Abnormality Reference (Units ) Status Mumps virus IgG Ab [Presence] in Serum by Immunoassay 03/02/2024 16:37:29 Positive Abnormal Negative Final A positive result is consist ent with having had mumps virus or vaccination. Performing Location [facility] [place] [address] [place] [address]
--- OUTSIDE RECORDS SUMMARY | 2024-03-27 03:30 | External Medical Summary | Summary of Care ---
Author Name Unknown Organization [facility] Address [address] [place] [address] Phone [phone] Care Team Providers Care Digital Librarian Name Role Phone Ismael Villavicencio MD Primary Care Provider + Reason for Visit * Reason Comments eRx-Medication Refill Loratadine Encounter Details Date Type Department Care Team (Late st Contact Info) Description 02/27/2024 Refill Pulmonary Medicine, [facility] [address] [facility] [place] [address] Samantha Virgen CRNP [address] [place] [address] Chronic rhinitis Allergies Active Allergy Reactions Criticality Noted Date [...] EVERY DAY 90 Tablet 3 12/03/2023 Active Pantoprazole Sodium 40 MG Oral Tablet [...] (Prevnar) 08/28/2018 Pneumococcal Conjugate Vacci ne, 20-valent ([id number]) 10/16/2022 Seasonal Influenza, Quadriva lent Hd (Fluzone [...] encounter Miscellaneous Notes * Telephone Encounter - Donta Jimenez DO - 03/02/2024 4:16 PM EDT Refused Prescriptions: Disp Refills Loratadine 10 MG Oral Tablet [Pharmacy Med*90 Tab*3 Sig: TAKE 1 TABLET BY MOUTH EVERY DAY IN THE MORNING Refused By: DONTA JIMENEZ Reason for Refusal: Duplicate Request * Telephone Encounter - Alfred Dobbins, MED ASSIST - 03/02/2024 3:57 PM EDTPending Prescriptions: Disp Refills Loratadine 10 MG Oral Tablet [Pharmacy Med*90 Tab*3 Sig: TAKE 1 TABLET BY MOUTH EVERY DAY IN THE MORNING * Telephone Encounter - Alfred Dobbins MED ASSIST - 03/02/2024 3:56 PM EDT Did you pend patient's preferred pharmacy and medication before forwarding?yes Pharmacy: [id number] [facility] Pending Prescriptions: Disp Refills Loratadine 10 MG Oral Tablet (Claritin) [*90 Tab*3 Sig: TAKE 1 TABLET BY MOUTH EVERY DAY IN THE MORNING Last Visit: 09/02/2023 (in office), Visit date not found (telemedicine) Next Visit: on recall list If no future appointments scheduled, and last appointment is greater than a year ago, please schedule patient for a follow-up appointment Last date the medication was ordered: 03/13/23 Is this request for a controlled substance?No Urine Drug Screen:No results found for this or any previous visit. Patient Phone Numbers Labs: Lab Results Component Value Date/Time CREAT 1.1 12/10/2023 10:35 AM CREAT 1.00 06/02/2023 12:00 AM POTASSIUM 4.8 12/10/2023 10:35 AM POTASSIUM 4.7 06/02/2023 12:00 AM TSH 3.27 12/10/2023 10:35 AM LDLCALC 89 12/10/2023 10:35 AM ALT 23 12/10/2023 10:35 AM * Telephone Encounter - Interface, E-Rx Ss Inbound - 03/02/2024 11:04 AM EDT Pending Prescriptions: Disp Refills Loratadine 10 MG Oral Tablet [Pharmacy Med*90 Tab*3 Sig: TAKE 1TABLET BY MOUTH EVERY DAY IN THE MORNING documented in this encounter Plan of Treatment Upcoming Encounters Date Type Department Care Team (Late st Contact Info) Description 05/12/2024 1:30 PM EDT Office Visit Nephrology, [facility] [address] [place], [place] [address] Joana Gaspar PA-C [address] [place] [address] 06/09/2024 9:20 AM EST Office Visit General Internal Medicine [facility] [address] [place], [place] [address] Ismael Villavicencio MD [address] [place] [address] 08/03/2024 9:30 AM EST Office Visit Cardiology, [facility] 132 [place] [address] Gadiel Vasquez DO [address] [place] [address] 11/05/2024 1:00 PM EDT Office Visit General Internal Medicine [facility] [address] [place] [address] Ismael Villavicencio MD [address] [place] [address] 12/31/2024 11:15 AM EDT Office Visit Dermatology [facility] [place] [address] [place], [place] [address] Ismael Nolan MD 200 [facility] [place] [address] 01/04/2025 10:40 AM EDT Telemedicine Neurology [facility] [address] [place] [address] [place] [address] Wes Uribe MD [address] [facility], [place] [address] Scheduled Procedures Name Priority Associated Diagnoses Date/Ti me COLONOSCOPY FLEXIBLE PROXIMAL DIAGNOSTIC Recall History of colon polyps Health Maintenance Due Date Last Done Comments Zoster Vaccines (1 of 2) 1996 Adult Wellness Visit 2012 COVID-19 Vaccine (2022- season) 2023 05/09/2023, 04/17/2022, 03/10/2021, Additional history [...] of this encounter Visit Diagnoses Diagnosis Chronic rhinitis documented in this encounter Care Teams Digital Librarian Relationship Specialty Start Date End Date Ismael Villavicencio MD 200 [place] [address] PCP - General Internal Medicine 03/17/21 documented as of this encounter
--- OUTSIDE RECORDS SUMMARY | 2024-03-27 03:31 | External Medical Summary | Summary of Care ---
Author Name Unknown Organization [facility] Address [address] [place] [address] Phone [phone] Care Team Providers Care Flight Hostess Name Role Phone Ismael Villavicencio MD Primary Care Provider + Reason for Visit * Reason Onset Date Comments Test Results 12/02/2023 Encounter Details Date Type Department Care Team (Late st Contact Info) Description [facility] [address] [facility] [place] [address] Neftaly Joseph MD [address] [facility] [place] [address] Test Results Allergies Active Allergy Reactions Criticality Noted Date Comments Acetaminophen Rash 10/10/2023 Baclofen Other (Please comment) 03/16/2021 Passed out Phenytoin Other (Please comment) 03/16/2021 Passed out Oxycodone Itching 03/16/2021 Percocet - itching documented as of this encounter (statuses as of 12/02/2023) Medications Medication Sig Dispensed Refills Start Date [...] Capsule by mouth in the morning. Active Biotin 5000 MCG Oral Capsule Take 1 Capsule by mouth in the morning. Active Glucosamine Chondr 1500 Complx Oral Capsule Take 2 Capsules by mouth in the morning. Active Ventolin HFA 108 (90 Base) MCG/ACT Inhalation Aerosol SolutionIndications:Mi ld intermittent asthma without complication Inhale 2 Puffs by mouth every 4 hours as needed for Cough, Shortness of Breath or Wheezing. 18 g 3 06/01/2021 Active NATURAL SUPPLEMENT Take by mouth daily . Beet Root Active Pantoprazole Sodium 40 MG Oral Tablet Delayed Release (Protonix) Take 1 Tablet by mouth as needed. Active Furosemide 40 MG Oral Tablet (Lasix) TAKE 1 TABLET BY MOUTH EVERY DAY 90 Tablet 3 12/11/2022 Active Loratadine 10 MG Oral Tablet (Claritin)Indications: Chronic rhinitis Take 1 Tablet by mouth in the morning. 90 Tablet 3 03/13/2023 Active amLODIPine Besylate 10 MG Oral Tablet (Norvasc)Indications:H ypertension goal BP (blood pressure) < 130/80 Take 0.5 Tablets by mouth every evening. 45 Tablet 3 06/04/2023 Active Fosinopril Sodium 40 MG Oral Tablet (Monopril)Indications: Hypertension goal BP (blood pressure) < 130/80 TAKE 1 TABLET BY MOUTH EVERY DAY IN THE MORNING 90 Tablet 3 06/07/2023 Active Spironolactone 25 MG Oral Tablet (Aldactone)Indications [...] with food.. 100 Tablet 5 11/07/2023 Active documented as of this encounter (statuses as of 12/02/2023) Active Problems Problem Noted Date Diagnosed Date [...] as of this encounter (statuses as of 12/02/2023) Resolved Problems Problem Noted Date Diagnosed Date Resolved Date Mild intermittent asthma with exacerbation 09/22/2021 09/22/2021 High pulmonary arterial pressure 04/03/2021 12/01/2021 Hyperlipidemia 03/16/2021 03/17/2021 documented as of this encounter (statuses as of 12/02/2023) Immunizations Name Administration Dates Next Due COVID-19 mRNA, LNP-s, No Pre serve, 2-Dose Series (Moderna) 03/10/2021,09/18/2020,08/21/2020 Covid-19, Mrna, Lnp-s, Pf, B ivalent, 50 Mcg, IM, 12 yrs and above (Moderna) 04/17/2022 Pneumococcal Conjugate Vacc, 13 Valent (Prevnar) 08/28/2018 Pneumococcal Conjugate Vacci ne, 20-valent ([id number]) 10/16/2022 Seasonal Influenza, Quadriva lent Hd (Fluzone [...] encounter Miscellaneous Notes * Telephone Encounter - Tayla Ronquillo CMA - 12/02/2023 11:54 AM EDT My g sent * Telephone Encounter - Tayla Ronquillo CMA - 12/02/2023 11:53 AM EDT ----- Message from Neftaly Joseph MD sent at 11/28/2023 3:26 PM EDT ----- Event monitor does not show significant arrhythmias. Occasional premature atrial beats and coupletswere present which could cause palpitations. No profound slowing documented in this encounter Plan of Treatment Upcoming Encounters Date Type Department Care Team (Late st Contact Info) Description 12/10/2023 10:15 AM EDT Office Visit Dermatology [facility] [address] [facility] [place] [address] Ismael Nolan MD 200 [facility] [place] [address] 12/18/2023 8:30 AM EDT Office Visit Hematology/Oncology [facility] [address] [facility] [place] [address] Jaquelin Mast CRNP [address] [place] [address] [place] [address] 12/19/2023 10:30 AM EDT Office Visit Cardiology, [facility] 132 [facility] [place] [address] Gadiel Vasquez DO [address] [place] [address] 12/30/2023 9:20 AM EDT Office Visit Neurology [facility] 200 [facility] [place] [address] Wes Uribe MD [address] [place] [address] 01/01/2024 7:15 AM EDT Cardiac Studies Cardiac Studies, [facility] 132 [facility] [place] [address] 05/12/2024 1:30 PM EDT Office Visit Nephrology, [facility] 200 [facility] [place] [address] Zemaitis, Joana Mendez PA-C 200 [facility] [place] [address] 06/09/2024 9:20 AM EST Office Visit General Internal Medicine [facility] 200 [facility] [place] [address] Ismael Villavicencio MD 200 [facility] [place] [address] Scheduled Procedures Name Priority Associated Diagnoses Date/Ti me COLONOSCOPY FLEXIBLE PROXIMAL DIAGNOSTIC Recall History of colon polyps Health Maintenance Due Date Last Done Comments Zoster Vaccines (1 of 2) 1996 COVID-19 Vaccine ( season) 2023 04/17/2022, 03/10/2021, 09/18/2020, Additional history exists Colonoscopy 12/26/2023 12/25/2022, 12/13, 09/04/2022, Additional history exists Depression Screening 04/30/2024 04/30/2023 GFR 11/06/2024 11/07/2023, 10/13, 07/24/2023, Additional history exists Albumin/Creatinine Ratio 04/23/2025 04/23/2022, 0908/2020 DTaP,Tdap,and Td Vaccines (3 - Td or Tdap) 04/30/2033 04/30/2023, 03/08/2018 Pneumococcal Vaccine: 65+ Years Completed 10/16/2022, 08/28/2018 RETIRED - COLONOSCOPY-ANNUAL AGES 18-100 Discontinued 12/25/2022, 12/25/2022, 09/04/2022, Additional history exists Influenza Vaccine (FLU shot) Completed 03/15/2023, 03/21/2021, 06/19/2018 GARDASIL-HPV IMMUNIZATION SERIES Aged Out [...] filedocumented as of this encounter Care Teams Flight Hostess Relationship Specialty Start Date End Date Ismael Villavicencio MD 200 [facility] [place] [address] PCP - General Internal Medicine 03/17/21 documented as of this encounter
--- OUTSIDE RECORDS SUMMARY | 2024-03-27 03:31 | External Medical Summary | Summary of Care ---
Author Name Unknown Organization [facility] Address [address] [place] [address] Phone [phone] Care Team Providers Care Yoga Instructor Name Role Phone Ismael Villavicencio MD Primary Care Provider + Reason for Visit * Reason Comments eRx-Medication Refill Encounter Details Date Type Department Care Team (Late st Contact Info) Description 12/01/2023 Refill Nephrology, [facility] 200 [facility] [place] [address] Ivan Mc MD 200 [facility] [place] [address] Allergies Active Allergy Reactions Criticality Noted Date Comments Acetaminophen Rash 10/10/2023 Baclofen Other (Please comment) 03/16/2021 Passed out Phenytoin Other (Please comment) 03/16/2021 Passed out Oxycodone Itching 03/16/2021 Percocet - itching documented as of this encounter (statuses as of 12/03/2023) Medications Medication Sig Dispensed Refills Start Date [...] 1 Tablet by mouth as needed. Active Loratadine 10 MG Oral Tablet (Claritin)Indication s:Chronic rhinitis Take 1 Tablet by mouth in the morning. 90 Tablet 3 3 Active amLODIPine Besylate 10 MG Oral Tablet (Norvasc)Indications :Hypertension goal BP (blood pressure) < 130/80 Take 0.5 Tablets by mouth every evening. 45 Tablet 3 3 Active Fosinopril Sodium 40 MG Oral Tablet (Monopril)Indication s:Hypertension goal BP (blood pressure) < 130/80 TAKE 1 TABLET BY MOUTH EVERY DAY IN THE MORNING 90 Tablet 3 3 Active Spironolactone 25 MG Oral Tablet (Aldactone)Indicatio [...] EVERY DAY 90 Tablet 3 4 Active Furosemide 40 MG Oral Tablet (Lasix) TAKE 1 TABLET BY MOUTH EVERY DAY 90 Tablet 3 3 12/03/19 24 Discontinued documented as of this encounter (statuses as of 12/03/2023) Active Problems Problem Noted Date Diagnosed Date [...] as of this encounter (statuses as of 12/03/2023) Resolved Problems Problem Noted Date Diagnosed Date Resolved Date Mild intermittent asthma with exacerbation 09/22/2021 09/22/2021 High pulmonary arterial pressure 04/03/2021 12/01/2021 Hyperlipidemia 03/16/2021 03/17/2021 documented as of this encounter (statuses as of 12/03/2023) Immunizations Name Administration Dates Next Due COVID-19 mRNA, LNP-s, No Pre serve, 2-Dose Series (Moderna) 03/10/2021,09/18/2020,08/21/2020 Covid-19, Mrna, Lnp-s, Pf, B ivalent, 50 Mcg, IM, 12 yrs and above (Moderna) 04/17/2022 Pneumococcal Conjugate Vacc, 13 Valent (Prevnar) 08/28/2018 Pneumococcal Conjugate Vacci ne, 20-valent ([id number]) 10/16/2022 Seasonal Influenza, Quadriva lent Hd (Fluzone [...] encounter Miscellaneous Notes * Telephone Encounter - Ivan Mc MD - 12/03/2023 1:55 PM EDTSigned Prescriptions: Disp Refills Furosemide 40 MG Oral Tablet (Lasix) 90 Tab*3 Sig: TAKE 1 TABLET BY MOUTH EVERY DAY Authorizing Provider: IVAN MC * Telephone Encounter - Ninfa Collins LPN - 12/02/2023 10:32 AM EDTPending Prescriptions: Disp Refills Furosemide 40 MG Oral Tablet [Pharmacy Med*90 Tab*3 Sig: TAKE 1 TABLET BY MOUTH EVERY DAY * Telephone Encounter - Ninfa Collins LPN - 12/02/2023 10:28 AM EDT Rx pended Message sent to provider for approval Last OV 11/07/23 Next OV 05/12/24 documented in this encounter Plan of Treatment Upcoming Encounters Date Type Department Care Team (Late st Contact Info) Description 12/10/2023 10:15 AM EDT Office Visit Dermatology [facility] [place] [address] [place] [address] Ismael Nolan MD [facility] [place] [address] 12/18/2023 8:30 AM EDT Office Visit Hematology/Oncology [facility] [place] [address] [place] [address] [phone] Jaquelin Mast CRNP [address] [place] [address] 12/19/2023 10:30 AM EDT Office Visit Cardiology, [facility] [address] [place] [address] Gadiel Vasquez DO [facility] [address] 12/30/2023 9:20 AM EDT Office Visit Neurology [facility] [place] [address] [place] [address] Wes Uribe MD [address] [place] [address] 01/01/2024 7:15 AM EDT Cardiac Studies Cardiac Studies, [facility] [address] [place] [address] 05/12/2024 1:30 PM EDT Office Visit Nephrology, [facility] [address] [place] [address] Joana Gaspar PA-C [address] [place] [address] 06/09/2024 9:20 AM EST Office Visit General Internal Medicine [facility] [place] [address] [place] [address] Ismael Villavicencio MD 200 [facility] [place], [place] [address] Scheduled Procedures Name Priority Associated Diagnoses Date/Ti [...] filedocumented as of this encounter Care Teams Yoga Instructor Relationship Specialty Start Date End Date Ismael Villavicencio MD [address] [place], [place] [address] PCP - General Internal Medicine 03/17/21 documented as of this encounter
--- OUTSIDE RECORDS SUMMARY | 2024-03-27 03:31 | External Medical Summary ---
Author Name Unknown Address Unknown Organization K01:[facility] [place] 100 [facility] [place] [address] Laboratory Report Ordering Provider Test Date Status DO LOUANNSEBASGEORGETTE 12/10/2023 10:35:23 Final Observation Date Value Abnormality Reference (Units ) Status Triglyceride 12/10/2023 10:35:23 60 <=174 ( mg/dL) Final Triglyceride Reference Range s (mg/dL):
<150 Acceptable
150-174 Borderline high
175-499 High
>=500 Very high Cholesterol 12/10/2023 10:35:23 175 <200 (mg /dL) Final Total Cholesterol Reference Ranges (mg/dL):
<200 Desirable
200-239 Borderline high
>=240 High HDL 12/10/2023 10:35:23 74 >39 (mg/dL ) Final HDL Cholesterol Reference Ra nges (mg/dL):
>=60 High (Desirable)
<50 Low (Undesirable) For Females
<40 Low (Undesirable) For Males NON-HDL CHOLESTEROL 12/10/2023 10:35:23 101 <=159 (mg/dL) Final Non-HDL Cholesterol Referenc e Range (mg/dL):
<100 Target level for high risk ASCVD patient
<130 Optimal for general population
130-159 Near optimal for general population
160-189 Borderline High
190-219 High
>=220 Very High LDL, (calculated) 12/10/2023 10:35:23 89 <= 129 (mg/dL) Final LDL Cholesterol Reference Ra nges (mg/dL):
<70 Target level for high risk ASCVD patient
<100 Optimal for general population
100-129 Near optimal for general population
130-159 Borderline high
160-189 High
>=190 Very high Performing Location [facility] [place] [address] [facility] [address]
--- OUTSIDE RECORDS SUMMARY | 2024-03-27 03:31 | External Medical Summary | Summary of Care ---
Author Name Unknown Organization [facility] Address [address] [place] [address] Phone [phone] Care Team Providers Care Administrative Office Specialist Name Role Phone Ismael Villavicencio MD Primary Care Provider + Reason for Visit * Reason Comments Follow Up Encounter Details Date Type Department Care Team (Late st Contact Info) Description 12/18/2023 8:30 AM EDT Office Visit Hematology/[facility] [address] Jaquelin Mast, CHIDI [address] [place] [address] Monocytosis* Allergies Active Allergy Reactions Criticality Noted Date Comments Acetaminophen Rash 10/10/2023 Baclofen Other (Please comment) 03/16/2021 Passed out Phenytoin Other (Please comment) 03/16/2021 Passed out Oxycodone Itching 03/16/2021 Percocet - itching documented as of this encounter (statuses as of 12/18/2023) Medications Medication Sig Dispensed Refills Start Date [...] needed. Active Loratadine 10 MG Oral Tablet (Claritin)Indications: [...] EVERY DAY 90 Tablet 3 12/03/2023 Active documented as of this encounter (statuses as of 12/18/2023) Active Problems Problem Noted Date Diagnosed Date [...] as of this encounter (statuses as of 12/18/2023) Resolved Problems Problem Noted Date Diagnosed Date Resolved Date Mild intermittent asthma with exacerbation 09/22/2021 09/22/2021 High pulmonary arterial pressure 04/03/2021 12/01/2021 Hyperlipidemia 03/16/2021 03/17/2021 documented as of this encounter (statuses as of 12/18/2023) Immunizations Name Administration Dates Next Due COVID-19 mRNA, LNP-s, No Pre serve, 2-Dose Series (Moderna) 03/10/2021,09/18/2020,08/21/2020 Covid-19, Mrna, Lnp-s, Pf, B ivalent, 50 Mcg, IM, 12 yrs and above (Moderna) 04/17/2022 Pneumococcal Conjugate Vacc, 13 Valent (Prevnar) 08/28/2018 Pneumococcal Conjugate Vacci ne, 20-valent ([id number]) 10/16/2022 Seasonal Influenza, Quadriva lent Hd (Fluzone [...] Sign Reading Time Taken Comments Blood Pressure 135/71 12/18/2023 8:37 AM EDT Pulse 52 12/18/2023 8:37 AM EDT Temperature 36.2 C (97.2 F) 12/18/2023 8:37 AM ED T Respiratory Rate 16 12/18/2023 8:37 AM EDT Oxygen Saturation 94% 12/18/2023 8:37 AM EDT Inhaled Oxygen Concentration - - Weight 74.7 kg (164 lb 11.2 oz) 12/18/2023 8:37 AM EDT Height - - Body Mass Index 27.41 11/07/2023 2:39 PM EDT documented in this encounter Progress Notes * Jaquelin Mast CRNP - 12/18/2023 8:30 AM EDT Hematology/Oncology Outpatient Clinic note [facility], [place] Name: Tremaine Brady Date: 12/18/2023 CHIEF COMPLAINT: Tremaine Brady is a 78 year old male to review lab results. He has had a history of monocytosis. DIAGNOSIS: Monocytosis HISTORY OF PRESENT ILLNESS: PMH of HTN, [...] K/uL 0.06 0.07 0.06 0.09 0.06 Patient is a nonsmoker. Denies alcohol intake. Mother passed from complications of rheumatoid arthritis. Paternal grandmother with history of breast cancer in her 90s. Patient's past medical history, social history, and family history were reviewed and updated. HISTORY OF PRESENT ILLNESS: Tremaine Brady is a 78 year old male with a history as outlined above. Currently here for f/u visit today. Patient feeling well today. No complaints or concerns verbalized. Denies any drenching night sweatsor unexplained weight loss. No reported enlarged LN. No recent or frequent infections. Denies abdominal pain, bloating or early satiety. Patient reports arthritis pains throughout his whole body. Takes tylenol as needed. Tries not to take anything. No diarrhea, constipation, nausea,vomiting or blood in the stool. No urinary issues. Past Medical History: Diagnosis Date Asthma Chronic [...] performed by Treasure Cruz MD at [facility] COLONOSCOPY, DIAGNOSTIC (RECTUM) 12/25/2022 prep-fair, 1-4 mm in cecum, otherwise normal / biopsies benign adenomatous polyp / 1 year w/ 2 day prep / COLONOSCOPY FLEXIBLE PROXIMAL DIAGNOSTIC performed by Treasure Cruz MD at [facility] TOTAL HIP REPLACEMENT & PROSTHESIS Bilateral 2017 Social History Socioeconomic History Marital status: Spouse name: Not on file Number of children: 3 Years of education: Not on file Highest education level: Not on file Occupational History Occupation: retired - [employer] Tobacco Use Smoking status: Former Current packs/day: 0.00 Average packs/day: 0.8 packs/day for 27.0 years (20.3 ttl pk-yrs) Types: Cigarettes Start date: 07/15/1966 Quit date: 07/15/1993 Years since quittin.4 Smokeless tobacco: Never Vaping Use Vaping status: [...] No current facility-administered medications for this visit. REVIEW OF SYSTEMS: See HPI - otherwise negative OBJECTIVE: Filed Vitals: 12/18/23 0837 BP: 135/71 Pulse: 52 Resp: 16 Temp: 36.2 C (97.2 F) TempSrc: Tympanic SpO2: 94% Weight: 74.7 kg (164 lb 11.2 oz) Wt Readings from Last 5 Encounters: 12/18/23 74.7 kg (164 lb 11.2 oz) 11/20/23 73.7 kg (162 lb 6.4 oz) 11/07/23 73.5 kg (162 lb) 11/07/23 73.5 kg (162 lb) 10/25/23 73.4 kg (161 lb 12.8 oz) PHYSICAL EXAM: ECOG: Performance Status 0 = 100% Normal Activity General Appearance: Normal - Healthy appearing patient in no acute distress HEENT: Normal - No oral or pharyngeal masses, ulceration or thrush noted, no sinus tenderness Lymph Nodes: Normal - No palpable lymph nodes in the neck or supraclavicular areas Lungs/Thorax: Normal - Clear to auscultation Heart: Normal - Regular rate and rhythm, normal S1, S2, no appreciable murmurs, rubs, gallops Pulses/Extremities: Normal - 2+ throughout and symmetrical, no edema Abdomen: Normal - Soft, nontender, bowel sounds present, no appreciable hepatosplenomegaly, no palpable masses Musculoskeletal: Normal - No pain on palpation over bony prominence, no joint or bony deformity Neurologic: Normal - Grossly intact LABS: Results for orders placed or performed in visit on 12/18/23 CBC Result Value Ref Range WBC 9.09 4.00 - 10.80 K/uL RBC 4.20 4.50 - 5.25 M/uL HGB 13.6 (L) 14.0 - 16.8 g/dL HCT 40.0 40.0 - 48.4 % MCV 95.2 82.0 - 99.5 fL MCH 32.4 27.0 - 34.0 pg MCHC 34.0 32.0 - 36.0 g/dL RDW 13.5 11.5 - 15.5 % PLT 189 140 - 400 K/uL MPV 9.6 6.6 - 11.1 fL DIFFERENTIAL, AUTOMATED Result Value Ref Range WBC 9.09 4.00 - 10.80 K/uL Neutrophils % 48.0 40.0 - 75.0 % Lymphocytes % 29.4 18.0 - 42.0 % Monocytes % 16.7 (H) 1.0 - 11.0 % Eosinophils % 5.1 0.0 - 6.0 % Basophils % 0.8 0.0 - 2.0 % Absolute Neutrophils 4.37 1.80 - 7.70 K/uL Absolute Lymphocytes 2.67 1.00 - 4.80 K/ul Absolute Monocytes 1.52 (H) 0.00 - 1.10 K/uL Absolute Eosinophils 0.46 0.00 - 0.70 K/uL Absolute Basophils 0.07 0.00 - 0.20 K/uL IMPRESSION: Monocytosis: 78 y/o male with PMH of HTN, OA, HLD, CHF, asthma. Chronic and mild monocytosis present for at least the last three years No abnormalities in other cell lines including [...] the future if indicated. RTC PRN [place] documented in this encounter Nursing Notes * Siomara Rojas MED ASSIST - 12/18/2023 8:38 AM EDT Patient identifed by name and birthdate Do you have any concerns about pain management for today's visit? Yes. Patient instructed to discuss pain concerns with provider during the visit today Living Will or Advance Directive for Health Care as noted on the problem list. [facility] is a way you can talk to your provider on line through e-mail. Would you like to sign up? I can activate it for you? ALREADY ACTIVE Filed Vitals: 12/18/23 0837 BP: 135/71 Pulse: 52 Resp: 16 Temp: 36.2 C (97.2 F) TempSrc: Tympanic SpO2: 94% Weight: 74.7 kg (164 lb 11.2 oz) Patient was instructed to not get up [...] Care Team (Late st Contact Info) Description 12/19/2023 10:30 AM EDT Office Visit Cardiology, [facility] 132 [place] [address] Gadiel Vasquez, 132 [place] [address] 12/30/2023 9:20 AM EDT Office Visit Neurology [facility] 200 [facility] [place] [address] Wes Uribe MD [address] [place], [place] [id number] 01/01/2024 7:15 AM EDT [facility] 132 [place] [address] 05/12/2024 1:30 PM EDT Office Visit Nephrology, [facility] 200 [facility] [place] [address] ZemaJoana cummings PA-C 200 [facility] [address] [place] [address] 06/09/2024 9:20 AM EST Office Visit General Internal Medicine [facility] 200 [facility] [place] [address] Ismael Villavicencio MD 200 [facility] [place] [address] 12/31/2024 11:15 AM EDT Office Visit Dermatology [facility] 200 [facility] [address] [place] [address] Ismael Nolan MD 200 [facility] [place] [address] Scheduled Procedures Name Priority Associated Diagnoses Date/Ti me COLONOSCOPY FLEXIBLE PROXIMAL DIAGNOSTIC Recall History of colon polyps Health Maintenance Due Date Last Done Comments Zoster Vaccines (1 of 2) 1996 COVID-19 Vaccine ( season) 2023 04/17/2022, 03/10/2021, 09/18/2020, Additional history exists Colonoscopy 12/26/2023 12/25/2022, 12/13, 09/04/2022, Additional history exists Depression Screening 04/30/2024 04/30/2023 GFR 12/09/2024 12/10/2023, [...] (symptomatic) documented in this encounter Care Teams Administrative Office Specialist Relationship Specialty Start Date End Date Ismael Villavicencio MD [address] [place] [address] PCP - General Internal Medicine 03/17/21 documented as of this encounter
--- OUTSIDE RECORDS SUMMARY | 2024-03-27 03:31 | External Medical Summary | Summary of Care ---
Author Name Unknown Organization [facility] Address [address] [place] [address] Phone [phone] Care Team Providers Care Student Finance Advisor Name Role Phone Ismael Villavicencio MD Primary Care Provider + Reason for Visit * Reason Comments Follow Up * Evaluate & Treat - Unlimited Visits (Within 10 days (routine)) - Authorized Specialty Diagnoses / Procedures Referred By Contact Referred To Contact Cardiovascular Medicine / Cardiology Diagnoses Abnormal EKG Ismael Villavicencio MD [address] [place] [address] Referral ID Status Reason Start Date Expiration Date Visits Requested Visits Authorized [id number] Authorized Specialty Services Required 10/25/[phone] Encounter Details Date Type Department Care Team (Late st Contact Info) Description 12/19/2023 10:30 AM EDT Office Visit Cardiology, [facility] [address] [place] [address] Gadiel Vasquez, [address] [place] [address] Vasovagal syncope*; Hospital discharge follow-up; Dyslipidemia, goal LDL below 70; Pulmonary hypertension (HCC); Bradycardia, sinus; Dyslipidemia; Chronic hyponatremia Allergies Active Allergy Reactions Criticality Noted Date Comments Baclofen Other (Please comment) 03/16/2021 Passed out Phenytoin Other (Please comment) 03/16/2021 Passed out Oxycodone Itching 03/16/2021 Percocet - itching documented as of this encounter (statuses as of 12/19/2023) Medications Medication Sig Dispensed Refills Start Date [...] 06/07/2023 Active Spironolactone 25 MG Oral Tablet (Aldactone)Indicatio [...] EVERY DAY 90 Tablet 3 12/03/2023 Active Biotin 5000 MCG Oral Capsule Take 1 Capsule by mouth in the morning. Discontinue d(Patient preference/ discontinua tion) documented as of this encounter (statuses as of 12/19/2023) Active Problems Problem Noted Date Diagnosed Date [...] as of this encounter (statuses as of 12/19/2023) Resolved Problems Problem Noted Date Diagnosed Date Resolved Date Mild intermittent asthma with exacerbation 09/22/2021 09/22/2021 High pulmonary arterial pressure 04/03/2021 12/01/2021 Hyperlipidemia 03/16/2021 03/17/2021 documented as of this encounter (statuses as of 12/19/2023) Immunizations Name Administration Dates Next Due COVID-19 mRNA, LNP-s, No Pre serve, 2-Dose Series (Moderna) 03/10/2021,09/18/2020,08/21/2020 Covid-19, Mrna, Lnp-s, Pf, B ivalent, 50 Mcg, IM, 12 yrs and above (Moderna) 04/17/2022 Pneumococcal Conjugate Vacc, 13 Valent (Prevnar) 08/28/2018 Pneumococcal Conjugate Vacci ne, 20-valent ([id number]) 10/16/2022 Seasonal Influenza, Quadriva lent Hd (Fluzone [...] Sign Reading Time Taken Comments Blood Pressure 106/66 12/19/2023 10:33 AM EDT Pulse 72 12/19/2023 10:33 AM EDT Temperature - - Respiratory Rate 20 12/19/2023 10:33 AM EDT Oxygen Saturation - - Inhaled Oxygen Concentration - - Weight 73.6 kg (162 lb 3.2 oz) 12/19/2023 10:33 AM EDT Height - - Body Mass Index 26.99 11/07/2023 2:39 PM EDT documented in this encounter Progress Notes * Gadiel Vasquez DO - 12/19/2023 10:34 AM EDT SUBJECTIVE: Patient returns today for follow up of abnormal resting ECG, mild pulmonary hypertension, hypertension, chronic sinus bradycardia, and right ventricular enlargement. Hospitalized October 31, 2023 due to syncope. Event witnessed by his . He had been working at a [employer] and suddenly fell backwards. Hypotension documented. Telemetry during hospitalization demonstrating persistent bradycardia without pauses or heart block. 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 He was discharged to home with recommendation for outpatient 14 day Zio monitor. Results listed below. Feeling well today. Looking forward to competing in assuming portion of a half marathon. Has slowlyincreased his swimming exercise regiment. Denies any exertional symptoms. Competing in multiple triathlons throughout his lifetime. No recurrent lightheadedness, dizziness, syncope, or near syncope. Denies palpitations, orthopnea, or PND. Chronic, mild bilateral pedal and ankle edema unchanged. Borderline resting hypotension noted. ROS: All others negative other than those noted in the HPI. Zio monitor report November 06, 2023: Patient had a min HR of 22 bpm, max HR of 136 bpm, and avg HR of 60 bpm. 2 runs of Supraventricular Tachycardia occurred longest lasting 9 beats with a max rate of 133 bpm with aberrant conduction (avg 122 bpm). 1 Pause occurred lasting 3.1 secs (20 bpm). following blocked PAC . Idioventricular Rhythm was present. Second Degree AV Block-Mobitz I (Wenckebach) was present. Isolated SVEs were occasional (1.6%, 75223), SVE Couplets were rare (<1.0%, 406), and no SVE Triplets were present. Isolated VEs were rare (<1.0%), VE Couplets were rare (<1.0%), and no VE Triplets were present. No patient marker or diary entries were recorded Exercise stress echo report November 08, 2021: Complete resting echocardiogram performed 10/09/2021, imgaes and report available during the study. Microcavitation study performed. The primary indication after review was deemed appropriate and the examination was performed. Nonischemic exercise stress echocardiogram at 78% max predicted heart rate but patient did achieve 10 Mets. The low heart rate response to stress reduces the sensitivity of this test for the detection of coronary artery disease or ischemia. No arrhythmias. Elevated blood pressure response to exercise. Above average exercise tolerance for age. Intact interatrial septum with negative bubble study. 2D echocardiogram (images personally reviewed) October 09, 2021: The qualitative LV ejection fraction is 60-64% (normal). The left atrium is severely enlarged (>48 ml/m^2,). The right atrium is severely enlarged. The left ventricular diastolic function is mildly abnormal (grade I). trace aortic regurgitation The right ventricular cavity is severely dilated. The right ventricular systolic function is severely reduced . Mild mitral regurgitation is present. Mild tricuspid regurgitation is present. Normal IVC size and collapsability with sniff indicates a normal right atrial pressure of 3 mmHg. The estimated pulmonary artery systolic pressure is 45mm Hg. 2D echocardiogram (images personally reviewed) March 30, 2021: The qualitative LV ejection fraction is 60-64% (normal). The left atrium is severely enlarged (>48 ml/m^2,). The right atrium is moderately enlarged. The left ventricular diastolic function is mildly abnormal (grade I). Mild mitral regurgitation is present. Mild tricuspid regurgitation is present. The estimated pulmonary artery systolic pressure is 45mm Hg. Patient Active Problem List Diagnosis Hypertension goal BP (blood pressure) < 130/80 Chronic hyponatremia Osteoarthritis Mixed hyperlipidemia Chronic edema Chronic diastolic congestive heart failure (HCC) Mild mitral regurgitation Pulmonary hypertension (HCC) Mild persistent asthma without complication Mild aortic regurgitation Neuromuscular respiratory weakness (HCC) Right carotid artery occlusion Old cerebrovascular accident (CVA) without late effect Left carotid artery stenosis Former smoker Social History Tobacco Use Smoking status: Former Current packs/day: 0.00 Average packs/day: 0.8 packs/day for 27.0 years (20.3 ttl pk-yrs) Types: Cigarettes Start date: 07/15/1966 Quit date: 07/15/1993 Years since quittin.4 Smokeless tobacco: Never Vaping Use Vaping status: Never Used Substance Use Topics Alcohol use: Yes Alcohol/week: 2.0 standard drinks of alcohol Types: 2 5 oz of wine per week Comment: socially Drug use: Never Review of patient's allergies indicates: Allergen Reactions [...] No current facility-administered medications for this visit. Lipid Panel Results: Results for orders placed or performed in visit on 03/19/21 LIPID PANEL WITH DIRECT LDL IF TG IS HIGH Result Value Ref Range Triglycerides 54 <=174 mg/dL Cholesterol 175 <200 mg/dL HDL Cholesterol 69 >39 mg/dL Non-HDL Cholesterol 106 <=159 mg/dL LDL Cholesterol 95 <=129 mg/dL Lab Results Component Value Date/Time KACI STALLINGS 3.27 12/10/2023 10:35 AM CBC Results: Results for orders placed or performed in visit on 06/01/21 CBC Result Value Ref Range WBC 6.41 4.00 - 10.80 K/uL RBC 4.09 (L) 4.50 - 5.25 M/uL HGB 13.1 (L) 14.0 - 16.8 g/dL HCT 38.4 (L) 40.0 - 48.4 % MCV 93.9 82.0 - 99.5 fL MCH 32.0 27.0 - 34.0 pg MCHC 34.1 32.0 - 36.0 g/dL RDW 13.3 11.5 - 15.5 % PLT 158 140 - 400 K/uL MPV 10.2 6.6 - 11.1 fL OBJECTIVE/PHYSICAL EXAMINATION: BP 106/66 (BP Site: Left Arm, BP Position: Sitting, BP Cuff Size: Regular) | Pulse 72 | Resp 20 | Wt 73.6 kg (162 lb 3.2 oz) | BMI 26.99 kg/m | BSA 1.84 m General: NAD, AAO x3, well nourished. HEENT: Normocephalic. Atraumatic. Conjunctiva pink, no scleral icterus. No carotid bruits, the carotid upstrokes are brisk. No JVD. No HJR Heart: Regular normal S-1 and S-2 no S-3 or S-4 gallop. No murmurs or rubs appreciated. PMI is not displaced. No RV heave.Lungs: Clear bilateral without rales , rhonchi, or wheeze. Abdomen: Normal bowel sounds. Soft. Nontender. No masses or organomegaly. No abdominal bruits. Extremities: Trace bilateral ankle edema. No clubbing or cyanosis. Pulses: radial=2/4, Dorsalis pedis =2/4, posterior tibial=2/4. Neuro: No focaldeficits. ASSESSMENT: 1. Recent hospitalization due to syncope -vagal etiology versus hypotension per history -no symptomatic bradycardia or high-degree heart block per Zio monitor. 2. Right ventricular enlargement, biatrial enlargement, and evidence of pulmonary hypertension. Mild, grade 1 diastolic dysfunction per echocardiogram. No evidence of intracardiac shunt with injection of agitated saline contrast. -asymptomatic with above average exercise tolerance per stress testing. 3. Chronic right internal carotid artery occlusion 4. HTN - well controlled with borderline resting hypotension 5. Sinus bradycardia - beta-christofer discontinued 6. Dyslipidemia - LDL controlled, tolerating low-dose atorvastatin 7. Hyponatremia PLAN: Reduce spironolactone 12.5 mg daily. 2000 mL fluid restriction as per Nephrology due to hyponatremia. Continue other cardiovascular medications including furosemide, amlodipine, atorvastatin, and ROGER-inhibitor. Repeat resting 2D transthoracic echocardiogram as scheduled. Encouraged patient to continue his regular aerobic exercise regimen as tolerated. Follow Up: Return in about 6 months (around 06/19/2024). Gadiel Vasquez DO, [facility] Associate Cardiology - Pelon Dick documented in this encounter Nursing Notes * Regi Gilmore CMA - 12/19/2023 10:45 AM EDT Examination Room: 13 Name: Tremaine Brady Date of : (1945). Reason for Visit: 10M f/u Interim Hospitalization(s): [facility] September & Oct Problems/Concerns: Denies, wishes to ask about possibly participating in relay race. Chest Pain/SOB: denies [facility] Discussed: Not applicable [facility] is a way you can talk to your provider online through e-mail. Would you like to sign up? I can activate it for you? ALREADY ACTIVE Patient was instructed to not get up on the exam table until directed and assisted by their provider; patient is to remain seated in the chair/ wheelchair/ exam table for fall prevention and safety reasons. Patient is aware to have assistance to step down off exam table with personnel. Patient voiced full comprehension of instructions. documented in this encounter Plan of Treatment Upcoming Encounters Date Type Department Care Team (Late st Contact Info) Description 12/30/2023 9:20 AM EDT Office Visit Neurology [facility] [address] [facility] [place] [address] Wes Uribe MD [address] [place] [facility] [place] [address] 01/01/2024 7:15 AM EDT Cardiac Studies Cardiac Studies, [facility] [address] [facility] [place] [address] 05/12/2024 1:30 PM EDT Office Visit Nephrology, [facility] [address] [place] [address] [address] Joana Gaspar PA-C [address] [place] [address] 06/09/2024 9:20 AM EST Office Visit General Internal Medicine [facility] [place] [address] [place] [address] Ismael Villavicencio MD [address] [facility] [place] [address] 08/03/2024 9:30 AM EST Office Visit Cardiology, [facility] [address] [place] [address] Gadiel Vasquez DO [address] [place] [address] 12/31/2024 11:15 AM EDT Office Visit Dermatology [facility] [address] [facility] [place] [address] Ismael Nolan MD [address] [facility] [place] [address] Scheduled Procedures Name Priority Associated Diagnoses Date/Ti [...] as of this encounter Visit Diagnoses Diagnosis Vasovagal syncope- Primary Syncope and collapse Hospital discharge follow-up Other follow-up examination Dyslipidemia, goal LDL below 70 Other and unspecified hyperlipidemia Pulmonary hypertension (HCC) Other chronic pulmonary heart diseases Bradycardia, sinus Other specified cardiac dysrhythmias Dyslipidemia Other and unspecified hyperlipidemia Chronic hyponatremia Hyposmolality and/or hyponatremia documented in this encounter Care Teams Student Finance Advisor Relationship Specialty Start Date End Date Ismael Villavicencio MD [address] [place] [address] PCP - General Internal Medicine 03/17/21 documented as of this encounter"
--- OUTSIDE RECORDS SUMMARY | 2024-03-27 03:31 | External Medical Summary | Summary of Care ---
Author Name Unknown Organization [facility] Address [address] [place] [address] Phone [phone] Care Team Providers Care Supervisor Electric Name Role Phone Ismael Villavicencio MD Primary Care Provider + Reason for Visit * Reason Comments Outpatient Testing Encounter Details Date Type Department Care Team (Late st Contact Info) Description 12/18/2023 8:20 AM EDT [facility] [address] [place] [id number] [facility] [address] [place] [address] Monocytosis Allergies Active Allergy Reactions Criticality Noted Date [...] (Prevnar) 08/28/2018 Pneumococcal Conjugate Vacci ne, 20-valent ([id number]) 10/16/2022 Seasonal Influenza, Quadriva lent Hd (Fluzone [...] 12/19/2023 10:30 AM EDT Office [facility] [address] Gadiel Vasquez, [address] [facility] [place] [address] 12/30/2023 9:20 AM EDT [facility] [address] [place] [address] Wes Uribe MD [address] [place] [address] 01/01/2024 7:15 AM EDT Cardiac Studies Cardiac Studies, [facility] [address] [facility] [place] [address] 05/12/2024 1:30 PM EDT Office Visit Nephrology, [facility] [address] [place] [address] Joana Gaspar PA-C [address] [place] [address] 06/09/2024 9:20 AM EST Office Visit General Internal Medicine [facility] [place] [address] [place] [address] Ismael Villavicencio MD [address] [facility] [place] [address] 12/31/2024 11:15 AM EDT Office Visit Dermatology [facility] [place] [address] [place] [address] Ismael Nolan MD [address] [place] [address], [place] [address] Scheduled Procedures Name Priority Associated Diagnoses Date/Ti [...] Priority Date/Time Associated Diagnosis Comments DIFFERENTIAL, AUTOMATED STAT 12/18/2023 9:03 AM EDT Monocytosis CBC STAT 12/18/2023 9:03 AM EDT Monocytosis CBC STAT 12/18/2023 9:03 AM EDT Monocytosis documented in this encounter Results * (ABNORMAL) DIFFERENTIAL, AUTOMATED (12/18/2023 9:03 AM EDT) WBC 9.09 4.00 - 10.80 K/uL 12/18/2023 9:09 AM EDT [facility] 56-02 Neutrophils % 48.0 40.0 - 75.0 % 12/18/2023 9:09 AM EDT [facility] 56- Lymphocytes % 29.4 18.0 - 42.0 % 12/18/2023 9:09 AM EDT [facility] 56- Monocytes % 16.7(H) 1.0 - 11.0 % 12/18/2023 9:09 AM EDT [facility] 56- Eosinophils % 5.1 0.0 - 6.0 % 12/18/2023 9:09 AM EDT [facility] 56- Basophils % 0.8 0.0 - 2.0 % 12/18/2023 9:09 AM EDT [facility] 56- Absolute Neutrophils 4.37 1.80 - 7.70 K/uL 12/18/2023 9:09 AM EDT [facility] 56-02 Absolute Lymphocytes 2.67 1.00 - 4.80 K/ul 12/18/2023 9:09 AM EDT [facility] 56-02 Absolute Monocytes 1.52(H) 0.00 - 1.10 K/uL 12/18/2023 9:09 AM EDT [facility] 56-02 Absolute Eosinophils 0.46 0.00 - 0.70 K/uL 12/18/2023 9:09 AM EDT [facility] 56-02 Absolute Basophils 0.07 0.00 - 0.20 K/uL 12/18/2023 9:09 AM EDT [facility] 56-02 Blood Venous blood specimen / Unknown Venipuncture / Unknown 12/18/2023 9:03 AM EDT 12/18/2023 9:03 AM EDT Jaquelin MURILLO LAB BLOOD ORDERAB LES [facility] [address] [place] [address] * (ABNORMAL) CBC (12/18/2023 9:03 AM EDT) WBC 9.09 4.00 - 10.80 K/uL 12/18/2023 9:09 AM EDT [facility] 56 RBC 4.20 4.50 - 5.25 M/uL 12/18/2023 9:09 AM EDT [address] HGB 13.6(L) 14.0 - 16.8 g/dL 12/18/2023 9:09 AM EDT [address] HCT 40.0 40.0 - 48.4 % 12/18/2023 9:09 AM EDT [facility] MCV 95.2 82.0 - 99.5 fL 12/18/2023 9:09 AM EDT [address] MCH 32.4 27.0 - 34.0 pg 12/18/2023 9:09 AM EDT [address] MCHC 34.0 32.0 - 36.0 g/dL 12/18/2023 9:09 AM EDT [address] RDW 13.5 11.5 - 15.5 % 12/18/2023 9:09 AM EDT [facility] 56 PLT 189 140 - 400 K/uL 12/18/2023 9:09 AM EDT [facility] 56 MPV 9.6 6.6 - 11.1 fL 12/18/2023 9:09 AM EDT [facility] 56 Blood Venous blood specimen / Unknown Venipuncture / Unknown 12/18/2023 9:03 AM EDT 12/18/2023 9:03 AM EDT Jaquelin MURILLO LAB BLOOD ORDERAB LES [facility] [address] [place] [address] documented in this encounter Visit Diagnoses Diagnosis Monocytosis Monocytosis (symptomatic) documented in this encounter Care Teams Supervisor Electric Relationship Specialty Start Date End Date Ismael Villavicencio MD [address] [place] [address] PCP - General Internal Medicine 03/17/21 documented as of this encounter
--- OUTSIDE RECORDS SUMMARY | 2024-03-27 03:31 | External Medical Summary ---
Author Name Unknown Address Unknown Organization [id number]:[facility] - [address] [facility] [address] Laboratory Report Ordering Provider Test Date Status MARY LEW 12/10/2023 10:35:23 Final Observation Date Value Abnormality Reference (Units ) Status TSH 12/10/2023 10:35:23 3.27 0.27-4.20 (uIU/mL) Final Performing Location [facility] - [address] [facility] [address]
--- OUTSIDE RECORDS SUMMARY | 2024-03-27 03:31 | External Medical Summary ---
Author Name Unknown Address Unknown Organization [id number]:[facility] [place] [address] Laboratory Report Ordering Provider Test Date Status MIRA SANCHEZ 12/18/2023 09:03:37 Final Observation Date Value Abnormality Reference (Units ) Status WBC, Total 12/18/2023 09:03:37 9.09 4.00-10.8 0 (K/uL) Final RBC 12/18/2023 09:03:37 4.20 4.50-5.25 (M/uL) Final Hemoglobin 12/18/2023 09:03:37 13.6 Below low normal 14 .0-16.8 (g/dL) Final HCT 12/18/2023 09:03:37 40.0 40.0-48.4 (%) Final MCV 12/18/2023 09:03:37 95.2 82.0-99.5 (fL) Final MCH 12/18/2023 09:03:37 32.4 27.0-34.0 (pg) Final MCHC 12/18/2023 09:03:37 34.0 32.0-36.0 (g/dL) Final RDW 12/18/2023 09:03:37 13.5 11.5-15.5 (%) Final Platelets 12/18/2023 09:03:37 189 140-400 (K /uL) Final MPV 12/18/2023 09:03:37 9.6 6.6-11.1 ( fL) Final Performing Location [facility] [place] [address]
--- OUTSIDE RECORDS SUMMARY | 2024-03-27 03:31 | External Medical Summary ---
Author Name Unknown Address Unknown Organization [id number]:[facility] [place] [address] Laboratory Report Ordering Provider Test Date Status MIRA SANCHEZ 12/18/2023 09:03:37 Final Observation Date Value Abnormality Reference (Units ) Status SYNC LEUKOCYTES IN BLOOD BY AUTOMATED COUNT 12/18/2023 09:03:37 9.09 4.00-10.80 (K/uL) Final Segs 12/18/2023 09:03:37 48.0 40.0-75.0 (%) Final Lymphs % 12/18/2023 09:03:37 29.4 18.0-42.0 (%) Final Monos 12/18/2023 09:03:37 16.7 Above high normal 1.0-11.0 (%) Final Eosinophils 12/18/2023 09:03:37 5.1 0.0-6.0 (%) Final Basos 12/18/2023 09:03:37 0.8 0.0-2.0 (%) Final Absolute Segs 12/18/2023 09:03:37 4.37 1.80-7.70 (K/uL) Final Lymphs, absolute 12/18/2023 09:03:37 2.67 1.00-4.80 (K/ul) Final Monos, Abs 12/18/2023 09:03:37 1.52 Above high normal 0.00-1.10 (K/uL) Final Eos, Abs 12/18/2023 09:03:37 0.46 0.00-0.70 (K/uL) Final Basos, Abs 12/18/2023 09:03:37 0.07 0.00-0.20 (K/uL) Final Performing Location [facility] [place] [address]
--- OUTSIDE RECORDS SUMMARY | 2024-03-27 03:31 | External Medical Summary | Summary of Care ---
Author Name Unknown Organization [facility] Address [address] [place] [address] Phone [phone] Care Team Providers Care Honeycomb Decapper Name Role Phone Ismael Hernandez MD Primary Care Provider + Reason for Visit * Reason Comments NEW PATIENT * Evaluate & Treat - Unlimited Visits (Within 10 days (routine)) - Closed Specialty Diagnoses / Procedures Referred By Contac t Referred To Contact Neurology Diagnoses Tremor Ismael Hernandez MD [address] [place] [address] Referral ID Status Reason Start Date Expiration Date V isits Requested Visits Authorized [id number] Closed Specialty Services Required 05/29/[phone] Encounter Details Date Type Department Care Team (Late st Contact Info) Description 12/30/2023 9:20 AM EDT Office Visit Neurology [facility] [address] [place] [address] Wes Uribe MD [address], [place] [id number] Essential tremor*; Occlusion of right carotid artery Allergies Active Allergy Reactions Criticality Noted Date Comments Baclofen Other (Please comment) 03/16/2021 Passed out Phenytoin Other (Please comment) 03/16/2021 Passed out Oxycodone Itching 03/16/2021 Percocet - itching documented as of this encounter (statuses as of 12/30/2023) Medications Medication Sig Dispensed Refills Start Date [...] as of this encounter (statuses as of 12/30/2023) Active Problems Problem Noted Date Diagnosed Date [...] as of this encounter (statuses as of 12/30/2023) Resolved Problems Problem Noted Date Diagnosed Date Resolved Date Mild intermittent asthma with exacerbation 09/22/2021 09/22/2021 High pulmonary arterial pressure 04/03/2021 12/01/2021 Hyperlipidemia 03/16/2021 03/17/2021 documented as of this encounter (statuses as of 12/30/2023) Immunizations Name Administration Dates Next Due COVID-19 mRNA, LNP-s, No Pre serve, 2-Dose Series (Moderna) 03/10/2021,09/18/2020,08/21/2020 Covid-19, Mrna, Lnp-s, Pf, B ivalent, 50 Mcg, IM, 12 yrs and above (Moderna) 04/17/2022 Pneumococcal Conjugate Vacc, 13 Valent (Prevnar) 08/28/2018 Pneumococcal Conjugate Vacci ne, 20-valent ([id number]) 10/16/2022 Seasonal Influenza, Quadriva lent Hd (Fluzone [...] Sign Reading Time Taken Comments Blood Pressure 110/62 12/30/2023 9:11 AM EDT Pulse 55 12/30/2023 9:11 AM EDT Temperature 35.9 C (96.6 F) 12/30/2023 9:11 AM ED T Respiratory Rate - - Oxygen Saturation 95% 12/30/2023 9:11 AM EDT Inhaled Oxygen Concentration - - Weight 74.6 kg (164 lb 6.4 oz) 12/30/2023 9:11 A M EDT Height - - Body Mass Index 27.36 11/07/2023 2:39 PM EDT documented in this encounter Progress Notes * Wes Uribe MD - 12/30/2023 9:24 AM EDT 12/30/2023 9:25 AM Tremaine Brady 78 year old male Ref: ISMAEL HERNANDEZ[[id number]] [address] [place] [address], [place] [address] (office) [phone] (fax) Asked by Ismael Hernandez MD to render opinion regarding evaluation and management of tremors CC: Chief Complaint Patient presents with NEW PATIENT HPI: The patient is a 78-year-old ambidextrous gentleman who was previously seen by my colleague, Dr. Guerra for possible neuromuscular disorder. My colleague noted that the patient was having an antalgic gait with some scissoring on the left which she was attributing to left hip pain. EMG evaluation was deferred at that time by the patient. I am seeing him today for new onset tremor which started in February of last year. Tremors are more noticeable with certain activities such as holding at book or using a phone and affecting his right side. It does not feel weak on that side. He was on a beta-christofer before but could not tolerate due to reduced heart rate. A primidone trial was suggested by my colleague Dr. Guerra in the setting ofa ask a doc question. He was hospitalized 2 months ago at [facility] for syncopal episode. He was hypotensive and telemetry demonstrated persistent bradycardia without pauses or heart block. He was found to have chronic occlusion of the right internal carotid artery per CT-angiogram. Echoc ardiogram showed right ventricular enlargement with evidence of pulmonary hypertension. Beta-blockers were stopped because of his bradycardia. His dyslipidemia is controlled on statins. His hypotension is also controlled with Norvasc and fosinopril. He is a former smoker. He was started on low doseASA 2 months ago. He younger brother has tremor. He has 2 hip replacements. 1 cup of caffeinated coffee per day, rare diet coke. He still has a good sense of smell, no dream enactment. 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] 12/01/2021 Mild aortic regurgitation [I35.1] 10/15/2021 Mild persistent asthma without complication [J45.30] 09/22/2021 Pulmonary hypertension (HCC) [I27.20] 06/01/2021 Chronic diastolic congestive heart failure (HCC) [I50.32] 04/03/2021 Mild mitral regurgitation [I34.0] 04/03/2021 Mixed hyperlipidemia [E78.2] 03/17/2021 Chronic edema [R60.9] 03/17/2021 Hypertension goal BP (blood pressure) < 130/80 [I10] 03/16/2021 Chronic hyponatremia [E87.1] 03/16/2021 Osteoarthritis [M19.90] 03/16/2021 MEDICATIONS: Current Outpatient Medications Medication Sig Dispense Refill Calcium Carbonate-Vitamin D 600-200 MG-UNIT Oral Tablet [...] BY MOUTH EVERY DAY 90 Tablet 3 Multivitamin Adults 50+ Oral Tablet Take by mouth. No current facility-administered medications for this visit. 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 HIV risk factors: None FAMILY HISTORY Family History Problem Relation Name Age of Onset Rheum arthritis Mother Coronary Artery disease Father Family Status Relation Status Mo Fa Sis Alive Bro Alive Dom Alive Son Alive Sis Alive Son Alive REVIEW OF SYSTEMS: The patient denies new cardiac, lung, kidney, liver, skin, thyroid, bladder, or digestive problems.The patient also denies acute changes in hearing or vision. Otherwise, all other systems are negative or as noted above. BP 110/62 (BP Site: Right Arm, BP Position: Sitting, BP Cuff Size: Regular) | Pulse 55 | Temp 35.9 C (96.6 F) (Tympanic) | Wt 74.6 kg (164 lb 6.4 oz) | SpO2 95% | BMI 27.36 kg/m | BSA 1.85 m The patient is a 78 year old male who is well developed and appears to be their stated age. NEUROLOGIC EXAMINATION: Mental status: Intact higher integrative functions. Orientated to person, place, and time. Recent and remote memory functions are intact. Attention, concentration, language, and fund of knowledge arenormal. Judgment and insight are intact. Mood and affect are normal. Cranial nerves: CN 2: Visual aragon are full to confrontation in both eyes. Undilated fundoscopic examination showsnormal optic discs and vessels in both eyes without hemorrhages or exudates. CN 3-4, 6: Pupils are equal, round, reactive to light and accommodation. Extraocular motility is intact in both eyes without nystagmus. CN 5: Facial sensation and jaw strength are normal bilaterally. CN 7: No facial muscle weakness or significant asymmetries. CN 8: Hearing is intact in both ears to whispered voice and finger rub. CN 9-10: Palate is symmetric and moves normally in the midline. CN 11: Sternocleidomastoid and trapezius muscle strength are normal bilaterally. CN 12: Tongue protrudes in midline. No tongue atrophy or fasciculation. No voice tremor or head tremor. Motor: Normal power, bulk, and tone throughout. No atrophy, fasciculation. Mild kinetic tremor on the R. Sensory: Intact primary and cortical modalities throughout including light touch, pin, cold, vibration, joint position, stereognosis, graphesthesia, and point localization. No inattention or extinction. Coordination: [id number], and rapid alternating movements are normal bilaterally. Fine motor coordination is normal in both hands. Reflexes: Normal and symmetric in the arms and legs. Plantar responses are flexor. No pathologic reflexes. Gait/station: Normal gait on a narrow base with symmetric arm swing. Arises from a chair without difficulty. . Romberg test is negative. GENERAL EXAMINATION: Head: Normocephalic without mass, lesion, or tenderness. Neck: No palpable thyromegaly or adenopathy. Cardiovascular: Heart rate and rhythm are normal to auscultation without murmur, click, or gallop. Carotid pulses have normal amplitudes bilaterally without bruit. Lungs: Clear to auscultation bilaterally. Extremities: No edema, cyanosis, clubbing, or deformities noted. Peripheral pulses are intact. Arthritic deformities. Skin: No neurocutaneous stigmata or rash. IMPRESSION: He has mild essential tremor on the R. Not interfering with daily activities. Not severe to recommend medical therapy. No Parkinson's. He has R ICA occlusion, no clinical findings of stroke. RECOMMENDATIONS: I will hold off with medical therapy for now. He will call us if his tremor gets worse and starts to affect his daily activities. He will stay on low dose ASA for prevention of vascular events. RTC in 1 year. I spent approximately 40 minutes with this patient greater than half the time was spent reviewing diagnosis, physical exam, imaging, and treatment. Thank-you for letting me participate in the care of this patient. Wes Uribe MD Neurology [facility] [address] [place] [address] Please send copy to requesting physician, Ismael Hernandez MD documented in this encounter Nursing Notes * Jaci Hoover LPN - 12/30/2023 9:11 AM EDT Chief Complaint Patient presents with NEW PATIENT Tremor in right hand documented in this encounter Plan of Treatment Upcoming Encounters Date Type Department Care Team (Late st Contact Info) Description 01/01/2024 7:15 AM EDT Cardiac Studies Cardiac Studies, [facility] [address] [facility] [place] [address] 05/12/2024 1:30 PM EDT Office Visit Nephrology, [facility] [address] [facility] [place] [address] Joana Gaspar PA-C 200 [facility] [place] [address] 06/09/2024 9:20 AM EST Office Visit General Internal Medicine [facility] [address] [facility] [place] [address] Ismael Hernandez MD 200 [facility] [place] [address] 08/03/2024 9:30 AM EST Office Visit Cardiology, [facility] [address] [facility] [place] [address] Gadiel Vasquez DO 132 [facility] [place] [address] 12/31/2024 11:15 AM EDT Office Visit Dermatology [facility] [address] [facility] [place] [place] [address] Ismael Nolan MD [address] [place] [place] [address] 01/04/2025 10:40 AM EDT Telemedicine Neurology [address] [place], [place] [address] Wes Uribe MD [address] [facility], [place] [address] Scheduled Procedures Name Priority Associated Diagnoses Date/Ti me COLONOSCOPY FLEXIBLE PROXIMAL DIAGNOSTIC Recall History of colon polyps Scheduled Referrals Name Type Priority Associated Diagnoses Orde r Schedule NEUROLOGY REFERRAL OP Referral Within 10 days (routine) Tremor Ordered: 05/29/2023 Health Maintenance Due Date Last Done Comments Zoster Vaccines (1 of 2) 1996 COVID-19 Vaccine ( season) 2023 05/09/2023, 04/17/2022, [...] as of this encounter Visit Diagnoses Diagnosis Essential tremor- Primary Essential and other specified forms of tremor Occlusion of right carotid artery Occlusion and stenosis of carotid artery without mention of cerebral infarction documented in this encounter Care Teams Honeycomb Decapper Relationship Specialty Start Date End Date Ismael Hernandez MD [address] [place] [address] PCP - General Internal Medicine 03/17/21 documented as of this encounter"
--- OUTSIDE RECORDS SUMMARY | 2024-03-27 03:31 | External Medical Summary ---
Author Name Unknown Address Unknown Organization K01:[facility] [address] [place] [address] Laboratory Report Ordering Provider Test Date Status TONY BERG 03/02/2024 16:37:29 Final Observation Date Value Abnormality Reference (Units ) Status Rubeola IgG 03/02/2024 16:37:29 Positive Abnormal Negative Final A positive result is consist ent with having had measles virus (rubeola) or vaccination. Performing Location [facility] - [address] [place] [address]
--- OUTSIDE RECORDS SUMMARY | 2024-03-27 03:31 | External Medical Summary ---
Author Name Unknown Address Unknown Organization K01:[facility] - [address] [place] [address] Laboratory Report Ordering Provider Test Date Status TONY BERG 03/02/2024 16:37:29 Final Observation Date Value Abnormality Reference (Units ) Status Varicella Zoster IgG interpretation 03/02/2024 16:37:29 Positive Abnormal Negative Final A positive result is consist ent with having had varicella zoster virus or vaccination. Performing Location [facility] - [address] [place] [address]
--- OUTSIDE RECORDS SUMMARY | 2024-03-27 03:31 | External Medical Summary | Summary of Care ---
Author Name Unknown Organization [facility] Address [address] [place] [address] Phone [phone] Care Team Providers Care Speech Pathologist Name Role Phone Ismael Villavicencio MD Primary Care Provider + Reason for Visit * Reason Comments Follow Up Patient here for a s kin check, hx of AK. He is not aware of any new or changing lesions. Encounter Details Date Type Department Care Team (Late st Contact Info) Description 12/10/2023 10:15 AM EDT Office Visit Dermatology [facility] [address] [place] [address] Ismael Nloan MD [address] [place] [address] Actinic skin damage*; EIC (epidermal inclusion cyst); Dermatofibroma; Actinic keratosis; Seborrheic keratoses Allergies Active Allergy Reactions Criticality Noted Date Comments Acetaminophen Rash 10/10/2023 Baclofen Other (Please comment) 03/16/2021 Passed out Phenytoin Other (Please comment) 03/16/2021 Passed out Oxycodone Itching 03/16/2021 Percocet - itching documented as of this encounter (statuses as of 12/10/2023) Medications Medication Sig Dispensed Refills Start Date [...] as of this encounter (statuses as of 12/10/2023) Active Problems Problem Noted Date Diagnosed Date [...] as of this encounter (statuses as of 12/10/2023) Resolved Problems Problem Noted Date Diagnosed Date Resolved Date Mild intermittent asthma with exacerbation 09/22/2021 09/22/2021 High pulmonary arterial pressure 04/03/2021 12/01/2021 Hyperlipidemia 03/16/2021 03/17/2021 documented as of this encounter (statuses as of 12/10/2023) Immunizations Name Administration Dates Next Due COVID-19 mRNA, LNP-s, No Pre serve, 2-Dose Series (Moderna) 03/10/2021,09/18/2020,08/21/2020 Covid-19, Mrna, Lnp-s, Pf, B ivalent, 50 Mcg, IM, 12 yrs and above (Moderna) 04/17/2022 Pneumococcal Conjugate Vacc, 13 Valent (Prevnar) 08/28/2018 Pneumococcal Conjugate Vacci ne, 20-valent ([id number]) 10/16/2022 Seasonal Influenza, Quadriva lent Hd (Fluzone [...] Progress Notes * Ismael Nolan MD - 12/10/2023 10:12 AM EDT SUBJECTIVE: Chief Complaint: Chief Complaint Patient presents with Follow Up Patient here for a skin check, hx of AK. He is not aware of any new or changing lesions. HPI: Tremaine Brady is a 78 year old male seen for a full skin check for history of Actinic keratoses Has a lump in skin on back of right side of neck. Present many years, not changing DERMATOLOGIC HISTORY: Actinic keratoses Dermatofibroma (left upper arm) REVIEW OF SYSTEMS: CONSTITUTIONAL: negative SKIN: No new or changing moles or rashes other than those noted in HPI HEME/LYMPH: No new or enlarging lumps or bumps OBJECTIVE: GEN: Healthy, alert, no distress, appears oriented, pleasant, and cooperative SKIN: Detailed exam of hair, face, trunk, arms, and legs Vertex scalp x2, right frontal scalp x2 - x4 total gritty erythematous macules/papules Right posterior/lateral neck - small firm subcutaneous nodule Left upper arm - firm scar-like brown papule with dimple sign Scattered on face, chest, back - diffuse mottled hypopigmented and hyperpigmented macules without significant irregularity. Associated telangiectasias At the trunk and extremities are several scattered lauren/brown hyperkeratotic stuck on appearing waxypapules. ASSESSMENT/PLAN: Actinic keratosis -The diagnosis and malignant potential of the lesion was explained. Treatment options were reviewedincluding cryotherapy, topical medications, and observation. All questions were addressed. Procedure - Cryotherapy (Premalignant Destruction) -The patient would like to proceed with cryosurgery;Cryosurgery explained to the patient, consent obtained, patient, site and procedure verified, and then cryotherapy was performed with Liquid Nitrogen via cryo spray unit to 4 lesions. Location noted in physical exam. Post op course explained. -Discussed that if any of these lesions fail to completely resolve after treatment patient should call me for re-evaluation Epidermoid inclusion cyst Benign nature was discussed and no further intervention needed. Advised to call with any changes. Dermatofibroma Benign nature was discussed and no further intervention needed. Advised to call with any changes. Chronic Actinic Damage - Discussed that skin changes are due to chronic sun exposure. - Daily sun protection recommended as discussed above Seborrheic keratoses - The benign nature of these lesions was discussed with the patient and that no treatment is indicated today. Ismael Nolan MD Ref: ISMAEL VILLAVICENCIO[[id number]] [address] [place] [address] (office) [phone] (fax) PCP: ISMAEL VILLAVICENCIO [address] [facility] [place] [address] [phone] documented in this encounter Nursing Notes * Zara Robbins LPN - 12/10/2023 10:05 AM EDT Chief Complaint Patient presents with Follow Up Patient here for a skin check, hx of AK. He is not aware of any new or changing lesions. documented in this encounter Plan of Treatment Upcoming Encounters Date Type Department Care Team (Late st Contact Info) Description 12/18/2023 8:30 AM EDT Office Visit Hematology/Oncology [facility] [address] [facility] [place] [id number] Jaquelin Mast CRNP [facility] [address] 12/19/2023 10:30 AM EDT Office Visit Cardiology, [facility] [address] [facility] [place] [address] Gadiel Vasquez DO 132 [facility] [place] [address] 12/30/2023 9:20 AM EDT Office Visit Neurology [facility] [address] [facility] [place] [address] Wes Uribe MD [address] [place], [place] [id number] 01/01/2024 7:15 AM EDT Cardiac Studies Cardiac Studies, [facility] [address] [facility] [place] [address] 05/12/2024 1:30 PM EDT Office Visit Nephrology, [facility] [address] [facility] [place] [address] Joana Gaspar PA-C [address] [facility] [place] [address] 06/09/2024 9:20 AM EST Office Visit General Internal Medicine [facility] [address] [facility] [place], [place] [address] Ismael Villavicencio MD [address] [facility] [place] [address] 12/31/2024 11:15 AM EDT Office Visit Dermatology [facility] [address] [facility] [place] [address] Ismael Nolan MD [address] [place] [address] Scheduled Procedures Name Priority Associated Diagnoses Date/Ti [...] of this encounter Visit Diagnoses Diagnosis Actinic skin damage- Primary Other dermatitis due to solar radiation EIC (epidermal inclusion cyst) Sebaceous cyst Dermatofibroma Benign neoplasm of skin, site unspecified Actinic keratosis Seborrheic keratoses documented in this encounter Care Teams Speech Pathologist Relationship Specialty Start Date End Date Ismael Villavicencio MD [address] [place] [address] PCP - General Internal Medicine 03/17/21 documented as of this encounter
--- OUTSIDE RECORDS SUMMARY | 2024-03-27 03:31 | External Medical Summary ---
Author Name Unknown Address Unknown Organization K01:[facility] [address] [place] [address] Laboratory Report Ordering Provider Test Date Status TONY BERG 03/02/2024 16:37:29 Final Observation Date Value Abnormality Reference (Units ) Status Rubella virus IgG Ab [Presence] in Serum 03/02/2024 16:37:29 Positive Abnormal Negative Final A positive result is consist ent with having had rubella virus or vaccination. Performing Location [facility] [address] [place] [address]
--- OUTSIDE RECORDS SUMMARY | 2024-03-27 03:31 | External Medical Summary | Summary of Care ---
Author Name Unknown Organization [facility] Address [address] [place] [address] Phone [phone] Care Team Providers Care Rail Car Welder Name Role Phone Ismael Villavicencio MD Primary Care Provider + Reason for Visit * Reason Comments Outpatient Testing Encounter Details Date Type Department Care Team (Late st Contact Info) Description 12/10/2023 10:30 AM EDT Laboratory Laboratory [facility] [address] [place] [phone] [facility] Lab [facility] [address] [place] [address] Chronic hyponatremia; Right carotid artery occlusion; Left carotid artery stenosis; Abnormal thyroid stimulating hormone (TSH) level; Abnormal results of thyroid function studies Allergies Active Allergy Reactions Criticality Noted Date [...] (Prevnar) 08/28/2018 Pneumococcal Conjugate Vacci ne, 20-valent ([id number]) 10/16/2022 Seasonal Influenza, Quadriva lent Hd (Fluzone [...] 12/18/2023 8:30 AM EDT Office Visit Hematology/Oncology [facility] 200 [facility] [place] [phone] Jaquelin Mast CRNP [address] [place] [address] 12/19/2023 10:30 AM EDT Office Visit Cardiology, [facility] [address] [facility] [place] [address] Gadiel Vasquez DO [address] [place] [address] 12/30/2023 9:20 AM EDT Office Visit Neurology [facility] [address] [facility] [place] [address] Wes Uribe MD [address] [place] [address] 01/01/2024 7:15 AM EDT Cardiac Studies Cardiac Studies, [facility] [address] [facility] [place] [address] 05/12/2024 1:30 PM EDT Office Visit Nephrology, [facility] 200 [facility] [place] [address] Joana Gaspar PA-C 200 [facility] [place] [address] 06/09/2024 9:20 AM EST Office Visit General Internal Medicine [facility] 200 [facility] [place] [address] Ismael Villavicencio MD 200 [facility] [place] [address] 12/31/2024 11:15 AM EDT Office Visit Dermatology [facility] 200 [facility] [place] [address] Ismael Nolan MD 200 [facility] [place] [address] Pending Results Name Type Priority Associated Diagnoses Date /Time COMPREHENSIVE METABOLIC PANEL Lab Routine Right carotid artery occlusion Left carotid artery stenosis 12/10/2023 10:35 AM EDT LIPID PANEL WITH DIRECT LDL IF TG IS HIGH Lab Routine Right carotid artery occlusion Left carotid artery stenosis 12/10/2023 10:35 AM EDT TSH WITH FREE T4 IF INDICATED Lab Routine Abnormal thyroid stimulating hormone (TSH) level Abnormal results of thyroid function studies 12/10/2023 10:35 AM EDT BILIRUBIN, DIRECT Lab Routine Chronic hyponatremia 12/10/2023 10:35 AM EDT Scheduled Procedures Name Priority Associated Diagnoses [...] Diagnoses Diagnosis Chronic hyponatremia Hyposmolality and/or hyponatremia Right carotid artery occlusion Occlusion and stenosis of carotid artery without mention of cerebral infarction Left carotid artery stenosis Occlusion and stenosis of carotid artery without mention of cerebral infarction Abnormal thyroid stimulating hormone (TSH) level Abnormal results of thyroid function studies Nonspecific abnormal results of thyroid function study documented in this encounter Care Teams Rail Car Welder Relationship Specialty Start Date End Date Ismael Villavicencio MD 200 [facility] [place] [address] PCP - General Internal Medicine 03/17/21 documented as of this encounter
--- OUTSIDE RECORDS SUMMARY | 2024-03-27 03:31 | External Medical Summary ---
Author Name Unknown Address Unknown Organization : Laboratory Report Ordering Provider Test Date Status TONY BERG 03/02/2024 16:37:29 Final Observation Date Value Abnormality Reference (Units ) Status Mycobacterium tuberculosis stimulated gamma interferon [Interpretation] in Blood Qualitative 03/02/2024 16:37:29 NEGATIVE NEGATIVE Final Negative test result. M. tub erculosis complex
infection unlikely. Gamma interferon background [Units/volume] in Blood by Immunoassay 03/02/2024 16:37:29 0.01 (IU/mL) Final Mitogen stimulated gamma int erferon [Units/volume] corrected for background in Blood 03/02/2024 16:37:29 8.09 (IU/mL) Final Mycobacterium tuberculosis s timulated gamma interferon release by CD4+ T-cells [Units/volume] corrected for background in Blood 03/02/2024 16:37:29 0.01 (IU/mL) Final Mycobacterium tuberculosis s timulated gamma interferon release by CD4+ and CD8+ T-cells [Units/volume] corrected for background in Blood 03/02/2024 16:37:29 0.00 (IU/mL) Final The Nil tube value reflects the background interferon
gamma immune response of the patient's blood sample.
This value has been subtracted from the patient's
displayed TB and Mitogen results.
Lower than expected results with the Mitogen tube
prevent false-negative Quantiferon readings by detect-
ing a patient with a potential immune suppressive
condition and/or suboptimal pre-analytical specimen
handling.
The TB1 Antigen tube is coated with the M.
tuberculosis-specific antigens designed to elicit
responses from TB antigen primed CD4+ helper
T-lymphocytes.
The TB2 Antigen tube is coated with the M.
tuberculosis-specific antigens designed to elicit
responses from TB antigen primed CD4+ helper and CD8+
cytotoxic T-lymphocytes.
For additional information, please refer to
http://education.[employer].Wowboard/faq/BAW711
(This link is being provided for information/
educational purposes only.)

Test Performed at:
[facility]
[address]
[place] [address]
Juan Miguel Fuller M.D., Ph.D.,Director of Laboratories Performing Location
--- OUTSIDE RECORDS SUMMARY | 2024-03-27 03:31 | External Medical Summary ---
Author Name Unknown Address Unknown Organization K09:[facility] [place] [address] Laboratory Report Ordering Provider Test Date Status MARY LEW 12/10/2023 10:35:23 Final Observation Date Value Abnormality Reference (Units ) Status Bilirubin, Direct 12/10/2023 10:35:23 <0.2 0. 0-0.3 (mg/dL) Final Performing Location [facility] [place] [address]
--- OUTSIDE RECORDS SUMMARY | 2024-03-27 03:32 | External Medical Summary | Summary of Care ---
Author Name Unknown Organization [facility] Address [address] [place] [address] Phone [phone] Care Team Providers Care Superannuation Clerk Name Role Phone Ismael Villavicencio MD Primary Care Provider + Encounter Details Date Type Department Care Team (Latest Contact Info) Description 10/31/2023 2:15 PM EDT - 10/31/2023 11:59 PM EDT Hospital Encounter Radiology [facility] [address] [place] [address] Discharge Disposition: Home - Self Care Allergies Active Allergy Reactions Criticality Noted Date Comments Acetaminophen Rash 10/10/2023 Baclofen Other (Please comment) 03/16/2021 Passed out Phenytoin Other (Please comment) 03/16/2021 Passed out Oxycodone Itching 03/16/2021 Percocet - itching documented as of this encounter (statuses as of 11/14/2023) Medications Medication Sig Dispensed Refills Start Date [...] 12/11/2022 Active Loratadine 10 MG Oral Tablet (Claritin)Indications [...] as of this encounter (statuses as of 11/14/2023) Active Problems Problem Noted Date Diagnosed Date Right carotid artery occlusion 11/07/2023 Old cerebrovascular [...] as of this encounter (statuses as of 11/14/2023) Resolved Problems Problem Noted Date Diagnosed Date Resolved Date Mild intermittent asthma with exacerbation 09/22/2021 09/22/2021 High pulmonary arterial pressure 04/03/2021 12/01/2021 Hyperlipidemia 03/16/2021 03/17/2021 documented as of this encounter (statuses as of 11/14/2023) Immunizations Name Administration Dates Next Due COVID-19 mRNA, LNP-s, No Pre serve, 2-Dose Series (Moderna) 03/10/2021,09/18/2020,08/21/2020 Covid-19, Mrna, Lnp-s, Pf, B ivalent, 50 Mcg, IM, 12 yrs and above (Moderna) 04/17/2022 Pneumococcal Conjugate Vacc, 13 Valent (Prevnar) 08/28/2018 Pneumococcal Conjugate Vacci ne, 20-valent ([id number]) 10/16/2022 Seasonal Influenza, Quadriva lent Hd (Fluzone [...] Care Team (Late st Contact Info) Description 11/20/2023 11:10 AM EDT Office Visit Vascular Surgery, [facility] [address] [place] [address] Zander Adames PA-C [address] [place], [place] [id number] 12/10/2023 10:15 AM EDT Office Visit Dermatology [facility] [address] [place] [address] Ismael Nolan MD 200 [facility] [place] [address] 12/19/2023 10:30 AM EDT Office Visit Cardiology, [facility] [address] [place] [address] Gadiel Vasquez DO 132 [facility] [place] [address] 12/20/2023 8:30 AM EDT Office Visit Hematology/Oncology [facility] 200 [facility] [place] [phone] Kendal Ramesh CRNP [address] [place] [address] 12/30/2023 9:20 AM EDT Office Visit Neurology [facility] 200 [place] [address] Wes Uribe MD [address] [place] [address] 01/01/2024 7:15 AM EDT Cardiac Studies Cardiac Studies, [facility] [address] [facility] [facility] [address] 05/12/2024 1:30 PM EDT Office Visit Nephrology, [facility] [address] [facility] [place] [address] Joana Gaspar PA-C 200 [place] [address] 06/09/2024 9:20 AM EST Office Visit General Internal Medicine [employer] 200 [facility] [place], [place] [address] Ismael Villavicencio MD 200 [facility] [place] [address] Scheduled Procedures Name Priority Associated Diagnoses Date/Ti [...] Name Priority Date/Time Associated Diagnosis Comments RADIOLOGY EXAM - CT (IMAGES ONLY, NO REPORT) Routine 10/31/2023 2:15 PM EDT documented in this encounter Results * RADIOLOGY EXAM - CT (IMAGES ONLY, NO REPORT) (10/31/2023 2:15 PM EDT) 10/31/2023 2:11 PM EDT Narrative Scheduling, Silent - 11/13/2023 3:16 PM EDT This is an imaging study not interpreted or resulted by a [facility] or [employer] [facility] contracted radiologist. Ismael Villavicencio MD RAD CT documented in this encounter Care Teams Superannuation Clerk Relationship Specialty Start Date End Date Ismael Villavicencio MD 200 [facility] [place] [address] PCP - General Internal Medicine 03/17/21 documented as of this encounter
--- OUTSIDE RECORDS SUMMARY | 2024-03-27 03:32 | External Medical Summary | Summary of Care ---
Author Name Unknown Organization [facility] Address [address] [place] [address] Phone [phone] Care Team Providers Care Transport Driver Name Role Phone Ismael Villavicencio MD Primary Care Provider + Encounter Details Date Type Department Care Team (Latest Contact Info) Description 10/30/2023 8:30 PM EDT - 10/30/2023 11:59 PM EDT Hospital Encounter Radiology [facility] [address] [place] [address] Discharge Disposition: Home - Self [...] (Prevnar) 08/28/2018 Pneumococcal Conjugate Vacci ne, 20-valent ([id number]) 10/16/2022 Seasonal Influenza, Quadriva lent Hd (Fluzone [...] 11:10 AM EDT Office Visit Vascular Surgery, [facility] [address] [place] [address] Zander Adames PA-C [address] [place], [place] [phone] 12/10/2023 10:15 AM EDT Office Visit Dermatology [facility] [address] [place] [address] Ismael Nolan MD 200 [facility] [place] [address] 12/19/2023 10:30 AM EDT Office Visit Cardiology, [facility] [address] [place] [address] Gadiel Vasquez DO 132 [facility] [place] [address] 12/20/2023 8:30 AM EDT Office Visit Hematology/Oncology [facility] 200 [facility] [place] [phone] Kendal Ramesh CRNP [address] [place] [address] 12/30/2023 9:20 AM EDT Office Visit Neurology [facility] 200 [facility] [place] [address] Wes Uribe MD [address] [place] [address] 01/01/2024 7:15 AM EDT Cardiac Studies Cardiac Studies, [facility] [address] [facility] [address] 05/12/2024 1:30 PM EDT Office Visit Nephrology, [facility] 200 [facility] [place] [address] Joana Gaspar PA-C 200 [facility] [place] [address] 06/09/2024 9:20 AM EST Office Visit General Internal Medicine [employer] 200 [facility] [place], [place] [address] Ismael Villavicencio MD 200 [facility] [place] [address] Scheduled Procedures Name Priority Associated Diagnoses Date/Ti [...] Date/Time Associated Diagnosis Comments RADIOLOGY EXAM - US (IMAGES ONLY, NO REPORT) Routine 10/30/2023 8:30 PM EDT documented in this encounter Results * RADIOLOGY EXAM - US (IMAGES ONLY, NO REPORT) (10/30/2023 8:30 PM EDT) 10/30/2023 8:26 PM EDT Narrative Scheduling, Silent - 11/13/2023 3:14 PM EDT This is an imaging study not interpreted or resulted by a [facility] or [facility] contracted radiologist. Ismael Villavicencio MD RAD ULTRASOUND documented in this encounter Care Teams Transport Driver Relationship Specialty Start Date End Date Ismael Villavicencio MD 200 [facility] [place] [address] PCP - General Internal Medicine 03/17/21 documented as of this encounter
--- OUTSIDE RECORDS SUMMARY | 2024-03-27 03:32 | External Medical Summary | Summary of Care ---
Author Name Unknown Organization [facility] Address [address] [place] [address] Phone [phone] Care Team Providers Care Research Technician Name Role Phone Ismael Villavicencio MD Primary Care Provider + Reason for Visit * Reason Onset Date Comments TRIAGE 11/08/2023 Encounter Details Date Type Department Care Team (Late st Contact Info) Description 11/08/2023 Telephone Vascular Surg [facility] [address] [place], [place] [phone] Talha Grey MD [address] [place] [address] TRIAGE Allergies Active Allergy Reactions Criticality Noted Date Comments Acetaminophen Rash 10/10/2023 Baclofen Other (Please comment) 03/16/2021 Passed out Phenytoin Other (Please comment) 03/16/2021 Passed out Oxycodone Itching 03/16/2021 Percocet - itching documented as of this encounter (statuses as of 11/12/2023) Medications Medication Sig Dispensed Refills Start Date [...] as of this encounter (statuses as of 11/12/2023) Active Problems Problem Noted Date Diagnosed Date [...] as of this encounter (statuses as of 11/12/2023) Resolved Problems Problem Noted Date Diagnosed Date Resolved Date Mild intermittent asthma with exacerbation 09/22/2021 09/22/2021 High pulmonary arterial pressure 04/03/2021 12/01/2021 Hyperlipidemia 03/16/2021 03/17/2021 documented as of this encounter (statuses as of 11/12/2023) Immunizations Name Administration Dates Next Due COVID-19 mRNA, LNP-s, No Pre serve, 2-Dose Series (Moderna) 03/10/2021,09/18/2020,08/21/2020 Covid-19, Mrna, Lnp-s, Pf, B ivalent, 50 Mcg, IM, 12 yrs and above (Moderna) 04/17/2022 Pneumococcal Conjugate Vacc, 13 Valent (Prevnar) 08/28/2018 Pneumococcal Conjugate Vacci ne, 20-valent ([id number]) 10/16/2022 Seasonal Influenza, Quadriva lent Hd (Fluzone [...] encounter Miscellaneous Notes * Telephone Encounter - Marylu Mckeon OSA - 11/12/2023 4:44 PM EDT Imaging requested * Telephone Encounter - Zander Adames PA-C - 11/12/2023 1:48 PM EDT Willie/Marylu- Can you please [facility] images (carotid duplex and CT neck) SONU. I am due to see pt as a new pt, next week @ [facility], on 11/19 Thank you Zander * Telephone Encounter - Yessenia Zuniga OSA - 11/08/2023 11:09 AM EDT Just s/w patient and moved pt from [facility] to [facility] (pt lives in [place]). Adv patient thata carotid US needed to be scheduled, pt stated he had that done at [facility] along w/ a CT w/ contrast. I advised him we will get the records and if we need to repeat it I will call him back to schedule, he agreed. Pt has been rescheduled w/ Jori on 11/19 * Telephone Encounter - Keisha Crisostomo CRNP - 11/08/2023 10:45 AM EDT Right carotid occlusion Left stenosis New patient Carotid duplex matched with clinic appt thanks * Telephone Encounter - Yessenia Zuniga OSA - 11/08/2023 10:41 AM EDT 12/04 izzy meyers pt documented in this encounter Plan of Treatment Upcoming Encounters Date Type Department Care Team (Late st Contact Info) Description 11/20/2023 11:10 AM EDT Office Visit Vascular Surgery, [facility] 132 [facility] [place] [address] Zander Adames PA-C [address] [place], [place] [phone] 12/10/2023 10:15 AM EDT Office Visit Dermatology [facility] [address] [facility] [place] [address] Ismael Nolan MD 200 [facility] [place] [address] 12/19/2023 10:30 AM EDT Office Visit Cardiology, [facility] 132 [facility] [place] [address] Gadiel Vasquez O, DO [address] [facility] [place] [address] 12/20/2023 8:30 AM EDT Office Visit Hematology/Oncology [facility] 200 [place] [phone] Kendal Ramesh CRNP [address] [facility] [place] [address] 12/30/2023 9:20 AM EDT Office Visit Neurology [facility] [address] [facility] [place] [address] Wes Uribe MD [address] [place], [place] [phone] 01/01/2024 7:15 AM EDT [facility] [address] [place] [address] 05/12/2024 1:30 PM EDT Office Visit Nephrology, [facility] [address] [place] [address] Joana Gaspar PA-C 200 [facility] [place] [address] 06/09/2024 9:20 AM EST Office Visit General Internal Medicine [facility] 200 [facility] [place] [address] Ismael Villavicencio MD 200 [facility] [place] [address] Scheduled Orders Name Type Priority Associated Diagnoses Orde r Schedule VASC DUPLEX CAROTID BILAT Medical Imaging Routine Asymptomatic bilateral carotid artery stenosis Ordered: 11/08/2023 Scheduled Procedures Name Priority Associated Diagnoses Date/Ti [...] as of this encounter Visit Diagnoses Diagnosis Asymptomatic bilateral carotid artery stenosis- Primary Occlusion and stenosis of multiple and bilateral precerebral arteries without mention of cerebral infarction documented in this encounter Care Teams Research Technician Relationship Specialty Start Date End Date Ismael Villavicencio MD [address] [place] [address] PCP - General Internal Medicine 03/17/21 documented as of this encounter
--- OUTSIDE RECORDS SUMMARY | 2024-03-27 03:32 | External Medical Summary | Summary of Care ---
Author Name Unknown Organization [facility] Address [address] [place] [address] Phone [phone] Care Team Providers Care Senior Relationship Manager Name Role Phone Ismael Villavicencio MD Primary Care Provider + Reason for Visit * Reason Comments NEW PATIENT Right carotid artery occlusion. 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 [address] [facility] [place] [address] Zander Adames PA-C [address] [place] [address] Right carotid artery occlusion*; Former smoker; Left carotid artery stenosis Allergies Active Allergy Reactions Criticality Noted Date Comments Acetaminophen Rash 10/10/2023 Baclofen Other (Please comment) 03/16/2021 Passed out Phenytoin Other (Please comment) 03/16/2021 Passed out Oxycodone Itching 03/16/2021 Percocet - itching documented as of this encounter (statuses as of 11/20/2023) Medications Medication Sig Dispensed Refills Start Date [...] as of this encounter (statuses as of 11/20/2023) Active Problems Problem Noted Date Diagnosed Date [...] as of this encounter (statuses as of 11/20/2023) Resolved Problems Problem Noted Date Diagnosed Date Resolved Date Mild intermittent asthma with exacerbation 09/22/2021 09/22/2021 High pulmonary arterial pressure 04/03/2021 12/01/2021 Hyperlipidemia 03/16/2021 03/17/2021 documented as of this encounter (statuses as of 11/20/2023) Immunizations Name Administration Dates Next Due COVID-19 mRNA, LNP-s, No Pre serve, 2-Dose Series (Moderna) 03/10/2021,09/18/2020,08/21/2020 Covid-19, Mrna, Lnp-s, Pf, B ivalent, 50 Mcg, IM, 12 yrs and above (Moderna) 04/17/2022 Pneumococcal Conjugate Vacc, 13 Valent (Prevnar) 08/28/2018 Pneumococcal Conjugate Vacci ne, 20-valent ([id number]) 10/16/2022 Seasonal Influenza, Quadriva lent Hd (Fluzone [...] Sign Reading Time Taken Comments Blood Pressure 138/64 11/20/2023 11:14 AM EDT Pulse 60 11/20/2023 11:14 AM EDT Temperature - - Respiratory Rate - - Oxygen Saturation - - Inhaled Oxygen Concentration - - Weight 73.7 kg (162 lb 6.4 oz) 11/20/2023 11:14 AM EDT Height - - Body Mass Index 27.02 11/07/2023 2:39 PM EDT documented in this encounter Progress Notes * Zander Adames PA-C - 11/20/2023 11:10 AM EDT Images from the original note were not included. Date of Service: 11/20/2023 11:34 AM Tremaine Brady is a 78 year old male. Patient being seen in consultation at the request of Ismael Villavicencio MD Chief Complaint: New pt, carotid stenosis Presents with his , Geovanna Retired [employer] Dis[employer], worked on [place] [employer]. 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 HPI: Former smoker with H/O CVA, HTN, chronic hyponatremia, asthma, HLD, sinus bradycardia and diastolicCHF who was admitted to [facility] mid-October 2023 with syncope 10/30/23 carotid duplex showed greater than 90% GYPSY stenosis, LICA plaque w/out elevated velocity (peak systolic velocity of 111) 10/31/23 CTA neck revealed chronic GYPSY occlusion and extensive plaque of LICA w/out stenosis Pt seen by local vascular surgeon who recommended medical management of LICA stenosis and non-surgical management of GYPSY occlusion CAROTID DISEASE: Patient denies recent TIA, recent stroke, and recent amaurosis fugax. FAMILY HISTORY: No family history of aortic aneurysms. Current Outpatient Medications Medication Sig Dispense Refill [...] BY MOUTH EVERY DAY 90 Tablet 3 Loratadine 10 MG Oral Tablet (Claritin) [...] the morning. with food.. 100 Tablet 5 No current facility-administered medications for this visit. Review of patient's allergies indicates: Allergen Reactions Acetaminophen Rash Baclofen Other (Please comment) Passed out Dilantin [Phenytoin] Other (Please comment) Passed out Oxycodone Itching Percocet - itching Patient Active Problem List Diagnosis Code Hypertension goal BP (blood pressure) < 130/80 I10 Chronic hyponatremia E87.1 Osteoarthritis M19.90 Mixed hyperlipidemia E78.2 Chronic edema R60.9 Chronic diastolic congestive heart failure (HCC) I50.32 Mild mitral regurgitation I34.0 Pulmonary hypertension (HCC) I27.20 Mild persistent asthma without complication J45.30 Mild aortic regurgitation I35.1 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, 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 Right carotid artery occlusion I65.21 Old cerebrovascular accident (CVA) without late effect Z86.73 Left carotid artery stenosis I65.22 Past Medical History: Diagnosis Date Asthma Chronic [...] performed by Treasure Cruz MD at [facility] COLONOSCOPY, DIAGNOSTIC (RECTUM) 12/25/2022 prep-fair, 1-4 mm in cecum, otherwise normal / biopsies benign adenomatous polyp / 1 year w/ 2 day prep / COLONOSCOPY FLEXIBLE PROXIMAL DIAGNOSTIC performed by Treasure Cruz MD at [facility] TOTAL HIP REPLACEMENT & PROSTHESIS Bilateral 2017 Family History Problem Relation Age of Onset Rheum arthritis Mother Coronary Artery disease Father Social History Socioeconomic History Marital status: Spouse name: Not on file Number of children: 3 Years of education: Not on file Highest education level: Not on file Occupational History Occupation: retired - [employer] Tobacco Use Smoking status: Former Current packs/day: 0.00 Average packs/day: 0.8 packs/day for 27.0 years (20.3 ttl pk-yrs) Types: Cigarettes Start date: 07/15/1966 Quit date: 07/15/1993 Years since quittin.3 Smokeless tobacco: Never Vaping Use Vaping Use: [...] on file Housing Stability: Not on file COMPLETE REVIEW OF SYSTEMS: Cardiovascular: Negative for chest pain, shortness of breath, palpitations, angina or ME Neurological: Negative for stroke, TIA, amaurosis fugax All other systems negative except for those noted above and in the history of present illness (HPI). GENERAL MULTI-SYSTEM PHYSICAL EXAM: VITAL SIGNS: BP 138/64 | Pulse 60 | Wt 73.7 kg (162 lb 6.4 oz) | BMI 27.02 kg/m | BSA 1.84 m GENERAL MULTI-SYSTEM PHYSICAL EXAM:GENERAL: Normal grooming habits, no acute distress, and appears stated age. NECK: No masses and Normal Thyroid. RESPIRATORY: respiratory effort normal and breath sounds normal. CARDIOVASCULAR: no heart murmurs, no edema, and no varicosities. GASTROINTESTINAL: no tenderness, protuberant, and abdominal aorta not palpable. LYMPHATIC: cervical lymph nodes normal and inguinial lymph nodes normal. SKIN: no ulcers, no rash, no induration, capillary refill normal, and no dependent rubor. PSYCHIATRIC: orientation to time, place and person normal and recent and remote memory normal. EYES: conjunctivae normal, eye lids normal, pupils normal, and irises normal. NEUROLOGIC: Cranial nerves intact, Motor function intact, and Sensory exam intact PULSE SCALE: Carotid Right:----Bruit: No Left:----Bruit: No Radial Right: 3 Left: 3 Femoral Right: 3 Left: 3 Dorsalis Pedis Right: 3 Left: 3 Posterior Tibial Right: 3 Left: 3 PULSE SCALE: 4=Aneurysmal; 3=Normal; 2=Diminished; 1=Barely Palpable; 0=Absent DIAGNOSTIC STUDIES: 10/30/23 Carotid Duplex ([facility]): GYPSY 45/9, LICA 111/34 10/31/23 CTA Neck ([facility]): Occluded GYPSY, annular moderate calcification of LICA, patent verts, rightvert is dominent The above vascular lab and CT scan images were directly visualized and independently interpreted byme on 11/12/2023 with results as above. LABS: Lab Results Component Value Date/Time CREATININE - [facility] 1.1 11/07/2023 03:32 PM CREATININE - [facility] 1.0 10/25/2023 12:24 PM CREATININE - [facility] 1.1 07/24/2023 02:48 PM CREATININE, RANDOM URINE - [facility] 136 04/23/2022 08:15 AM CREATININE, RANDOM URINE - [facility] 38 03/16/2021 01:03 PM CREATININE, RANDOM URINE - [facility] 39 03/16/2021 01:03 PM CREATININE-OUTSIDE LAB 1.00 06/02/2023 12:00 AM Lab Results Component Value Date/Time LDL CHOLESTEROL (CALCULATED) - [facility] 78 04/16/2023 04:28 PM No results found for: "HEMOGLOBIN A1C - [facility]" The above clinical labs were reviewed by me on 11/20/2023. 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 No indication for surgery Continue medical management and start annual surveillance (of the LICA stenosis) Continue ASA 81 mg for platelet inhibition/atherosclerosis/PAD Continue Lipitor 20 mg for dyslipidemia/hyperlipidemia & pleiotropic benefits of statins Continue smoking cessation Continue active life style, no restrictions Given gender, age and H/O smoking, need to r/o AAA RTC 1 yr, carotid duplex and abd aortic duplex 1 wk prior Zander Adames PA-C Section of [place]ascular [place] [address] [phone] documented in this encounter Nursing Notes * Eric Aleman MED ASSIST - 11/20/2023 11:16 AM EDT Chief Complaint Patient presents with NEW PATIENT Right carotid artery occlusion. Verified patient. Patient is here with his today. documented in this encounter Plan of Treatment Upcoming Encounters Date Type Department Care Team (Late st Contact Info) Description 12/10/2023 10:15 AM EDT Office Visit Dermatology [facility] [place] 200 [facility] [place] [address] Ismael Nolan MD 200 [facility] [place] [address] 12/19/2023 10:30 AM EDT Office Visit Cardiology, [facility] [address] [place] [address] Gadiel Vasquez DO [address] [facility] [address] 12/20/2023 8:30 AM EDT Office Visit Hematology/Oncology [facility] 200 [facility] [place] [phone] Kendal Ramesh CRNP [address] [place] [address] 12/30/2023 9:20 AM EDT Office Visit Neurology [facility] 200 [facility] [place] [address] Wes Uribe MD [address] [place] [address] 01/01/2024 7:15 AM EDT Cardiac Studies Cardiac Studies, [facility] [address] 05/12/2024 1:30 PM EDT Office Visit Nephrology, [facility] 200 [facility] [place] [address] Joana Gaspar PA-C 200 [facility] [place] [address] 06/09/2024 9:20 AM EST Office Visit General Internal Medicine [facility] 200 [facility] [place] [address] Ismael Villavicencio MD 200 [facility] [place] [address] Scheduled Orders Name Type Priority Associated Diagnoses Orde r Schedule VASC DUPLEX CAROTID BILAT Medical Imaging Routine Former smoker Right carotid artery occlusion Left carotid artery stenosis Ordered: 11/20/2023 VASC AORTIC DUPLEX EVAL-COMPLETE Medical Imaging Routine Former smoker Right carotid artery occlusion Left carotid artery stenosis Ordered: 11/20/2023 Scheduled Procedures Name Priority Associated Diagnoses Date/Ti me COLONOSCOPY FLEXIBLE PROXIMAL DIAGNOSTIC Recall History of colon polyps Health Maintenance Due Date Last Done Comments Zoster Vaccines (1 of 2) 1996 COVID-19 Vaccine ( - season) 2023 04/17/2022, 03/10/2021, 09/18/2020, Additional [...] as of this encounter Visit Diagnoses Diagnosis Right carotid artery occlusion- Primary Occlusion and stenosis of carotid artery without mention of cerebral infarction Former smoker Personal history of tobacco use, presenting hazards to health Left carotid artery stenosis Occlusion and stenosis of carotid artery without mention of cerebral infarction documented in this encounter Care Teams Senior Relationship Manager Relationship Specialty Start Date End Date Ismael Villavicencio MD 200 [place] [address] PCP - General Internal Medicine 03/17/21 documented as of this encounter
--- OUTSIDE RECORDS SUMMARY | 2024-03-27 03:32 | External Medical Summary | Summary of Care ---
Author Name Unknown Organization [facility] Address [address] [place] [address] Phone [phone] Care Team Providers Care Property Maintenance Supervisor Name Role Phone Ismael Villavicencio MD Primary Care Provider + Encounter Details Date Type Department Care Team (Late st Contact Info) Description 10/31/2023 Orders Only General Internal Medicine [facility] 200 [facility] [place] [address] Ismael Villavicencio MD 200 [facility] [place] [address] Allergies Active Allergy Reactions Criticality Noted Date Comments Acetaminophen Rash 10/10/2023 Baclofen Other (Please comment) 03/16/2021 Passed out Phenytoin Other (Please comment) 03/16/2021 Passed out Oxycodone Itching 03/16/2021 Percocet - itching documented as of this encounter (statuses as of 11/13/2023) Medications Medication Sig Dispensed Refills Start Date [...] as of this encounter (statuses as of 11/13/2023) Active Problems Problem Noted Date Diagnosed Date [...] as of this encounter (statuses as of 11/13/2023) Resolved Problems Problem Noted Date Diagnosed Date Resolved Date Mild intermittent asthma with exacerbation 09/22/2021 09/22/2021 High pulmonary arterial pressure 04/03/2021 12/01/2021 Hyperlipidemia 03/16/2021 03/17/2021 documented as of this encounter (statuses as of 11/13/2023) Immunizations Name Administration Dates Next Due COVID-19 mRNA, LNP-s, No Pre serve, 2-Dose Series (Moderna) 03/10/2021,09/18/2020,08/21/2020 Covid-19, Mrna, Lnp-s, Pf, B ivalent, 50 Mcg, IM, 12 yrs and above (Moderna) 04/17/2022 Pneumococcal Conjugate Vacc, 13 Valent (Prevnar) 08/28/2018 Pneumococcal Conjugate Vacci ne, 20-valent ([id number]) 10/16/2022 Seasonal Influenza, Quadriva lent Hd (Fluzone [...] 11:10 AM EDT Office Visit Vascular Surgery, [facility] 132 [place] [address] Zander Adames PA-C [address] [place], [place] [id number] 12/10/2023 10:15 AM EDT Office Visit Dermatology [facility] 200 [facility] [place] [address] Ismael Nolan MD 200 [facility] [place] [address] 12/19/2023 10:30 AM EDT Office Visit Cardiology, [facility] 132 [place] [address] Gadiel Vasquez DO 132 [facility] [place] [address] 12/20/2023 8:30 AM EDT Office Visit Hematology/Oncology [facility] 200 [facility] [place] [phone] Kendal Ramesh CRNP [address] [place] [address] 12/30/2023 9:20 AM EDT Office Visit Neurology [facility] 200 [facility] [place] [address] Wes Uribe MD [address] [place] [address] 01/01/2024 7:15 AM EDT Cardiac Studies Cardiac Studies, [facility] 132 [place] [address] 05/12/2024 1:30 PM EDT Office Visit Nephrology, [facility] [address] [place] [place] [address] Joana Gaspar PA-C [address] [place] [address] 06/09/2024 9:20 AM EST Office Visit General Internal Medicine [place] [address] [place] [address] Ismael Villavicencio MD [address] [place] [address] [address] Scheduled Procedures Name Priority Associated Diagnoses Date/Ti [...] interpreted or resulted by a [facility] or [facility] contracted radiologist. Ismael Villavicencio MD RAD CT documented in this encounter Care Teams Property Maintenance Supervisor Relationship Specialty Start Date End Date Ismael Villavicencio MD [address] [place] [address], [place] [address] PCP - General Internal Medicine 03/17/21 documented as of this encounter
--- OUTSIDE RECORDS SUMMARY | 2024-03-27 03:32 | External Medical Summary | Summary of Care ---
Author Name Unknown Organization [facility] Address [address] [place] [address] Phone [phone] Care Team Providers Care Teacher Of The Handicapped Name Role Phone Ismael Villavicencio MD Primary Care Provider + Encounter Details Date Type Department Care Team (Late st Contact Info) Description 11/14/2023 Orders Only PATIENT PORTAL DO NOT DELETE THIS DEPT USED [place] [facility] [place] [address] Allergies Active Allergy Reactions Criticality Noted Date [...] (Prevnar) 08/28/2018 Pneumococcal Conjugate Vacci ne, 20-valent ([id number]) 10/16/2022 Seasonal Influenza, Quadriva lent Hd (Fluzone [...] 11:10 AM EDT Office Visit Vascular Surgery, [facility] 132 [place] [address] Zander Adames PA-C [address] [place], [place] [address] 12/10/2023 10:15 AM EDT Office Visit Dermatology [facility] 200 [facility] [place] [address] Ismael Nolan MD 200 [facility] [place] [address] 12/19/2023 10:30 AM EDT Office Visit Cardiology, [facility] 132 [place] [address] Gadiel Vasquez, DO 132 [place] [address] 12/20/2023 8:30 AM EDT Office Visit Hematology/Oncology [facility] 200 [facility] [place] [phone] Kendal Ramesh CRNP [address] [place] [address] 12/30/2023 9:20 AM EDT Office Visit Neurology [facility] 200 [facility] [place] [address] Wes Uribe MD [address] [place], [place] [id number] 01/01/2024 7:15 AM EDT Cardiac Studies Cardiac Studies, [facility] 132 [place] [address] 05/12/2024 1:30 PM EDT Office Visit Nephrology, [facility] 200 [facility] [place] [address] Joana Gaspar PA-C 200 [facility] [place] [address] 06/09/2024 9:20 AM EST Office Visit General Internal Medicine [facility] [place] 200 [facility] [place] [address] Ismael Villavicencio MD 200 [facility] [place] [address] Scheduled Procedures Name Priority Associated Diagnoses Date/Ti [...] filedocumented as of this encounter Care Teams Teacher Of The Handicapped Relationship Specialty Start Date End Date Ismael Villavicencio MD 200 [place] [address] PCP - General Internal Medicine 03/17/21 documented as of this encounter
--- OUTSIDE RECORDS SUMMARY | 2024-03-27 03:32 | External Medical Summary | Summary of Care ---
Author Name Unknown Organization [facility] Address [address] [place] [address] Phone [phone] Care Team Providers Care Student Assistance Counselor Name Role Phone Ismael Villavicencio MD Primary Care Provider + Encounter Details Date Type Department Care Team (Late st Contact Info) Description 10/30/2023 Orders Only General Internal Medicine [facility] 200 [facility] [place] [address] Ismael Villavicencio MD 200 [facility] [place] [phone] Allergies Active Allergy Reactions Criticality Noted Date [...] (Prevnar) 08/28/2018 Pneumococcal Conjugate Vacci ne, 20-valent ([id number]) 10/16/2022 Seasonal Influenza, Quadriva lent Hd (Fluzone [...] 11:10 AM EDT Office Visit Vascular Surgery, [facility] 132 [place] [address] Zander Adames PA-C [address] [place], [place] [id number] 12/10/2023 10:15 AM EDT Office Visit Dermatology [facility] 200 [facility] [place] [address] Ismael Nolan MD 200 [facility] [place] [address] 12/19/2023 10:30 AM EDT Office Visit Cardiology, [facility] 132 [place] [address] Gadiel Vasquez DO 132 [facility] [address] 12/20/2023 8:30 AM EDT Office Visit Hematology/Oncology [facility] 200 [facility] [place] [phone] Kendal Ramesh CRNP 400 [place] [address] 12/30/2023 9:20 AM EDT Office Visit Neurology [facility] 200 [facility] [place] [address] Wes Uribe MD [address] [place] [address] 01/01/2024 7:15 AM EDT Cardiac Studies Cardiac Studies, [facility] 132 [place] [address] 05/12/2024 1:30 PM EDT Office Visit Nephrology, [facility] [address] [place] [address] Joana Gaspar PA-C [address] [place] [address] 06/09/2024 9:20 AM EST Office Visit General Internal Medicine [place] [address] [place] [address] [address] Ismael Villavicencio MD [address] [place] [address] [address] Scheduled Procedures Name Priority Associated Diagnoses Date/Ti [...] interpreted or resulted by a [facility] or [facility] contracted radiologist. Ismael Villavicencio MD RAD ULTRASOUND documented in this encounter Care Teams Student Assistance Counselor Relationship Specialty Start Date End Date Ismael Villavicencio MD [address] [place] [address], [place] [address] PCP - General Internal Medicine 03/17/21 documented as of this encounter
--- OUTSIDE RECORDS SUMMARY | 2024-03-27 03:32 | External Medical Summary | Summary of Care ---
Author Name Unknown Organization [facility] Address [address] [place] [address] Phone [phone] Care Team Providers Care Stem Cutter Name Role Phone Ismael Villavicencio MD Primary Care Provider + Reason for Visit * Reason Onset Date Comments TRIAGE 11/08/2023 Encounter Details Date Type Department Care Team (Late st Contact Info) Description 11/08/2023 Telephone Vascular Surg [facility] [address], [place] [phone] Talha Grey MD [address] [place] [address] TRIAGE Allergies Active Allergy Reactions [...] (Prevnar) 08/28/2018 Pneumococcal Conjugate Vacci ne, 20-valent ([id number]) 10/16/2022 Seasonal Influenza, Quadriva lent Hd (Fluzone [...] Telephone Encounter - Marylu Mckeon OSA - 11/13/2023 1:47 PM EDT Images are in [employer] and have been nominated to PACs * Telephone Encounter - Marylu Mckeon OSA - 11/12/2023 4:44 PM EDT Imaging requested * Telephone Encounter - Zander Adames PA-C - 11/12/2023 1:48 PM EDT Willie/Marylu- Can you please [facility] images (carotid duplex and CT neck) SONU. I am due to see pt as a new pt, next week @ [facility], on 11/19 Thank you Zander * Telephone Encounter - Yessenia Zuniga OSA - 11/08/2023 11:09 AM EDT Just s/w patient and moved pt from [facility] to [facility] (pt lives in [place]). Adv patient thata carotid US needed to be scheduled, pt stated he had that done at [facility] along w/ a CT w/ contrast. I [...] - 11/08/2023 10:41 AM EDT 12/04 izzy new pt documented in this encounter Plan of Treatment Upcoming Encounters Date Type Department Care Team (Late st Contact Info) Description 11/20/2023 11:10 AM EDT Office Visit Vascular Surgery, [facility] [address] [facility] [place] [address] Zander Adames PA-C [address] [place] [address] 12/10/2023 10:15 AM EDT Office Visit Dermatology [facility] 200 [facility] [place] [address] Ismael Nolan MD [address] [facility] [place] [address] 12/19/2023 10:30 AM EDT Office Visit Cardiology, [facility] [address] [facility] [place] [address] Gadiel Vasquez, 132 [facility] [place] [address] 12/20/2023 8:30 AM EDT Office Visit Hematology/Oncology [facility] [address] [facility] [place] [phone] Kendal Ramesh CRNP [address] [place] [address] [place] [address] 12/30/2023 9:20 AM EDT Office Visit Neurology [facility] [address] [facility] [address] [place] [address] Wes Uribe MD [address] [facility] [place] [address] 01/01/2024 7:15 AM EDT Cardiac Studies Cardiac Studies, [facility] [address] [place] [address] 05/12/2024 1:30 PM EDT Office Visit Nephrology, [facility] [address] [facility] [place] [address] Joana Gaspar PA-C [address] [facility] [place] [address] 06/09/2024 9:20 AM EST Office Visit General Internal Medicine [facility] [address] [facility] [place] [address] Ismael Villavicencio MD [address] [facility] [place] [address] Scheduled Orders Name Type Priority Associated Diagnoses [...] infarction documented in this encounter Care Teams Stem Cutter Relationship Specialty Start Date End Date Ismael Villavicencio MD [address] [place] [address] PCP - General Internal Medicine 03/17/21 documented as of this encounter
--- OUTSIDE RECORDS SUMMARY | 2024-03-27 03:33 | External Medical Summary ---
Author Name Unknown Address Unknown Organization K09:[facility] [place] [address] Laboratory Report Ordering Provider Test Date Status IVANJESUSITA 11/07/2023 15:32:44 Final Observation Date Value Abnormality Reference (Units ) Status BUN 11/07/2023 15:32:44 48 Above high normal 6-20 (mg/dL) Final Creatinine 11/07/2023 15:32:44 1.1 0.6-1.2 (mg/dL) Final Glomerular filtration rate/1.73 sq M.predicted [Volume Rate/Area] in Serum, Plasma or Blood by Creatinine-based formula (CKD-EPI) 11/07/2023 15:32:44 70 >=60 (mL/min) Final eGFR is calculated based on the CKD-EPI 2020 equation Sodium 11/07/2023 15:32:44 133 Below low normal 135 -146 (mmol/L) Final Potassium 11/07/2023 15:32:44 4.9 3.5-5.1 (m mol/L) Final Cl 11/07/2023 15:32:44 95 Below low normal 98- 107 (mmol/L) Final CO2 11/07/2023 15:32:44 26 22-32 (mmo l/L) Final Anion gap 11/07/2023 15:32:44 12 7-15 (mmol /L) Final Glucose 11/07/2023 15:32:44 110 70-120 (mg /dL) Final Calcium 11/07/2023 15:32:44 10.0 8.4-10.2 ( mg/dL) Final Performing Location [facility] [place] [address]
--- OUTSIDE RECORDS SUMMARY | 2024-03-27 03:33 | External Medical Summary | Summary of Care ---
Author Name Unknown Organization [facility] Address [address] [place] [address] Phone [phone] Care Team Providers Care Financial Specialist Name Role Phone Ismael Villavicencio MD Primary Care Provider + Reason for Visit * Reason Onset Date Comments TRIAGE 11/08/2023 Encounter Details Date Type Department Care Team (Late st Contact Info) Description 11/08/2023 Telephone Vascular Surg [facility] [address] [place], [place] [phone] Talha Grey MD [address] [place] [address] TRIAGE Allergies Active Allergy Reactions [...] (Prevnar) 08/28/2018 Pneumococcal Conjugate Vacci ne, 20-valent ([id number]) 10/16/2022 Seasonal Influenza, Quadriva lent Hd (Fluzone [...] encounter Miscellaneous Notes * Telephone Encounter - Zander Adames PA-C - 11/12/2023 1:48 PM EDT Willie/Marylu- Can you please [facility] images (carotid duplex and CT neck) SONU. I am due to see pt as a new pt, next week @ [facility], on 11/19 Thank you Zander * Telephone Encounter - Yessenia Zuniga OSA - 11/08/2023 11:09 AM EDT Just s/w patient and moved pt from [facility] to [facility] (pt lives in [place]). Adv patient thata carotid US needed to [...] 11:10 AM EDT Office Visit Vascular Surgery, [facility] 132 [place] [address] Zander Adames PA-C [address] [place], [place] [phone] 12/10/2023 10:15 AM EDT Office Visit Dermatology [facility] 200 [facility] [place] [address] Ismael Nolan MD 200 [facility] [place] [address] 12/19/2023 10:30 AM EDT Office Visit Cardiology, [facility] 132 [place] [address] Gadiel Vasquez, DO 132 [facility] [place] [address] 12/20/2023 8:30 AM EDT Office Visit Hematology/Oncology [facility] 200 [facility] [place] [phone] Kendal Ramesh CRNP [address] [place] [address] 12/30/2023 9:20 AM EDT Office Visit Neurology [facility] 200 [facility] [place] [address] Wes Uribe MD [address] [place], [place] [phone] 01/01/2024 7:15 AM EDT Cardiac Studies Cardiac Studies, [facility] 132 [place] [address] 05/12/2024 1:30 PM EDT Office Visit Nephrology, [facility] 200 [facility] [place] [address] ZeJoana tariq PA-C 200 [facility] [place] [address] 06/09/2024 9:20 AM EST Office Visit General Internal Medicine [facility] [place] [address] [facility] [place] [address] Ismael Villavicencio MD 200 [facility] [place] [address] Scheduled Orders Name Type Priority Associated Diagnoses [...] infarction documented in this encounter Care Teams Financial Specialist Relationship Specialty Start Date End Date Ismael Villavicencio MD [address] [place] [address] PCP - General Internal Medicine 03/17/21 documented as of this encounter
--- OUTSIDE RECORDS SUMMARY | 2024-03-27 03:33 | External Medical Summary | Summary of Care ---
Author Name Unknown Organization [facility] Address [address] [place] [address] Phone [phone] Care Team Providers Care Registered Phlebotomist Part Time Name Role Phone Ismael Villavicencio MD Primary Care Provider + Reason for Visit * Reason Comments Outpatient Testing Encounter Details Date Type Department Care Team (Late st Contact Info) Description 11/07/2023 3:30 PM EDT Laboratory Laboratory [facility] [address] [place] [phone] [facility] 200 [facility] [place] [address] Hypertension goal BP (blood pressure) < 130/80; Chronic hyponatremia Allergies Active Allergy Reactions Criticality Noted Date Comments Acetaminophen Rash 10/10/2023 Baclofen Other (Please comment) 03/16/2021 Passed out Phenytoin Other (Please comment) 03/16/2021 Passed out Oxycodone Itching 03/16/2021 Percocet - itching documented as of this encounter (statuses as of 11/07/2023) Medications Medication Sig Dispensed Refills Start Date End Date Status Multivitamin Adults 50+ Oral Tablet Take by mouth. 0 Active Calcium Carbonate-Vitamin D 600-200 MG-UNIT Oral Tablet [...] HFA 108 (90 Base) MCG/ACT Inhalation Aerosol SolutionIndication s:Mild intermittent asthma without complication Inhale 2 Puffs [...] 12/11/2022 Active Loratadine 10 MG Oral Tablet (Claritin)Indicati ons:Chronic rhinitis Take 1 Tablet by mouth in the morning. 90 Tablet 3 03/13/2023 Active amLODIPine Besylate 10 MG Oral Tablet (Norvasc)Indicatio ns:Hypertension goal BP (blood pressure) < 130/80 Take 0.5 Tablets by mouth every evening. 45 Tablet 3 06/04/2023 Active Fosinopril Sodium 40 MG Oral Tablet (Monopril)Indicati ons:Hypertension goal BP (blood pressure) < 130/80 TAKE 1 TABLET BY MOUTH EVERY DAY IN THE MORNING 90 Tablet 3 06/07/2023 Active Spironolactone 25 MG Oral Tablet (Aldactone)Indicat ions:Hypertension goal BP (blood pressure) < 130/80 Take 1 Tablet by mouth in the morning. 90 Tablet 3 06/28/2023 Active Atorvastatin Calcium 20 MG Oral Tablet (Lipitor)Indicatio ns:Right carotid artery occlusion Take 1 Tablet by mouth in the morning. 30 Tablet 5 11/07/2023 Active Aspirin 81 MG Oral Tablet Delayed ReleaseIndications :Left carotid artery stenosis Take 1 Tablet by mouth in the morning. 90 Tablet 1 11/07/2023 11/07/2023 Discontinue d(Refill) documented as of this encounter (statuses as of 11/07/2023) Active Problems Problem Noted Date Diagnosed Date [...] as of this encounter (statuses as of 11/07/2023) Resolved Problems Problem Noted Date Diagnosed Date Resolved Date Mild intermittent asthma with exacerbation 09/22/2021 09/22/2021 High pulmonary arterial pressure 04/03/2021 12/01/2021 Hyperlipidemia 03/16/2021 03/17/2021 documented as of this encounter (statuses as of 11/07/2023) Immunizations Name Administration Dates Next Due COVID-19 mRNA, LNP-s, No Pre serve, 2-Dose Series (Moderna) 03/10/2021,09/18/2020,08/21/2020 Covid-19, Mrna, Lnp-s, Pf, B ivalent, 50 Mcg, IM, 12 yrs and above (Moderna) 04/17/2022 Pneumococcal Conjugate Vacc, 13 Valent (Prevnar) 08/28/2018 Pneumococcal Conjugate Vacci ne, 20-valent ([id number]) 10/16/2022 Seasonal Influenza, Quadriva lent Hd (Fluzone [...] Care Team (Late st Contact Info) Description 12/05/2023 11:50 AM EDT Office Visit Vascular Surgery, [place] [address] [place] [address] Talha Grey MD [address], [place] [phone] 12/10/2023 10:15 AM EDT Office Visit Dermatology [facility] 200 [facility] [place] [address] Ismael Nolan MD 200 [facility] [place] [address] 12/19/2023 10:30 AM EDT Office Visit Cardiology, [facility] [place] [address] Gadiel Vasquez O, DO [address] [facility] [place] [address] 12/20/2023 8:30 AM EDT Office Visit Hematology/Oncology [facility] 200 [facility] [place] [phone] Kendal Ramesh CRNP [address] [place] [address] 12/30/2023 9:20 AM EDT Office Visit Neurology [facility] 200 [facility] [place] [address] Wes Uribe MD [address], [place] [phone] 01/01/2024 7:15 AM EDT [facility] [address] [place] [address] 05/12/2024 1:30 PM EDT Office Visit Nephrology, [facility] 200 [facility] [place] [address] Joana Gaspar PA-C 200 [facility] [place] [address] 06/09/2024 9:20 AM EST Office Visit General Internal Medicine [facility] 200 [facility] [place] [address] Ismael Villavicencio MD 200 [facility] [place] [address] Pending Results Name Type Priority Associated Diagnoses Date /Time BASIC METABOLIC PANEL Lab Routine Hypertension goal BP (blood pressure) < 130/80 11/07/2023 3:32 PM EDT Scheduled Procedures Name Priority Associated Diagnoses Date/Ti me COLONOSCOPY FLEXIBLE PROXIMAL DIAGNOSTIC Recall History of colon polyps Health Maintenance Due Date Last Done Comments Zoster Vaccines (1 of 2) 1996 COVID-19 Vaccine ( season) 2023 04/17/2022, 03/10/2021, 09/18/2020, Additional history exists COLONOSCOPY-ANNUAL AGES 18-100 12/26/2023 12/25/2022, 12/25/2022, 09/04/2022, Additional history exists Depression Screening 04/30/2024 04/30/2023 GFR 10/24/2024 10/25/2023, 07/15, 06/07/2023, Additional history exists Albumin/Creatinine Ratio 04/23/2025 04/23/2022, [...] (blood pressure) < 130/80 Unspecified essential hypertension Chronic hyponatremia Hyposmolality and/or hyponatremia documented in this encounter Care Teams Registered Phlebotomist Part Time Relationship Specialty Start Date End Date Ismael Villavicencio MD 200 [place] [address] PCP - General Internal Medicine 03/17/21 documented as of this encounter
--- OUTSIDE RECORDS SUMMARY | 2024-03-27 03:33 | External Medical Summary | Summary of Care ---
Author Name Unknown Organization [facility] Address [address] [place] [address] Phone [phone] Care Team Providers Care Informatics Specialist Name Role Phone Ismael Villavicencio MD Primary Care Provider + Reason for Visit * Reason Onset Date Comments Advice 11/01/2023 Encounter Details Date Type Department Care Team (Late st Contact Info) Description 11/01/2023 Telephone Cardiology, [facility] [address] [facility] [place] [address] Neftaly Joseph MD [address] [place] [facility] [place] [address] Advice Allergies Active Allergy Reactions Criticality Noted Date Comments Acetaminophen Rash 10/10/2023 Baclofen Other (Please comment) 03/16/2021 Passed out Phenytoin Other (Please comment) 03/16/2021 Passed out Oxycodone Itching 03/16/2021 Percocet - itching documented as of this encounter (statuses as of 11/01/2023) Medications Medication Sig Dispensed Refills Start Date [...] as of this encounter (statuses as of 11/01/2023) Active Problems Problem Noted Date Diagnosed Date 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 Mild aortic regurgitation 10/15/2021 Mild persistent asthma without complication 09/12 Pulmonary hypertension 06/01/2021 Chronic diastolic congestive heart failure 04/03 Mild mitral regurgitation 04/03/2021 Mixed hyperlipidemia 03/17/2021 Chronic edema 03/17/2021 Hypertension goal BP (blood pressure) < 130/80 0 03/16/2021 Chronic hyponatremia 03/16/2021 Osteoarthritis 03/16/2021 documented as of this encounter (statuses as of 11/01/2023) Resolved Problems Problem Noted Date Diagnosed Date Resolved Date Mild intermittent asthma with exacerbation 09/22/2021 09/22/2021 High pulmonary arterial pressure 04/03/2021 12/01/2021 Hyperlipidemia 03/16/2021 03/17/2021 documented as of this encounter (statuses as of 11/01/2023) Immunizations Name Administration Dates Next Due COVID-19 mRNA, LNP-s, No Pre serve, 2-Dose Series (Moderna) 03/10/2021,09/18/2020,08/21/2020 Covid-19, Mrna, Lnp-s, Pf, B ivalent, 50 Mcg, IM, 12 yrs and above (Moderna) 04/17/2022 Pneumococcal Conjugate Vacc, 13 Valent (Prevnar) 08/28/2018 Pneumococcal Conjugate Vacci ne, 20-valent ([id number]) 10/16/2022 Seasonal Influenza, Quadriva lent Hd (Fluzone [...] encounter Miscellaneous Notes * Addendum Note - Regi Barbosa CMA - 11/01/2023 3:33 PM EDTAddended by: REGI BARBOSA on: 11/01/2023 03:33 PM Modules accepted: Orders * Telephone Encounter - Regi Barbosa CMA - 11/01/2023 3:33 PM EDT Placed order for Zio - please assist. * Telephone Encounter - Neftaly Joseph MD - 11/01/2023 2:55 PM EDT Patient was admitted to [facility] on 10/31/2023 following a near syncopal event. Event appeared multifactorial possible hypotensive. On management for hypertension and chronic hyponatremia. Chronic sinus bradycardia observed though without arrhythmias. CTA of carotids demonstrated chronic right carotid artery occlusion. Patient being discharged to home Needs scheduled for 2-week Zio patch monitor, cardiology follow-up After monitor complete documented in this encounter Plan of Treatment Upcoming Encounters Date Type Department Care Team (Late st Contact Info) Description 11/07/2023 11:30 AM EDT Office Visit Nephrology, [facility] [address] [place] [address] [address] Joana Gaspar PA-C 200 [facility] [place] [address] 11/07/2023 2:40 PM EDT Office Visit General Internal Medicine [facility] [place] [address] [place] [address] [address] Ismael Villavicencio MD 200 [facility] [place] [address] 12/10/2023 10:15 AM EDT Office Visit Dermatology [facility] [place] [address] [facility] [place] [address] Ismael Nolan MD 200 [facility] [place] [address] 12/19/2023 10:30 AM EDT Office Visit Cardiology, [facility] 132 [place] [address] Gadiel Vasquez DO 132 [place] [address] 12/20/2023 8:30 AM EDT Office Visit Hematology/Oncology [facility] 200 [facility] [place] [phone] Kendal Ramesh CRNP [address] [place] [address] 12/30/2023 9:20 AM EDT Office Visit Neurology [facility] 200 [facility] [place] [address] Wes Uribe MD [address] [place] [address] 01/14/2024 2:30 PM EDT Cardiac Studies Cardiac Studies, [facility] 132 [place] [address] Scheduled Orders Name Type Priority Associated Diagnoses Orde r Schedule EXTERNAL EKG 8 TO 15 DAYS Holter Routine Chronic hyponatremia Bradycardia, sinus RCA occlusion (HCC) Near syncope Expected: 11/02/2023 (Approximate), Expires: 10/31/2024 Scheduled Procedures Name Priority Associated Diagnoses Date/Ti [...] as of this encounter Visit Diagnoses Diagnosis Near syncope- Primary Syncope and collapse Chronic hyponatremia Hyposmolality and/or hyponatremia Bradycardia, sinus Other specified cardiac dysrhythmias RCA occlusion (HCC) Acute myocardial infarction, unspecified site, episode of care unspecified documented in this encounter Care Teams Informatics Specialist Relationship Specialty Start Date End Date Ismael Villavicencio MD [address] [place] [address] PCP - General Internal Medicine 03/17/21 documented as of this encounter
--- OUTSIDE RECORDS SUMMARY | 2024-03-27 03:33 | External Medical Summary | Summary of Care ---
Author Name Unknown Organization [facility] Address [address] [place] [address] Phone [phone] Care Team Providers Care Acquisitions Logistics Analyst Name Role Phone Ismael Villavicencio MD Primary Care Provider + Reason for Visit * Reason Onset Date Comments Advice 11/01/2023 Encounter Details Date Type Department Care Team (Late st Contact Info) Description 11/01/2023 Telephone Cardiology, [facility] [address] [place] [address] Neftaly Joseph MD [address] [place] [facility] [place] [address] Advice Allergies Active Allergy Reactions Criticality Noted [...] (Prevnar) 08/28/2018 Pneumococcal Conjugate Vacci ne, 20-valent ([id number]) 10/16/2022 Seasonal Influenza, Quadriva lent Hd (Fluzone [...] encounter Miscellaneous Notes * Telephone Encounter - Neftaly Joseph MD - 11/01/2023 2:55 PM EDT Patient was admitted to [facility] on 10/31/2023 following a near syncopal event. [...] 11:30 AM EDT Office Visit Nephrology, [facility] 200 [facility] [place] [address] Joana Gaspar PA-C [address] [facility] [address] [place] [address] 11/07/2023 2:40 PM EDT Office Visit General Internal Medicine [facility] [place] 200 [facility] [place] [address] Ismael Villavicencio MD [address] [place] [address] [place] [address] 12/10/2023 10:15 AM EDT Office Visit Dermatology [facility] [place] 200 [facility] [place] [address] Ismael Nolan MD [address] [place] [address] [place] [address] 12/19/2023 10:30 AM EDT Office Visit Cardiology, [facility] [place] 132 [facility] [place] [address] Gadiel Vasquez DO [address] [place] [address] 12/20/2023 8:30 AM EDT Office Visit Hematology/Oncology [facility] [address] [facility] [place] [phone] Kendal Ramesh CRNP 400 [facility] [place] [address] 12/30/2023 9:20 AM EDT Office Visit Neurology [facility] [address] [facility] [place] [address] Wes Uribe MD [address] [facility] [place] [address] 01/14/2024 2:30 PM EDT Cardiac Studies Cardiac Studies, [facility] 132 [facility] [place] [address] Scheduled Procedures Name Priority Associated Diagnoses [...] filedocumented as of this encounter Care Teams Acquisitions Logistics Analyst Relationship Specialty Start Date End Date Ismael Villavicencio MD 200 [place] [address] PCP - General Internal Medicine 03/17/21 documented as of this encounter
--- OUTSIDE RECORDS SUMMARY | 2024-03-27 03:33 | External Medical Summary | Summary of Care ---
Author Name Unknown Organization [facility] Address [address] [place] [address] Phone [phone] Care Team Providers Care Engineering Professor Name Role Phone Ismael Villavicencio MD Primary Care Provider + Reason for Visit * Reason Onset Date Comments Advice 11/01/2023 Encounter Details Date Type Department Care Team (Late st Contact Info) Description 11/01/2023 Telephone Cardiology, [facility] [address] [place] [place] [address] Neftaly Joseph MD [address] [facility] [address] Advice Allergies Active Allergy Reactions Criticality Noted Date Comments Acetaminophen Rash 10/10/2023 Baclofen Other (Please comment) 03/16/2021 Passed out Phenytoin Other (Please comment) 03/16/2021 Passed out Oxycodone Itching 03/16/2021 Percocet - itching documented as of this encounter (statuses as of 11/04/2023) Medications Medication Sig Dispensed Refills Start Date [...] as of this encounter (statuses as of 11/04/2023) Active Problems Problem Noted Date Diagnosed Date 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 Mild aortic regurgitation 10/15/2021 Mild persistent asthma without complication 09/12 Pulmonary hypertension 06/01/2021 Chronic diastolic congestive heart failure 04/03 Mild mitral regurgitation 04/03/2021 Mixed hyperlipidemia 03/17/2021 Chronic edema 03/17/2021 Hypertension goal BP (blood pressure) < 130/80 0 03/16/2021 Chronic hyponatremia 03/16/2021 Osteoarthritis 03/16/2021 documented as of this encounter (statuses as of 11/04/2023) Resolved Problems Problem Noted Date Diagnosed Date Resolved Date Mild intermittent asthma with exacerbation 09/22/2021 09/22/2021 High pulmonary arterial pressure 04/03/2021 12/01/2021 Hyperlipidemia 03/16/2021 03/17/2021 documented as of this encounter (statuses as of 11/04/2023) Immunizations Name Administration Dates Next Due COVID-19 mRNA, LNP-s, No Pre serve, 2-Dose Series (Moderna) 03/10/2021,09/18/2020,08/21/2020 Covid-19, Mrna, Lnp-s, Pf, B ivalent, 50 Mcg, IM, 12 yrs and above (Moderna) 04/17/2022 Pneumococcal Conjugate Vacc, 13 Valent (Prevnar) 08/28/2018 Pneumococcal Conjugate Vacci ne, 20-valent ([id number]) 10/16/2022 Seasonal Influenza, Quadriva lent Hd (Fluzone [...] encounter Miscellaneous Notes * Telephone Encounter - Juan Miguel Carmona OSA - 11/04/2023 10:07 AM EDT FU with Pedro was scheduled on 10/25/23 on: 12/19/2023 Status: Nicole Time: 10:30 AM Length: 30 Visit Type: RETURN CARDIOLOGY [[id number]] Reg Status: Verified Last Verified By: Deonte Bazzi OSA [[id number]] Copay: Will schedule ZIO. * Addendum Note - Regi Barbosa CMA - 11/01/2023 3:33 PM EDTAddended by: REGI BARBOSA on: 11/01/2023 03:33 PM Modules accepted: Orders * Telephone Encounter - Regi Barbosa CMA - 11/01/2023 3:33 PM EDT Placed order for Zio - please assist. * Telephone Encounter - Neftaly Joseph MD - 11/01/2023 2:55 PM EDT Patient was admitted to [facility] on 10/31/2023 following a near syncopal [...] Nephrology, [facility] [place] [address] [place] [address] Joana Gaspar PA-C 200 [facility] [place] [address] 11/07/2023 2:40 PM EDT Office Visit General Internal Medicine [facility] 200 [facility] [place], [place] [address] Ismael Villavicencio MD 200 [facility] [place], [place] [address] 12/10/2023 10:15 AM EDT Office Visit Dermatology [facility] [address] [facility] [place], [place] [address] Ismael Nolan MD 200 [facility] [place] [address] 12/19/2023 10:30 AM EDT Office Visit Cardiology, [facility] [address] [place] [address] Gadiel Vasquez DO [address] [place] [address] 12/20/2023 8:30 AM EDT Office Visit Hematology/Oncology [facility] 200 [facility] [place], [place] [address] Kendal Ramesh CRNP [address] [place], [place] [id number] 12/30/2023 9:20 AM EDT Office Visit Neurology [facility] 200 [facility] [place], [place] [address] Wes Uribe MD [address] [place] [address] 01/14/2024 2:30 PM EDT Cardiac Studies Cardiac Studies, [facility] [address] [place] [address] Scheduled Orders Name Type Priority Associated Diagnoses [...] unspecified documented in this encounter Care Teams Engineering Professor Relationship Specialty Start Date End Date Ismael Villavicencio MD 200 [facility] [place] [address] PCP - General Internal Medicine 03/17/21 documented as of this encounter
--- OUTSIDE RECORDS SUMMARY | 2024-03-27 03:33 | External Medical Summary | Summary of Care ---
Author Name Unknown Organization [facility] Address [address] [place] [address] Phone [phone] Care Team Providers Care Bench Tool Maker Name Role Phone Ismael Villavicencio MD Primary Care Provider + Reason for Visit * Reason Onset Date Comments Advice 11/01/2023 Encounter Details Date Type Department Care Team (Late st Contact Info) Description 11/01/2023 Telephone Cardiology, [facility] [address] [place] [facility] [place] [address] Neftaly Joseph MD [address] [address] Advice Allergies Active Allergy Reactions Criticality Noted [...] (Prevnar) 08/28/2018 Pneumococcal Conjugate Vacci ne, 20-valent ([id number]) 10/16/2022 Seasonal Influenza, Quadriva lent Hd (Fluzone [...] - Juan Miguel Carmona OSA - 11/04/2023 10:14 AM EDT Patient is scheduled for the ZIO on 11/06/23 at 2 pm patient is aware of the date and time. * Telephone Encounter - Juan Miguel Carmona OSA - 11/04/2023 10:07 AM EDT FU with Pedro was scheduled on 10/25/23 on: 12/19/2023 Status: Nicole Time: 10:30 AM Length: 30 Visit Type: RETURN CARDIOLOGY [[id number]] Reg Status: Verified Last Verified By: Deonte [...] 2:55 PM EDT Patient was admitted to [facility] on 10/31/2023 following a near syncopal [...] Care Team (Late st Contact Info) Description 11/06/2023 2:00 PM EDT Cardiac Studies Cardiac Studies, [facility] 132 [facility] [place] [address] 11/07/2023 11:30 AM EDT Office Visit Nephrology, [facility] [address] [facility] [place] [address] Joana Gaspar PA-C 200 [facility] [place] [address] 11/07/2023 2:40 PM EDT Office Visit General Internal Medicine [facility] [place] [address] [facility] [place] [address] Ismael Villavicencio MD 200 [facility] [place] [address] 12/10/2023 10:15 AM EDT Office Visit Dermatology [facility] [place] [address] [place] [address] Ismael Nolan MD 200 [facility] [place] [address] 12/19/2023 10:30 AM EDT Office Visit Cardiology, [facility] 132 [facility] [place] [address] Gadiel Vasquez DO 132 [facility] [address] 12/20/2023 8:30 AM EDT Office Visit Hematology/Oncology [facility] [address] [place] [address] Kendal Ramesh CRNP [address] [place] [address] [place] [address] 12/30/2023 9:20 AM EDT Office Visit Neurology [facility] [address] [place] [address] Wes Uribe MD [address] [place], [place] [id number] 01/14/2024 2:30 PM EDT Cardiac Studies Cardiac Studies, [facility] [address] [place] [address] Scheduled Orders Name Type Priority Associated Diagnoses [...] unspecified documented in this encounter Care Teams Bench Tool Maker Relationship Specialty Start Date End Date Ismael Villavicencio MD [address] [place] [address] PCP - General Internal Medicine 03/17/21 documented as of this encounter
--- OUTSIDE RECORDS SUMMARY | 2024-03-27 03:33 | External Medical Summary | Summary of Care ---
Author Name Unknown Organization [facility] Address [address] [place] [address] Phone [phone] Care Team Providers Care Business Management Specialist Name Role Phone Ismael Villavicencio MD Primary Care Provider + Reason for Referral * Evaluate & Treat - Unlimited Visits (Within 10 days (routine)) - Authorized Specialty Diagnoses / Procedures Referred By Contact Referred To Contact Vascular Surgery / Cardiovascular Surgery Diagnoses Right carotid artery occlusion Left carotid artery stenosis Old cerebrovascular accident (CVA) without late effect Ismael Villavicencio MD [facility] [place] [address] [address] Referral ID Status Reason Start Date Expiration Date Visits Requested Visits Authorized [id number] Authorized Specialty Services Required 11/07/2023 999 999 Question Answer Referral Priority Within 10 days (routine) Where should this appointment be scheduled? [facility] What condition is the patient being seen for? Carotid stenosis / Bruit / TIA / CVA Reason for Visit * Reason Onset Date Comments Hospital Follow-Up Pt presents f or a hospital discharge follow up. Pt states was admitted on 10/09 and 10/29 for fractured ribs and passing out, respectively. Pt would like to discuss ultrasound results Hospital Follow-Up 11/07/2023 Encounter Details Date Type Department Care Team (Latest Contact Info) Description 11/07/2023 2:40 PM EDT Office Visit General Internal Medicine [facility] [address] [place] [address] [address] [address] Ismael Villavicencio MD [address] [place] [address] [address] [address] Hospital discharge follow-up*; Right carotid artery occlusion; Syncope and collapse; Left carotid artery stenosis; Old cerebrovascular accident (CVA) without late effect; Abnormal thyroid stimulating hormone (TSH) level; Abnormal results of thyroid function studies; Chronic hyponatremia; Bradycardia Allergies Active Allergy Reactions Criticality Noted Date [...] 12/11/2022 Active Loratadine 10 MG Oral Tablet (Claritin)Indication [...] with food.. 100 Tablet 5 11/07/2023 Active Atorvastatin Calcium 10 MG Oral Tablet (Lipitor) TAKE 1 TABLET BY MOUTH EVERY DAY IN THE MORNING 90 Tablet 3 03/10/2023 4 Discontinue d(Patient preference/ discontinua tion) Aspirin 81 MG Oral Tablet Delayed Release Take 1 Tablet by mouth in the morning. 0 4 Discontinue d(Refill) Aspirin 81 MG Oral Tablet Delayed ReleaseIndications:L eft carotid artery stenosis Take 1 Tablet by mouth in the morning. 90 Tablet 1 11/07/2023 4 Discontinue d(Refill) documented as of this [...] (Prevnar) 08/28/2018 Pneumococcal Conjugate Vacci ne, 20-valent ([id number]) 10/16/2022 Seasonal Influenza, Quadriva lent Hd (Fluzone [...] Sign Reading Time Taken Comments Blood Pressure 120/70 11/07/2023 2:39 PM EDT Pulse 58 11/07/2023 2:39 PM EDT Temperature 36.5 C (97.7 F) 11/07/2023 2:39 PM ED T Respiratory Rate - - Oxygen Saturation 95% 11/07/2023 2:39 PM EDT Inhaled Oxygen Concentration - - Weight 73.5 kg (162 lb) 11/07/2023 2:39 PM EDT Height 165.1 cm (5' 5") 11/07/2023 2:39 PM EDT Body Mass Index 26.96 11/07/2023 2:39 PM EDT documented in this encounter Progress Notes * Ismael Villavicencio MD - 11/07/2023 3:26 PM EDT Chief Complaint Patient presents with Hospital Follow-Up Pt presents for a hospital discharge follow up. Pt states was admitted on 10/09 and 10/29 for fractured ribs and passing out, respectively. Pt would like to discuss ultrasound results Hospital Follow-Up SUBJECTIVE: Tremaine Brady is a 78 year old male with PMH as below who presents for follow up hospital discharge. He was admitted to [facility] after having a syncopal episode at home, fell down. +loc, no trauma. Hewas found to have christie, admitted, given ivf. Saw cardiology as had low hr, told to follow up outpatient with hermelinda. Also found to have right complete carotid occlusion and partial left, told no intervention needed, but had lipitor increased to 20 mg and asa 81 mg started. Told to increase fluids slightly. He was sent home, has felt fine since being home. No syncope, cp, sob ,andres. Has stopped swimming as supposed to do relay this summer. Concern about carotid occlusion, would like second opinion. Patient Active Problem List Diagnosis Code Hypertension [...] effect Z86.73 Left carotid artery stenosis I65.22 Current Outpatient Medications Medication Sig Dispense Refill [...] Tablet 5 Aspirin 81 MG Oral Tablet Delayed Release Take 1 Tablet by mouth in the morning. 90 Tablet 1 No current facility-administered medications for this visit. [...] orthopnea, No paroxysmal nocturnal dyspnea, No edema, and No palpitations GASTROINTESTINAL: No abdominal pain, No change in bowel habits, No significant heartburn, No significant change in appetite, No nausea, vomiting, diarrhea, or constipation, and No dysphagia ALL OTHER SYSTEMS NEGATIVE I reviewed social, PMH, PSH, and family history and updated where needed. Social History Socioeconomic History Marital status: Spouse name: Not on file Number of children: 3 Years of education: Not on file Highest education level: Not on file Occupational History Occupation: retired - [employer] Tobacco Use Smoking status: Former Current packs/day: [...] performed by Treasure Cruz MD at [facility] COLONOSCOPY, DIAGNOSTIC (RECTUM) 12/25/2022 prep-fair, 1-4 mm in cecum, otherwise normal / biopsies benign adenomatous polyp / 1 year w/ 2 day prep / COLONOSCOPY FLEXIBLE PROXIMAL DIAGNOSTIC performed by Treasure Cruz MD at [facility] TOTAL HIP REPLACEMENT & PROSTHESIS Bilateral 2017 Family History Problem Relation Age of Onset Rheum arthritis Mother Coronary Artery disease Father OBJECTIVE: PHYSICAL EXAM: BP 120/70 | Pulse 58 | Temp 36.5 C (97.7 F) (Tympanic) | Ht 1.651 m (5' 5") | Wt 73.5 kg (162 lb) | SpO2 95% | BMI 26.96 kg/m | BSA 1.84 m General: alert, healthy, and no distress Head: Normocephalic, No masses, lesions, tenderness or abnormalities Eye Exam: conjunctiva are pink and non-injected, sclera clear Ears: External ears normal, Canals clear, TM's Normal Heart: regular rate & rhythm, no murmur, no gallops, PMI non-displaced, S-1 normal, and S-2 normal Lungs: normal respiratory rate and rhythm, lungs clear to auscultation Psych: normal affect, no flight of ideas or tangential thought, good eye contact, no pressured speech D/C Summary: Patient is 78 year old male chronic sinus bradycardia, chronic hyponatremia, asthma, HLD, diastolicdysfunction presented to ER for presyncope. Had CHRISTIE on admission which resolved rapidly. Work up unremarkable except for chronic right ICA occlusion and <50% lt ICA stenosis. Seen by vascular surgery- non contributory to patient's symptoms and recommended OP follow up for annual carotid US for LICA surveillance. Noted sinus bradycardia for which he was seen by cardio and they recommeded zio patch and OP follow up. Recent echo 3 weeks ago was reviewed. Labs remained stable. Minimally elevated TSH noted for which he will follow up with his PCP with repeat TFT in the next few months and off of supplements. He has been asymtomatic inhouse and ambulating without issues. Did recommend increasing fluid liberalization as he might have hypotension/vagal issues per cardiology prompting this event. Patient denies any CHF symptoms in the past and he is on lasix and aldactone which he states is for leg swelling- I believe aldactone can be safely discontinued and lasix adjusted, however will defer it to his PCP. Cardio also recommended follow up with nephro. Started on baby aspirin and increased lipitor to 20 mg daily per cardio recommendations. All recommendations were discussed with patient and at bedside. Presyncope- resolved. Work up largely unremarkable. Seen by cardio and vascular. - Workup shows 90% stenosis/occlusion of right ICA. Labs reviewed- CHRISTIE is resolved, TSH only mildlyelevated with normal fT4. Chronic asymptomatic bradycardia - Echo 10/11/23: EF: 65 to 65%, grade 1 diastolic dysfunction, no suggestion of pulmonary hypertension - Consulted vascular- ordered CTA neck per recommendation. They will see patient tomorrow. WIll keep npo overnight just in case Rt ICA stenosis- chronic and non contributory to his symptoms. No intervention needed per vascular.Started on aspirin per vascular. OP follow up annual US surveillance for L ICA stenosis with vascular. Right neck CTA 1. Occlusion of the right internal carotid artery, likely chronic. 2. Extensive plaque within the proximal left internal carotid artery without significant stenosis. 3. Severe stenosis at the origin of the right external carotid artery. CHRISTIE- resolved. OP follow up. Fluid liberalization. Sinus bradycardia- asymptomatic. not on AVNB. Seen by cardio- OP follow up with zio patch. Hyponatremia- resolved, Sodium at 136 Elevated TSH- TSH: 7.8. Free T4: 0.96. No need for supplementation currently. Recommend follow up with PCP in 6-8 weeks with repeat TSH prior to considering treatment. Recommend holding any OTC supplements including biotin few days prior to repeat TFT. HTN- Resume home meds. Cardiology c/s: Given carotid disease would increase atorvastatin to 20 mg/day, to continue aspirin per day Zio patch event monitor to exclude occult bradycardia arrhythmias post discharge Suspect will need mild liberalization and fluids. Nephrology outpatient follow- up regarding meds and Patient to see cardiology after Zio patch complete Vascular note: Pt with R ICA occlusion. This is chronic and not contributory to pt's presenting sx. He does not require surgical intervention for this, but will need annual carotid US for surveillance of L ICA. Office will call pt to schedule. Also recommend 81mg ASA if no contraindications. Clopidogrel not necessary at this time. This was discussed at length with the pt and his , they express understandingand agreement. CT Head: 1. No acute intracranial findings. 2. 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 ASSESSMENT: Z09 Hospital discharge follow-up (primary encounter diagnosis) I65.21 Right carotid artery occlusion R55 Syncope and collapse I65.22 Left carotid artery stenosis Z86.73 Old cerebrovascular accident (CVA) without late effect R79.89 Abnormal thyroid stimulating hormone (TSH) level R94.6 Abnormal results of thyroid function studies E87.1 Chronic hyponatremia R00.1 Bradycardia PLAN: Hospital discharge follow-up (Primary) - DISCH MED RECON CUR MED LIS As below Right carotid artery occlusion - Atorvastatin Calcium 20 MG Oral Tablet (Lipitor); Take 1 Tablet by mouth in the morning. - VASCULAR SURGERY REFERRAL OP - COMPREHENSIVE METABOLIC PANEL; Future; Expected date: 12/07/2023 - LIPID PANEL WITH DIRECT LDL IF TG IS HIGH; Future; Expected date: 12/07/2023 Cont ASA, lipitor Labs 1 month Will get second opinion per request, but no surgery needed for now Syncope and collapse Perhaps from low bp/christie Await repeat bmp Await nephrology recs Hold swimming for now Left carotid artery stenosis - VASCULAR SURGERY REFERRAL OP - COMPREHENSIVE METABOLIC PANEL; Future; Expected date: 12/07/2023 - LIPID PANEL WITH DIRECT LDL IF TG IS HIGH; Future; Expected date: 12/07/2023 - Aspirin 81 MG Oral Tablet Delayed Release; Take 1 Tablet by mouth in the morning. Old cerebrovascular accident (CVA) without late effect - VASCULAR SURGERY REFERRAL OP On imaging, no symptoms Cont asa Abnormal thyroid stimulating hormone (TSH) level - TSH WITH FREE T4 IF INDICATED; Future; Expected date: 12/07/2023 Recheck 1 month, stop biotin prior Abnormal results of thyroid function studies - TSH WITH FREE T4 IF INDICATED; Future; Expected date: 12/07/2023 Chronic hyponatremia - BASIC METABOLIC PANEL; Future; Expected date: 11/07/2023 Bradycardia Await hermelinda (wearing now) I spent a total of 40-54 minutes (exact time 43 mins) on the date of service in preparation, delivery, and documentation of the care provided to Tremaine Brady excluding any time spent in the performance of separately billed services. Follow Up: Return in about 6 months (around 05/08/2024), or if symptoms worsen or fail to improve, for Labs Today. | For: Labs Today Ismael Villavicencio MD documented in this encounter Nursing Notes * Sharmila Ramesh MED ASSIST - 11/07/2023 2:44 PM EDT Chief Complaint Patient presents with Hospital Follow-Up Pt presents for a hospital discharge follow up. Pt states was admitted on 10/09 and 10/29 for fractured ribs and passing out, respectively. Pt would like to discuss ultrasound results Patient has been verbally educated on the need or importance of Immunizations: shingles and has declined topic(s). documented in this encounter Plan of Treatment Upcoming Encounters Date Type Department Care Team (Late st Contact Info) Description 12/05/2023 11:50 AM EDT Office Visit Vascular Surgery, [place] [address] [place] [address] Talha Grey MD [address] [place] [address] 12/10/2023 10:15 AM EDT Office Visit Dermatology [address] [place] [address] Ismael Nolan MD [address] [facility] [place] [address] 12/19/2023 10:30 AM EDT Office Visit Cardiology, [facility] [address] [place] [address] Gadiel Vasquez DO [address] [place] [address] 12/20/2023 8:30 AM EDT Office Visit Hematology/Oncology [facility] [address] [facility] [place] [id number] Kendal Ramesh CRNP 400 [facility] [place] [address] 12/30/2023 9:20 AM EDT Office Visit Neurology [facility] [address] [facility] [place] [address] Wes Uribe MD [address] [place] [address] 01/01/2024 7:15 AM EDT Cardiac Studies Cardiac Studies, [facility] 132 [facility] [place] [address] 05/12/2024 1:30 PM EDT Office Visit Nephrology, [facility] [address] [facility] [place] [address] Joana Gaspar PA-C [address] [facility] [place] [address] 06/09/2024 9:20 AM EST Office Visit General Internal Medicine [facility] [address] [facility] [address] [place] [address] Ismael Villavicencio MD [address] [facility] [place] [address] Scheduled Orders Name Type Priority Associated Diagnoses Orde r Schedule COMPREHENSIVE METABOLIC PANEL Lab Routine Right carotid artery occlusion Left carotid artery stenosis Expected: 12/07/2023 (Approximate), Expires: 11/06/2024 LIPID PANEL WITH DIRECT LDL IF TG IS HIGH Lab Routine Right carotid artery occlusion Left carotid artery stenosis Expected: 12/07/2023, Expires: 11/06/2024 TSH WITH FREE T4 IF INDICATED Lab Routine Abnormal thyroid stimulating hormone (TSH) level Abnormal results of thyroid function studies Expected: 12/07/2023 (Approximate), Expires: 11/06/2024 Scheduled Procedures Name Priority Associated Diagnoses Date/Ti me COLONOSCOPY FLEXIBLE PROXIMAL DIAGNOSTIC Recall History of colon polyps Scheduled Referrals Name Type Priority Associated Diagnoses Orde r Schedule VASCULAR SURGERY REFERRAL OP Referral Within 10 days (routine) Right carotid artery occlusion Left carotid artery stenosis Old cerebrovascular accident (CVA) without late effect Ordered: 11/07/2023 Health Maintenance Due Date Last Done Comments [...] Hospital discharge follow-up- Primary Other follow-up examination Right carotid artery occlusion Occlusion and stenosis of carotid artery without mention of cerebral infarction Syncope and collapse Left carotid artery stenosis Occlusion and stenosis of carotid artery without mention of cerebral infarction Old cerebrovascular accident (CVA) without late effect Abnormal thyroid stimulating hormone (TSH) level Abnormal results of thyroid function studies Nonspecific abnormal results of thyroid function study Chronic hyponatremia Hyposmolality and/or hyponatremia Bradycardia Other specified cardiac dysrhythmias documented in this encounter Care Teams Business Management Specialist Relationship Specialty Start Date End Date Ismael Villavicencio MD [address] [place] [address], [place] [address] PCP - General Internal Medicine 03/17/21 documented as of this encounter
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
--- OUTSIDE RECORDS SUMMARY | 2024-03-27 03:33 | External Medical Summary | Summary of Care ---
Author Name Unknown Organization [facility] Address [address] [place] [address] Phone [phone] Care Team Providers Care Sap Bw Consultant Name Role Phone Ismael Villavicencio MD Primary Care Provider + Reason for Visit * Reason Onset Date Comments Advice 11/01/2023 Encounter Details Date Type Department Care Team (Late st Contact Info) Description 11/01/2023 Telephone Cardiology, [facility] [address] [facility] [place] [address] Neftaly Joseph MD [address] [place] [address] Advice Allergies Active Allergy Reactions Criticality Noted [...] (Prevnar) 08/28/2018 Pneumococcal Conjugate Vacci ne, 20-valent ([id number]) 10/16/2022 Seasonal Influenza, Quadriva lent Hd (Fluzone [...] AM Length: 30 Visit Type: RETURN CARDIOLOGY [23315] Reg Status: Verified Last Verified By: Deonte [...] 2:55 PM EDT Patient was admitted to [facility] on 10/31/2023 following a near syncopal event. [...] 2:00 PM EDT Cardiac Studies Cardiac Studies, [facility] 132 [facility] [place] [address] 11/07/2023 11:30 AM EDT Office Visit Nephrology, [facility] [place] [address] Joana Gaspar PA-C [facility] [place] [address] 11/07/2023 2:40 PM EDT Office Visit General Internal Medicine [facility] [place] [address] [facility] [place] [address] Ismael Villavicencio MD 200 [facility] [place] [address] 12/10/2023 10:15 AM EDT Office Visit Dermatology [facility] [place] [address] [place] [address] Ismael Nolan MD 200 [facility] [place] [address] 12/19/2023 10:30 AM EDT Office Visit Cardiology, [facility] 132 [facility] [place] [address] Gadiel Vasquez DO [facility] [address] 12/20/2023 8:30 AM EDT Office Visit Hematology/Oncology [facility] [address] [place] [address] Kendal Ramesh CRNP [address] [place] [address] [place] [address] 12/30/2023 9:20 AM EDT Office Visit Neurology [facility] [address] [place] [address] [address] Wes Uribe MD [address] [place], [place] [id number] 01/14/2024 2:30 PM EDT Cardiac Studies Cardiac Studies, [facility] [address] [place] [address] Scheduled Orders Name Type Priority Associated Diagnoses [...] unspecified documented in this encounter Care Teams Sap Bw Consultant Relationship Specialty Start Date End Date Ismael Villavicencio MD 200 [place] [address] PCP - General Internal Medicine 03/17/21 documented as of this encounter
[2024-03-27] MEDS: KETOROLAC TROMETHAMINE 15 MG/ML VIAL IV ONE (04:50)
[2024-03-27 06:35] LABS: Basophils # (auto) 0.01 K/uL (0.00-0.20); Basophils % (auto) 0.1 %; Hematocrit (blood only) 35.7 % (42.0-52.0); Immature Granulocytes # (auto) 0.04 K/uL (0.01-0.20); Immature Granulocytes % (auto) 0.5 %; Lymphocytes # (auto) 1.06 K/uL (1.20-3.40); Lymphocytes % (auto) 14.6 %; Mean Corpuscular Hemoglobin 31.9 pg (25.0-34.0); Mean Corpuscular Hgb Conc 36.4 g/dL (32.0-36.0); Mean Corpuscular Volume 87.5 fL (80.0-100.0); Mean Platelet Volume 9.6 fL (9.4-12.4); Monocytes # (auto) 0.55 K/uL (0.11-0.59); Monocytes % (auto) 7.6 %; Neutrophils # (auto) 5.62 K/uL (1.40-6.50); Neutrophils % (auto) 77.2 %; Platelet Count 164 K/uL (130-400); RDW Coefficient of Variation 12.5 % (11.5-14.5); RDW Standard Deviation 40.3 fL (36.4-46.3); Red Blood Count 4.08 M/uL (4.70-6.10); White Blood Count 7.28 K/ul (4.8-10.8)
[2024-03-27 06:46] LABS: BUN Creatinine Ratio 30.4 (10-20); Calcium 8.7 mg/dl (8.6-10.3); Creatinine Clr Calc Pharmacy 69.5 ml/min; Est GFR (African American) 99.7 ml/min; Magnesium 1.9 mg/dl (1.7-2.4); Potassium 4.2 mmol/L (3.5-5.1)
--- NOTE | 2024-03-27 07:28 | XRay Report ---
XR chest 1V portable CLINICAL HISTORY: weakness, covid COMPARISON STUDY: Chest CT October 10, 2023. FINDINGS: Lung volumes are mildly diminished. There is no pneumothorax or pleural effusion. There is no evidence for pulmonary edema. Minimal bibasilar densities favor atelectasis. There is no consolida tion to suggest pneumonia. There is moderate cardiomegaly without evidence for pulmonary edema. IMPRESSION: 1. Linear bibasilar densities suggestive of atelectasis. No consolidation to suggest pneumonia. 2. Cardiomegaly without evidence for pulmonary edema. ACT 112: Negative or not required by law. Electronically signed by: Juan Malik M.D. 03/27/2024 7:26 AM
[2024-03-27] MEDS: PANTOprazole 40 MG TAB PO PRN (08:23)
[2024-03-27] MEDS: lisinopril 40 MG TAB PO SCH (08:23)
[2024-03-27] MEDS: CEROVITE ADV FORMULA TAB PO SCH (08:23)
[2024-03-27] MEDS: ASCORBIC ACID 500 MG TAB PO SCH (08:23)
[2024-03-27] MEDS: LORATADINE 10 MG TAB PO SCH (08:23)
[2024-03-27] MEDS: BENZONATATE 100 MG CAPSULE PO SCH (08:23)
[2024-03-27] MEDS: ASPIRIN 81 MG ECTAB PO SCH (08:24)
[2024-03-27] MEDS: guaiFENesin SUGAR FREE 200 MG/10 ML UDC PO PRN (08:24)
[2024-03-27] MEDS: ENOXAPARIN INJ 40 MG/0.4 ML SYR SQ SCH (08:24)
[2024-03-27] MEDS: CALCIUM 600MG + VIT D 400 IU TAB PO SCH (08:24)
[2024-03-27] MEDS: ATORVASTATIN 20 MG TAB PO SCH (08:24)
[2024-03-27] MEDS ORDERED: NON-FORMULARY MEDICATION (Glucosamine-Chondroit-Vit C-Mn 500-400 mg Capsule) PO SCH (09:00)
--- NOTE | 2024-03-27 09:10 | Nephrology Consultation ---
Date of Consultation March 27, 2024 Assessment & Plan (1) Chronic hyponatremia: chronic mild hyponatremia w/ OP sNa generally 131-134 over past year. his hyponatremia will be a challenging patient to manage b/c of competing contributory factors such as pulmonary HTN/R HF, structural lung dz, and his relative dehydration on presentation (as evidenced by decrease in all 3 cell lines on CBC from yesterday to today w/ hydration). he presented 03/26 at 1930 w/ sNa 126, down to 124 on recheck 0600. urine studies remain uncollected which also complicates/limits diagnosis. That said, the covid infection has likely exacerbated his chronic lung pathologies, contributing to worsened hyponatremia. sodium worsened w/ hydration so doubt big role for dehydration here, though worsening could also be d/t NSAID administration. Goal sNa for 03/28 AM is no more than sNa 130. >reordered urine testing >> urine sodium, chloride both low and urine osms high; serum osms 274; urine studies could be c/w heart failure versus mild dehydration >will lift fluid limit for now since he had very little po intake prior to admission -will check orthostatic VS >> these are positive but no sx and BP elevated both standing/lying down -continue q6h BMP -avoid further NSAIDS which can worsen his hyponatremia -no further fluids at this time IV -OP spironolactone, furosemide on hold currently >> low threshold to resume lasix 40 mg daily if he does not respond to saline; note that spironolactone can also worsen hyponatremia Currently / late this PM sNa is down to 123; will resume /trial lasix as well as fluid limit and follow results >> lasix 20 mg IV now; resume FR; standing lasix ordered for am as well bid 17 20 mg IV; started him on standing K 10 mEq bid > may need more plan regarding resumption of diuretics, putting FR in place, following labs reviewed w/ Dr Carreno; we are in agreement. (2) HTN (hypertension): BP has been well maintained -continue amlodipine, lisinopril -continue heart healthy diet -low threshold to resume lasix as above History of Present Illness Reason for Consultation: hyponatremia Requesting Physician: Dr Barnard Attending Physician: Milka Carreno MD History of Present Illness 79 y/o M whom I'm asked to see for hyponatremia was admitted overnight for same in the setting of Covid. He had started paxlovid on 03/24 after a positive covid test w/ a few days of fever, severe sore throat, and heavy cough. PMH includes significant pulmonary HTN w/ RV and biatrial enlargement w/ mild diastolic HF, chronic R internal carotid artery occlusion, sinus bradycardia, hospitalization for syncope spring 2023 (vasovagal v hypotension), chronic mild hyponatremia w/ OP sNa running usually 131-134 in EPIC over the past year, history of neuromuscular respiratory weakness, mild persistent asthma and reformed cigarette smoker, hypertension, osteoarthritis, chronic edema, history of stroke, hyperlipidemia. His presenting sodium was 126, down to 124 today. serum osms were 271; no urine studies posted so far. Currently on RA on 1.5L FR. PO intake has been poor including per only 4 oz daily fluid intake each of 2 days [employer] mostly b/c simply no appetite; he denies dyspnea but c/o a frequent wet cough that he attributes to post nasal drip. no WHYTE, palpitations, or presyncopal symptoms; no n/v/d; denies fever or weakness. Last evening he had 2 doses of ketorolac, a liter of LR and was started on NS at 50 mL hourly. urine studies were ordered but pt did not void until after midday today. I saw and evaluated him late AM. Allergies Allergy/AdvReac Type Severity Reaction Status Date / Time acetaminophen [From Percocet] AdvReac Rash Verified 10/30/23 17:26 oxycodone [From Percocet] AdvReac Rash Verified 10/30/23 17:26 phenytoin [From Dilantin] AdvReac syncope Verified 10/30/23 17:26 Home Medications Medication Instructions Recorded Confirmed Type albuterol sulfate 90 mcg/actuation 2 puff inhalation Q4 PRN Sob,cough 10/10/23 03/26/24 History aerosol inhaler or wheeze calcium carb-ergocalciferol (vit 1 tab PO QAM 10/10/23 03/26/24 History D2) 600 mg calcium-200 unit tablet fosinopril 40 mg tablet 40 mg PO DAILY 10/10/23 03/26/24 History loratadine 10 mg tablet 10 mg PO QAM 10/10/23 03/26/24 History omega 6-vmv-vnd-fish oil 1,000 mg 1 cap PO QAM 10/10/23 03/26/24 History (120 mg-180 mg) capsule (Fish Oil) pantoprazole 40 mg tablet,delayed 40 mg PO DAILY PRN Indigestion 10/10/23 03/26/24 History release spironolactone 25 mg tablet 25 mg PO QAM 10/10/23 03/26/24 History furosemide 40 mg tablet 40 mg PO DAILY 10/30/23 03/26/24 History aspirin 81 mg tablet,delayed 81 mg PO DAILY #30 tabs 11/01/23 03/26/24 Rx release (Adult Low Dose Aspirin) amlodipine 10 mg tablet 10 mg PO QPM 03/26/24 03/26/24 History ascorbic acid (vitamin C) 1,000 mg 1 g PO QAM 03/26/24 03/26/24 History tablet (Vitamin C) atorvastatin 20 mg tablet 20 mg PO QAM 03/26/24 03/26/24 History kobqefmhgbi-yphghjmlk-gzh C-Mn 500 1 cap PO QAM 03/26/24 03/26/24 History mg-400 mg capsule tsxsrdsdpmzf-kehopkca-fwnxxi 1 tab PO DAILY 03/26/24 03/26/24 History tablet (Multivitamin 50 Plus tablet) Patient History Medical History (Updated 03/27/24 @ 09:27 by Beatriz Barnes MD, PhD) Chronic hyponatremia Carotid occlusion, right Pulmonary hypertension HTN (hypertension) Surgical History Status post bilateral total hip replacement Family History Father Coronary heart disease Social History Smoking Status: Former smoker Hx Alcohol Use: No Hx Substance Use: No Preferred Language: Irish Communication Ability: Effective Panel Machine Setter Required: No Beliefs That Will Affect Care: None Current Living Situation: Spouse Feels Safe at Home: Yes Safety Concerns: Feels Safe At This Time Assistive Devices: Cane Review of Systems 2 Review of Systems: All systems reviewed & are unremarkable except as noted in HPI & below Physical Exam 2 Constitutional: well developed, well nourished and cooperative; no acute distress ENMT: Mouth: + dry oral mucous membranes Respiratory: normal respiratory effort and + cough (frequent thick/ nonproductive) Auscultation: + diminished lung sounds (jennifer L base) and + crackles (velcro R base); no wheezes Cardiovascular: Rate/Rhythm: regular rate and regular rhythm Extremities: + edema (trace BLE) Gastrointestinal (Abdomen): Inspection/Auscultation: normal bowel sounds P ercussion/Palpation: abdomen soft; abdomen nontender Musculoskeletal: Extremities: strength 5/5 throughout Skin: no rashes, warm and dry Neurologic: teresa, fluent speech, no tremor Results & Data Vital Signs (Past 12 Hours) Vital Signs Temp Pulse Pulse Pulse Resp BP Pulse Ox 03/27/24 07:28 36.4 C L 66 18 147/72 H 94 03/27/24 07:08 68 03/27/24 03:28 69 03/27/24 03:00 36.7 C 67 18 148/71 H 93 03/27/24 02:44 03/27/24 02:44 64 18 91 03/27/24 00:00 37 C 74 21 137/97 95 03/26/24 23:00 78 21 150/72 H 92 O2 Del Method 03/27/24 07:28 Room Air 03/27/24 07:08 03/27/24 03:28 03/27/24 03:00 Room Air 03/27/24 02:44 Room Air 03/27/24 02:44 Room Air 03/27/24 00:00 Room Air 03/26/24 23:00 Room Air Laboratory Results 03/27/24 05:53 03/27/24 05:53
[2024-03-27 11:33] LABS: BUN Creatinine Ratio 27.6 (10-20); Calcium 9.3 mg/dl (8.6-10.3); Creatinine Clr Calc Pharmacy 63.1 ml/min; Est GFR (African American) 95.8 ml/min; Est GFR (Non-African American) 82.7 ml/min; Potassium 4.3 mmol/L (3.5-5.1)
[2024-03-27 12:29] LABS: Appearance Urine Clear (Clear); Bacteria Urine Automated None Seen (None Seen); Bilirubin Urine Negative (Negative); Blood Urine Negative (Negative); Color Urine Yellow; Epithelial Cell Urine Auto 0-2 /hpf (0-2); Glucose Urine UA Negative (Negative); Ketones Urine Trace (Negative); Leukocyte Esterase Urine Negative (Negative); Nitrite Urine Negative (Negative); Protein Urine 1+ (Negative); RBC Urine Automated 0-2 /hpf (0-2); Specific Gravity Urine 1.017 (1.000-1.030); Urobilinogen Urine Negative (Negative); WBC Urine Automated 0-5 /hpf (0-5); pH Urine 5.5 (4.5-7.5)
[2024-03-27 12:39] LABS: Urine Chloride < 15 mmol/L; Urine Potassium 29.6 mmol/L; Urine Sodium 15 mmol/L
--- NOTE | 2024-03-27 13:48 | Electrocardiogram Report ---
Test Reason : Blood Pressure : */* mmHG Vent. Rate : 78 BPM Atrial Rate : 78 BPM P-R Int : 156 ms QRS Dur : 94 ms QT Int : 374 ms P-R-T Axes : 62 25 14 degrees QTcB Int : 426 ms Normal sinus rhythm Incomplete right bundle branch block T wave abnormality, consider anterior ischemia Abnormal ECG When compared with ECG of 31-Oct-2023 06:11, WI interval has decreased Vent. rate has increased by 28 bpm Confirmed by Tobias Fay ([id number]) on 03/27/2024 1:47:34 PM Referred By: REFERRED SELF Confirmed By: Tobias Fay
[2024-03-27] MEDS: COUGH DROP (SUGAR FREE) LOZ 24 LOZ/1 BOX BUCCAL STA (14:04)
[2024-03-27] MEDS: COUGH DROP (SUGAR FREE) LOZ 24 LOZ/1 BOX BUCCAL ONE (14:41)
--- NOTE | 2024-03-27 16:15 | Hospitalist Progress Note ---
Date of Service March 27, 2024 Assessment & Plan (1) Hyponatremia: Plan: Mr. Brady who is 79-year-old male with past medical history significant for chronic hyponatremia, hyperlipidemia, history of neuromuscular respiratory weakness, mild persistent asthma, chronic diastolic CHF, pulm hypertension, hypertension, mild mitral and aortic regurgitation, right carotid artery occlusion, left carotid artery stenosis, osteoarthritis, chronic edema, history of CVA, former smoker comes because of COVID and hyponatremia. Patient reports subjective improvement. Sodium at 125 #Acute on chronic Hyponatremia Sodium 126, down to 124 likely multifactorial Nephrology consult, reviewed recs -Goal sNa for 9 AM is no more than sNa 130. -reordered urine testing - No fluid limit for now 2/2 poor intake -continue q6h BMP -avoid further NSAIDS which can worsen his hyponatremia -discontinue IVF -Hold spironolactone, furosemide on hold currently #COVID Precaution remains on room air, no decadron or remdesivir indicated at this time #Chronic HFpEF hypovolemic-euvolemic Holding diuretics monitor volume, likely resume lasix at some point #Hypertension On amlodipine and fosinopril continue bp meds Resume lasix when able #Hyperlipidemia On statin # asthma Continue home inhalersexercise induced per patient #History of CVA On aspirin and statin #Right ICA occlusion and left ICA stenosis On aspirin and statin Follows with vascular surgery DVT prophylaxis Lovenox Disposition Med/telemetry Full code. Admission and Anticipated Discharge Date Admission Date: March 26, 2024 Subjective reports subjective improvement but with still a notable amount cough States appetite poor due to coughing fits denies fevers and notes mild improvement since admission Physical Exam Constitutional: WD/WN, vitals as above Respiratory: lungs clear, no wheezing, +cough Cardiovascular: RRR, no murmur, no edema Results & Data Results & Data Vital Signs (Past 12 Hours) Vital Signs Temp Pulse Pulse Resp BP Pulse Ox O2 Del Method 03/27/24 14:37 36.5 C 73 18 169/74 H 90 Room Air 03/27/24 14:34 69 03/27/24 11:35 36.6 C 76 18 143/71 H 92 Room Air 03/27/24 09:00 Room Air 03/27/24 07:28 36.4 C L 66 18 147/72 H 94 Room Air 03/27/24 07:08 68 Laboratory Results Short CBC 03/26/24 03/27/24 Range/Units 19:21 05:53 WBC 10.84 H 7.28 (4.8-10.8) K/ul Hgb 14.6 13.0 L (14.0-18.0) g/dl Hct 41.1 L 35.7 L (42.0-52.0) % Plt Count 182 164 (130-400) K/uL BMP 03/26/24 03/27/24 03/27/24 19:21 05:53 10:58 Sodium 126 L 124 L 125 L Potassium 4.2 4.2 4.3 Chloride 93 L 92 L 91 L Carbon Dioxide 23 24 25 BUN 24 H 24 H 24 H Creatinine 0.99 0.79 0.87 Glucose 117 H 183 H 153 H Calcium 9.3 8.7 9.3 Liver Function 03/26/24 Range/Units 19:21 Total Bilirubin 0.8 (0.2-1.0) mg/dl AST 43 H (13-39) U/L ALT 18 (7-52) U/L Alkaline Phosphatase 62 (34-104) U/L Albumin 4.5 (3.4-5.0) gm/dl Urine 03/27/24 Range/Units 10:19 Urine Color Yellow Urine Appearance Clear (Clear) Urine pH 5.5 (4.5-7.5) Ur Specific [place] 1.017 (1.000-1.030) Urine Protein 1+ H (Negative) Urine Glucose (UA) Negative (Negative) Medications Administered Home Medications Medication Instructions Recorded Confirmed Last Taken albuterol sulfate 90 mcg/actuation 2 puff inhalation Q4 PRN Sob,cough 10/10/23 03/26/24 Unknown aerosol inhaler or wheeze calcium carb-ergocalciferol (vit 1 tab PO QAM 10/10/23 03/26/24 Unknown D2) 600 mg calcium-200 unit tablet fosinopril 40 mg tablet 40 mg PO DAILY 10/10/23 03/26/24 10/30/23 loratadine 10 mg tablet 10 mg PO QAM 10/10/23 03/26/24 10/30/23 omega 2-qch-bgu-fish oil 1,000 mg 1 cap PO QAM 10/10/23 03/26/24 10/30/23 (120 mg-180 mg) capsule (Fish Oil) pantoprazole 40 mg tablet,delayed 40 mg PO DAILY PRN Indigestion 10/10/23 03/26/24 Unknown release spironolactone 25 mg tablet 25 mg PO QAM 10/10/23 03/26/24 10/30/23 furosemide 40 mg tablet 40 mg PO DAILY 10/30/23 03/26/24 10/29/23 aspirin 81 mg tablet,delayed 81 mg PO DAILY #30 tabs 11/01/23 03/26/24 Unknown release (Adult Low Dose Aspirin) amlodipine 10 mg tablet 10 mg PO QPM 03/26/24 03/26/24 Unknown ascorbic acid (vitamin C) 1,000 mg 1 g PO QAM 03/26/24 03/26/24 Unknown tablet (Vitamin C) atorvastatin 20 mg tablet 20 mg PO QAM 03/26/24 03/26/24 Unknown klkyzclutki-monoynjpb-bqh C-Mn 500 1 cap PO QAM 03/26/24 03/26/24 Unknown mg-400 mg capsule ugrzpeoqshsr-ujjftefg-mbznrt 1 tab PO DAILY 03/26/24 03/26/24 Unknown tablet (Multivitamin 50 Plus tablet) Active Medications Generic Name Dose Route Start Last Admin Trade Name Freq PRN Reason Stop Dose Admin Albuterol 3 ml 03/27/24 02:06 03/27/24 02:43 Albut/Ipratrop 3mg/0.5mg Neb 3 Ml Vial NEB 04/26/24 02:05 3 ml Q6R PRN Administration Shortness Of Breath Or Wheezing Protocol Ascorbic Acid 1,000 mg 03/27/24 09:00 03/27/24 08:23 Ascorbic Acid 500 Mg Tab PO 04/26/24 08:59 1,000 mg QAM JENNIFER Administration Aspirin 81 mg 03/27/24 09:00 03/27/24 08:24 Aspirin 81 Mg Ectab PO 04/26/24 08:59 81 mg DAILY JENNIFER Administration Atorvastatin Calcium 20 mg 03/27/24 09:00 03/27/24 08:24 Atorvastatin 20 Mg Tab PO 04/26/24 08:59 20 mg QAM JENNIFER Administration Benzonatate 100 mg 03/27/24 09:00 03/27/24 14:03 Benzonatate 100 Mg Capsule PO 04/26/24 08:59 100 mg TID JENNIFER Administration Calcium/Vitamin D 1 tab 03/27/24 09:00 03/27/24 08:24 Calcium 600mg + Vit D 400 Iu Tab PO 04/26/24 08:59 1 tab QAM JENNIFER Administration Enoxaparin Sodium 40 mg 03/27/24 09:00 03/27/24 08:24 Enoxaparin Inj 40 Mg/0.4 Ml Syr SQ 04/26/24 08:59 40 mg Q24H JENNIFER Administration Guaifenesin 200 mg 03/27/24 00:11 03/27/24 13:44 Guaifenesin Sugar Free 200 Mg/10 Ml Udc PO 04/26/24 00:10 200 mg Q6H PRN Administration Cough Lisinopril 40 mg 03/27/24 09:00 03/27/24 08:23 Lisinopril 40 Mg Tab PO 04/26/24 08:59 40 mg DAILY JENNIFER Administration Loratadine 10 mg 03/27/24 09:00 03/27/24 08:23 Loratadine 10 Mg Tab PO 04/26/24 08:59 10 mg QAM JENNIFER Administration Multivitamins/Minerals 1 tab 03/27/24 09:00 03/27/24 08:23 Cerovite Adv Formula Tab PO 04/26/24 08:59 1 tab DAILY JENNIFER Administration Pantoprazole Sodium 40 mg 03/27/24 00:11 03/27/24 08:23 Pantoprazole 40 Mg Tab PO 04/26/24 00:10 40 mg DAILY PRN Administration Indigestion
[2024-03-27 17:11] LABS: BUN Creatinine Ratio 30.4 (10-20); Calcium 9.1 mg/dl (8.6-10.3); Creatinine Clr Calc Pharmacy 69.5 ml/min; Est GFR (African American) 99.7 ml/min; Potassium 4.4 mmol/L (3.5-5.1)
[2024-03-27] MEDS: FUROSEMIDE INJ 20 MG/2 ML VIAL IV ONE (18:44)
[2024-03-27] MEDS: guaiFENesin 600 MG TABCR PO SCH (19:48)
[2024-03-27] MEDS: amLODIPine BESYLATE 5 MG TAB PO SCH (19:52)
[2024-03-27] MEDS: POTASSIUM CHLORIDE 10 MEQ TABCR PO SCH (20:08)
[2024-03-28 00:03] LABS: BUN Creatinine Ratio 28.9 (10-20); Calcium 9.3 mg/dl (8.6-10.3); Est GFR (African American) 94.5 ml/min; Est GFR (Non-African American) 81.5 ml/min; Potassium 5.4 mmol/L (3.5-5.1)
[2024-03-28 08:40] LABS: Hematocrit (blood only) 37.8 % (42.0-52.0); Hemoglobin 13.8 g/dl (14.0-18.0); Mean Corpuscular Hemoglobin 32.2 pg (25.0-34.0); Mean Corpuscular Hgb Conc 36.5 g/dL (32.0-36.0); Mean Corpuscular Volume 88.1 fL (80.0-100.0); Mean Platelet Volume 9.8 fL (9.4-12.4); Platelet Count 180 K/uL (130-400); RDW Coefficient of Variation 12.8 % (11.5-14.5); RDW Standard Deviation 41.4 fL (36.4-46.3); Red Blood Count 4.29 M/uL (4.70-6.10); White Blood Count 13.05 K/ul (4.8-10.8)
[2024-03-28] MEDS: FUROSEMIDE INJ 20 MG/2 ML VIAL IV SCH (08:44)
[2024-03-28 08:59] LABS: Calcium 9.5 mg/dl (8.6-10.3); Creatinine Clr Calc Pharmacy 62.4 ml/min; Est GFR (African American) 95.4 ml/min; Est GFR (Non-African American) 82.3 ml/min; Magnesium 2.1 mg/dl (1.7-2.4); Phosphorus 3.6 mg/dl (2.5-4.9); Potassium 4.8 mmol/L (3.5-5.1)
--- NOTE | 2024-03-28 13:25 | Hospitalist Progress Note ---
Date of Service March 28, 2024 Assessment & Plan (1) Hyponatremia: Plan: Mr. Brady who is 79-year-old male with past medical history significant for chronic hyponatremia, hyperlipidemia, history of neuromuscular respiratory weakness, mild persistent asthma, chronic diastolic CHF, pulm hypertension, hypertension, mild mitral and aortic regurgitation, right carotid artery occlusion, left carotid artery stenosis, osteoarthritis, chronic edema, history of CVA, former smoker comes because of COVID and hyponatremia. Patient not requiring oxygen therefore no steroids or remdesivir initiated. Patient reports subjective improvement overall, with reduction in cough and general fatigue. Sodium uptrending with initiation of IV lasix last evening by Nephrology. Will continue to finalize plan. Once po lasix is resumed, patient likely to d/c to home in 1-2 days. #Acute on chronic Hyponatremia Sodium 126, down to 124 likely multifactorial Nephrology consult, reviewed recs -Goal sNa for 03/28 AM is no more than sNa 130. -Patient started on lasix IV 20mg BID given downtrend after more liberal fluid intake -FR implemented at 1500 -Will repeated BMP at 1500 -avoid further NSAIDS which can worsen his hyponatremia -Hold po spironolactone, furosemide on hold currently #Intermittent RUQ pain patient with intermittent RUQ discomfort Will order LFTs #COVID Precaution remains on room air, no decadron or remdesivir indicated at this time #Chronic HFpEF hypovolemic-euvolemic Holding diuretics monitor volume #Hypertension On amlodipine and fosinopril continue bp meds Resume po lasix when able #Hyperlipidemia On statin # asthma Continue home inhalersexercise induced per patient #History of CVA On aspirin and statin #Right ICA occlusion and left ICA stenosis On aspirin and statin Follows with vascular surgery DVT prophylaxis Lovenox Disposition Med/telemetry Full code. Admission and Anticipated Discharge Date Admission Date: March 26, 2024 Subjective NAEO Reports continued improvement States cough has improved in intensity and frequency and appetite is improved this morning as well Denies fevers chills chest pain or other acute concerns Sodium uptrending 129 this am No o2 requirement overnight Physical Exam Constitutional: WD/WN, vitals as above Respiratory: normal respiratory effort, lungs clear to auscultation Cardiovascular: RRR, no murmur, no edema Results & Data Results & Data Vital Signs (Past 12 Hours) Vital Signs Temp Pulse Pulse Resp BP Pulse Ox O2 Del Method 03/28/24 11:15 36.6 C 64 16 132/64 92 Room Air 03/28/24 07:56 36.6 C 61 20 136/72 92 Room Air 03/28/24 07:45 Room Air 03/28/24 07:13 51 L 03/28/24 02:55 36.6 C 67 22 115/64 95 Room Air Laboratory Results Short CBC 03/28/24 Range/Units 08:05 WBC 13.05 H (4.8-10.8) K/ul Hgb 13.8 L (14.0-18.0) g/dl Hct 37.8 L (42.0-52.0) % Plt Count 180 (130-400) K/uL BMP 03/27/24 03/27/24 03/28/24 16:46 23:24 08:05 Sodium 123 L 127 L 129 L Potassium 4.4 5.4 H D 4.8 Chloride 92 L 93 L 94 L Carbon Dioxide 25 29 28 BUN 24 H 26 H 29 H Creatinine 0.79 0.90 0.88 Glucose 142 H 139 H 130 H Calcium 9.1 9.3 9.5 Medications Administered Home Medications Medication Instructions Recorded Confirmed Last Taken albuterol sulfate 90 mcg/actuation 2 puff inhalation Q4 PRN Sob,cough 10/10/23 03/26/24 Unknown aerosol inhaler or wheeze calcium carb-ergocalciferol (vit 1 tab PO QAM 10/10/23 03/26/24 Unknown D2) 600 mg calcium-200 unit tablet fosinopril 40 mg tablet 40 mg PO DAILY 10/10/23 03/26/24 10/30/23 loratadine 10 mg tablet 10 mg PO QAM 10/10/23 03/26/24 10/30/23 omega 1-geq-aot-fish oil 1,000 mg 1 cap PO QAM 10/10/23 03/26/24 10/30/23 (120 mg-180 mg) capsule (Fish Oil) pantoprazole 40 mg tablet,delayed 40 mg PO DAILY PRN Indigestion 10/10/23 03/26/24 Unknown release spironolactone 25 mg tablet 25 mg PO QAM 10/10/23 03/26/24 10/30/23 furosemide 40 mg tablet 40 mg PO DAILY 10/30/23 03/26/24 10/29/23 aspirin 81 mg tablet,delayed 81 mg PO DAILY #30 tabs 11/01/23 03/26/24 Unknown release (Adult Low Dose Aspirin) amlodipine 10 mg tablet 10 mg PO QPM 03/26/24 03/26/24 Unknown ascorbic acid (vitamin C) 1,000 mg 1 g PO QAM 03/26/24 03/26/24 Unknown tablet (Vitamin C) atorvastatin 20 mg tablet 20 mg PO QAM 03/26/24 03/26/24 Unknown gmjkdiundxf-jyzsvtgxo-jmg C-Mn 500 1 cap PO QAM 03/26/24 03/26/24 Unknown mg-400 mg capsule cuyfoznlnkhn-wujknmcm-wniwgp 1 tab PO DAILY 03/26/24 03/26/24 Unknown tablet (Multivitamin 50 Plus tablet) Active Medications Generic Name Dose Route Start Last Admin Trade Name Freq PRN Reason Stop Dose Admin Albuterol 3 ml 03/27/24 02:06 03/27/24 02:43 Albut/Ipratrop 3mg/0.5mg Neb 3 Ml Vial NEB 04/26/24 02:05 3 ml Q6R PRN Administration Shortness Of Breath Or Wheezing Protocol Amlodipine Besylate 10 mg 03/27/24 21:00 03/27/24 19:52 Amlodipine Besylate 5 Mg Tab PO 04/26/24 20:59 10 mg QPM JENNIFER Administration Ascorbic Acid 1,000 mg 03/27/24 09:00 03/28/24 08:38 Ascorbic Acid 500 Mg Tab PO 04/26/24 08:59 1,000 mg QAM JENNIFER Administration Aspirin 81 mg 03/27/24 09:00 03/28/24 08:38 Aspirin 81 Mg Ectab PO 04/26/24 08:59 81 mg DAILY JENNIFER Administration Atorvastatin Calcium 20 mg 03/27/24 09:00 03/28/24 08:38 Atorvastatin 20 Mg Tab PO 04/26/24 08:59 20 mg QAM JENNIFER Administration Benzonatate 100 mg 03/27/24 09:00 03/28/24 08:38 Benzonatate 100 Mg Capsule PO 04/26/24 08:59 100 mg TID JENNIFER Administration Calcium/Vitamin D 1 tab 03/27/24 09:00 03/28/24 08:39 Calcium 600mg + Vit D 400 Iu Tab PO 04/26/24 08:59 1 tab QAM JENNIFER Administration Enoxaparin Sodium 40 mg 03/27/24 09:00 03/28/24 08:39 Enoxaparin Inj 40 Mg/0.4 Ml Syr SQ 04/26/24 08:59 40 mg Q24H JENNIFER Administration Furosemide 20 mg 03/28/24 09:00 03/28/24 08:44 Furosemide Inj 20 Mg/2 Ml Vial IV 04/27/24 08:59 20 mg [id number] JENNIFER Administration Guaifenesin 200 mg 03/27/24 00:11 03/28/24 08:38 Guaifenesin Sugar Free 200 Mg/10 Ml Udc PO 04/26/24 00:10 200 mg Q6H PRN Administration Cough Guaifenesin 600 mg 03/27/24 21:00 03/28/24 08:42 Guaifenesin 600 Mg Tabcr PO 04/26/24 20:59 600 mg Q12 JENNIFER Administration Lisinopril 40 mg 03/27/24 09:00 03/28/24 08:38 Lisinopril 40 Mg Tab PO 04/26/24 08:59 40 mg DAILY JENNIFER Administration Loratadine 10 mg 03/27/24 09:00 03/28/24 08:38 Loratadine 10 Mg Tab PO 04/26/24 08:59 10 mg QAM JENNIFER Administration Multivitamins/Minerals 1 tab 03/27/24 09:00 03/28/24 08:38 Cerovite Adv Formula Tab PO 04/26/24 08:59 1 tab DAILY JENNIFER Administration Pantoprazole Sodium 40 mg 03/27/24 00:11 03/28/24 08:38 Pantoprazole 40 Mg Tab PO 04/26/24 00:10 40 mg DAILY PRN Administration Indigestion Potassium Chloride 10 meq 03/27/24 21:00 03/28/24 08:44 Potassium Chloride 10 Meq Tabcr PO 04/26/24 20:59 10 meq BID JENNIFER Administration
[2024-03-28 17:05] LABS: Albumin Globulin Ratio 1.3 (0.9-2); BUN Creatinine Ratio 36.2 (10-20); Bilirubin,Total 0.5 mg/dl (0.2-1.0); Calcium 9.3 mg/dl (8.6-10.3); Creatinine Clr Calc Pharmacy 47.4 ml/min; Est GFR (African American) 69.5 ml/min; Globulin 3.1 gm/dl (2.5-4.0); Potassium 4.8 mmol/L (3.5-5.1); Total Protein 7.1 gm/dl (6.0-8.3)
[2024-03-29 03:35] VITALS: RESP 18
[2024-03-29 08:06] LABS: Hematocrit (blood only) 36.9 % (42.0-52.0); Hemoglobin 13.5 g/dl (14.0-18.0); Mean Corpuscular Hemoglobin 32.3 pg (25.0-34.0); Mean Corpuscular Hgb Conc 36.6 g/dL (32.0-36.0); Mean Corpuscular Volume 88.3 fL (80.0-100.0); Mean Platelet Volume 9.7 fL (9.4-12.4); Platelet Count 175 K/uL (130-400); RDW Coefficient of Variation 12.8 % (11.5-14.5); RDW Standard Deviation 41.5 fL (36.4-46.3); Red Blood Count 4.18 M/uL (4.70-6.10); White Blood Count 10.16 K/ul (4.8-10.8)
[2024-03-29 08:38] LABS: BUN Creatinine Ratio 48.2 (10-20); Creatinine Clr Calc Pharmacy 66.2 ml/min; Est GFR (African American) 97.7 ml/min; Est GFR (Non-African American) 84.3 ml/min; Phosphorus 2.5 mg/dl (2.5-4.9); Potassium 4.3 mmol/L (3.5-5.1)
--- NOTE | 2024-03-29 10:05 | Nephrology Progress Note ---
Date of Service March 29, 2024 Assessment & Plan (1) Chronic hyponatremia: Plan: chronic mild hyponatremia w/ OP sNa generally 131-134 over past year. his hyponatremia will be a challenging patient to manage b/c of competing contributory factors such as pulmonary HTN/R HF, structural lung dz. 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 Na 132 today -Patient can be discharged today on Lasix 40 mg daily and potassium chloride 20 meq daily -FR 1.2 litres daily (2) HTN (hypertension): Plan: BP has been well maintained -continue amlodipine, lisinopril -continue heart healthy diet -low threshold to resume lasix as above Admission and Anticipated Discharge Date Admission Date: March 26, 2024 Subjective Seen for hyponatremia. He feels better today. No shortness of breath but has a mild cough. No leg swelling. Sodium uptrending to 132 Review of Systems 2 Review of Systems: All other systems were reviewed and negative except as noted in HPI Physical Exam 2 Physical Exam: General exam: Appears comfortable, no acute distress HEENT: Pupils are equal and reactive to light Neck: No JVD, neck is supple trachea is midline Respiratory system: Clear breath sounds bilaterally. Gastrointestinal: Abdomen is soft, non distended, non tender, bowel sounds are present CVS: Regular rate and rhythm. No murmurs, rubs or gallops Musculoskeletal: No joint or muscle tenderness Extremities: Non tender, no edema, peripheral pulses are present Neuro: Oriented, no tremors, no focal neurological deficits Skin: No rashes Results & Data Vital Signs (Past 12 Hours) Vital Signs Temp Pulse Pulse Resp BP Pulse Ox O2 Del Method 03/29/24 07:42 36.6 C 65 18 116/62 96 Room Air 03/29/24 07:28 Room Air 03/29/24 03:34 36.4 C L 57 L 18 131/66 97 Room Air 03/29/24 01:01 65 03/29/24 00:19 36.4 C L 58 L 16 116/67 94 Room Air 03/28/24 22:58 Room Air 03/28/24 22:09 36.4 C L 58 L 18 144/71 H 95 Room Air Laboratory Results 03/29/24 07:36 03/28/24 03/29/24 16:05 07:36 WBC 10.16 RBC 4.18 L MCV 88.3 MCH 32.3 MCHC 36.6 H RDW Std Deviation 41.5 RDW Coeff of Lorrie 12.8 Plt Count 175 MPV 9.7 Phosphorus 2.5 D Albumin 4.0
[2024-03-29] MEDS: FUROSEMIDE 40 MG TAB PO SCH (10:45)
[2024-03-29] MEDS: guaiFENesin/DEXTROM SYRUP 200MG/20MG 10ML UDC PO STA (10:45)
[2024-03-29 11:20] VITALS: BP 106/58; TEMP 97.7; O2SAT 94
[2024-03-29 14:06] VITALS: PULSE 64
--- NOTE | 2024-03-29 14:18 | Discharge Summary ---
Discharge Summary Date of Service March 29, 2024 Principal Dx & Hospital Course #1 = Principal Diagnosis (1) Hyponatremia: Mr. Brady who is 79-year-old male with past medical history significant for chronic hyponatremia, hyperlipidemia, history of neuromuscular respiratory weakness, mild persistent asthma, chronic diastolic CHF, pulm hypertension, hypertension, mild mitral and aortic regurgitation, right carotid artery occlusion, left carotid artery stenosis, osteoarthritis, chronic edema, history of CVA, former smoker comes because of COVID and hyponatremia. Patient not requiring oxygen therefore no steroids or remdesivir initiated. Patient reports subjective improvement overall, with reduction in cough and general fatigue. Patient with quite productive cough and borderline procal therefore short course augmentin initiated given sinus concerns as well. Patient's sodium at 132 on discharge. Discussed fluid restriction with patient of 1.2 to 1.5L and discussed the discontinuation of spironolatone. On day of discharge, patient afebrile, still with cough however no oxygen requirement or SOB. Patient verbalized understanding. at bedside. #Acute on chronic Hyponatremia down to 124 likely multifactorial pulmonary HTN/R HF, structural lung dz. Nephrology consult, reviewed recs -sodium on D/C 132 -Patient started on lasix IV 20mg BID with notable improvement -Encourage 1.2-1.5L FR -Resume home Lasix -Start Potassium 20meq daily -Stop spironolactone -avoid further NSAIDS which can worsen his hyponatremia #Intermittent RUQ pain patient with intermittent RUQ discomfort LFTs stable; patient reports concern that first cousin diagnosed with pancreatic cancer, discussed that there are minimal screenings approved for pancreatic cancer and recommended close follow up with PCP #COVID #Acute sinusitis/superimposed bacterial pneumonia remains on room air, no decadron or remdesivir indicated at this time Patient with borderline procal and wet cough that is bother some -Noted improvement after initiation, will continued 7 day course Augmentin #Chronic HFpEF hypovolemic-euvolemic monitor volume #Hypertension On amlodipine and fosinopril continue bp meds #Hyperlipidemia On statin # asthma Continue home inhalersexercise induced per patient #History of CVA On aspirin and statin #Right ICA occlusion and left ICA stenosis On aspirin and statin Follows with vascular surgery Notes For Next Care Provider Medication Changes From Visit DISCONTINUED spironolactone Started Potassium 20meq Augmentin x 7 days sinusitis/superimposed bacterial pneumonia Admission HPI Per Admitting Provider 79-year-old male with past medical history significant for chronic hyponatremia, hyperlipidemia, history of neuromuscular respiratory weakness, mild persistent asthma, chronic diastolic CHF, pulm hypertension, hypertension, mild mitral and aortic regurgitation, right carotid artery occlusion, left carotid artery stenosis, osteoarthritis, chronic edema, history of CVA, former smoker comes because of COVID and hyponatremia. Patient having fevers, coughing a lot and severe sore throat for last 2- 3 days. Was positive for COVID and prescribed Paxlovid and started it on Saturday. Appetite has been down. Was concerned about dehydration. Denies any headache. No chest pain. States he feels short of breath. Having a lot of cough and ask for cough medication. Has some runny nose. No nausea. Currently no abdominal pain. Constipated. Resting comfortably and hemodynamically stable. Past medical history. As mentioned above. Past surgical history. Colonoscopy. Bilateral total hip replacement. Social history. . Quit smoking 1993. Smoked 0.8 packs a day for 27 years. Alcohol 2 standard drinks of alcohol per week. No drug use. Family history. Father had coronary disease. Mother had rheumatoid arthritis. Admission Exam Per Admitting Provider General- Not in distress. Head- atraumatic Eyes- PERRL ENT- oropharynx clear. erythema seen on lips Neck- supple, no JVD. Lungs- clear to auscultation no wheezing or crackles. Heart- regular rate and rhythm; no murmur, no gallop. Abdomen- normal bowel sounds, soft, nontender, no distension. Extremities-trace pretibial edema, no erythema seen. Neuro- alert, oriented PERRL, no facial palsy; no dysarthria; moves extremities. Discharge Exam Constitutional WD/WN, vitals as above Respiratory normal respiratory effort, lungs clear to auscultation Cardiovascular RRR, no murmur, no edema Updated Medication List Medication Instructions Recorded Confirmed Type albuterol sulfate 90 mcg/actuation 2 puff inhalation Q4 PRN Sob,cough 10/10/23 03/26/24 History aerosol inhaler or wheeze calcium carb-ergocalciferol (vit 1 tab PO QAM 10/10/23 03/26/24 History D2) 600 mg calcium-200 unit tablet fosinopril 40 mg tablet 40 mg PO DAILY 10/10/23 03/26/24 History loratadine 10 mg tablet 10 mg PO QAM 10/10/23 03/26/24 History omega 2-wvx-ytp-fish oil 1,000 mg 1 cap PO QAM 10/10/23 03/26/24 History (120 mg-180 mg) capsule (Fish Oil) pantoprazole 40 mg tablet,delayed 40 mg PO DAILY PRN Indigestion 10/10/23 03/26/24 History release furosemide 40 mg tablet 40 mg PO DAILY 10/30/23 03/26/24 History aspirin 81 mg tablet,delayed 81 mg PO DAILY #30 tabs 11/01/23 03/26/24 Rx release (Adult Low Dose Aspirin) amlodipine 10 mg tablet 10 mg PO QPM 03/26/24 03/26/24 History ascorbic acid (vitamin C) 1,000 mg 1 g PO QAM 03/26/24 03/26/24 History tablet (Vitamin C) atorvastatin 20 mg tablet 20 mg PO QAM 03/26/24 03/26/24 History mtxrowoongq-mjxvzjbjn-vhh C-Mn 500 1 cap PO QAM 03/26/24 03/26/24 History mg-400 mg capsule cbnxotjxvcjf-vckgutyr-kikbul 1 tab PO DAILY 03/26/24 03/26/24 History tablet (Multivitamin 50 Plus tablet) amoxicillin 875 mg-potassium 1 tab PO BIDM 7 days #13 tabs 03/29/24 Rx clavulanate 125 mg tablet potassium chloride 20 mEq 20 meq PO DAILY #30 tabs 03/29/24 Rx tablet,extended release Hospital Stay Data Consultations 03/26/24 21:11 ED Decision to Admit Stat 03/27/24 08:00 Consult Nephrology Routine Pending Results Patient Have Any Pending Studies at Discharge: No Discharge Instructions Given to Patient (Per Discharging Provider) You were admitted for severe cough and weakness. You were found to have COVID as well as acute on chronic hyponatremia. Your COVID symptoms improved with conservative management Your sodium improved with IV lasix and fluid restriction. You will be sent with a potassium supplement daily Please continue a 1.2L fluid restriction Please continue your home lasix 40mg Please discontinue spironolactone as this can worsen hyponatremia. Please resume all home medications otherwise as prescribed Protein shakes (boost/ensure) do not count towards your fluid restriction. Please continue Augmentin 875 two times daily, your next dose is this evening. Please continue until course completed.. Please call to make an appointment with your PCP and Nephrology for a post- hospitalization follow up Total Time Total Time Spent Total Time Spent (In Minutes): 45
[2024-03-29] MEDS ORDERED: AMOXICILLIN/CLAVULANATE 875 MG TAB PO SCH (17:00)
--- NOTE | 2024-04-01 07:17 | Coding Query ---
PRESENT ON ADMISSION QUERY To promote full compliance with coding requirements relating to pateint care, physician participation is requested in all cases of auto garage attendant uncertainty. Please assist us with the question(s) below: Please place an X within the parenthesis (x). The following diagnosis(es) listed in this patient's medical record require physician assistance to determine if they were present on admission (POA) or not. Please advise for each diagnosis whether it was present on admission, not present on admission, or if it was clinically undetermined. 1. Bacterial Pneumonia (documented on Discharge Summary) ( ) Present On Admission ( ) Not Present On Admission (x ) Clinically Undetermined 2. Acute Sinusitis (documented on Discharge Summary) ( ) Present On Admission ( ) Not Present On Admission (x ) Clinically Undetermined Thank you Barbara Miramontes *Definition of the present on admission (POA)-Present on admission is defined as present at the time the order for inpatient admission occurs. Conditions that develop during an outpatient encounter prior to a written order for inpatient admission (including emergency department, observation, or outpatient surgery) are considered present on admission. KIMBERLY
== END 2024-03-29 15:00 | disposition home or self-care (01) | DRG 177 ==
LOC: ED 18:35 → 2S 22:37